=== PATIENT | female | born 1940 | race Caucasian/White ===

== ENCOUNTER 2016-11-29 11:57 | Inpatient (IN) | payer MEDICARE, OTHER ==
[~2016-11-29] VITALS: Ht 160 cm; Wt 50.1 kg
[~2016-11-29 11:57] MED LIST: BUDE3CAP2 PO; CALC-250 PO; CHLO1CAP PO; CHOL-5 PO; DENO60DI SQ; DIPY75TA PO; EZET10TA3 PO; GLEEVEC400 MG PO; HYDR-2666 PO; IPRA4AER IH; NITR0.4T SL; PANT40TA5 PO; PARO20TA3 PO; SPIR25TA3 PO; TIOT18CA IH
[2016-11-29] MEDS ORDERED: IV NORMAL SALINE 1000ML BAG 1,000 ML IV ONE (12:45)
[2016-11-29 12:54] LABS: BILIRUBIN,URINE NEGATIVE (NEG); GLUCOSE,URINE NEGATIVE (NEG); NITRITE,URINE NEGATIVE (NEG); PROTEIN,URINE 30 mg/dL (NEG-TRACE); UROBILINOGEN,URINE 0.2 mg/dL (0.2 mg/dL)
[2016-11-29 13:03] LABS: RBC,URINE OCC /HPF (0-2)
[2016-11-29 13:04] LABS: BACTERIA,URINE FEW /HPF (0-FEW); SQUAMOUS EPITHELIAL CELL,UR FEW /LPF
[2016-11-29 13:14] LABS: BASO # 0.1 x10^3/uL (0.0-0.2); BASO % 1 % (0-3); EOS % 13 % (0-3); HEMATOCRIT 26.5 % (36.0-47.0); HEMOGLOBIN 8.9 g/dL (12.0-15.5); LYMPH # 2.2 x10^3/uL (1.0-4.8); LYMPH % 25 % (24-48); MEAN CORPUSCULAR HEMOGLOBIN 33 pg (25-35); MEAN CORPUSCULAR HGB CONC 34 g/dL (31-37); MEAN CORPUSCULAR VOLUME 99 fL (79-100); MONO % 10 % (0-9); NEUT % 51 % (31-73); PLATELET COUNT 239 x10^3/uL (140-400); RED BLOOD COUNT 2.69 x10^6/uL (3.50-5.40); RED CELL DISTRIBUTION WIDTH 16.5 % (11.5-14.5); WHITE BLOOD COUNT 8.6 x10^3/uL (4.0-11.0)
[2016-11-29 13:23] LABS: INR 1.2 (0.8-1.1); PROTHROMBIN TIME PATIENT 14.3 SEC (11.7-14.0)
--- NOTE | 2016-11-29 13:24 | RAD ---
Examination: Single frontal view chest. History: Productive cough Comparison: 05/08/2015 Findings: The cardiomediastinal silhouette grossly appears unremarkable. There is no acute infiltrate or visualized pneumothorax identified. Impression: No acute cardiopulmonary findings.
[2016-11-29 13:27] LABS: CALCIUM 9.3 mg/dL (8.5-10.1); CREATININE 3.1 mg/dL (0.6-1.0); GFR 14.6; POTASSIUM 3.7 mmol/L (3.5-5.1)
[2016-11-29 13:31] LABS: % BASOS 1 % (0-3); % EOS 15 % (0-5)
[2016-11-29 13:32] LABS: ANISOCYTOSIS SLIGHT; OVALOCYTES FEW; PLT ESTIMATE ADEQUATE (ADEQUATE); TARGET CELLS FEW
[2016-11-29 13:33] LABS: ALBUMIN 4.2 g/dL (3.4-5.0); ALBUMIN/GLOBULIN RATIO 1.4 (1.0-1.7); TOTAL BILIRUBIN 0.3 mg/dL (0.2-1.0); TOTAL PROTEIN 7.2 g/dL (6.4-8.2)
[2016-11-29] MEDS ORDERED: ONDANSETRON PF 4 MG/2 ML VIAL. IV PRN (14:30)
--- NOTE | 2016-11-29 15:15 | PHYS DOC ---
Past Medical History Past Medical History: Anxiety, COPD, GERD, DE, Renal Disease, Other Additional Past Medical Histor: COLOTLITIS, CM LUEKEMIA,Osteoporosis("No Sleep apnea"hx removed per pt) Past Surgical History: Cholecystectomy, Hysterectomy, Knee Replacement, Tonsillectomy, Other Additional Past Surgical Histo: CATARACT, CARDIAC STENT, BLADDER REPAIR, CARPAL TUNNEL x3. Alcohol Use: None Drug Use: None Adult General Chief Complaint Chief Complaint: WEAKNESS/GENERALIZED HPI HPI 76-year-old female with multiple medical problems including history of renal insufficiency presents with a one to 2 month history of progressive weakness. She states that her symptoms have become debilitating over the last several days. She denies any chest pain or shortness of breath. She denies any high fever chills or sweats. She states she has had a productive cough sometime in the last few weeks but this has improved. She denies any hemoptysis.] Review of Systems Review of Systems Constitutional: Denies fever or chills [] Eyes: Denies change in visual acuity, redness, or eye pain [] HENT: Denies nasal congestion or sore throat [] Respiratory: Per history of present illness [] Cardiovascular: No additional information not addressed in HPI [] GI: Denies abdominal pain, nausea, vomiting, bloody stools or diarrhea [] : Denies dysuria or hematuria [] Musculoskeletal: Denies back pain or joint pain [] Integument: Denies rash or skin lesions [] Neurologic: Denies headache, focal weakness or sensory changes [] Endocrine: Denies polyuria or polydipsia [] Current Medications Current Medications Current Medications Medications (Trade) Dose Ordered Sig/Nidhi Start Time Stop Time Status Last Admin Dose Admin Ondansetron HCl 4 mg 4 mg PRN Q8HRS PRN 11/29/16 14:30 11/30/16 14:29 Sodium Chloride (Iv Sodium Chloride 0.9% 1000ml Bag) 1,000 ml @ 125 mls/hr Q8H 11/29/16 14:26 11/30/16 14:25 Allergies Allergies Allergies Coded Allergies Type Severity Reaction Last Updated Verified NSAIDS (Non-Steroidal Anti-Inflamma Allergy Intermediate 05/08/15 No Tetanus Vaccines and Toxoid Allergy Intermediate 05/08/15 No Physical Exam Physical Exam Constitutional: Well developed, well nourished, no acute distress, non-toxic appearance. [] HENT: Normocephalic, atraumatic, bilateral external ears normal, oropharynx moist, no oral exudates, nose normal. [] Eyes: PERRLA, EOMI, conjunctiva normal, no discharge. [] Neck: Normal range of motion, no tenderness, supple, no stridor. [] Cardiovascular:Heart rate regular rhythm, no murmur [] Lungs & Thorax: Bilateral breath sounds clear to auscultation [] Abdomen: Bowel sounds normal, soft, no tenderness, no masses, no pulsatile masses. [] Skin: Warm, dry, no erythema, no rash. [] Back: No tenderness, no CVA tenderness. [] Extremities: No tenderness, no cyanosis, no clubbing, ROM intact, no edema. [] Neurologic: Alert and oriented X 3, normal motor function, normal sensory function, no focal deficits noted. [] Psychologic: Affect normal, judgement normal, mood normal. [] Current Patient Data Vital Signs Vital Signs Date Time Temp Pulse Resp B/P Pulse Ox O2 Delivery O2 Flow Rate FiO2 11/29/16 13:49 70 14 126/62 97 Room Air 11/29/16 12:15 98.1 98.1 Lab Values Laboratory Tests Test 11/29/16 12:17 11/29/16 13:00 Urine Collection Type Unknown Urine Color Yellow Urine Clarity Clear Urine pH 5.0 Urine Specific [place] 1.010 Urine Protein 30mg/dL (NEG-TRACE) Urine Glucose (UA) Negativemg/dL (NEG) Urine Ketones (Stick) Negativemg/dL (NEG) Urine Blood Negative (NEG) Urine Nitrite Negative (NEG) Urine Bilirubin Negative (NEG) Urine Urobilinogen Dipstick 0.2mg/dL (0.2 mg/dL) Urine Leukocyte Esterase Negative (NEG) Urine RBC Occ/HPF (0-2) Urine WBC 1-4/HPF (0-4) Urine Squamous Epithelial Cells Few/LPF Urine Renal Epithelial Cells Few/LPF Urine Bacteria Few/HPF (0-FEW) Urine Hyaline Casts Many/HPF Urine Mucus Mod/LPF White Blood Count 8.6x10^3/uL (4.0-11.0) Red Blood Count 2.69x10^6/uL (3.50-5.40) L Hemoglobin 8.9g/dL (12.0-15.5) L Hematocrit 26.5% (36.0-47.0) L Mean Corpuscular Volume 99fL (79-100) Mean Corpuscular Hemoglobin 33pg (25-35) Mean Corpuscular Hemoglobin Concent 34g/dL (31-37) Red Cell Distribution Width 16.5% (11.5-14.5) H Platelet Count 239x10^3/uL (140-400) Neutrophils (%) (Auto) 51% (31-73) Lymphocytes (%) (Auto) 25% (24-48) Monocytes (%) (Auto) 10% (0-9) H Eosinophils (%) (Auto) 13% (0-3) H Basophils (%) (Auto) 1% (0-3) Neutrophils # (Auto) 4.4x10^3uL (1.8-7.7) Lymphocytes # (Auto) 2.2x10^3/uL (1.0-4.8) Monocytes # (Auto) 0.8x10^3/uL (0.0-1.1) Eosinophils # (Auto) 1.1x10^3/uL (0.0-0.7) H Basophils # (Auto) 0.1x10^3/uL (0.0-0.2) Segmented Neutrophils % 56% (35-66) Band Neutrophils % 2% (0-9) Lymphocytes % 20% (24-48) L Monocytes % 6% (0-10) Eosinophils % 15% (0-5) H Basophils % 1% (0-3) Platelet Estimate Adequate (ADEQUATE) Anisocytosis Slight Macrocytosis Slight Target Cells Few Ovalocytes Few Prothrombin Time 14.3SEC (11.7-14.0) H Prothrombin Time INR 1.2 (0.8-1.1) H Sodium Level 136mmol/L (136-145) Potassium Level 3.7mmol/L (3.5-5.1) Chloride Level 102mmol/L (98-107) Carbon Dioxide Level 19mmol/L (21-32) L Anion Gap 15 (6-14) H Blood Urea Nitrogen 68mg/dL (7-20) H Creatinine 3.1mg/dL (0.6-1.0) H Estimated GFR (Cockcroft-Gault) 14.6 BUN/Creatinine Ratio 22 (6-20) H Glucose Level 107mg/dL (70-99) H Calcium Level 9.3mg/dL (8.5-10.1) Total Bilirubin 0.3mg/dL (0.2-1.0) Aspartate Amino Transferase (AST) 35U/L (15-37) Alanine Aminotransferase (ALT) 23U/L (14-59) Alkaline Phosphatase 57U/L (46-116) Troponin I Quantitative 0.064ng/mL (0.000-0.055) Total Protein 7.2g/dL (6.4-8.2) Albumin 4.2g/dL (3.4-5.0) Albumin/Globulin Ratio 1.4 (1.0-1.7) Laboratory Tests 11/29/16 13:00 Laboratory Tests 11/29/16 13:00 EKG EKG [EKG: Normal sinus rhythm nonspecific intraventricular block rate of [address]-T changes] Radiology/Procedures Radiology/Procedures [] Impressions: PROCEDURE: CHEST AP ONLY Examination: Single frontal view chest. History: Productive cough Comparison: 05/08/2015 Findings: The cardiomediastinal silhouette grossly appears unremarkable. There is no acute infiltrate or visualized pneumothorax identified. Impression: No acute cardiopulmonary findings. Course & Med Decision Making Course & Med Decision Making Pertinent Labs and Imaging studies reviewed. (See chart for details) [ED course: Evaluation reveals a 76-year-old chronically ill female who does appear weak. Her creatinine is 3.1 baseline creatinine for her appears to be about a 1.6. Given this degree of renal failure I explained to the patient I felt it was best for her to be admitted to the hospital. She was given IV fluids during her stay in the department. We will consult nephrology to help assist in the management of her care.] Dragon Disclaimer Dragon Disclaimer This electronic medical record was generated, in whole or in part, using a voice recognition dictation system. Departure Departure Impression: Primary Impression: Renal failure Additional Impressions: Elevated troponin Generalized weakness Disposition: ADMITTED INPATIENT Admitting Physician: Chet Acosta Condition: STABLE Referrals: VERA LLOYD MD (PCP) Problem Qualifiers JAMIN SPEARS DO Nov 29, 2016 15:15
--- NOTE | 2016-11-29 15:26 | EKG ---
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
[2016-11-29 16:29] VITALS: BP 134/63
[2016-11-29] MEDS ORDERED: FURO40TA4 PO (17:29)
[2016-11-29] MEDS: IV NORMAL SALINE 1000ML BAG 1,000 ML IV SCH (17:44)
[2016-11-29 19:30] VITALS: BP 98/50
[2016-11-29 22:35] VITALS: BP 85/51
--- NOTE | 2016-11-30 01:23 | ACF ---
Admission Forms Criteria RENAL FAILURE, ACUTE Clinical Indications for Admission to Inpatient Care ( Place 'X' for any and all applicable criteria): Admission is indicated for ALL (if I & II) or III of the following [A](2)(3)(4)( 5)(6)(7): [ ]I. Acute renal failure as indicated by ANY ONE of the following: [ ]a) A 3-fold rise in serum creatinine from baseline [ ]b) Serum creatinine greater than 4 mg/dL (354 micromoles/L) with an acute rise greater than 0.5 mg/dL (44.2 micromoles/L) [ ]c) Reduction of more than 75% in estimated glomerular filtration rate from baseline [ ]d) Estimated glomerular filtration rate less than 35 mL/min/1.73m2 (0.59mL/sec/1.73m2)in a child up to 18 years of age [ ]e) Anuria indicated by ALL of the following: [ ]i) Adequate volume status [ ]ii) Cessation of urine output indicated by ANY ONE of the following: [ ]1) Urine output less than 0.3 mL/kg/hr for 24 hours [ ]2) Anuria (urine output less than 0.1 mL/kg/ hr) for 12 hours [ ] II. Renal failure cannot be managed in an outpatient setting or observational care setting as indicating by ANY ONE of the following: [ ]a) Altered mental status that is severe or persistent [ ]b) Volume overload or Respiratory distress (eg, clinically significant pulmonary edema) that is severe or persistent [ ]c) Cardiac arrhythmias of immediate concern [ ]d) Hemodynamic instability [ ]e) Clinically significant electrolyte abnormality that requires inpatient care (eg, hyperkalemia with severe ECG findings)[B] [ ]f) Clinically significant metabolic abnormality (eg, acidosis) that is severe or persistent [ ]g) Acute treatment of renal failure (eg, renal replacement therapy) not feasible or appropriate in observational care setting [ ]h) Clinical situation too unstable or uncertain (eg, inadequate urine output, ongoing decline in renal function, etiology unclear) [ ]i) Necessary support and caregiver ability to comply with outpatient treatment cannot be arranged in observation care timeframe (eg, within 24 hours) [ ]j) Other significant finding or clinical condition judged not to be within scope of observation care [X]III.General contraindications and/or Inappropriate clinical situations for Observational Care in patients with Acute Renal Failure, when ANY ONE of the following is required: [X]a) Prediction of prolongation of LOS based on ANY ONE of the following may be considered as a contraindication for observational care 2, 3, 4, 5, 6, 7, 8 , 9, 10, 11 [X]i) Age > 65 yrs. [ ]ii) Patient arriving by ambulance [ ]iii) Patient with high acuity [ ]iv) Patient requiring vital sign monitoring [ ]v) Patient on IV medication [ ]b) Systolic blood pressures 180mmHg 3,12 [ ]c) Patient with altered mental status including delirium and other alteration of consciousness, (3) [ ]d) Patient whose discharge disposition will be to a correction home or rehabilitation home should not be managed in Emergency Department Observation Unit. CMS rule requires 3 days hospital stay before such placement.3,13 [ ]e) Patient with failure to thrive due to broad array of etiologies 3, 16,17 [ ]f) Inability to ambulate 3,14 Extended stay beyond goal length of stay may be needed for(13) [ ]a) Continuing uremic complications [ ]b) Care for comorbidities [ ]c) acute renal failure [ ]d) Need for dialysis The original [employer] content created by [employer] has been revised. The portions of the content which have been revised are identified through the use of italic text or in bold, and [facility] has neither reviewed nor approved the modified material. All other unmodified content is copyright [facility]. Please see references footnoted in the original [facility] edition 2016 Admission Criteria Met?: Yes BEN ASHER Nov 30, 2016 01:23
[2016-11-30] MEDS: IV NORMAL SALINE 1000ML BAG 1,000 ML IV SCH ×2 (01:25→09:56)
[2016-11-30 03:35] VITALS: BP 93/50
[2016-11-30 03:42] LABS: BASO # 0.1 x10^3/uL (0.0-0.2); BASO % 1 % (0-3); EOS % 20 % (0-3); HEMATOCRIT 24.9 % (36.0-47.0); HEMOGLOBIN 8.2 g/dL (12.0-15.5); LYMPH # 2.4 x10^3/uL (1.0-4.8); LYMPH % 29 % (24-48); MEAN CORPUSCULAR HEMOGLOBIN 33 pg (25-35); MEAN CORPUSCULAR HGB CONC 33 g/dL (31-37); MEAN CORPUSCULAR VOLUME 99 fL (79-100); MONO % 9 % (0-9); NEUT % 41 % (31-73); PLATELET COUNT 223 x10^3/uL (140-400); RED CELL DISTRIBUTION WIDTH 16.4 % (11.5-14.5); WHITE BLOOD COUNT 8.4 x10^3/uL (4.0-11.0)
[2016-11-30 04:19] LABS: ALBUMIN 3.5 g/dL (3.4-5.0); ALBUMIN/GLOBULIN RATIO 1.5 (1.0-1.7); CALCIUM 8.3 mg/dL (8.5-10.1); CREATININE 2.5 mg/dL (0.6-1.0); GFR 18.7; TOTAL BILIRUBIN 0.3 mg/dL (0.2-1.0); TOTAL PROTEIN 5.9 g/dL (6.4-8.2)
[2016-11-30 07:00] VITALS: BP 84/51
[2016-11-30] MEDS ORDERED: NITROGLYCERIN SUBLINGUAL 0.4 MG BOTTLE OF 25. SL PRN (08:45)
[2016-11-30] MEDS ORDERED: HYDROCODONE/APAP 5/325MG TABLET. PO PRN (08:45)
[2016-11-30] MEDS ORDERED: ALBUTEROL SULFATE 2.5 MG/3 ML NEBU. NEB PRN (09:00)
[2016-11-30] MEDS: BUDESONIDE 3 MG CAP.ER.24H. PO SCH ×2 (09:00→22:02)
[2016-11-30] MEDS ORDERED: EZETIMIBE 10 MG TABLET PO SCH (09:00)
--- NOTE | 2016-11-30 09:00 | PDOC1 ---
History and Physical Date of Admission Date of Admission DATE: 11/29/16 Identification/Chief Complaint Chief Complaint Weakness, vomiting, diarrhea Source Source: Patient History of Present Illness History of Present Illness Pt says that she has not been feeling good for a while, but symptoms continued to progress. Pt was having a lot of falls at home and did not feel safe to stay at home. She has been vomiting and has had diarrhea for the past 2 weeks. She had a sinus infection at the beginning of the year that was treated with antibiotics twice. 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 Past Medical History Cardiovascular: CAD, [place], Hyperlipidemia, Valve insufficiency (Mitral Regurgitation) Pulmonary: COPD GI: GERD Heme/Onc: Anemia NOS Hepatobiliary: No pertinent hx Psych: Anxiety, Depression Musculoskeletal: Osteoarthritis Rheumatologic: No pertinent hx Infectious disease: No pertinent hx ENT: No pertinent hx Renal/: Chronic renal insuff Endocrine: Diabetes Dermatology: No pertinent hx Past Surgical History Past Surgical History: Cataract Removal, Total knee replacement, Tonsillectomy , Hysterectomy, Other (Cardiac Stents, Bladder Repair, Carpal Tunnel Repair, Breast biopsy- Normal, Eye lift) Family History Family History: Cancer, Coronary Artery Disease, Diabetes Social History Smoke: <1 pack per day ALCOHOL: occassional Drugs: None Current Problem List Problem List Problems Medical Problems: (1) Elevated troponin Status: Acute (2) Generalized weakness Status: Acute (3) Renal failure Status: Acute Problems: Current Medications Current Medications Current Medications Sodium Chloride (Iv Sodium Chloride 0.9% 1000ml Bag) 1,000 ml @ 1,000 mls/hr 1X ONCE IV Last administered on 11/29/16 13:04; Start 11/29/16 at 12:45; Stop 11/29/16 at 13:44; Status DC Ondansetron HCl 4 mg 4 mg PRN Q8HRS PRN IV NAUSEA/VOMITING; Start 11/29/16 at 14 :30; Stop 11/30/16 at 14:29 Sodium Chloride (Iv Sodium Chloride 0.9% 1000ml Bag) 1,000 ml @ 125 mls/hr Q8H IV Last administered on 11/30/16 01:25; Start 11/29/16 at 14:26; Stop 11/30/16 at 14:25 Active Scripts Active Reported Furosemide 40 Mg Tablet 40 Mg PO DAILY Nitrostat (Nitroglycerin) 0.4 Mg Tab.subl 0.4 Mg SL PRN Q5MIN PRN Persantine (Dipyridamole) 75 Mg Tablet 75 Mg PO BID Prolia (Denosumab) 60 Mg/1 Ml Disp.syrin 60 Mg SQ Paroxetine Hcl 20 Mg Tablet 20 Mg PO DAILY Librax Capsule (Chlordiazepoxide/Clidinium Br) 1 Each Capsule 1 Each PO DAILY Calcium-Vitamin D Tablet (Calcium Carbonate/Vitamin D3) 1 Each Tablet 1 Each PO DAILY Vitamin D3 (Cholecalciferol (Vitamin D3)) 10,000 Unit Tablet 10,000 Unit PO Budesonide Ec (Budesonide) 3 Mg Capdr...er 6 Mg PO DAILY Hydrocodone-Apap 5-325 (Hydrocodone Bit/Acetaminophen) 1 Each Tablet 1 Tab PO PRN Q6HRS PRN Combivent Respimat Inhal (Ipratropium/Albuterol Sulfate) 4 Gm Aer.w.adap 1 Inh IH QID PRN Spiriva (Tiotropium [place]) 18 Mcg Cap.w.dev 2 Inh IH DAILY Gleevec (Imatinib Mesylate) 400 Mg Tablet 400 Mg PO DAILY Spironolactone 25 Mg Tablet 12.5 Mg PO DAILY Zetia (Ezetimibe) 10 Mg Tablet 10 Mg PO DAILY Allergies Allergies: Coded Allergies: NSAIDS (Non-Steroidal Anti-Inflamma (Unverified Allergy, Intermediate, 09/10) Tetanus Vaccines and Toxoid (Unverified Allergy, Intermediate, 05/08/15) ROS General: YES: Appetite, Fatigue, No: Chills, Night Sweats PSYCHOLOGICAL ROS: No: Anxiety, Depression Eyes: No Decreased vision, No Eye Pain HEENT: No: Nasal congestion, Sore Throat ALLERGY AND IMMUNOLOGY: No: Hives, Post Nasal Drip Hematological and Lymphatic: No: Bleeding Problems, Blood Clots Respiratory: No: Cough, Shortness of breath Cardiovascular: No Chest Pain, No Edema, No Palpitations Gastrointestinal: Yes Diarrhea, Yes Nausea, Yes Vomiting, No Abdominal Pain, No Constipation Genitourinary: No Dysuria, No Urgency Musculoskeletal: No Joint Pain, No Muscle Pain Neurological: Yes Weakness, No Impaired Coord/balance, No Numbness/Tingling Skin: No Rash, No Skin Lesion Changes Physical Exam General: Alert, Oriented X3, Cooperative, No acute distress, Other (cachetic) HEENT: Atraumatic, PERRLA, EOMI, Mucous membr. moist/pink Lungs: Clear to auscultation, Normal air movement Heart: RRR, no rubs, no gallops, no murmurs, other (distant heart tones) Abdomen: Normal bowel sounds, Soft, No tenderness, No hepatosplenomegaly, No masses Extremities: No clubbing, No cyanosis, No edema Skin: No rashes, No breakdown, No significant lesion Neuro: Normal speech, Normal tone, Cranial nerves 3-12 NL Psych/Mental Status: Mental status NL, Mood NL Vitals Vitals Vital Signs Date Time Temp Pulse Resp B/P Pulse Ox O2 Delivery O2 Flow Rate FiO2 11/30/16 07:00 98.0 77 18 84/51 97 Room Air 98.0 Labs Labs Laboratory Tests Test 11/29/16 12:17 11/29/16 13:00 11/29/16 20:40 11/30/16 02:43 Urine Collection Type Unknown Urine Color Yellow Urine Clarity Clear Urine pH 5.0 Urine Specific [place] 1.010 Urine Protein 30mg/dL (NEG-TRACE) Urine Glucose (UA) Negativemg/dL (NEG) Urine Ketones (Stick) Negativemg/dL (NEG) Urine Blood Negative (NEG) Urine Nitrite Negative (NEG) Urine Bilirubin Negative (NEG) Urine Urobilinogen Dipstick 0.2mg/dL (0.2 mg/dL) Urine Leukocyte Esterase Negative (NEG) Urine RBC Occ/HPF (0-2) Urine WBC 1-4/HPF (0-4) Urine Squamous Epithelial Cells Few/LPF Urine Renal Epithelial Cells Few/LPF Urine Bacteria Few/HPF (0-FEW) Urine Hyaline Casts Many/HPF Urine Mucus Mod/LPF White Blood Count 8.6x10^3/uL (4.0-11.0) 8.4x10^3/uL (4.0-11.0) Red Blood Count 2.69x10^6/uL (3.50-5.40) 2.50x10^6/uL (3.50-5.40) Hemoglobin 8.9g/dL (12.0-15.5) 8.2g/dL (12.0-15.5) Hematocrit 26.5% (36.0-47.0) 24.9% (36.0-47.0) Mean Corpuscular Volume 99fL (79-100) 99fL (79-100) Mean Corpuscular Hemoglobin 33pg (25-35) 33pg (25-35) Mean Corpuscular Hemoglobin Concent 34g/dL (31-37) 33g/dL (31-37) Red Cell Distribution Width 16.5% (11.5-14.5) 16.4% (11.5-14.5) Platelet Count 239x10^3/uL (140-400) 223x10^3/uL (140-400) Neutrophils (%) (Auto) 51% (31-73) 41% (31-73) Lymphocytes (%) (Auto) 25% (24-48) 29% (24-48) Monocytes (%) (Auto) 10% (0-9) 9% (0-9) Eosinophils (%) (Auto) 13% (0-3) 20% (0-3) Basophils (%) (Auto) 1% (0-3) 1% (0-3) Neutrophils # (Auto) 4.4x10^3uL (1.8-7.7) 3.5x10^3uL (1.8-7.7) Lymphocytes # (Auto) 2.2x10^3/uL (1.0-4.8) 2.4x10^3/uL (1.0-4.8) Monocytes # (Auto) 0.8x10^3/uL (0.0-1.1) 0.7x10^3/uL (0.0-1.1) Eosinophils # (Auto) 1.1x10^3/uL (0.0-0.7) 1.7x10^3/uL (0.0-0.7) Basophils # (Auto) 0.1x10^3/uL (0.0-0.2) 0.1x10^3/uL (0.0-0.2) Segmented Neutrophils % 56% (35-66) Band Neutrophils % 2% (0-9) Lymphocytes % 20% (24-48) Monocytes % 6% (0-10) Eosinophils % 15% (0-5) Basophils % 1% (0-3) Platelet Estimate Adequate (ADEQUATE) Anisocytosis Slight Macrocytosis Slight Target Cells Few Ovalocytes Few Prothrombin Time 14.3SEC (11.7-14.0) Prothromb Time International Ratio 1.2 (0.8-1.1) Sodium Level 136mmol/L (136-145) 141mmol/L (136-145) Potassium Level 3.7mmol/L (3.5-5.1) 4.0mmol/L (3.5-5.1) Chloride Level 102mmol/L (98-107) 108mmol/L (98-107) Carbon Dioxide Level 19mmol/L (21-32) 18mmol/L (21-32) Anion Gap 15 (6-14) 15 (6-14) Blood Urea Nitrogen 68mg/dL (7-20) 56mg/dL (7-20) Creatinine 3.1mg/dL (0.6-1.0) 2.5mg/dL (0.6-1.0) Estimated GFR (Cockcroft-Gault) 14.6 18.7 BUN/Creatinine Ratio 22 (6-20) 22 (6-20) Glucose Level 107mg/dL (70-99) 81mg/dL (70-99) Calcium Level 9.3mg/dL (8.5-10.1) 8.3mg/dL (8.5-10.1) Total Bilirubin 0.3mg/dL (0.2-1.0) 0.3mg/dL (0.2-1.0) Aspartate Amino Transf (AST/SGOT) 35U/L (15-37) 28U/L (15-37) Alanine Aminotransferase (ALT/SGPT) 23U/L (14-59) 20U/L (14-59) Alkaline Phosphatase 57U/L (46-116) 48U/L (46-116) Troponin I Quantitative 0.064ng/mL (0.000-0.055) 0.063ng/mL (0.000-0.055) 0.056ng/mL (0.000-0.055) Total Protein 7.2g/dL (6.4-8.2) 5.9g/dL (6.4-8.2) Albumin 4.2g/dL (3.4-5.0) 3.5g/dL (3.4-5.0) Albumin/Globulin Ratio 1.4 (1.0-1.7) 1.5 (1.0-1.7) Laboratory Tests Test 11/29/16 12:17 11/29/16 13:00 11/29/16 20:40 11/30/16 02:43 Urine Collection Type Unknown Urine Color Yellow Urine Clarity Clear Urine pH 5.0 Urine Specific [place] 1.010 Urine Protein 30mg/dL (NEG-TRACE) Urine Glucose (UA) Negativemg/dL (NEG) Urine Ketones (Stick) Negativemg/dL (NEG) Urine Blood Negative (NEG) Urine Nitrite Negative (NEG) Urine Bilirubin Negative (NEG) Urine Urobilinogen Dipstick 0.2mg/dL (0.2 mg/dL) Urine Leukocyte Esterase Negative (NEG) Urine RBC Occ/HPF (0-2) Urine WBC 1-4/HPF (0-4) Urine Squamous Epithelial Cells Few/LPF Urine Renal Epithelial Cells Few/LPF Urine Bacteria Few/HPF (0-FEW) Urine Hyaline Casts Many/HPF Urine Mucus Mod/LPF White Blood Count 8.6x10^3/uL (4.0-11.0) 8.4x10^3/uL (4.0-11.0) Red Blood Count 2.69x10^6/uL (3.50-5.40) 2.50x10^6/uL (3.50-5.40) Hemoglobin 8.9g/dL (12.0-15.5) 8.2g/dL (12.0-15.5) Hematocrit 26.5% (36.0-47.0) 24.9% (36.0-47.0) Mean Corpuscular Volume 99fL (79-100) 99fL (79-100) Mean Corpuscular Hemoglobin 33pg (25-35) 33pg (25-35) Mean Corpuscular Hemoglobin Concent 34g/dL (31-37) 33g/dL (31-37) Red Cell Distribution Width 16.5% (11.5-14.5) 16.4% (11.5-14.5) Platelet Count 239x10^3/uL (140-400) 223x10^3/uL (140-400) Neutrophils (%) (Auto) 51% (31-73) 41% (31-73) Lymphocytes (%) (Auto) 25% (24-48) 29% (24-48) Monocytes (%) (Auto) 10% (0-9) 9% (0-9) Eosinophils (%) (Auto) 13% (0-3) 20% (0-3) Basophils (%) (Auto) 1% (0-3) 1% (0-3) Neutrophils # (Auto) 4.4x10^3uL (1.8-7.7) 3.5x10^3uL (1.8-7.7) Lymphocytes # (Auto) 2.2x10^3/uL (1.0-4.8) 2.4x10^3/uL (1.0-4.8) Monocytes # (Auto) 0.8x10^3/uL (0.0-1.1) 0.7x10^3/uL (0.0-1.1) Eosinophils # (Auto) 1.1x10^3/uL (0.0-0.7) 1.7x10^3/uL (0.0-0.7) Basophils # (Auto) 0.1x10^3/uL (0.0-0.2) 0.1x10^3/uL (0.0-0.2) Segmented Neutrophils % 56% (35-66) Band Neutrophils % 2% (0-9) Lymphocytes % 20% (24-48) Monocytes % 6% (0-10) Eosinophils % 15% (0-5) Basophils % 1% (0-3) Platelet Estimate Adequate (ADEQUATE) Anisocytosis Slight Macrocytosis Slight Target Cells Few Ovalocytes Few Prothrombin Time 14.3SEC (11.7-14.0) Prothromb Time International Ratio 1.2 (0.8-1.1) Sodium Level 136mmol/L (136-145) 141mmol/L (136-145) Potassium Level 3.7mmol/L (3.5-5.1) 4.0mmol/L (3.5-5.1) Chloride Level 102mmol/L (98-107) 108mmol/L (98-107) Carbon Dioxide Level 19mmol/L (21-32) 18mmol/L (21-32) Anion Gap 15 (6-14) 15 (6-14) Blood Urea Nitrogen 68mg/dL (7-20) 56mg/dL (7-20) Creatinine 3.1mg/dL (0.6-1.0) 2.5mg/dL (0.6-1.0) Estimated GFR (Cockcroft-Gault) 14.6 18.7 BUN/Creatinine Ratio 22 (6-20) 22 (6-20) Glucose Level 107mg/dL (70-99) 81mg/dL (70-99) Calcium Level 9.3mg/dL (8.5-10.1) 8.3mg/dL (8.5-10.1) Total Bilirubin 0.3mg/dL (0.2-1.0) 0.3mg/dL (0.2-1.0) Aspartate Amino Transf (AST/SGOT) 35U/L (15-37) 28U/L (15-37) Alanine Aminotransferase (ALT/SGPT) 23U/L (14-59) 20U/L (14-59) Alkaline Phosphatase 57U/L (46-116) 48U/L (46-116) Troponin I Quantitative 0.064ng/mL (0.000-0.055) 0.063ng/mL (0.000-0.055) 0.056ng/mL (0.000-0.055) Total Protein 7.2g/dL (6.4-8.2) 5.9g/dL (6.4-8.2) Albumin 4.2g/dL (3.4-5.0) 3.5g/dL (3.4-5.0) Albumin/Globulin Ratio 1.4 (1.0-1.7) 1.5 (1.0-1.7) VTE Prophylaxis Ordered VTE Prophylaxis Devices: Yes VTE Pharmacological Prophylaxi: No Assessment/Plan Assessment/Plan Pt is a 76yo CF admitted for acute on chronic renal failure 1)Acute on CKD- pre-renal 2/2 dehydration. Pt's Cr has decreased from 3.1 to 2.5. Baseline appears to be around 1.6 2)Sepsis- pt is currently hypotensive. She has had diarrhea for 2 weeks. C diff is pending as are blood cultures. Pt has not had fever or chills. U/A appears to be equivocal but culture is pending. Pt currently receiving IVF hydration for hypotension. Will strongly consider starting abx after blood cultures have been drawn. 3)CML- will continue pt's Gleevec and Budesonide 4)COPD- stable. Will continue duonebs and albuterol and Spiriva 5)Mitral regurgitation- will continue pt's Dipyridamole 75mg BID 6)GERD- will continue pt's Sucralfate 7)HTN- pt currently hypotensive, will hold Lasix and Aldactone 8)HLD- will continue pt's Zetia 9)Depression- will continue pt's Paroxetine 40mg 10)Elevated troponin- pt asymptomatic. Could be elevated due to kidney failure. Hx of CAD. Cardiology has been consulted, repeat troponin pending. RIAZ STEVENS MD Nov 30, 2016 09:00
--- NOTE | 2016-11-30 09:34 | PDOC1 ---
History and Physical Date of Admission Date of Admission DATE: 11/30/16 TIME: 09:26 Past Medical History Cardiovascular: CAD, [place], Hyperlipidemia, Valve insufficiency (Mitral Regurgitation) Pulmonary: COPD GI: GERD Heme/Onc: Anemia NOS Hepatobiliary: No pertinent hx Psych: Anxiety, Depression Musculoskeletal: Osteoarthritis Rheumatologic: No pertinent hx Infectious disease: No pertinent hx ENT: No pertinent hx Renal/: Chronic renal insuff Endocrine: Diabetes Dermatology: No pertinent hx Past Surgical History Past Surgical History: Cataract Removal, Total knee replacement, Tonsillectomy , Hysterectomy, Other (Cardiac Stents, Bladder Repair, Carpal Tunnel Repair, Breast biopsy- Normal, Eye lift) Family History Family History: Cancer, Coronary Artery Disease, Diabetes Social History Smoke: <1 pack per day ALCOHOL: occassional Drugs: None Current Problem List Problem List Problems Medical Problems: (1) Elevated troponin Status: Acute (2) Generalized weakness Status: Acute (3) Renal failure Status: Acute Problems: Current Medications Current Medications Current Medications Sodium Chloride (Iv Sodium Chloride 0.9% 1000ml Bag) 1,000 ml @ 1,000 mls/hr 1X ONCE IV Last administered on 11/29/16 13:04; Start 11/29/16 at 12:45; Stop 11/29/16 at 13:44; Status DC Ondansetron HCl 4 mg 4 mg PRN Q8HRS PRN IV NAUSEA/VOMITING; Start 11/29/16 at 14 :30; Stop 11/30/16 at 14:29 Sodium Chloride (Iv Sodium Chloride 0.9% 1000ml Bag) 1,000 ml @ 125 mls/hr Q8H IV Last administered on 11/30/16 01:25; Start 11/29/16 at 14:26; Stop 11/30/16 at 14:25 Budesonide (Entocort) 6 mg BID PO ; Start 11/30/16 at 09:00 EZETIMIBE (Zetia) 10 mg DAILY PO ; Start 11/30/16 at 09:00 Acetaminophen/ Hydrocodone Bitart (Lortab 5/325) 1 tab PRN Q6HRS PRN PO PAIN MILD TO MOD; Start 11/30/16 at 08:45 Nitroglycerin (Nitrostat) 0.4 mg PRN Q5MIN PRN SL CHEST PAIN; Start 11/30/16 at 08:45 Paroxetine HCl (Paxil) 40 mg DAILY PO ; Start 11/30/16 at 09:00 Dipyridamole (Persantine) 75 mg BID PO ; Start 11/30/16 at 09:00 Non-Formulary Medication 400 mg DAILY PO ; Start 11/30/16 at 10:00 Albuterol/ Ipratropium (Duoneb) 3 ml RTQID NEB ; Start 11/30/16 at 12:00 Albuterol Sulfate (Ventolin Neb Soln) 2.5 mg PRN Q6HRS PRN NEB SHORTNESS OF BREATH; Start 11/30/16 at 09:00 Active Scripts Active Reported Furosemide 40 Mg Tablet 40 Mg PO DAILY Nitrostat (Nitroglycerin) 0.4 Mg Tab.subl 0.4 Mg SL PRN Q5MIN PRN Persantine (Dipyridamole) 75 Mg Tablet 75 Mg PO BID Prolia (Denosumab) 60 Mg/1 Ml Disp.syrin 60 Mg SQ Paroxetine Hcl 20 Mg Tablet 20 Mg PO DAILY Librax Capsule (Chlordiazepoxide/Clidinium Br) 1 Each Capsule 1 Each PO DAILY Calcium-Vitamin D Tablet (Calcium Carbonate/Vitamin D3) 1 Each Tablet 1 Each PO DAILY Vitamin D3 (Cholecalciferol (Vitamin D3)) 10,000 Unit Tablet 10,000 Unit PO Budesonide Ec (Budesonide) 3 Mg Capdr...er 6 Mg PO DAILY Hydrocodone-Apap 5-325 (Hydrocodone Bit/Acetaminophen) 1 Each Tablet 1 Tab PO PRN Q6HRS PRN Combivent Respimat Inhal (Ipratropium/Albuterol Sulfate) 4 Gm Aer.w.adap 1 Inh IH QID PRN Spiriva (Tiotropium [place]) 18 Mcg Cap.w.dev 2 Inh IH DAILY Gleevec (Imatinib Mesylate) 400 Mg Tablet 400 Mg PO DAILY Spironolactone 25 Mg Tablet 12.5 Mg PO DAILY Zetia (Ezetimibe) 10 Mg Tablet 10 Mg PO DAILY Allergies Allergies: Coded Allergies: NSAIDS (Non-Steroidal Anti-Inflamma (Unverified Allergy, Intermediate, 09/10) Tetanus Vaccines and Toxoid (Unverified Allergy, Intermediate, 05/08/15) Physical Exam General: Alert, Oriented X3, Cooperative, No acute distress Lungs: Clear to auscultation, Normal air movement Heart: S1S2, other (heart sounds faint) Extremities: No clubbing, No cyanosis Skin: No rashes, No breakdown Vitals Vitals Vital Signs Date Time Temp Pulse Resp B/P Pulse Ox O2 Delivery O2 Flow Rate FiO2 11/30/16 07:00 98.0 77 18 84/51 97 Room Air 98.0 Labs Labs Laboratory Tests Test 11/29/16 12:17 11/29/16 13:00 11/29/16 20:40 11/30/16 02:43 Urine Collection Type Unknown Urine Color Yellow Urine Clarity Clear Urine pH 5.0 Urine Specific [place] 1.010 Urine Protein 30mg/dL (NEG-TRACE) Urine Glucose (UA) Negativemg/dL (NEG) Urine Ketones (Stick) Negativemg/dL (NEG) Urine Blood Negative (NEG) Urine Nitrite Negative (NEG) Urine Bilirubin Negative (NEG) Urine Urobilinogen Dipstick 0.2mg/dL (0.2 mg/dL) Urine Leukocyte Esterase Negative (NEG) Urine RBC Occ/HPF (0-2) Urine WBC 1-4/HPF (0-4) Urine Squamous Epithelial Cells Few/LPF Urine Renal Epithelial Cells Few/LPF Urine Bacteria Few/HPF (0-FEW) Urine Hyaline Casts Many/HPF Urine Mucus Mod/LPF White Blood Count 8.6x10^3/uL (4.0-11.0) 8.4x10^3/uL (4.0-11.0) Red Blood Count 2.69x10^6/uL (3.50-5.40) 2.50x10^6/uL (3.50-5.40) Hemoglobin 8.9g/dL (12.0-15.5) 8.2g/dL (12.0-15.5) Hematocrit 26.5% (36.0-47.0) 24.9% (36.0-47.0) Mean Corpuscular Volume 99fL (79-100) 99fL (79-100) Mean Corpuscular Hemoglobin 33pg (25-35) 33pg (25-35) Mean Corpuscular Hemoglobin Concent 34g/dL (31-37) 33g/dL (31-37) Red Cell Distribution Width 16.5% (11.5-14.5) 16.4% (11.5-14.5) Platelet Count 239x10^3/uL (140-400) 223x10^3/uL (140-400) Neutrophils (%) (Auto) 51% (31-73) 41% (31-73) Lymphocytes (%) (Auto) 25% (24-48) 29% (24-48) Monocytes (%) (Auto) 10% (0-9) 9% (0-9) Eosinophils (%) (Auto) 13% (0-3) 20% (0-3) Basophils (%) (Auto) 1% (0-3) 1% (0-3) Neutrophils # (Auto) 4.4x10^3uL (1.8-7.7) 3.5x10^3uL (1.8-7.7) Lymphocytes # (Auto) 2.2x10^3/uL (1.0-4.8) 2.4x10^3/uL (1.0-4.8) Monocytes # (Auto) 0.8x10^3/uL (0.0-1.1) 0.7x10^3/uL (0.0-1.1) Eosinophils # (Auto) 1.1x10^3/uL (0.0-0.7) 1.7x10^3/uL (0.0-0.7) Basophils # (Auto) 0.1x10^3/uL (0.0-0.2) 0.1x10^3/uL (0.0-0.2) Segmented Neutrophils % 56% (35-66) Band Neutrophils % 2% (0-9) Lymphocytes % 20% (24-48) Monocytes % 6% (0-10) Eosinophils % 15% (0-5) Basophils % 1% (0-3) Platelet Estimate Adequate (ADEQUATE) Anisocytosis Slight Macrocytosis Slight Target Cells Few Ovalocytes Few Prothrombin Time 14.3SEC (11.7-14.0) Prothromb Time International Ratio 1.2 (0.8-1.1) Sodium Level 136mmol/L (136-145) 141mmol/L (136-145) Potassium Level 3.7mmol/L (3.5-5.1) 4.0mmol/L (3.5-5.1) Chloride Level 102mmol/L (98-107) 108mmol/L (98-107) Carbon Dioxide Level 19mmol/L (21-32) 18mmol/L (21-32) Anion Gap 15 (6-14) 15 (6-14) Blood Urea Nitrogen 68mg/dL (7-20) 56mg/dL (7-20) Creatinine 3.1mg/dL (0.6-1.0) 2.5mg/dL (0.6-1.0) Estimated GFR (Cockcroft-Gault) 14.6 18.7 BUN/Creatinine Ratio 22 (6-20) 22 (6-20) Glucose Level 107mg/dL (70-99) 81mg/dL (70-99) Calcium Level 9.3mg/dL (8.5-10.1) 8.3mg/dL (8.5-10.1) Total Bilirubin 0.3mg/dL (0.2-1.0) 0.3mg/dL (0.2-1.0) Aspartate Amino Transf (AST/SGOT) 35U/L (15-37) 28U/L (15-37) Alanine Aminotransferase (ALT/SGPT) 23U/L (14-59) 20U/L (14-59) Alkaline Phosphatase 57U/L (46-116) 48U/L (46-116) Troponin I Quantitative 0.064ng/mL (0.000-0.055) 0.063ng/mL (0.000-0.055) 0.056ng/mL (0.000-0.055) Total Protein 7.2g/dL (6.4-8.2) 5.9g/dL (6.4-8.2) Albumin 4.2g/dL (3.4-5.0) 3.5g/dL (3.4-5.0) Albumin/Globulin Ratio 1.4 (1.0-1.7) 1.5 (1.0-1.7) Laboratory Tests Test 11/29/16 12:17 11/29/16 13:00 11/29/16 20:40 11/30/16 02:43 Urine Collection Type Unknown Urine Color Yellow Urine Clarity Clear Urine pH 5.0 Urine Specific [place] 1.010 Urine Protein 30mg/dL (NEG-TRACE) Urine Glucose (UA) Negativemg/dL (NEG) Urine Ketones (Stick) Negativemg/dL (NEG) Urine Blood Negative (NEG) Urine Nitrite Negative (NEG) Urine Bilirubin Negative (NEG) Urine Urobilinogen Dipstick 0.2mg/dL (0.2 mg/dL) Urine Leukocyte Esterase Negative (NEG) Urine RBC Occ/HPF (0-2) Urine WBC 1-4/HPF (0-4) Urine Squamous Epithelial Cells Few/LPF Urine Renal Epithelial Cells Few/LPF Urine Bacteria Few/HPF (0-FEW) Urine Hyaline Casts Many/HPF Urine Mucus Mod/LPF White Blood Count 8.6x10^3/uL (4.0-11.0) 8.4x10^3/uL (4.0-11.0) Red Blood Count 2.69x10^6/uL (3.50-5.40) 2.50x10^6/uL (3.50-5.40) Hemoglobin 8.9g/dL (12.0-15.5) 8.2g/dL (12.0-15.5) Hematocrit 26.5% (36.0-47.0) 24.9% (36.0-47.0) Mean Corpuscular Volume 99fL (79-100) 99fL (79-100) Mean Corpuscular Hemoglobin 33pg (25-35) 33pg (25-35) Mean Corpuscular Hemoglobin Concent 34g/dL (31-37) 33g/dL (31-37) Red Cell Distribution Width 16.5% (11.5-14.5) 16.4% (11.5-14.5) Platelet Count 239x10^3/uL (140-400) 223x10^3/uL (140-400) Neutrophils (%) (Auto) 51% (31-73) 41% (31-73) Lymphocytes (%) (Auto) 25% (24-48) 29% (24-48) Monocytes (%) (Auto) 10% (0-9) 9% (0-9) Eosinophils (%) (Auto) 13% (0-3) 20% (0-3) Basophils (%) (Auto) 1% (0-3) 1% (0-3) Neutrophils # (Auto) 4.4x10^3uL (1.8-7.7) 3.5x10^3uL (1.8-7.7) Lymphocytes # (Auto) 2.2x10^3/uL (1.0-4.8) 2.4x10^3/uL (1.0-4.8) Monocytes # (Auto) 0.8x10^3/uL (0.0-1.1) 0.7x10^3/uL (0.0-1.1) Eosinophils # (Auto) 1.1x10^3/uL (0.0-0.7) 1.7x10^3/uL (0.0-0.7) Basophils # (Auto) 0.1x10^3/uL (0.0-0.2) 0.1x10^3/uL (0.0-0.2) Segmented Neutrophils % 56% (35-66) Band Neutrophils % 2% (0-9) Lymphocytes % 20% (24-48) Monocytes % 6% (0-10) Eosinophils % 15% (0-5) Basophils % 1% (0-3) Platelet Estimate Adequate (ADEQUATE) Anisocytosis Slight Macrocytosis Slight Target Cells Few Ovalocytes Few Prothrombin Time 14.3SEC (11.7-14.0) Prothromb Time International Ratio 1.2 (0.8-1.1) Sodium Level 136mmol/L (136-145) 141mmol/L (136-145) Potassium Level 3.7mmol/L (3.5-5.1) 4.0mmol/L (3.5-5.1) Chloride Level 102mmol/L (98-107) 108mmol/L (98-107) Carbon Dioxide Level 19mmol/L (21-32) 18mmol/L (21-32) Anion Gap 15 (6-14) 15 (6-14) Blood Urea Nitrogen 68mg/dL (7-20) 56mg/dL (7-20) Creatinine 3.1mg/dL (0.6-1.0) 2.5mg/dL (0.6-1.0) Estimated GFR (Cockcroft-Gault) 14.6 18.7 BUN/Creatinine Ratio 22 (6-20) 22 (6-20) Glucose Level 107mg/dL (70-99) 81mg/dL (70-99) Calcium Level 9.3mg/dL (8.5-10.1) 8.3mg/dL (8.5-10.1) Total Bilirubin 0.3mg/dL (0.2-1.0) 0.3mg/dL (0.2-1.0) Aspartate Amino Transf (AST/SGOT) 35U/L (15-37) 28U/L (15-37) Alanine Aminotransferase (ALT/SGPT) 23U/L (14-59) 20U/L (14-59) Alkaline Phosphatase 57U/L (46-116) 48U/L (46-116) Troponin I Quantitative 0.064ng/mL (0.000-0.055) 0.063ng/mL (0.000-0.055) 0.056ng/mL (0.000-0.055) Total Protein 7.2g/dL (6.4-8.2) 5.9g/dL (6.4-8.2) Albumin 4.2g/dL (3.4-5.0) 3.5g/dL (3.4-5.0) Albumin/Globulin Ratio 1.4 (1.0-1.7) 1.5 (1.0-1.7) VTE Prophylaxis Ordered VTE Prophylaxis Devices: Yes VTE Pharmacological Prophylaxi: No Assessment/Plan Assessment/Plan Note was entered in error. Please see consult note. LILLIANA RODRIGUEZ MD Nov 30, 2016 09:34
--- NOTE | 2016-11-30 09:48 | PDOC2 ---
CONSULT Date of Consult Date of Consult DATE: 11/30/16 TIME: 09:44 Reason for Consult Reason for Consult: Asymptomatic elevated troponin, history of CAD Referring Physician Referring Physician: Akbar Bolton MD Identification/Chief Complaint Chief Complaint weakness, vomiting, diarrhea History of Present Illness Reason for Visit: Patient was admitted for acute on chronic kidney disease and possible sepsis. We were consulted for an elevated troponin of 0.064 and a history of CAD, HTN, and HLD. Repeat troponins were 0.063 and 0.056. Patient denies any chest pain, SOB, dizziness, or palpitations. Patient takes dipyridamole 75mg BID for mitral regurgitation. Past Medical History Cardiovascular: CAD, [place], Hyperlipidemia, Valve insufficiency (Mitral Regurgitation) Pulmonary: COPD GI: GERD Heme/Onc: Anemia NOS Hepatobiliary: No pertinent hx Psych: Anxiety, Depression Musculoskeletal: Osteoarthritis Rheumatologic: No pertinent hx Infectious disease: No pertinent hx ENT: No pertinent hx Renal/: Chronic renal insuff Endocrine: Diabetes Dermatology: No pertinent hx Past Surgical History Past Surgical History: Cataract Removal, Total knee replacement, Tonsillectomy , Hysterectomy, Other (Cardiac Stents, Bladder Repair, Carpal Tunnel Repair, Breast biopsy- Normal, Eye lift) Family History Family History: Cancer, Coronary Artery Disease, Diabetes Social History <1 pack per day ALCOHOL: occassional Drugs: None Lives: with Family Current Problem List Problem List Problems Medical Problems: (1) Elevated troponin Status: Acute (2) Generalized weakness Status: Acute (3) Renal failure Status: Acute Current Medications Current Medications Current Medications Sodium Chloride (Iv Sodium Chloride 0.9% 1000ml Bag) 1,000 ml @ 1,000 mls/hr 1X ONCE IV Last administered on 11/29/16 13:04; Start 11/29/16 at 12:45; Stop 11/29/16 at 13:44; Status DC Ondansetron HCl 4 mg 4 mg PRN Q8HRS PRN IV NAUSEA/VOMITING; Start 11/29/16 at 14 :30; Stop 11/30/16 at 14:29 Sodium Chloride (Iv Sodium Chloride 0.9% 1000ml Bag) 1,000 ml @ 125 mls/hr Q8H IV Last administered on 11/30/16 01:25; Start 11/29/16 at 14:26; Stop 11/30/16 at 14:25 Budesonide (Entocort) 6 mg BID PO ; Start 11/30/16 at 09:00 EZETIMIBE (Zetia) 10 mg DAILY PO ; Start 11/30/16 at 09:00 Acetaminophen/ Hydrocodone Bitart (Lortab 5/325) 1 tab PRN Q6HRS PRN PO PAIN MILD TO MOD; Start 11/30/16 at 08:45 Nitroglycerin (Nitrostat) 0.4 mg PRN Q5MIN PRN SL CHEST PAIN; Start 11/30/16 at 08:45 Paroxetine HCl (Paxil) 40 mg DAILY PO ; Start 11/30/16 at 09:00 Dipyridamole (Persantine) 75 mg BID PO ; Start 11/30/16 at 09:00 Non-Formulary Medication 400 mg DAILY PO ; Start 11/30/16 at 10:00 Albuterol/ Ipratropium (Duoneb) 3 ml RTQID NEB ; Start 11/30/16 at 12:00 Albuterol Sulfate (Ventolin Neb Soln) 2.5 mg PRN Q6HRS PRN NEB SHORTNESS OF BREATH; Start 11/30/16 at 09:00 Active Scripts Active Reported Furosemide 40 Mg Tablet 40 Mg PO DAILY Nitrostat (Nitroglycerin) 0.4 Mg Tab.subl 0.4 Mg SL PRN Q5MIN PRN Persantine (Dipyridamole) 75 Mg Tablet 75 Mg PO BID Prolia (Denosumab) 60 Mg/1 Ml Disp.syrin 60 Mg SQ Paroxetine Hcl 20 Mg Tablet 20 Mg PO DAILY Librax Capsule (Chlordiazepoxide/Clidinium Br) 1 Each Capsule 1 Each PO DAILY Calcium-Vitamin D Tablet (Calcium Carbonate/Vitamin D3) 1 Each Tablet 1 Each PO DAILY Vitamin D3 (Cholecalciferol (Vitamin D3)) 10,000 Unit Tablet 10,000 Unit PO Budesonide Ec (Budesonide) 3 Mg Capdr...er 6 Mg PO DAILY Hydrocodone-Apap 5-325 (Hydrocodone Bit/Acetaminophen) 1 Each Tablet 1 Tab PO PRN Q6HRS PRN Combivent Respimat Inhal (Ipratropium/Albuterol Sulfate) 4 Gm Aer.w.adap 1 Inh IH QID PRN Spiriva (Tiotropium [place]) 18 Mcg Cap.w.dev 2 Inh IH DAILY Gleevec (Imatinib Mesylate) 400 Mg Tablet 400 Mg PO DAILY Spironolactone 25 Mg Tablet 12.5 Mg PO DAILY Zetia (Ezetimibe) 10 Mg Tablet 10 Mg PO DAILY Allergies Allergies: Coded Allergies: NSAIDS (Non-Steroidal Anti-Inflamma (Unverified Allergy, Intermediate, 09/10) Tetanus Vaccines and Toxoid (Unverified Allergy, Intermediate, 05/08/15) Physical Exam General: Alert, Oriented X3, Cooperative, No acute distress Lungs: Clear to auscultation Heart: Regular rate, Normal S1, Normal S2, Other (II/ syst murmur best at apex) Extremities: No clubbing, No cyanosis, No edema Skin: No rashes, No breakdown Psych/Mental Status: Mental status NL Vitals VITALS Vital Signs Date Time Temp Pulse Resp B/P Pulse Ox O2 Delivery O2 Flow Rate FiO2 11/30/16 07:00 98.0 77 18 84/51 97 Room Air 98.0 Labs Labs Laboratory Tests Test 11/29/16 12:17 11/29/16 13:00 11/29/16 20:40 11/30/16 02:43 Urine Collection Type Unknown Urine Color Yellow Urine Clarity Clear Urine pH 5.0 Urine Specific [place] 1.010 Urine Protein 30mg/dL (NEG-TRACE) Urine Glucose (UA) Negativemg/dL (NEG) Urine Ketones (Stick) Negativemg/dL (NEG) Urine Blood Negative (NEG) Urine Nitrite Negative (NEG) Urine Bilirubin Negative (NEG) Urine Urobilinogen Dipstick 0.2mg/dL (0.2 mg/dL) Urine Leukocyte Esterase Negative (NEG) Urine RBC Occ/HPF (0-2) Urine WBC 1-4/HPF (0-4) Urine Squamous Epithelial Cells Few/LPF Urine Renal Epithelial Cells Few/LPF Urine Bacteria Few/HPF (0-FEW) Urine Hyaline Casts Many/HPF Urine Mucus Mod/LPF White Blood Count 8.6x10^3/uL (4.0-11.0) 8.4x10^3/uL (4.0-11.0) Red Blood Count 2.69x10^6/uL (3.50-5.40) 2.50x10^6/uL (3.50-5.40) Hemoglobin 8.9g/dL (12.0-15.5) 8.2g/dL (12.0-15.5) Hematocrit 26.5% (36.0-47.0) 24.9% (36.0-47.0) Mean Corpuscular Volume 99fL (79-100) 99fL (79-100) Mean Corpuscular Hemoglobin 33pg (25-35) 33pg (25-35) Mean Corpuscular Hemoglobin Concent 34g/dL (31-37) 33g/dL (31-37) Red Cell Distribution Width 16.5% (11.5-14.5) 16.4% (11.5-14.5) Platelet Count 239x10^3/uL (140-400) 223x10^3/uL (140-400) Neutrophils (%) (Auto) 51% (31-73) 41% (31-73) Lymphocytes (%) (Auto) 25% (24-48) 29% (24-48) Monocytes (%) (Auto) 10% (0-9) 9% (0-9) Eosinophils (%) (Auto) 13% (0-3) 20% (0-3) Basophils (%) (Auto) 1% (0-3) 1% (0-3) Neutrophils # (Auto) 4.4x10^3uL (1.8-7.7) 3.5x10^3uL (1.8-7.7) Lymphocytes # (Auto) 2.2x10^3/uL (1.0-4.8) 2.4x10^3/uL (1.0-4.8) Monocytes # (Auto) 0.8x10^3/uL (0.0-1.1) 0.7x10^3/uL (0.0-1.1) Eosinophils # (Auto) 1.1x10^3/uL (0.0-0.7) 1.7x10^3/uL (0.0-0.7) Basophils # (Auto) 0.1x10^3/uL (0.0-0.2) 0.1x10^3/uL (0.0-0.2) Segmented Neutrophils % 56% (35-66) Band Neutrophils % 2% (0-9) Lymphocytes % 20% (24-48) Monocytes % 6% (0-10) Eosinophils % 15% (0-5) Basophils % 1% (0-3) Platelet Estimate Adequate (ADEQUATE) Anisocytosis Slight Macrocytosis Slight Target Cells Few Ovalocytes Few Prothrombin Time 14.3SEC (11.7-14.0) Prothromb Time International Ratio 1.2 (0.8-1.1) Sodium Level 136mmol/L (136-145) 141mmol/L (136-145) Potassium Level 3.7mmol/L (3.5-5.1) 4.0mmol/L (3.5-5.1) Chloride Level 102mmol/L (98-107) 108mmol/L (98-107) Carbon Dioxide Level 19mmol/L (21-32) 18mmol/L (21-32) Anion Gap 15 (6-14) 15 (6-14) Blood Urea Nitrogen 68mg/dL (7-20) 56mg/dL (7-20) Creatinine 3.1mg/dL (0.6-1.0) 2.5mg/dL (0.6-1.0) Estimated GFR (Cockcroft-Gault) 14.6 18.7 BUN/Creatinine Ratio 22 (6-20) 22 (6-20) Glucose Level 107mg/dL (70-99) 81mg/dL (70-99) Calcium Level 9.3mg/dL (8.5-10.1) 8.3mg/dL (8.5-10.1) Total Bilirubin 0.3mg/dL (0.2-1.0) 0.3mg/dL (0.2-1.0) Aspartate Amino Transf (AST/SGOT) 35U/L (15-37) 28U/L (15-37) Alanine Aminotransferase (ALT/SGPT) 23U/L (14-59) 20U/L (14-59) Alkaline Phosphatase 57U/L (46-116) 48U/L (46-116) Troponin I Quantitative 0.064ng/mL (0.000-0.055) 0.063ng/mL (0.000-0.055) 0.056ng/mL (0.000-0.055) Total Protein 7.2g/dL (6.4-8.2) 5.9g/dL (6.4-8.2) Albumin 4.2g/dL (3.4-5.0) 3.5g/dL (3.4-5.0) Albumin/Globulin Ratio 1.4 (1.0-1.7) 1.5 (1.0-1.7) Laboratory Tests Test 11/29/16 12:17 11/29/16 13:00 11/29/16 20:40 11/30/16 02:43 Urine Collection Type Unknown Urine Color Yellow Urine Clarity Clear Urine pH 5.0 Urine Specific [place] 1.010 Urine Protein 30mg/dL (NEG-TRACE) Urine Glucose (UA) Negativemg/dL (NEG) Urine Ketones (Stick) Negativemg/dL (NEG) Urine Blood Negative (NEG) Urine Nitrite Negative (NEG) Urine Bilirubin Negative (NEG) Urine Urobilinogen Dipstick 0.2mg/dL (0.2 mg/dL) Urine Leukocyte Esterase Negative (NEG) Urine RBC Occ/HPF (0-2) Urine WBC 1-4/HPF (0-4) Urine Squamous Epithelial Cells Few/LPF Urine Renal Epithelial Cells Few/LPF Urine Bacteria Few/HPF (0-FEW) Urine Hyaline Casts Many/HPF Urine Mucus Mod/LPF White Blood Count 8.6x10^3/uL (4.0-11.0) 8.4x10^3/uL (4.0-11.0) Red Blood Count 2.69x10^6/uL (3.50-5.40) 2.50x10^6/uL (3.50-5.40) Hemoglobin 8.9g/dL (12.0-15.5) 8.2g/dL (12.0-15.5) Hematocrit 26.5% (36.0-47.0) 24.9% (36.0-47.0) Mean Corpuscular Volume 99fL (79-100) 99fL (79-100) Mean Corpuscular Hemoglobin 33pg (25-35) 33pg (25-35) Mean Corpuscular Hemoglobin Concent 34g/dL (31-37) 33g/dL (31-37) Red Cell Distribution Width 16.5% (11.5-14.5) 16.4% (11.5-14.5) Platelet Count 239x10^3/uL (140-400) 223x10^3/uL (140-400) Neutrophils (%) (Auto) 51% (31-73) 41% (31-73) Lymphocytes (%) (Auto) 25% (24-48) 29% (24-48) Monocytes (%) (Auto) 10% (0-9) 9% (0-9) Eosinophils (%) (Auto) 13% (0-3) 20% (0-3) Basophils (%) (Auto) 1% (0-3) 1% (0-3) Neutrophils # (Auto) 4.4x10^3uL (1.8-7.7) 3.5x10^3uL (1.8-7.7) Lymphocytes # (Auto) 2.2x10^3/uL (1.0-4.8) 2.4x10^3/uL (1.0-4.8) Monocytes # (Auto) 0.8x10^3/uL (0.0-1.1) 0.7x10^3/uL (0.0-1.1) Eosinophils # (Auto) 1.1x10^3/uL (0.0-0.7) 1.7x10^3/uL (0.0-0.7) Basophils # (Auto) 0.1x10^3/uL (0.0-0.2) 0.1x10^3/uL (0.0-0.2) Segmented Neutrophils % 56% (35-66) Band Neutrophils % 2% (0-9) Lymphocytes % 20% (24-48) Monocytes % 6% (0-10) Eosinophils % 15% (0-5) Basophils % 1% (0-3) Platelet Estimate Adequate (ADEQUATE) Anisocytosis Slight Macrocytosis Slight Target Cells Few Ovalocytes Few Prothrombin Time 14.3SEC (11.7-14.0) Prothromb Time International Ratio 1.2 (0.8-1.1) Sodium Level 136mmol/L (136-145) 141mmol/L (136-145) Potassium Level 3.7mmol/L (3.5-5.1) 4.0mmol/L (3.5-5.1) Chloride Level 102mmol/L (98-107) 108mmol/L (98-107) Carbon Dioxide Level 19mmol/L (21-32) 18mmol/L (21-32) Anion Gap 15 (6-14) 15 (6-14) Blood Urea Nitrogen 68mg/dL (7-20) 56mg/dL (7-20) Creatinine 3.1mg/dL (0.6-1.0) 2.5mg/dL (0.6-1.0) Estimated GFR (Cockcroft-Gault) 14.6 18.7 BUN/Creatinine Ratio 22 (6-20) 22 (6-20) Glucose Level 107mg/dL (70-99) 81mg/dL (70-99) Calcium Level 9.3mg/dL (8.5-10.1) 8.3mg/dL (8.5-10.1) Total Bilirubin 0.3mg/dL (0.2-1.0) 0.3mg/dL (0.2-1.0) Aspartate Amino Transf (AST/SGOT) 35U/L (15-37) 28U/L (15-37) Alanine Aminotransferase (ALT/SGPT) 23U/L (14-59) 20U/L (14-59) Alkaline Phosphatase 57U/L (46-116) 48U/L (46-116) Troponin I Quantitative 0.064ng/mL (0.000-0.055) 0.063ng/mL (0.000-0.055) 0.056ng/mL (0.000-0.055) Total Protein 7.2g/dL (6.4-8.2) 5.9g/dL (6.4-8.2) Albumin 4.2g/dL (3.4-5.0) 3.5g/dL (3.4-5.0) Albumin/Globulin Ratio 1.4 (1.0-1.7) 1.5 (1.0-1.7) Assessment/Plan Assessment/Plan This pt comes in with diarrhea, dehydration and hypovolemia with renal insufficiency and elevated troponin. To exam she has a murmur of MR, no acute EKG abnormalities. I do not think that she had a non-STEMI but cannot rule out multifactorial ischemia. Will get an echocardiogram to evaluate the LV function and the murmur. Thank you LILLIANA RODRIGUEZ MD Nov 30, 2016 09:48
[2016-11-30] MEDS: PAROXETINE 20 MG TABLET. PO SCH (10:07)
[2016-11-30] MEDS: DIPYRIDAMOLE 25 MG TABLET PO SCH ×2 (10:15→22:03)
[2016-11-30 11:00] VITALS: BP 104/53
[2016-11-30] MEDS: IPRATRPIUM/ALBUTEROL 0.5/2.5MG 3 ML NEBU. NEB SCH ×3 (12:07→20:07)
--- NOTE | 2016-11-30 13:15 | PDOC2 ---
CONSULT Date of Consult Date of Consult DATE: 11/30/16 TIME: 13:14 Reason for Consult Reason for Consult: ANGELICA/ CKD III Referring Physician Referring Physician: Dr Boltno Identification/Chief Complaint Chief Complaint NVD Problems: Source Source: Chart review, Patient History of Present Illness Reason for Visit: as dictated Past Medical History Cardiovascular: CAD, [place], Hyperlipidemia, Valve insufficiency (Mitral Regurgitation) Pulmonary: COPD GI: GERD Heme/Onc: Anemia NOS Hepatobiliary: No pertinent hx Psych: Anxiety, Depression Musculoskeletal: Osteoarthritis Rheumatologic: No pertinent hx Infectious disease: No pertinent hx ENT: No pertinent hx Renal/: Chronic renal insuff Endocrine: Diabetes Dermatology: No pertinent hx Past Surgical History Past Surgical History: Cataract Removal, Total knee replacement, Tonsillectomy , Hysterectomy, Other (Cardiac Stents, Bladder Repair, Carpal Tunnel Repair, Breast biopsy- Normal, Eye lift) Family History Family History: Cancer, Coronary Artery Disease, Diabetes Social History <1 pack per day ALCOHOL: occassional Drugs: None Lives: with Family Current Problem List Problem List Problems Medical Problems: (1) Elevated troponin Status: Acute (2) Generalized weakness Status: Acute (3) Renal failure Status: Acute Current Medications Current Medications Current Medications Sodium Chloride (Iv Sodium Chloride 0.9% 1000ml Bag) 1,000 ml @ 1,000 mls/hr 1X ONCE IV Last administered on 11/29/16 13:04; Start 11/29/16 at 12:45; Stop 11/29/16 at 13:44; Status DC Ondansetron HCl 4 mg 4 mg PRN Q8HRS PRN IV NAUSEA/VOMITING; Start 11/29/16 at 14 :30; Stop 11/30/16 at 14:29 Sodium Chloride (Iv Sodium Chloride 0.9% 1000ml Bag) 1,000 ml @ 125 mls/hr Q8H IV Last administered on 11/30/16 09:56; Start 11/29/16 at 14:26; Stop 11/30/16 at 14:25 Budesonide (Entocort) 6 mg BID PO ; Start 11/30/16 at 09:00 EZETIMIBE (Zetia) 10 mg DAILY PO ; Start 11/30/16 at 09:00; Stop 11/30/16 at 10:48 ; Status DC Acetaminophen/ Hydrocodone Bitart (Lortab 5/325) 1 tab PRN Q6HRS PRN PO PAIN MILD TO MOD; Start 11/30/16 at 08:45 Nitroglycerin (Nitrostat) 0.4 mg PRN Q5MIN PRN SL CHEST PAIN; Start 11/30/16 at 08:45 Paroxetine HCl (Paxil) 40 mg DAILY PO Last administered on 11/30/16 10:07; Start 11/30/16 at 09:00 Dipyridamole (Persantine) 75 mg BID PO Last administered on 11/30/16 10:15; Start 11/30/16 at 09:00 Non-Formulary Medication 400 mg DAILY PO Last administered on 11/30/16 10:08; Start 11/30/16 at 10:00 Albuterol/ Ipratropium (Duoneb) 3 ml RTQID NEB Last administered on 11/30/16 12 :07; Start 11/30/16 at 12:00 Albuterol Sulfate (Ventolin Neb Soln) 2.5 mg PRN Q6HRS PRN NEB SHORTNESS OF BREATH; Start 11/30/16 at 09:00 EZETIMIBE (Zetia) 10 mg QHS PO ; Start 11/30/16 at 21:00 Active Scripts Active Reported Furosemide 40 Mg Tablet 40 Mg PO DAILY Nitrostat (Nitroglycerin) 0.4 Mg Tab.subl 0.4 Mg SL PRN Q5MIN PRN Persantine (Dipyridamole) 75 Mg Tablet 75 Mg PO BID Prolia (Denosumab) 60 Mg/1 Ml Disp.syrin 60 Mg SQ Paroxetine Hcl 20 Mg Tablet 20 Mg PO DAILY Librax Capsule (Chlordiazepoxide/Clidinium Br) 1 Each Capsule 1 Each PO DAILY Calcium-Vitamin D Tablet (Calcium Carbonate/Vitamin D3) 1 Each Tablet 1 Each PO DAILY Vitamin D3 (Cholecalciferol (Vitamin D3)) 10,000 Unit Tablet 10,000 Unit PO Budesonide Ec (Budesonide) 3 Mg Capdr...er 6 Mg PO DAILY Hydrocodone-Apap 5-325 (Hydrocodone Bit/Acetaminophen) 1 Each Tablet 1 Tab PO PRN Q6HRS PRN Combivent Respimat Inhal (Ipratropium/Albuterol Sulfate) 4 Gm Aer.w.adap 1 Inh IH QID PRN Spiriva (Tiotropium [place]) 18 Mcg Cap.w.dev 2 Inh IH DAILY Gleevec (Imatinib Mesylate) 400 Mg Tablet 400 Mg PO DAILY Spironolactone 25 Mg Tablet 12.5 Mg PO DAILY Zetia (Ezetimibe) 10 Mg Tablet 10 Mg PO DAILY Allergies Allergies: Coded Allergies: NSAIDS (Non-Steroidal Anti-Inflamma (Unverified Allergy, Intermediate, 09/10) Tetanus Vaccines and Toxoid (Unverified Allergy, Intermediate, 05/08/15) ROS Review of System GEN: no Fevers no Chills EYES: no new Visual Complaints ENT: no EN Drainage no Hearing deficiets CVS: no Orthopnea no CP RESP: no SOB no VENCES GI: + Nausea + Vomiting + Diarrhea : no Dysuria no Urgency HEME: no easy bruising no Palp Ly Nodes NEURO no Focal Weakness no Sz PSYCH: no Suicidal Ideation no Depression SKIN: no Rashes ENDO: no Polyuria or Polydipsia no Hot/Cold Intolerance MU SK: min Arthraigia occ Myalgia Physical Exam Physical Exam General Appearance: Awake Alert Oriented x 3 In no Distress Eyes: VIsion Unchanged Conjunctiva Normal EN: No EN Drainage Mucous Memb. moist Neck: no JVD min JVP Supple no Thyromegaly CVS: S1 S2 soft Murmur No Gallop No Rub no Edema Resp: no Rales no Rhonchi no Acc. Muscle use GI: BAS +ve NO Bruit Non Tender Non Distended : no CVA tenderness; no Suprapubic Tenderness SKIN: no Rashes Breast Exam deferred Mu.Sk: Adequate ROM min Muscle Atrophy Heme: Unable to palpate Obvious LAD no palp Splenomegaly NEURO: Good Strength and Tone Cranial Nerves II - XII grossly intact Psych: somewaht Depressed appearring; no Active hallucination Vital Signs Vital Signs Date Time Temp Pulse Resp B/P Pulse Ox O2 Delivery O2 Flow Rate FiO2 11/30/16 12:11 98 Room Air 11/30/16 11:00 98.1 86 18 104/53 98.1 Assessment & Plan Angelica VMn due to NVD - ct IVF for now. Doubt TLS oper se. Current FLuid and E- lyte status does not necessitate emergent need for Dialysis. Improving with IVF ? CKD III - check US Oliguria as documented - needs Better documentation. 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 Due to Vol depeltion ? CHF/ VHDz - Await ECHO; Hold Diuresis for now. Await cardio eval Discussed Plan of Care and prognosis etc. at length with family. Labs Labs Laboratory Tests Test 11/29/16 12:17 11/29/16 13:00 11/29/16 20:40 11/30/16 02:43 Urine Collection Type Unknown Urine Color Yellow Urine Clarity Clear Urine pH 5.0 Urine Specific [place] 1.010 Urine Protein 30mg/dL (NEG-TRACE) Urine Glucose (UA) Negativemg/dL (NEG) Urine Ketones (Stick) Negativemg/dL (NEG) Urine Blood Negative (NEG) Urine Nitrite Negative (NEG) Urine Bilirubin Negative (NEG) Urine Urobilinogen Dipstick 0.2mg/dL (0.2 mg/dL) Urine Leukocyte Esterase Negative (NEG) Urine RBC Occ/HPF (0-2) Urine WBC 1-4/HPF (0-4) Urine Squamous Epithelial Cells Few/LPF Urine Renal Epithelial Cells Few/LPF Urine Bacteria Few/HPF (0-FEW) Urine Hyaline Casts Many/HPF Urine Mucus Mod/LPF White Blood Count 8.6x10^3/uL (4.0-11.0) 8.4x10^3/uL (4.0-11.0) Red Blood Count 2.69x10^6/uL (3.50-5.40) 2.50x10^6/uL (3.50-5.40) Hemoglobin 8.9g/dL (12.0-15.5) 8.2g/dL (12.0-15.5) Hematocrit 26.5% (36.0-47.0) 24.9% (36.0-47.0) Mean Corpuscular Volume 99fL (79-100) 99fL (79-100) Mean Corpuscular Hemoglobin 33pg (25-35) 33pg (25-35) Mean Corpuscular Hemoglobin Concent 34g/dL (31-37) 33g/dL (31-37) Red Cell Distribution Width 16.5% (11.5-14.5) 16.4% (11.5-14.5) Platelet Count 239x10^3/uL (140-400) 223x10^3/uL (140-400) Neutrophils (%) (Auto) 51% (31-73) 41% (31-73) Lymphocytes (%) (Auto) 25% (24-48) 29% (24-48) Monocytes (%) (Auto) 10% (0-9) 9% (0-9) Eosinophils (%) (Auto) 13% (0-3) 20% (0-3) Basophils (%) (Auto) 1% (0-3) 1% (0-3) Neutrophils # (Auto) 4.4x10^3uL (1.8-7.7) 3.5x10^3uL (1.8-7.7) Lymphocytes # (Auto) 2.2x10^3/uL (1.0-4.8) 2.4x10^3/uL (1.0-4.8) Monocytes # (Auto) 0.8x10^3/uL (0.0-1.1) 0.7x10^3/uL (0.0-1.1) Eosinophils # (Auto) 1.1x10^3/uL (0.0-0.7) 1.7x10^3/uL (0.0-0.7) Basophils # (Auto) 0.1x10^3/uL (0.0-0.2) 0.1x10^3/uL (0.0-0.2) Segmented Neutrophils % 56% (35-66) Band Neutrophils % 2% (0-9) Lymphocytes % 20% (24-48) Monocytes % 6% (0-10) Eosinophils % 15% (0-5) Basophils % 1% (0-3) Platelet Estimate Adequate (ADEQUATE) Anisocytosis Slight Macrocytosis Slight Target Cells Few Ovalocytes Few Prothrombin Time 14.3SEC (11.7-14.0) Prothromb Time International Ratio 1.2 (0.8-1.1) Sodium Level 136mmol/L (136-145) 141mmol/L (136-145) Potassium Level 3.7mmol/L (3.5-5.1) 4.0mmol/L (3.5-5.1) Chloride Level 102mmol/L (98-107) 108mmol/L (98-107) Carbon Dioxide Level 19mmol/L (21-32) 18mmol/L (21-32) Anion Gap 15 (6-14) 15 (6-14) Blood Urea Nitrogen 68mg/dL (7-20) 56mg/dL (7-20) Creatinine 3.1mg/dL (0.6-1.0) 2.5mg/dL (0.6-1.0) Estimated GFR (Cockcroft-Gault) 14.6 18.7 BUN/Creatinine Ratio 22 (6-20) 22 (6-20) Glucose Level 107mg/dL (70-99) 81mg/dL (70-99) Calcium Level 9.3mg/dL (8.5-10.1) 8.3mg/dL (8.5-10.1) Total Bilirubin 0.3mg/dL (0.2-1.0) 0.3mg/dL (0.2-1.0) Aspartate Amino Transf (AST/SGOT) 35U/L (15-37) 28U/L (15-37) Alanine Aminotransferase (ALT/SGPT) 23U/L (14-59) 20U/L (14-59) Alkaline Phosphatase 57U/L (46-116) 48U/L (46-116) Troponin I Quantitative 0.064ng/mL (0.000-0.055) 0.063ng/mL (0.000-0.055) 0.056ng/mL (0.000-0.055) Total Protein 7.2g/dL (6.4-8.2) 5.9g/dL (6.4-8.2) Albumin 4.2g/dL (3.4-5.0) 3.5g/dL (3.4-5.0) Albumin/Globulin Ratio 1.4 (1.0-1.7) 1.5 (1.0-1.7) Test 11/30/16 09:10 Troponin I Quantitative 0.049ng/mL (0.000-0.055) Laboratory Tests Test 11/29/16 20:40 11/30/16 02:43 11/30/16 09:10 Troponin I Quantitative 0.063ng/mL (0.000-0.055) 0.056ng/mL (0.000-0.055) 0.049ng/mL (0.000-0.055) White Blood Count 8.4x10^3/uL (4.0-11.0) Red Blood Count 2.50x10^6/uL (3.50-5.40) Hemoglobin 8.2g/dL (12.0-15.5) Hematocrit 24.9% (36.0-47.0) Mean Corpuscular Volume 99fL (79-100) Mean Corpuscular Hemoglobin 33pg (25-35) Mean Corpuscular Hemoglobin Concent 33g/dL (31-37) Red Cell Distribution Width 16.4% (11.5-14.5) Platelet Count 223x10^3/uL (140-400) Neutrophils (%) (Auto) 41% (31-73) Lymphocytes (%) (Auto) 29% (24-48) Monocytes (%) (Auto) 9% (0-9) Eosinophils (%) (Auto) 20% (0-3) Basophils (%) (Auto) 1% (0-3) Neutrophils # (Auto) 3.5x10^3uL (1.8-7.7) Lymphocytes # (Auto) 2.4x10^3/uL (1.0-4.8) Monocytes # (Auto) 0.7x10^3/uL (0.0-1.1) Eosinophils # (Auto) 1.7x10^3/uL (0.0-0.7) Basophils # (Auto) 0.1x10^3/uL (0.0-0.2) Sodium Level 141mmol/L (136-145) Potassium Level 4.0mmol/L (3.5-5.1) Chloride Level 108mmol/L (98-107) Carbon Dioxide Level 18mmol/L (21-32) Anion Gap 15 (6-14) Blood Urea Nitrogen 56mg/dL (7-20) Creatinine 2.5mg/dL (0.6-1.0) Estimated GFR (Cockcroft-Gault) 18.7 BUN/Creatinine Ratio 22 (6-20) Glucose Level 81mg/dL (70-99) Calcium Level 8.3mg/dL (8.5-10.1) Total Bilirubin 0.3mg/dL (0.2-1.0) Aspartate Amino Transf (AST/SGOT) 28U/L (15-37) Alanine Aminotransferase (ALT/SGPT) 20U/L (14-59) Alkaline Phosphatase 48U/L (46-116) Total Protein 5.9g/dL (6.4-8.2) Albumin 3.5g/dL (3.4-5.0) Albumin/Globulin Ratio 1.5 (1.0-1.7) Images Images No acute cardiopulmonary findings. LUCERO SKAGGS MD Nov 30, 2016 13:15
[2016-11-30] MEDS ORDERED: MAGNESIUM SULFATE 2GM 50 ML IV PRN (13:45)
[2016-11-30] MEDS: SODIUM BICARBONATE VIAL 150 MEQ in IV DEXTROSE 5% 1,000 ML IV SCH (14:40)
[2016-11-30 15:00] VITALS: BP 91/46
--- NOTE | 2016-11-30 18:44 | CARD ---
APPROVED REPORT EXAM: Two-dimensional and M-mode echocardiogram with Doppler and color Doppler. Other Information Quality : GoodHR: 78bpm Rhythm : NSR INDICATION Cardiac Disease: CAD Ekevated troponin 2D DIMENSIONS RVDd1.9 (2.9-3.5cm)Left Atrium(2D)4.3 (1.6-4.0cm) IVSd1.2 (0.7-1.1cm)Aortic Root(2D)1.5 (2.0-3.7cm) LVDd5.5 (3.9-5.9cm)LVOT Diameter2.2 (1.8-2.4cm) PWd1.2 (0.7-1.1cm)LVDs4.2 (2.5-4.0cm) FS (%) 23.9 %SV69.3 ml LVEF(%)40.0 (>50%) Aortic Valve AoV Peak Jigar.166.9cm/sAoV VTI35.2cm AO Peak GR.11.1mmHgLVOT VTI 17.97cm AO Mean GR.6mmHgAI P 1/2 [id number] Mitral Valve MV E Xmwlnrzs50.1cm/sMV E Peak Gr.12mmHg MV DECEL [id number] A Tkjltqfb169.9cm/s MV E Mean Gr.4mmHgE/A Ratio0.5 MV A Ntmgxfcr34wd TDI Lateral E' P. V7.92cm/sMedial E' P. V7.08cm/s E/Lateral E'10.6E/Medial E'11.9 Tricuspid Valve TR P. Ioxpaods670oq/sRAP ZMTFANEN9hmSe TR Peak Gr.87fpQdRIVB62iaBi Pulmonary Vein S1 Nlbkzxge70.8cm/sS2 Etvlpuxi57.22cm/s D2 Nrfibyhp64.2cm/sPVa yihodiap50stev LEFT VENTRICLE The left ventricle is normal size. There is mild concentric left ventricular hypertrophy. Left ventri kimberlee systolic function is moderately impaired. The Ejection Fraction is 40%. There is severe hypokines is in the inferior basal trhough apical segmentl and inferolateral base through apeical segment. Whyte smitral Doppler flow pattern is Grade I-abnormal relaxation pattern. No left ventricle thrombus noted on this study. RIGHT VENTRICLE The right ventricle is normal size. There is normal right ventricular wall thickness. The right ventr icular systolic function is normal. ATRIA The left atrium is severely dilated. The right atrium is mildly dilated. The interatrial septum is in tact with no evidence for an atrial septal defect or patent foramen ovale as noted on 2-D or Doppler imaging. AORTIC VALVE The aortic valve is mildly sclerotic. Doppler and Color Flow revealed mild aortic regurgitation. Ther e is no significant aortic valvular stenosis. MITRAL VALVE Mitral annular calcification is moderate. The mitral valve leaflets are thickened. There is no eviden ce of mitral valve prolapse. There is no mitral valve stenosis. Doppler and Color Flow revealed moder ate mitral regurgitation. TRICUSPID VALVE Doppler and Color Flow revealed mild tricuspid regurgitation. The pulmonary artery systolic pressure is estimated at 31 mmHg. There is mild pulmonary hypertension. PULMONIC VALVE Doppler and Color Flow revealed no pulmonic valvular regurgitation. GREAT VESSELS The aortic root is normal in size. The ascending aorta is normal in size. The pulmonary artery is nor mal. The IVC is normal in size and collapses >50% with inspiration. PERICARDIAL EFFUSION There is no evidence of significant pericardial effusion. Critical Notification Critical Value: No <Conclusion> Left ventricle systolic function is moderately impaired. The Ejection Fraction is 40%. There is mild concentric left ventricular hypertrophy. Transmitral Doppler flow pattern is Grade I-abnormal relaxation pattern. There is severe hypokinesis in the inferior basal trhough apical segmentl and inferolateral base thro ugh apeical segment. The left atrium is severely dilated. The right atrium is mildly dilated. The aortic valve is mildly sclerotic. Doppler and Color Flow revealed mild aortic regurgitation. Mitral annular calcification is moderate. The mitral valve leaflets are thickened. Doppler and Color Flow revealed moderate mitral regurgitation. Doppler and Color Flow revealed mild tricuspid regurgitation. The pulmonary artery systolic pressure is estimated at 31 mmHg. There is mild pulmonary hypertension. Doppler and Color Flow revealed no pulmonic valvular regurgitation. There is no evidence of significant pericardial effusion.
[2016-11-30 19:45] VITALS: BP 105/52
[2016-11-30] MEDS: EZETIMIBE 10 MG TABLET PO SCH (22:02)
[2016-11-30 23:05] VITALS: BP 94/45
--- NOTE | 2016-12-01 01:39 | CONS ---
DATE OF CONSULTATION: 11/30/2016 REASON FOR CONSULTATION: [id number] renal insufficiency. HISTORY OF PRESENT ILLNESS: The patient is a pleasant 76-year-old [place] female, descent. She is known to have CML for a period of time. She is on Gleevec for at least 6 years. Recently, developed edema in the lower extremities, seen by Dr. Hui and has been on Lasix and spironolactone in the recent past. She developed nausea, vomiting, diarrhea and became extremely weak and has had a few falls at home and presented to the ER for further evaluation of the same. She was recently seen by Dr. Jiménez and has a creatinine of 1.7. At presentation, her creatinine was 3.1. With IV fluids, she is down to 2.5. She had wide anion gap metabolic acidosis too. She has not had a renal sonogram yet and an echocardiogram has been done. She is noted to have at least moderate amount of mitral regurg in the past based on Dr. Hui's notes. For rest of the details, please see electronic renal consult note. LUCERO SKAGGS MD DR: KAT/orin JOB#: [id number] / [id number]
[2016-12-01 03:28] LABS: BASO # 0.1 x10^3/uL (0.0-0.2); BASO % 1 % (0-3); EOS % 8 % (0-3); HEMATOCRIT 23.7 % (36.0-47.0); HEMOGLOBIN 8.2 g/dL (12.0-15.5); LYMPH # 1.4 x10^3/uL (1.0-4.8); LYMPH % 16 % (24-48); MEAN CORPUSCULAR HEMOGLOBIN 33 pg (25-35); MEAN CORPUSCULAR HGB CONC 35 g/dL (31-37); MEAN CORPUSCULAR VOLUME 95 fL (79-100); MONO % 6 % (0-9); NEUT % 70 % (31-73); PLATELET COUNT 220 x10^3/uL (140-400); RED BLOOD COUNT 2.49 x10^6/uL (3.50-5.40); RED CELL DISTRIBUTION WIDTH 16.6 % (11.5-14.5); WHITE BLOOD COUNT 8.8 x10^3/uL (4.0-11.0)
[2016-12-01 03:35] VITALS: BP 95/42
[2016-12-01 03:39] LABS: ALBUMIN 3.3 g/dL (3.4-5.0); CREATININE 1.6 mg/dL (0.6-1.0); GFR 31.3; PHOSPHORUS 2.8 mg/dL (2.6-4.7); POTASSIUM 3.3 mmol/L (3.5-5.1)
[2016-12-01 07:00] VITALS: BP 105/57
[2016-12-01] MEDS: IPRATRPIUM/ALBUTEROL 0.5/2.5MG 3 ML NEBU. NEB SCH ×4 (07:27→19:25)
--- NOTE | 2016-12-01 08:08 | PDOC ---
SUBJECTIVE Subjective Pt feeling a little better this morning. States that she is no longer taking the budesonide at home. Takes Sucralfate at night OBJECTIVE Vital Signs Vital Signs Date Time Temp Pulse Resp B/P Pulse Ox O2 Delivery O2 Flow Rate FiO2 12/01/16 07:28 97 Room Air 12/01/16 03:35 97.8 81 20 95/42 96 Room Air 97.8 11/30/16 23:05 97.7 78 18 94/45 97 Room Air 97.7 11/30/16 20:11 Room Air 11/30/16 20:08 99 Room Air 11/30/16 19:45 98.4 72 20 105/52 98 Room Air 98.4 11/30/16 15:00 97.9 69 18 91/46 97 Room Air 97.9 11/30/16 12:11 98 Room Air 11/30/16 11:00 98.1 86 18 104/53 96 Room Air 98.1 I & O Intake and Output 12/01/16 07:00 Intake Total 240 ml Output Total 650 ml Balance -410 ml Intake Oral 240 ml Urine/Stool Mix 650 ml # Voids 1 # Bowel Movements 3 PHYSICAL EXAM Physical Exam General: Alert, Oriented X3, Cooperative, No acute distress, Other (cachetic) HEENT: Atraumatic, PERRLA, EOMI, Mucous membr. moist/pink Lungs: Clear to auscultation, Normal air movement Heart: RRR, no rubs, no gallops, no murmurs, other (distant heart tones) Abdomen: Normal bowel sounds, Soft, No tenderness, No hepatosplenomegaly, No masses Extremities: No clubbing, No cyanosis, No edema Skin: No rashes, No breakdown, No significant lesion Neuro: Normal speech, Normal tone, Cranial nerves 3-12 NL Psych/Mental Status: Mental status NL, Mood NL ASSESSMENT/PLAN Assessment/Plan Pt is a 76yo CF admitted for acute on chronic renal failure 1)Acute on CKD- pre-renal 2/2 dehydration, resolved. Renal following. Pt's Cr has decreased from 3.1 to 1.6, which is her baseline. 2)Severe Sepsis- 2/2 Cdiff. Pt has been started on Metronidazole. Pt is currently hypotensive. Blood cultures and urine culture currently pending. Pt currently receiving IVF hydration for hypotension. 3)CML- will continue pt's Gleevec 4)COPD- stable. Will continue duonebs and albuterol and Spiriva 5)Mitral regurgitation- will continue pt's Dipyridamole 75mg BID 6)GERD- will continue pt's Sucralfate 7)HTN- pt currently hypotensive, will hold Lasix and Aldactone 8)HLD- will continue pt's Zetia 9)Depression- will continue pt's Paroxetine 40mg 10)Elevated troponin- pt asymptomatic. Troponin trended back to normal. ECHO shows hypokinesis in LV. Cardiology following 11)CHF- systolic and diastolic, compensated Problems: COMMENT Lab Laboratory Tests Test 11/30/16 09:10 11/30/16 11:00 12/01/16 03:10 Troponin I Quantitative 0.049ng/mL (0.000-0.055) Clostridium difficile Toxin (PCR) Positive (Negative) White Blood Count 8.8x10^3/uL (4.0-11.0) Red Blood Count 2.49x10^6/uL (3.50-5.40) Hemoglobin 8.2g/dL (12.0-15.5) Hematocrit 23.7% (36.0-47.0) Mean Corpuscular Volume 95fL (79-100) Mean Corpuscular Hemoglobin 33pg (25-35) Mean Corpuscular Hemoglobin Concent 35g/dL (31-37) Red Cell Distribution Width 16.6% (11.5-14.5) Platelet Count 220x10^3/uL (140-400) Neutrophils (%) (Auto) 70% (31-73) Lymphocytes (%) (Auto) 16% (24-48) Monocytes (%) (Auto) 6% (0-9) Eosinophils (%) (Auto) 8% (0-3) Basophils (%) (Auto) 1% (0-3) Neutrophils # (Auto) 6.2x10^3uL (1.8-7.7) Lymphocytes # (Auto) 1.4x10^3/uL (1.0-4.8) Monocytes # (Auto) 0.5x10^3/uL (0.0-1.1) Eosinophils # (Auto) 0.7x10^3/uL (0.0-0.7) Basophils # (Auto) 0.1x10^3/uL (0.0-0.2) Sodium Level 142mmol/L (136-145) Potassium Level 3.3mmol/L (3.5-5.1) Chloride Level 108mmol/L (98-107) Carbon Dioxide Level 21mmol/L (21-32) Anion Gap 13 (6-14) Blood Urea Nitrogen 39mg/dL (7-20) Creatinine 1.6mg/dL (0.6-1.0) Estimated GFR (Cockcroft-Gault) 31.3 Glucose Level 122mg/dL (70-99) Calcium Level 8.0mg/dL (8.5-10.1) Phosphorus Level 2.8mg/dL (2.6-4.7) Magnesium Level 1.6mg/dL (1.8-2.4) Albumin 3.3g/dL (3.4-5.0) RIAZ STEVENS MD Dec 01, 2016 08:08
--- NOTE | 2016-12-01 08:13 | PDOC ---
PROGRESS NOTES Subjective Subjective Pt s/e this morning, she reports feeling much better. Denies any SOB, chest pain or dizziness. Objective Objective Vital Signs Date Time Temp Pulse Resp B/P Pulse Ox O2 Delivery O2 Flow Rate FiO2 12/01/16 07:28 97 Room Air 12/01/16 03:35 97.8 81 20 95/42 97.8 Intake and Output 12/01/16 07:00 Intake Total 240 ml Output Total 650 ml Balance -410 ml Intake Oral 240 ml Urine/Stool Mix 650 ml # Voids 1 # Bowel Movements 3 Physical Exam Heart: Regular rate, Normal S2 Extremities: No edema, Normal pulses General: Alert, No acute distress Lungs: Clear to auscultation, Normal air movement Assessment Assessment The pt's creat is improving and she is not having any cardiac complaints. In view of the renal situation I would not recommend to do a Heart Cath at this time, just follow her in a conservative fashion. Problems Medical Problems: (1) Elevated troponin Status: Acute (2) Generalized weakness Status: Acute (3) Renal failure Status: Acute Plan Plan of Care Troponins continued to trend down into normal levels, echo completed and shows known MR and EF of 40%. Home when okay with Dr Bolton. Comment Labs Laboratory Tests Test 11/29/16 12:17 11/29/16 13:00 11/29/16 20:40 11/30/16 02:43 Urine Collection Type Unknown Urine Color Yellow Urine Clarity Clear Urine pH 5.0 Urine Specific [place] 1.010 Urine Protein 30mg/dL (NEG-TRACE) Urine Glucose (UA) Negativemg/dL (NEG) Urine Ketones (Stick) Negativemg/dL (NEG) Urine Blood Negative (NEG) Urine Nitrite Negative (NEG) Urine Bilirubin Negative (NEG) Urine Urobilinogen Dipstick 0.2mg/dL (0.2 mg/dL) Urine Leukocyte Esterase Negative (NEG) Urine RBC Occ/HPF (0-2) Urine WBC 1-4/HPF (0-4) Urine Squamous Epithelial Cells Few/LPF Urine Renal Epithelial Cells Few/LPF Urine Bacteria Few/HPF (0-FEW) Urine Hyaline Casts Many/HPF Urine Mucus Mod/LPF White Blood Count 8.6x10^3/uL (4.0-11.0) 8.4x10^3/uL (4.0-11.0) Red Blood Count 2.69x10^6/uL (3.50-5.40) 2.50x10^6/uL (3.50-5.40) Hemoglobin 8.9g/dL (12.0-15.5) 8.2g/dL (12.0-15.5) Hematocrit 26.5% (36.0-47.0) 24.9% (36.0-47.0) Mean Corpuscular Volume 99fL (79-100) 99fL (79-100) Mean Corpuscular Hemoglobin 33pg (25-35) 33pg (25-35) Mean Corpuscular Hemoglobin Concent 34g/dL (31-37) 33g/dL (31-37) Red Cell Distribution Width 16.5% (11.5-14.5) 16.4% (11.5-14.5) Platelet Count 239x10^3/uL (140-400) 223x10^3/uL (140-400) Neutrophils (%) (Auto) 51% (31-73) 41% (31-73) Lymphocytes (%) (Auto) 25% (24-48) 29% (24-48) Monocytes (%) (Auto) 10% (0-9) 9% (0-9) Eosinophils (%) (Auto) 13% (0-3) 20% (0-3) Basophils (%) (Auto) 1% (0-3) 1% (0-3) Neutrophils # (Auto) 4.4x10^3uL (1.8-7.7) 3.5x10^3uL (1.8-7.7) Lymphocytes # (Auto) 2.2x10^3/uL (1.0-4.8) 2.4x10^3/uL (1.0-4.8) Monocytes # (Auto) 0.8x10^3/uL (0.0-1.1) 0.7x10^3/uL (0.0-1.1) Eosinophils # (Auto) 1.1x10^3/uL (0.0-0.7) 1.7x10^3/uL (0.0-0.7) Basophils # (Auto) 0.1x10^3/uL (0.0-0.2) 0.1x10^3/uL (0.0-0.2) Segmented Neutrophils % 56% (35-66) Band Neutrophils % 2% (0-9) Lymphocytes % 20% (24-48) Monocytes % 6% (0-10) Eosinophils % 15% (0-5) Basophils % 1% (0-3) Platelet Estimate Adequate (ADEQUATE) Anisocytosis Slight Macrocytosis Slight Target Cells Few Ovalocytes Few Prothrombin Time 14.3SEC (11.7-14.0) Prothromb Time International Ratio 1.2 (0.8-1.1) Sodium Level 136mmol/L (136-145) 141mmol/L (136-145) Potassium Level 3.7mmol/L (3.5-5.1) 4.0mmol/L (3.5-5.1) Chloride Level 102mmol/L (98-107) 108mmol/L (98-107) Carbon Dioxide Level 19mmol/L (21-32) 18mmol/L (21-32) Anion Gap 15 (6-14) 15 (6-14) Blood Urea Nitrogen 68mg/dL (7-20) 56mg/dL (7-20) Creatinine 3.1mg/dL (0.6-1.0) 2.5mg/dL (0.6-1.0) Estimated GFR (Cockcroft-Gault) 14.6 18.7 BUN/Creatinine Ratio 22 (6-20) 22 (6-20) Glucose Level 107mg/dL (70-99) 81mg/dL (70-99) Calcium Level 9.3mg/dL (8.5-10.1) 8.3mg/dL (8.5-10.1) Total Bilirubin 0.3mg/dL (0.2-1.0) 0.3mg/dL (0.2-1.0) Aspartate Amino Transf (AST/SGOT) 35U/L (15-37) 28U/L (15-37) Alanine Aminotransferase (ALT/SGPT) 23U/L (14-59) 20U/L (14-59) Alkaline Phosphatase 57U/L (46-116) 48U/L (46-116) Troponin I Quantitative 0.064ng/mL (0.000-0.055) 0.063ng/mL (0.000-0.055) 0.056ng/mL (0.000-0.055) Total Protein 7.2g/dL (6.4-8.2) 5.9g/dL (6.4-8.2) Albumin 4.2g/dL (3.4-5.0) 3.5g/dL (3.4-5.0) Albumin/Globulin Ratio 1.4 (1.0-1.7) 1.5 (1.0-1.7) Hemoglobin A1c 4.7% (4.8-5.6) Test 11/30/16 09:10 11/30/16 11:00 12/01/16 03:10 Troponin I Quantitative 0.049ng/mL (0.000-0.055) Clostridium difficile Toxin (PCR) Positive (Negative) White Blood Count 8.8x10^3/uL (4.0-11.0) Red Blood Count 2.49x10^6/uL (3.50-5.40) Hemoglobin 8.2g/dL (12.0-15.5) Hematocrit 23.7% (36.0-47.0) Mean Corpuscular Volume 95fL (79-100) Mean Corpuscular Hemoglobin 33pg (25-35) Mean Corpuscular Hemoglobin Concent 35g/dL (31-37) Red Cell Distribution Width 16.6% (11.5-14.5) Platelet Count 220x10^3/uL (140-400) Neutrophils (%) (Auto) 70% (31-73) Lymphocytes (%) (Auto) 16% (24-48) Monocytes (%) (Auto) 6% (0-9) Eosinophils (%) (Auto) 8% (0-3) Basophils (%) (Auto) 1% (0-3) Neutrophils # (Auto) 6.2x10^3uL (1.8-7.7) Lymphocytes # (Auto) 1.4x10^3/uL (1.0-4.8) Monocytes # (Auto) 0.5x10^3/uL (0.0-1.1) Eosinophils # (Auto) 0.7x10^3/uL (0.0-0.7) Basophils # (Auto) 0.1x10^3/uL (0.0-0.2) Sodium Level 142mmol/L (136-145) Potassium Level 3.3mmol/L (3.5-5.1) Chloride Level 108mmol/L (98-107) Carbon Dioxide Level 21mmol/L (21-32) Anion Gap 13 (6-14) Blood Urea Nitrogen 39mg/dL (7-20) Creatinine 1.6mg/dL (0.6-1.0) Estimated GFR (Cockcroft-Gault) 31.3 Glucose Level 122mg/dL (70-99) Calcium Level 8.0mg/dL (8.5-10.1) Phosphorus Level 2.8mg/dL (2.6-4.7) Magnesium Level 1.6mg/dL (1.8-2.4) Albumin 3.3g/dL (3.4-5.0) Laboratory Tests Test 11/30/16 09:10 11/30/16 11:00 12/01/16 03:10 Troponin I Quantitative 0.049ng/mL (0.000-0.055) Clostridium difficile Toxin (PCR) Positive (Negative) White Blood Count 8.8x10^3/uL (4.0-11.0) Red Blood Count 2.49x10^6/uL (3.50-5.40) Hemoglobin 8.2g/dL (12.0-15.5) Hematocrit 23.7% (36.0-47.0) Mean Corpuscular Volume 95fL (79-100) Mean Corpuscular Hemoglobin 33pg (25-35) Mean Corpuscular Hemoglobin Concent 35g/dL (31-37) Red Cell Distribution Width 16.6% (11.5-14.5) Platelet Count 220x10^3/uL (140-400) Neutrophils (%) (Auto) 70% (31-73) Lymphocytes (%) (Auto) 16% (24-48) Monocytes (%) (Auto) 6% (0-9) Eosinophils (%) (Auto) 8% (0-3) Basophils (%) (Auto) 1% (0-3) Neutrophils # (Auto) 6.2x10^3uL (1.8-7.7) Lymphocytes # (Auto) 1.4x10^3/uL (1.0-4.8) Monocytes # (Auto) 0.5x10^3/uL (0.0-1.1) Eosinophils # (Auto) 0.7x10^3/uL (0.0-0.7) Basophils # (Auto) 0.1x10^3/uL (0.0-0.2) Sodium Level 142mmol/L (136-145) Potassium Level 3.3mmol/L (3.5-5.1) Chloride Level 108mmol/L (98-107) Carbon Dioxide Level 21mmol/L (21-32) Anion Gap 13 (6-14) Blood Urea Nitrogen 39mg/dL (7-20) Creatinine 1.6mg/dL (0.6-1.0) Estimated GFR (Cockcroft-Gault) 31.3 Glucose Level 122mg/dL (70-99) Calcium Level 8.0mg/dL (8.5-10.1) Phosphorus Level 2.8mg/dL (2.6-4.7) Magnesium Level 1.6mg/dL (1.8-2.4) Albumin 3.3g/dL (3.4-5.0) Medications Current Medications Sodium Chloride (Iv Sodium Chloride 0.9% 1000ml Bag) 1,000 ml @ 1,000 mls/hr 1X ONCE IV Last administered on 11/29/16 13:04; Start 11/29/16 at 12:45; Stop 11/29/16 at 13:44; Status DC Ondansetron HCl 4 mg 4 mg PRN Q8HRS PRN IV NAUSEA/VOMITING; Start 11/29/16 at 14 :30; Stop 11/30/16 at 14:29; Status DC Sodium Chloride (Iv Sodium Chloride 0.9% 1000ml Bag) 1,000 ml @ 125 mls/hr Q8H IV Last administered on 11/30/16 09:56; Start 11/29/16 at 14:26; Stop 11/30/16 at 14:25; Status DC Budesonide (Entocort) 6 mg BID PO Last administered on 11/30/16 22:02; Start at 09:00; Stop 12/01/16 at 08:04; Status DC EZETIMIBE (Zetia) 10 mg DAILY PO ; Start 11/30/16 at 09:00; Stop 11/30/16 at 10:48 ; Status DC Acetaminophen/ Hydrocodone Bitart (Lortab 5/325) 1 tab PRN Q6HRS PRN PO PAIN MILD TO MOD; Start 11/30/16 at 08:45 Nitroglycerin (Nitrostat) 0.4 mg PRN Q5MIN PRN SL CHEST PAIN; Start 11/30/16 at 08:45 Paroxetine HCl (Paxil) 40 mg DAILY PO Last administered on 11/30/16 10:07; Start 11/30/16 at 09:00 Dipyridamole (Persantine) 75 mg BID PO Last administered on 11/30/16 22:03; Start 11/30/16 at 09:00 Non-Formulary Medication 400 mg DAILY PO Last administered on 11/30/16 10:08; Start 11/30/16 at 10:00 Albuterol/ Ipratropium (Duoneb) 3 ml RTQID NEB Last administered on 12/01/16 07 :27; Start 11/30/16 at 12:00 Albuterol Sulfate (Ventolin Neb Soln) 2.5 mg PRN Q6HRS PRN NEB SHORTNESS OF BREATH; Start 11/30/16 at 09:00 EZETIMIBE 10 mg 10 mg QHS PO Last administered on 11/30/16 22:02; Start at 21:00 Magnesium Sulfate/ Dextrose 50 ml @ 25 mls/hr PRN DAILY PRN IV for Mag < 1.7 on am labs Last administered on 12/01/16 04:19; Start 11/30/16 at 13:45 Sodium Bicarbonate/ Dextrose 1,150 ml @ 75 mls/hr [id number] IV Last administered on 11/30/16 14:40; Start 11/30/16 at 13:45; Stop 12/01/16 at 09:44 Metronidazole (Flagyl) 250 mg QID PO ; Start 12/01/16 at 09:00 Sucralfate (Carafate) 1 gm QHS PO ; Start 12/01/16 at 21:00 Potassium Chloride (Klor-Con) 40 meq 1X ONCE PO ; Start 12/01/16 at 08:15; Stop 12/01/16 at 08:16; Status UNV Active Scripts Active Reported Furosemide 40 Mg Tablet 40 Mg PO DAILY Nitrostat (Nitroglycerin) 0.4 Mg Tab.subl 0.4 Mg SL PRN Q5MIN PRN Persantine (Dipyridamole) 75 Mg Tablet 75 Mg PO BID Prolia (Denosumab) 60 Mg/1 Ml Disp.syrin 60 Mg SQ Paroxetine Hcl 20 Mg Tablet 20 Mg PO DAILY Librax Capsule (Chlordiazepoxide/Clidinium Br) 1 Each Capsule 1 Each PO DAILY Calcium-Vitamin D Tablet (Calcium Carbonate/Vitamin D3) 1 Each Tablet 1 Each PO DAILY Vitamin D3 (Cholecalciferol (Vitamin D3)) 10,000 Unit Tablet 10,000 Unit PO Budesonide Ec (Budesonide) 3 Mg Capdr...er 6 Mg PO DAILY Hydrocodone-Apap 5-325 (Hydrocodone Bit/Acetaminophen) 1 Each Tablet 1 Tab PO PRN Q6HRS PRN Combivent Respimat Inhal (Ipratropium/Albuterol Sulfate) 4 Gm Aer.w.adap 1 Inh IH QID PRN Spiriva (Tiotropium [place]) 18 Mcg Cap.w.dev 2 Inh IH DAILY Gleevec (Imatinib Mesylate) 400 Mg Tablet 400 Mg PO DAILY Spironolactone 25 Mg Tablet 12.5 Mg PO DAILY Zetia (Ezetimibe) 10 Mg Tablet 10 Mg PO DAILY Vitals/I & O Vital Sign - Last 24 Hours 11/30/16 11/30/16 11/30/16 11/30/16 11:00 12:11 15:00 19:45 Temp 98.1 97.9 98.4 98.1 97.9 98.4 Pulse 86 69 72 Resp 18 18 20 B/P 104/53 91/46 105/52 Pulse Ox 96 98 97 98 O2 Delivery Room Air Room Air Room Air Room Air 11/30/16 11/30/16 11/30/16 12/01/16 20:08 20:11 23:05 03:35 Temp 97.7 97.8 97.7 97.8 Pulse 78 81 Resp 18 20 B/P 94/45 95/42 Pulse Ox 99 97 96 O2 Delivery Room Air Room Air Room Air Room Air 12/01/16 07:28 Pulse Ox 97 O2 Delivery Room Air Intake and Output 11/30/16 11/30/16 12/01/16 15:00 23:00 07:00 Intake Total 240 ml Output Total 650 ml Balance -410 ml Nutrition Consultation Dietary Evaluation: Recommendations by RD: Increase Calorie Intake, Protein supplementation Comments: Pt has mod/severe PCM- wt loss of 11% body wt x's 2 weeks, poor oral intake for the past month, BMI of 18.0 (underweight), moderate bilateral muscle wasting and moderate subcutaneous fat loss. Encouraged pt to consume nutrient dense foods off tray Pt refuses all protein supplements, agrees to increase caloric intake through nutrient dense food sources-whole milk TID, Magic cup once daily (290 calories/9 g pro), yogurt at dinner Encouraged pt to order off the alternate menu Discussed nutrient fortification of foods Expected Outcomes/Goals: meet 75% estimated nutrition needs no further weight loss Interpretation of weight loss: >5% in 1 month Malnutrition Findings: Muscle Mass (Severe): Mod to Severe Depletion Reduced Food Trades Assistants Strength: N/A Reduced Food Trades Assistants Strength (Non-Sev: N/A Malnutrition related to morbid: No Fluid Accumulation (N/A): N/A LILLIANA RODRIGUEZ MD Dec 01, 2016 08:13
[2016-12-01] MEDS: PAROXETINE 20 MG TABLET. PO SCH (08:30)
[2016-12-01] MEDS: DIPYRIDAMOLE 25 MG TABLET PO SCH ×2 (08:30→20:43)
[2016-12-01] MEDS ORDERED: POTASSIUM CHLORIDE 20 MEQ TABLET.ER. PO ONE (08:30)
[2016-12-01] MEDS: SODIUM BICARBONATE VIAL 150 MEQ in IV DEXTROSE 5% 1,000 ML IV SCH (08:32)
[2016-12-01] MEDS ORDERED: METRONIDAZOLE 250 MG TABLET PO SCH (09:00)
[2016-12-01] MEDS ORDERED: VANCOMYCIN 250 MG/5 ML ORAL SOLUTION. PO SCH (09:30)
[2016-12-01] MEDS: VANCOMYCIN 125 MG/2.5 ML ORAL SOLUTION. PO SCH ×4 (09:51→20:42)
[2016-12-01 11:00] VITALS: BP 108/54
[2016-12-01 15:00] VITALS: BP 95/55
[2016-12-01 19:30] VITALS: BP 115/55
[2016-12-01] MEDS: EZETIMIBE 10 MG TABLET PO SCH (20:43)
[2016-12-01] MEDS ORDERED: SUCRALFATE 1 GM TABLET. PO SCH (21:00)
[2016-12-01 23:54] VITALS: BP 115/49
[2016-12-02 03:00] VITALS: BP 100/49
[2016-12-02 04:23] LABS: ALBUMIN 3.4 g/dL (3.4-5.0); CALCIUM 8.2 mg/dL (8.5-10.1); CREATININE 1.4 mg/dL (0.6-1.0); GFR 36.5; PHOSPHORUS 1.8 mg/dL (2.6-4.7); POTASSIUM 3.8 mmol/L (3.5-5.1)
[2016-12-02 07:00] VITALS: BP 98/40
[2016-12-02] MEDS: IPRATRPIUM/ALBUTEROL 0.5/2.5MG 3 ML NEBU. NEB SCH ×2 (07:38→11:25)
--- NOTE | 2016-12-02 07:47 | PDOC ---
SUBJECTIVE Subjective Pt is interested in potentially going home this afternoon. She is feeling much better; still having some diarrhea. OBJECTIVE Vital Signs Vital Signs Date Time Temp Pulse Resp B/P Pulse Ox O2 Delivery O2 Flow Rate FiO2 12/02/16 07:39 97 Room Air 12/02/16 03:00 98.7 78 16 100/49 97 Room Air 98.7 12/02/16 03:00 Room Air 12/01/16 23:54 98.4 77 16 115/49 96 Nasal Cannula 98.4 12/01/16 19:53 Room Air 12/01/16 19:30 98.3 81 16 115/55 97 Room Air 98.3 12/01/16 19:26 98 Room Air 12/01/16 15:50 96 Room Air 12/01/16 15:00 98.5 85 16 95/55 98 Room Air 98.5 12/01/16 11:36 97 Room Air 12/01/16 11:00 98.3 82 16 108/54 98 Room Air 98.3 I & O Intake and Output 12/02/16 07:00 Intake Total 2000 ml Output Total 303 ml Balance 1697 ml Intake Oral 2000 ml Output Urine Total 300 ml Urine/Stool Mix 3 ml # Voids 7 PHYSICAL EXAM Physical Exam Physical Exam General: Alert, Oriented X3, Cooperative, No acute distress, Other (cachetic) HEENT: Atraumatic, PERRLA, EOMI, Mucous membr. moist/pink Lungs: Clear to auscultation, Normal air movement Heart: RRR, no rubs, no gallops, no murmurs, other (distant heart tones) Abdomen: Normal bowel sounds, Soft, No tenderness, No hepatosplenomegaly, No masses Extremities: No clubbing, No cyanosis, No edema Skin: No rashes, No breakdown, No significant lesion Neuro: Normal speech, Normal tone, Cranial nerves 3-12 NL Psych/Mental Status: Mental status NL, Mood NL ASSESSMENT/PLAN Assessment/Plan Pt is a 76yo CF admitted for acute on chronic renal failure 1)Acute on CKD- pre-renal 2/2 dehydration, resolved. Renal following. Pt's Cr has decreased from 3.1 to 1.3, baseline around 1.6. 2)Severe Sepsis- 2/2 Cdiff, resolved. Pt has been started on Vancomycin. Pt's hypotension has resolved. Blood cultures and urine cultures are negative to date. Pt currently receiving IVF hydration 3)CML- will continue pt's Gleevec 4)COPD- stable. Will continue duonebs and albuterol and Spiriva 5)Mitral regurgitation- will continue pt's Dipyridamole 75mg BID 6)GERD- will continue pt's Sucralfate 7)HTN- pt now normotensive, holding her Lasix and Aldactone due to earlier hypotension 8)HLD- will continue pt's Zetia 9)Depression- will continue pt's Paroxetine 40mg 10)Elevated troponin- pt asymptomatic. Troponin trended back to normal. ECHO shows hypokinesis in LV. Cardiology following 11)CHF- systolic and diastolic, compensated Problems: COMMENT Lab Laboratory Tests Test 12/02/16 03:00 Sodium Level 138mmol/L (136-145) Potassium Level 3.8mmol/L (3.5-5.1) Chloride Level 104mmol/L (98-107) Carbon Dioxide Level 26mmol/L (21-32) Anion Gap 8 (6-14) Blood Urea Nitrogen 30mg/dL (7-20) Creatinine 1.4mg/dL (0.6-1.0) Estimated GFR (Cockcroft-Gault) 36.5 Glucose Level 94mg/dL (70-99) Calcium Level 8.2mg/dL (8.5-10.1) Phosphorus Level 1.8mg/dL (2.6-4.7) Magnesium Level 2.3mg/dL (1.8-2.4) Albumin 3.4g/dL (3.4-5.0) RIAZ STEVENS MD Dec 02, 2016 07:47
[2016-12-02] MEDS: DIPYRIDAMOLE 25 MG TABLET PO SCH (08:35)
[2016-12-02] MEDS: PAROXETINE 20 MG TABLET. PO SCH (08:35)
[2016-12-02] MEDS ORDERED: VANCOMYCIN 250 MG/5 ML ORAL SOLUTION. PO SCH (09:00)
--- NOTE | 2016-12-02 09:55 | PDOC ---
PROGRESS NOTES Subjective Subjective Pt s/e this morning, states she is feeling ok and would like to go home today. Denies any cardiac complaints and would like to have heart monitoring stopped. Diarrhea persists, tolerating treatment well. Objective Objective Vital Signs Date Time Temp Pulse Resp B/P Pulse Ox O2 Delivery O2 Flow Rate FiO2 12/02/16 08:00 Room Air 12/02/16 07:39 97 12/02/16 07:00 98.2 89 17 98/40 98.2 Intake and Output 12/02/16 07:00 Intake Total 2000 ml Output Total 303 ml Balance 1697 ml Intake Oral 2000 ml Output Urine Total 300 ml Urine/Stool Mix 3 ml # Voids 7 Physical Exam Abdomen: Soft, No tenderness Heart: Regular rate, Normal S1, Normal S2 Extremities: No edema General: Alert, Cooperative, No acute distress Lungs: Clear to auscultation, Normal air movement Assessment Assessment Creat continues to improve. Troponins trended into normal limits Problems Medical Problems: (1) Elevated troponin Status: Acute (2) Generalized weakness Status: Acute (3) Renal failure Status: Acute Plan Plan of Jail when ok with Dr Bolton Comment Review of Relevant I have reviewed the following items eliu (where applicable) has been applied. Labs Laboratory Tests Test 11/30/16 11:00 12/01/16 03:10 12/02/16 03:00 Clostridium difficile Toxin (PCR) Positive (Negative) White Blood Count 8.8x10^3/uL (4.0-11.0) Red Blood Count 2.49x10^6/uL (3.50-5.40) Hemoglobin 8.2g/dL (12.0-15.5) Hematocrit 23.7% (36.0-47.0) Mean Corpuscular Volume 95fL (79-100) Mean Corpuscular Hemoglobin 33pg (25-35) Mean Corpuscular Hemoglobin Concent 35g/dL (31-37) Red Cell Distribution Width 16.6% (11.5-14.5) Platelet Count 220x10^3/uL (140-400) Neutrophils (%) (Auto) 70% (31-73) Lymphocytes (%) (Auto) 16% (24-48) Monocytes (%) (Auto) 6% (0-9) Eosinophils (%) (Auto) 8% (0-3) Basophils (%) (Auto) 1% (0-3) Neutrophils # (Auto) 6.2x10^3uL (1.8-7.7) Lymphocytes # (Auto) 1.4x10^3/uL (1.0-4.8) Monocytes # (Auto) 0.5x10^3/uL (0.0-1.1) Eosinophils # (Auto) 0.7x10^3/uL (0.0-0.7) Basophils # (Auto) 0.1x10^3/uL (0.0-0.2) Sodium Level 142mmol/L (136-145) 138mmol/L (136-145) Potassium Level 3.3mmol/L (3.5-5.1) 3.8mmol/L (3.5-5.1) Chloride Level 108mmol/L (98-107) 104mmol/L (98-107) Carbon Dioxide Level 21mmol/L (21-32) 26mmol/L (21-32) Anion Gap 13 (6-14) 8 (6-14) Blood Urea Nitrogen 39mg/dL (7-20) 30mg/dL (7-20) Creatinine 1.6mg/dL (0.6-1.0) 1.4mg/dL (0.6-1.0) Estimated GFR (Cockcroft-Gault) 31.3 36.5 Glucose Level 122mg/dL (70-99) 94mg/dL (70-99) Calcium Level 8.0mg/dL (8.5-10.1) 8.2mg/dL (8.5-10.1) Phosphorus Level 2.8mg/dL (2.6-4.7) 1.8mg/dL (2.6-4.7) Magnesium Level 1.6mg/dL (1.8-2.4) 2.3mg/dL (1.8-2.4) Albumin 3.3g/dL (3.4-5.0) 3.4g/dL (3.4-5.0) Laboratory Tests Test 12/02/16 03:00 Sodium Level 138mmol/L (136-145) Potassium Level 3.8mmol/L (3.5-5.1) Chloride Level 104mmol/L (98-107) Carbon Dioxide Level 26mmol/L (21-32) Anion Gap 8 (6-14) Blood Urea Nitrogen 30mg/dL (7-20) Creatinine 1.4mg/dL (0.6-1.0) Estimated GFR (Cockcroft-Gault) 36.5 Glucose Level 94mg/dL (70-99) Calcium Level 8.2mg/dL (8.5-10.1) Phosphorus Level 1.8mg/dL (2.6-4.7) Magnesium Level 2.3mg/dL (1.8-2.4) Albumin 3.4g/dL (3.4-5.0) Microbiology 11/30/16 Blood Culture - Preliminary, Resulted NO GROWTH AFTER 2 DAYS 11/29/16 Urine Culture - Preliminary, Resulted 11/29/16 Urine Culture Result 1 (BRITTANY) - Preliminary, Resulted Medications Current Medications Sodium Chloride (Iv Sodium Chloride 0.9% 1000ml Bag) 1,000 ml @ 1,000 mls/hr 1X ONCE IV Last administered on 11/29/16 13:04; Start 11/29/16 at 12:45; Stop 11/29/16 at 13:44; Status DC Ondansetron HCl 4 mg 4 mg PRN Q8HRS PRN IV NAUSEA/VOMITING; Start 11/29/16 at 14 :30; Stop 11/30/16 at 14:29; Status DC Sodium Chloride (Iv Sodium Chloride 0.9% 1000ml Bag) 1,000 ml @ 125 mls/hr Q8H IV Last administered on 11/30/16 09:56; Start 11/29/16 at 14:26; Stop 11/30/16 at 14:25; Status DC Budesonide (Entocort) 6 mg BID PO Last administered on 11/30/16 22:02; Start at 09:00; Stop 12/01/16 at 08:04; Status DC EZETIMIBE (Zetia) 10 mg DAILY PO ; Start 11/30/16 at 09:00; Stop 11/30/16 at 10:48 ; Status DC Acetaminophen/ Hydrocodone Bitart (Lortab 5/325) 1 tab PRN Q6HRS PRN PO PAIN MILD TO MOD; Start 11/30/16 at 08:45 Nitroglycerin (Nitrostat) 0.4 mg PRN Q5MIN PRN SL CHEST PAIN; Start 11/30/16 at 08:45 Paroxetine HCl (Paxil) 40 mg DAILY PO Last administered on 12/02/16 08:35; Start 11/30/16 at 09:00 Dipyridamole (Persantine) 75 mg BID PO Last administered on 12/02/16 08:35; Start 11/30/16 at 09:00 Non-Formulary Medication 400 mg DAILY PO Last administered on 12/02/16 08:36; Start 11/30/16 at 10:00 Albuterol/ Ipratropium (Duoneb) 3 ml RTQID NEB Last administered on 12/02/16 07 :38; Start 11/30/16 at 12:00 Albuterol Sulfate (Ventolin Neb Soln) 2.5 mg PRN Q6HRS PRN NEB SHORTNESS OF BREATH; Start 11/30/16 at 09:00 EZETIMIBE 10 mg 10 mg QHS PO Last administered on 12/01/16 20:43; Start at 21:00 Magnesium Sulfate/ Dextrose 50 ml @ 25 mls/hr PRN DAILY PRN IV for Mag < 1.7 on am labs Last administered on 12/01/16 04:19; Start 11/30/16 at 13:45 Sodium Bicarbonate/ Dextrose 1,150 ml @ 75 mls/hr [id number] IV Last administered on 12/01/16 08:32; Start 11/30/16 at 13:45; Stop 12/01/16 at 09:44; Status DC Metronidazole (Flagyl) 250 mg QID PO Last administered on 12/01/16 08:30; Start 12/01/16 at 09:00; Stop 12/01/16 at 09:00; Status DC Sucralfate (Carafate) 1 gm QHS PO Last administered on 12/01/16 20:42; Start at 21:00 Potassium Chloride (Klor-Con) 40 meq 1X ONCE PO Last administered on 12/01/16 08:31; Start 12/01/16 at 08:30; Stop 12/01/16 at 08:31; Status DC Vancomycin HCl 250 mg [id number] PO ; Start 12/01/16 at 09:30; Stop 12/01/16 at 09:30 ; Status DC Vancomycin HCl 250 mg [id number] PO Last administered on 12/01/16 20:42; Start 12/01/16 at 09:30; Stop 12/01/16 at 21:01; Status DC Vancomycin HCl 250 mg [id number] PO Last administered on 12/02/16 08:35; Start 12/02/16 at 09:00 Active Scripts Active Reported Furosemide 40 Mg Tablet 40 Mg PO DAILY Nitrostat (Nitroglycerin) 0.4 Mg Tab.subl 0.4 Mg SL PRN Q5MIN PRN Persantine (Dipyridamole) 75 Mg Tablet 75 Mg PO BID Prolia (Denosumab) 60 Mg/1 Ml Disp.syrin 60 Mg SQ Paroxetine Hcl 20 Mg Tablet 20 Mg PO DAILY Librax Capsule (Chlordiazepoxide/Clidinium Br) 1 Each Capsule 1 Each PO DAILY Calcium-Vitamin D Tablet (Calcium Carbonate/Vitamin D3) 1 Each Tablet 1 Each PO DAILY Vitamin D3 (Cholecalciferol (Vitamin D3)) 10,000 Unit Tablet 10,000 Unit PO Budesonide Ec (Budesonide) 3 Mg Capdr...er 6 Mg PO DAILY Hydrocodone-Apap 5-325 (Hydrocodone Bit/Acetaminophen) 1 Each Tablet 1 Tab PO PRN Q6HRS PRN Combivent Respimat Inhal (Ipratropium/Albuterol Sulfate) 4 Gm Aer.w.adap 1 Inh IH QID PRN Spiriva (Tiotropium Tobias) 18 Mcg Cap.w.dev 2 Inh IH DAILY Gleevec (Imatinib Mesylate) 400 Mg Tablet 400 Mg PO DAILY Spironolactone 25 Mg Tablet 12.5 Mg PO DAILY Zetia (Ezetimibe) 10 Mg Tablet 10 Mg PO DAILY Vitals/I & O Vital Sign - Last 24 Hours 12/01/16 12/01/16 12/01/16 12/01/16 11:00 11:36 15:00 15:50 Temp 98.3 98.5 98.3 98.5 Pulse 82 85 Resp 16 16 B/P 108/54 95/55 Pulse Ox 98 97 98 96 O2 Delivery Room Air Room Air Room Air Room Air 3/7/17 3/7/17 3/7/17 3/7/17 19:26 19:30 19:53 23:54 Temp 98.3 98.4 98.3 98.4 Pulse 81 77 Resp 16 16 B/P 115/55 115/49 Pulse Ox 98 97 96 O2 Delivery Room Air Room Air Room Air Nasal Cannula 12/02/16 12/02/16 12/02/16 12/02/16 03:00 03:00 07:00 07:39 Temp 98.7 98.2 98.7 98.2 Pulse 78 89 Resp 17 B/P 100/49 98/40 Pulse Ox 97 98 97 O2 Delivery Room Air Room Air Room Air Room Air 12/02/16 08:00 O2 Delivery Room Air Intake and Output 12/01/16 12/01/16 12/02/16 15:00 23:00 07:00 Intake Total 1400 ml 400 ml 200 ml Output Total 3 ml 300 ml Balance 1397 ml 100 ml 200 ml Nutrition Consultation Dietary Evaluation: Recommendations by RD: Increase Calorie Intake, Protein supplementation Comments: Pt has mod/severe PCM- wt loss of 11% body wt x's 2 weeks, poor oral intake for the past month, BMI of 18.0 (underweight), moderate bilateral muscle wasting and moderate subcutaneous fat loss. Encouraged pt to consume nutrient dense foods off tray Pt refuses all protein supplements, agrees to increase caloric intake through nutrient dense food sources-whole milk TID, Magic cup once daily (290 calories/9 g pro), yogurt at dinner Encouraged pt to order off the alternate menu Discussed nutrient fortification of foods Expected Outcomes/Goals: meet 75% estimated nutrition needs no further weight loss Interpretation of weight loss: >5% in 1 month Malnutrition Findings: Muscle Mass (Severe): Severe Depletion Reduced Turkish Line Attendant Strength: N/A Reduced Turkish Line Attendant Strength (Non-Sev: N/A Malnutrition related to morbid: No Fluid Accumulation (N/A): N/A LILLIANA RODRIGUEZ MD Dec 02, 2016 09:55
[2016-12-02 10:41] VITALS: BP 102/46
[2016-12-02] MEDS ORDERED: SUCR1TAB29 PO (11:55)
[2016-12-02] MEDS ORDERED: Vancomycin Hcl PO (11:55)
--- NOTE | 2016-12-02 12:06 | PDOC3 ---
Discharge Summary* Date of Admission: Nov 29, 2016 Date of Discharge: Dec 02, 2016 Admitting Diagnosis Problems Medical Problems: (1) Elevated troponin Status: Acute (2) Generalized weakness Status: Acute (3) Renal failure Status: Acute Final Diagnosis Acute on CKD, Severe Sepsis 2/2 Cdiff, CML, COPD, Mitral Regurgitation, GERD, HTN, HLD, Depression, Elevated Troponin- thought to be 2/2 dehydration/sepsis/ renal failure, CHF-systolic and diastolic compensated CONSULTS Nephrology, Cardiology Procedures CXR- WNL ECHO- mild concentric LVH, LVEF 40%, severe hypokinesis inferior basal portion through apex, Grade 1 diastolic CHF, Left atrium severely dilated, moderate mitral regurgitation, mild pulmonary hypertension Brief Hospital Course Pt is a 76yo CF admitted for acute on chronic renal failure and found to be septic 2/2 Cdiff 1)Acute on CKD- pre-renal 2/2 dehydration, resolved after IVF hydration. Renal was following. Pt's Cr has decreased from 3.1 to 1.3, baseline around 1.6. 2)Severe Sepsis- 2/2 Cdiff, resolved. Pt was started on Vancomycin. Pt's hypotension had resolved. Blood cultures and urine cultures are negative to date. 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 Pt continued on duonebs and albuterol and Spiriva 5)Mitral regurgitation- pt continued on Dipyridamole 75mg BID 6)GERD- pt continued on Sucralfate 7)HTN- pt normotensive prior to discharge. Lasix and Aldactone held due to earlier hypotension, will need f/u with PCP or Cardiology to resume 8)HLD- pt continued on Zetia 9)Depression- pt continued on Paroxetine 40mg 10)Elevated troponin- pt was asymptomatic and troponins trended back to normal. ECHO showed hypokinesis in LV, pt has history of CAD. Cardiology following and was okay with discharge. Was not interested in doing cardiac catheterization this hospitalization 11)CHF- systolic and diastolic, compensated Disposition/Orders: D/C to Home CONDITION AT DISCHARGE: Stable Diet: Cardiac Scheduled Budesonide (Budesonide Ec) 6 MG PO DAILY (Reported) Calcium Carbonate/Vitamin D3 (Calcium-Vitamin D Tablet) 1 EACH PO DAILY ( Reported) Chlordiazepoxide/Clidinium Br (Librax Capsule) 1 EACH PO DAILY (Reported) Dipyridamole (Persantine) 75 MG PO BID (Reported) Ezetimibe (Zetia) 10 MG PO DAILY (Reported) Furosemide (Furosemide) 40 MG PO DAILY (Reported) Imatinib Mesylate (Gleevec) 400 MG PO DAILY (Reported) Paroxetine Hcl (Paroxetine Hcl) 20 MG PO DAILY (Reported) Spironolactone (Spironolactone) 12.5 MG PO DAILY (Reported) Tiotropium Odell (Spiriva) 2 INH IH DAILY (Reported) Scheduled PRN Hydrocodone Bit/Acetaminophen (Hydrocodone-Apap 5-325 ) 1 TAB PO PRN Q6HRS PRN PRN PAIN (Reported) Ipratropium/Albuterol Sulfate (Combivent Respimat Inhal) 1 INH IH QID PRN PRN WHEEZING (Reported) Nitroglycerin (Nitrostat) 0.4 MG SL PRN Q5MIN PRN PRN CHEST PAIN (Reported) Miscellaneous Medications Cholecalciferol (Vitamin D3) (Vitamin D3) 10,000 UNIT PO (Reported) Denosumab (Prolia) 60 MG SQ (Reported) Discontinued Medications Pantoprazole Sodium (Pantoprazole Sodium) 40 MG PO DAILY (Reported) PCP Follow up with Dr. Cooper in the next 7-10 days Time Spent Total time spent with patient [] minutes for coordination of care, counseling, and education. RIAZ STEVENS MD Dec 02, 2016 12:06
== END 2016-12-02 12:43 | disposition home or self-care (01) | DRG 872 ==
LOC: ER 11:57 → 2 NORTH 14:30
PROVIDERS: ADMIT Family Medicine; ATTEND Family Medicine
DX: A41.9 Sepsis, unspecified organism (principal); E87.2 Acidosis; I50.40 Unspecified combined systolic (congestive) and diastolic (congestive) heart failure; N17.9 Acute kidney failure, unspecified; I13.0 Hypertensive heart and chronic kidney disease with heart failure and stage 1 through stage 4 chronic kidney disease, or unspecified chronic kidney disease; E11.22 Type 2 diabetes mellitus with diabetic chronic kidney disease; E78.5 Hyperlipidemia, unspecified; E86.1 Hypovolemia; F32.9 Major depressive disorder, single episode, unspecified; I25.10 Atherosclerotic heart disease of native coronary artery without angina pectoris; I27.2 Other secondary pulmonary hypertension; J44.9 Chronic obstructive pulmonary disease, unspecified; K21.9 Gastro-esophageal reflux disease without esophagitis; M81.0 Age-related osteoporosis without current pathological fracture; N18.3 Chronic kidney disease, stage 3 (moderate); Z96.659 Presence of unspecified artificial knee joint; F41.9 Anxiety disorder, unspecified; F17.200 Nicotine dependence, unspecified, uncomplicated; I34.0 Nonrheumatic mitral (valve) insufficiency; M19.90 Unspecified osteoarthritis, unspecified site; B96.89 Other specified bacterial agents as the cause of diseases classified elsewhere; R65.20 Severe sepsis without septic shock; Z82.49 Family history of ischemic heart disease and other diseases of the circulatory system; Z83.3 Family history of diabetes mellitus; Z95.5 Presence of coronary angioplasty implant and graft; Z90.710 Acquired absence of both cervix and uterus; Z88.7 Allergy status to serum and vaccine; Z88.8 Allergy status to other drugs, medicaments and biological substances
CPT/HCPCS: 36415; 71010; 80053; 80069; 81001; 83036; 83735; 84484; 85007; 85027; 85610; 87040; 87086; 87324; 93005; 93306; 94250; 94640; 94760; 96360; 96361; 99406; J7030; J7060; J7620; 99285-25

== ENCOUNTER 2016-12-17 08:56 | Inpatient (IN) | payer MEDICARE, OTHER ==
[~2016-12-17] VITALS: Ht 162.6 cm; Wt 42.3 kg
[~2016-12-17 08:56] MED LIST changes: +FURO40TA4 PO; +SUCR1TAB29 PO; +Vancomycin Hcl PO
--- NOTE | 2016-12-17 09:45 | PHYS DOC ---
Past Medical History Past Medical History: Anxiety, COPD, GERD, AL, Renal Disease, Renal Failure, Other Additional Past Medical Histor: COLOTLITIS,CM LUEKEMIA,Osteoporosis("No Sleep apnea"hx removed per pt), Past Surgical History: Cholecystectomy, Hysterectomy, Knee Replacement, Tonsillectomy, Other Additional Past Surgical Histo: CATARACT, CARDIAC STENT, BLADDER REPAIR, CARPAL TUNNEL x3. Additional Information: 1 TO 1.5 PPD Alcohol Use: None Drug Use: None Adult General Chief Complaint Chief Complaint: SHORTNESS OF BREATH HPI HPI 76-year-old female presenting to the emergency department today after feeling generally weak this morning approximately an hour prior to arrival. She reports walking to tell her she wasn't feeling very well when she felt spasms all over and fell. She denies loss of consciousness headache head trauma or neck pain. She did have lightheadedness upon standing prior to the event. She denies chest pain. She does endorse mild shortness of breath. Location generalized. Duration intermittent. No alleviating factors. Currently the patients only symptom is mild shortness of breath. Review of systems is negative for chest pain abdominal pain nausea vomiting fevers chills cough. All other review of systems is negative unless otherwise noted in history of present illness. Review of Systems Review of Systems SEE ABOVE. Current Medications Current Medications Current Medications Medications (Trade) Dose Ordered Sig/Nidhi Start Time Stop Time Status Last Admin Dose Admin Albuterol/ Ipratropium (Duoneb) 3 ml 1X ONCE 12/17/16 10:15 12/17/16 10:16 DC 12/17/16 10:22 3 ML Allergies Allergies Allergies Coded Allergies Type Severity Reaction Last Updated Verified NSAIDS (Non-Steroidal Anti-Inflamma Allergy Intermediate 05/08/15 No Tetanus Vaccines and Toxoid Allergy Intermediate 05/08/15 No Physical Exam Physical Exam Constitutional: Well developed, well nourished, no acute distress, non-toxic appearance. HENT: Normocephalic, atraumatic, bilateral external ears normal, oropharynx moist, no oral exudates, nose normal. [] Eyes: PERRLA, EOMI, conjunctiva normal, no discharge. [] Neck: Normal range of motion, no tenderness, supple, no stridor. Cardiovascular:Heart rate regular rhythm, no murmur [] Lungs & Thorax: Mild wheezing in the right lower lung field more than the left. Abdomen: Bowel sounds normal, soft, no tenderness, no masses, no pulsatile masses. Skin: Warm, dry, no erythema, no rash. [] Back: No tenderness, no CVA tenderness. Extremities: No tenderness, no cyanosis, no clubbing, ROM intact, no edema. [] Neurologic: Mental status: Awake oriented and alert x3 Cranial nerves: Extraocular movements intact, eyebrows cristina bilaterally smile symmetric, uvula elevation, shoulder shrug intact, tongue protrusion normal Sensation: equal and normal in all extremities Strength: 5/5 in upper and lower extremities bilaterally Psychologic: Affect normal, judgement normal, mood normal. [] Current Patient Data Vital Signs Vital Signs Date Time Temp Pulse Resp B/P Pulse Ox O2 Delivery O2 Flow Rate FiO2 12/17/16 11:27 76 17 115/57 96 Room Air 12/17/16 09:20 97.8 97.8 Lab Values Laboratory Tests Test 12/17/16 09:42 12/17/16 10:10 12/17/16 10:20 White Blood Count 8.3x10^3/uL (4.0-11.0) Red Blood Count 2.47x10^6/uL (3.50-5.40) L Hemoglobin 8.3g/dL (12.0-15.5) L Hematocrit 24.0% (36.0-47.0) L Mean Corpuscular Volume 97fL (79-100) Mean Corpuscular Hemoglobin 34pg (25-35) Mean Corpuscular Hemoglobin Concent 35g/dL (31-37) Red Cell Distribution Width 16.0% (11.5-14.5) H Platelet Count 248x10^3/uL (140-400) Neutrophils (%) (Auto) 56% (31-73) Lymphocytes (%) (Auto) 23% (24-48) L Monocytes (%) (Auto) 7% (0-9) Eosinophils (%) (Auto) 12% (0-3) H Basophils (%) (Auto) 1% (0-3) Neutrophils # (Auto) 4.7x10^3uL (1.8-7.7) Lymphocytes # (Auto) 1.9x10^3/uL (1.0-4.8) Monocytes # (Auto) 0.6x10^3/uL (0.0-1.1) Eosinophils # (Auto) 1.0x10^3/uL (0.0-0.7) H Basophils # (Auto) 0.1x10^3/uL (0.0-0.2) Sodium Level 136mmol/L (136-145) Potassium Level 3.4mmol/L (3.5-5.1) L Chloride Level 102mmol/L (98-107) Carbon Dioxide Level 18mmol/L (21-32) L Anion Gap 16 (6-14) H Blood Urea Nitrogen 43mg/dL (7-20) H Creatinine 2.3mg/dL (0.6-1.0) H Estimated GFR (Cockcroft-Gault) 20.6 Glucose Level 94mg/dL (70-99) Calcium Level 8.9mg/dL (8.5-10.1) Total Bilirubin 0.3mg/dL (0.2-1.0) Direct Bilirubin 0.1mg/dL (0.0-0.2) Aspartate Amino Transferase (AST) 31U/L (15-37) Alanine Aminotransferase (ALT) 23U/L (14-59) Alkaline Phosphatase 52U/L (46-116) Troponin I Quantitative 0.040ng/mL (0.000-0.055) EW-[id number]-[id number]-Type Natriuretic Peptide 1584pg/mL (0-449) H Total Protein 6.7g/dL (6.4-8.2) Albumin 3.8g/dL (3.4-5.0) Lipase 204U/L (73-393) Lactic Acid Level 1.1mmol/L (0.4-2.0) Urine Collection Type Unknown Urine Color Yellow Urine Clarity Clear Urine pH 5.5 Urine Specific [place] 1.015 Urine Protein 30mg/dL (NEG-TRACE) Urine Glucose (UA) Negativemg/dL (NEG) Urine Ketones (Stick) Negativemg/dL (NEG) Urine Blood Negative (NEG) Urine Nitrite Negative (NEG) Urine Bilirubin Negative (NEG) Urine Urobilinogen Dipstick 0.2mg/dL (0.2 mg/dL) Urine Leukocyte Esterase Negative (NEG) Urine RBC 0/HPF (0-2) Urine WBC 0/HPF (0-4) Urine Squamous Epithelial Cells Occ/LPF Urine Bacteria 0/HPF (0-FEW) Urine Hyaline Casts Few/HPF Urine Mucus Slight/LPF Laboratory Tests 12/17/16 09:42 Laboratory Tests 12/17/16 09:42 EKG EKG EKG sinus rhythm. Regular rate. ST segments congruent. [] Radiology/Procedures Radiology/Procedures [] Course & Med Decision Making Course & Med Decision Making Pertinent Labs and Imaging studies reviewed. (See chart for details) [] 76-year-old female presenting to the emergency Department generalized weakness and lightheadedness when she stands up. She had an episode where she felt muscle spasms. Triage vital signs afebrile. Saturating well on room air. Blood pressure normal. Pertinent physical exam shows mild wheezing on the right more than left. Patient has a history of COPD. Patient not in respiratory distress. EKG obtained. Chest x-ray obtained. Blood work obtained. IV established. EKG unremarkable. Chest x-ray unremarkable. Blood work obtained which showed baseline anemia. Urinalysis not suggestive of infection. Chemistry panel shows uremia with acute kidney injury. Troponin within the reference range of normal. Otherwise unremarkable. Given the patient's clinical presentation and chronic medical conditions the patient was then admitted to our hospital for further evaluation workup and care. Dragon Disclaimer Dragon Disclaimer This electronic medical record was generated, in whole or in part, using a voice recognition dictation system. Departure Departure Impression: Primary Impression: Generalized weakness Additional Impressions: COPD (chronic obstructive pulmonary disease) Pleural effusion Disposition: ADMITTED INPATIENT Admitting Physician: Vera Cooper Condition: STABLE Referrals: VERA COOPER MD (PCP) Problem Qualifiers SILVIA CHAVES MD Dec 17, 2016 09:45
--- NOTE | 2016-12-17 09:51 | EKG ---
[facility] [address] [place] [address] Test Date: 2016-12-17 Test Time: 09:46:53 Pat Name: KENDALL PALAFOX Department: Room: Gender: F Car Distributor: : 1940 Requested By: SILVIA CHAVES Order Number: [id number] Reading MD: Leo Hernández Measurements Intervals [place] Rate: 70 P: 46 VT: 190 QRS: 4 QRSD: 122 T: -31 QT: 400 QTc: 435 Interpretive Statements SINUS RHYTHM LEFT ATRIAL ABNORMALITY INCOMPLETE LEFT BUNDLE BRANCH BLOCK QRS(T) CONTOUR ABNORMALITY CONSISTENT WITH INFERIOR INFARCT AGE UNDETERMINED ABNORMAL ECG Electronically Signed On 12-28-2016 16:14:32 CDT by Leo Hernández
[2016-12-17 09:53] LABS: BASO # 0.1 x10^3/uL (0.0-0.2); BASO % 1 % (0-3); EOS % 12 % (0-3); HEMOGLOBIN 8.3 g/dL (12.0-15.5); LYMPH # 1.9 x10^3/uL (1.0-4.8); LYMPH % 23 % (24-48); MEAN CORPUSCULAR HEMOGLOBIN 34 pg (25-35); MEAN CORPUSCULAR HGB CONC 35 g/dL (31-37); MEAN CORPUSCULAR VOLUME 97 fL (79-100); MONO % 7 % (0-9); NEUT % 56 % (31-73); PLATELET COUNT 248 x10^3/uL (140-400); RED BLOOD COUNT 2.47 x10^6/uL (3.50-5.40); WHITE BLOOD COUNT 8.3 x10^3/uL (4.0-11.0)
[2016-12-17 10:03] LABS: CALCIUM 8.9 mg/dL (8.5-10.1); CREATININE 2.3 mg/dL (0.6-1.0); GFR 20.6; POTASSIUM 3.4 mmol/L (3.5-5.1)
--- NOTE | 2016-12-17 10:04 | RAD ---
Indication weak. Dizzy. Protocol study. A single view of the chest was obtained. Comparison is made to an examination 11/29/2016. The heart, pulmonary vessels and mediastinum appear unremarkable. A focal infiltrate is not seen. Significant pleural fluid is not present. There is no pneumothorax. A significant change compared to the prior study is not seen. IMPRESSION: No acute or focal process. No significant change
[2016-12-17] MEDS ORDERED: IPRATRPIUM/ALBUTEROL 0.5/2.5MG 3 ML NEBU. NEB ONE (10:15)
[2016-12-17 10:17] LABS: ALBUMIN 3.8 g/dL (3.4-5.0); DIRECT BILIRUBIN 0.1 mg/dL (0.0-0.2); TOTAL BILIRUBIN 0.3 mg/dL (0.2-1.0); TOTAL PROTEIN 6.7 g/dL (6.4-8.2)
[2016-12-17 10:38] LABS: BILIRUBIN,URINE NEGATIVE (NEG); GLUCOSE,URINE NEGATIVE (NEG); NITRITE,URINE NEGATIVE (NEG); PH,URINE 5.5; PROTEIN,URINE 30 mg/dL (NEG-TRACE); UROBILINOGEN,URINE 0.2 mg/dL (0.2 mg/dL)
[2016-12-17 10:58] LABS: RBC,URINE 0 /HPF (0-2)
[2016-12-17 10:59] LABS: BACTERIA,URINE 0 /HPF (0-FEW); SQUAMOUS EPITHELIAL CELL,UR OCC /LPF; WBC,URINE 0 /HPF (0-4)
[2016-12-17] MEDS ORDERED: MORPHINE SULFATE 2 MG/ML DISP.SYRIN. IV PRN (12:00)
[2016-12-17] MEDS ORDERED: ONDANSETRON PF 4 MG/2 ML VIAL. IV PRN (12:00)
--- NOTE | 2016-12-17 14:23 | ACF ---
Admission Forms Criteria COPD Clinical Indications for Admission to Inpatient Care (Place 'X' for any and all applicable criteria): Admission is indicated for ANY ONE of the following (1)(2)(3): [ ]I. Acute exacerbation by high-risk comorbidity (e.g., pneumonia, dysrhythmia, heart failure, pleural effusion, pneumothorax) or severe underlying COPD (e.g., steroid dependent) [X ]II. Inpatient admission required rather than observation care (see Chronic Obstructive Pulmonary Disease: Observation Care) because of ANY ONE of the following: [ ]a) New or pre-existing signs or symptoms of COPD (eg, dyspnea or Tachypnea at rest or with minimal activity) that persist despite outpatient and observation care treatment [ ]b) New-onset hypoxemia (room air SaO2 less than 90%, PO2 less than 60 mm Hg (8.0 kPa)) that persists despite outpatient and observation care treatment [ ]c) Worsening of pre-existing hypoxemia (eg, new or increased requirement for supplemental oxygen to maintain oxygenation at baseline level) that persists despite outpatient and observation care treatment, with oxygen treatment needs performable only in acute inpatient setting [ ]d) Hypercarbia (PCO2 greater than 40 mm Hg (5.3 kPa))-induced respiratory acidosis (pH less than 7.35) that persists despite outpatient and observation care treatment [ ]e) Supplemental oxygen or respiratory treatments for over 24 hours that are performable only in acute inpatient setting [ ]f) Chest tube placement with active evacuation (e.g., suction, drainage) (5) [ X]g) Other condition, treatment or monitoring requiring inpatient admission [ ]III. Planned invasive surgical or diagnostic procedures requiring acute- care hospitalization [ ]IV. Acute respiratory failure (e.g., uncompensated hypercarbia, severe hypoxemia) [ ]V. Severe comorbid condition (e.g., severe steroid myopathy, acute vertebral fracture) that has acutely worsened pulmonary function [ ]. Confusion state, lethargy, obtundation, stupor or coma Extended stay beyond goal length of stay may be needed for (31)(32): [ ]a ) Respiratory Failure. [ ]b) Severe or persisting hypoxemia or hypercarbia [ ]c) Severe or persistent dyspnea [ ]d) Comorbidities (e.g. chronic heart failure, atrial fibrillation with rapid response, pneumonia) [ ]e) Malnutrition The original [facility] content created by [facility] has been revised. The portions of the content which have been revised are identified through the use of italic text or in bold, and [facility] has neither reviewed nor approved the modified material. All other unmodified content is copyright [facility]. Please see references footnoted in the original [facility] edition 2016 Admission Criteria Met?: Yes YONG ROB Dec 17, 2016 14:23
[2016-12-17 15:14] VITALS: BP 103/59
[2016-12-17 15:36] VITALS: BP 103/59
[2016-12-17] MEDS ORDERED: NITROGLYCERIN SUBLINGUAL 0.4 MG BOTTLE OF 25. SL PRN (16:00)
[2016-12-17] MEDS ORDERED: HYDROCODONE/APAP 5/325MG TABLET. PO PRN (16:00)
[2016-12-17] MEDS ORDERED: DIPYRIDAMOLE 25 MG TABLET PO SCH (16:00)
[2016-12-17] MEDS ORDERED: GLEEVEC400 MG PO (16:00)
[2016-12-17] MEDS: IPRATRPIUM/ALBUTEROL 0.5/2.5MG 3 ML NEBU. NEB SCH (18:06)
[2016-12-17 19:09] VITALS: BP 95/50
--- NOTE | 2016-12-17 19:24 | PDOC ---
Provider Note Provider Note spoke with RN, this consult has been cancelled ANDRY DUFFY MD Dec 17, 2016 19:24
[2016-12-17] MEDS: SUCRALFATE 1 GM TABLET. PO SCH (20:50)
[2016-12-17] MEDS: DIPYRIDAMOLE 25 MG TABLET PO SCH (20:53)
[2016-12-17 23:11] VITALS: BP 91/53
[2016-12-18] VITALS (7 sets, daily range): BP systolic 88–118; BP diastolic 47–57
[2016-12-18 03:51] LABS: BASO % 1 % (0-3); EOS % 11 % (0-3); HEMOGLOBIN 7.7 g/dL (12.0-15.5); LYMPH # 1.8 x10^3/uL (1.0-4.8); LYMPH % 28 % (24-48); MEAN CORPUSCULAR HEMOGLOBIN 33 pg (25-35); MEAN CORPUSCULAR HGB CONC 33 g/dL (31-37); MEAN CORPUSCULAR VOLUME 99 fL (79-100); MONO % 9 % (0-9); NEUT % 51 % (31-73); PLATELET COUNT 214 x10^3/uL (140-400); RED BLOOD COUNT 2.32 x10^6/uL (3.50-5.40); RED CELL DISTRIBUTION WIDTH 16.5 % (11.5-14.5); WHITE BLOOD COUNT 6.7 x10^3/uL (4.0-11.0)
[2016-12-18 04:02] LABS: CALCIUM 8.4 mg/dL (8.5-10.1); GFR 24.2; POTASSIUM 3.4 mmol/L (3.5-5.1)
[2016-12-18] MEDS ORDERED: POTASSIUM CHLORIDE 20 MEQ TABLET.ER. PO ONE (07:30)
[2016-12-18] MEDS ORDERED: IV NORMAL SALINE 1000ML BAG 1,000 ML IV ONE (07:30)
--- NOTE | 2016-12-18 07:31 | PDOC1 ---
History and Physical Date of Admission Date of Admission DATE: 12/17/16 Identification/Chief Complaint Chief Complaint "[place] weird" Source Source: Patient History of Present Illness History of Present Illness Pt was admitted to the hospital earlier this month with Cdiff. She states that she should have gone to rehab as suggested. She has continued to have diarrhea since being at home; imodium has not helped. Yesterday morning she was walking down the [place] at home and felt "weird". Started having muscle spasms. Called out to her . Has fallen at home; having pain in her left hip. Past Medical History Cardiovascular: CAD, CA, Hyperlipidemia, Valve insufficiency Pulmonary: COPD GI: GERD Heme/Onc: Anemia NOS Hepatobiliary: No pertinent hx Psych: Anxiety, Depression Musculoskeletal: Osteoarthritis Rheumatologic: No pertinent hx Infectious disease: No pertinent hx Renal/: Chronic renal insuff Endocrine: Diabetes Past Surgical History Past Surgical History: Cataract Removal, Total knee replacement, Tonsillectomy , Hysterectomy, Other Family History Family History: Cancer, Coronary Artery Disease, Diabetes Social History ALCOHOL: occassional Drugs: None Current Problem List Problem List Problems Medical Problems: (1) COPD (chronic obstructive pulmonary disease) Status: Acute (2) Generalized weakness Status: Acute (3) Hypovolemia Status: Acute (4) Pleural effusion Status: Acute (5) Tachycardia Status: Acute Problems: Current Medications Current Medications Current Medications Albuterol/ Ipratropium (Duoneb) 3 ml 1X ONCE NEB Last administered on t 10:22; Start 12/17/16 at 10:15; Stop 12/17/16 at 10:16; Status DC Ondansetron HCl (Zofran) 4 mg PRN Q8HRS PRN IV NAUSEA/VOMITING; Start 12/17/16 at 12:00; Stop 12/18/16 at 11:59 Morphine Sulfate 2 mg PRN Q2HR PRN IV PAIN; Start 12/17/16 at 12:00; Stop 12/18 at 11:59 Calcium/Vitamin D (Oscal D 500mg/ 200uts) 1 tab DAILY PO ; Start 12/18/16 at 09: 00 EZETIMIBE (Zetia) 10 mg DAILY PO ; Start 12/18/16 at 09:00 Acetaminophen/ Hydrocodone Bitart (Lortab 5/325) 1 tab PRN Q6HRS PRN PO PAIN; Start 12/17/16 at 16:00 Nitroglycerin (Nitrostat) 0.4 mg PRN Q5MIN PRN SL CHEST PAIN; Start 12/17/16 at 16:00 Paroxetine HCl (Paxil) 20 mg DAILY PO ; Start 12/18/16 at 09:00 Sucralfate (Carafate) 1 gm QHS PO Last administered on 12/17/16 20:50; Start 12/17/16 at 21:00 Dipyridamole (Persantine) 75 mg BID PO ; Start 12/17/16 at 16:00; Status Cancel Non-Formulary Medication 400 mg DAILY PO ; Start 12/18/16 at 09:00 Non-Formulary Medication 2 inh DAILY IH ; Start 12/18/16 at 09:00; Stop at 09:00; Status DC Albuterol/ Ipratropium (Duoneb) 3 ml RTQID NEB Last administered on 12/17/16 18:06; Start 12/17/16 at 16:00 Dipyridamole (Persantine) 75 mg BID PO Last administered on 12/17/16 20:53; Start 12/17/16 at 21:00 Active Scripts Active Carafate (Sucralfate) 1 Gm Tablet 1 Gm PO QHS 30 Days Reported Gleevec (Imatinib Mesylate) 400 Mg Tablet 400 Mg PO DAILYAC Nitrostat (Nitroglycerin) 0.4 Mg Tab.subl 0.4 Mg SL PRN Q5MIN PRN Persantine (Dipyridamole) 75 Mg Tablet 75 Mg PO BID Paroxetine Hcl 20 Mg Tablet 20 Mg PO DAILY Calcium-Vitamin D Tablet (Calcium Carbonate/Vitamin D3) 1 Each Tablet 1 Each PO DAILY Vitamin D3 (Cholecalciferol (Vitamin D3)) 10,000 Unit Tablet 10,000 Unit PO Hydrocodone-Apap 5-325 (Hydrocodone Bit/Acetaminophen) 1 Each Tablet 1 Tab PO PRN Q6HRS PRN Spiriva (Tiotropium [place]) 18 Mcg Cap.w.dev 2 Inh IH DAILY Gleevec (Imatinib Mesylate) 400 Mg Tablet 400 Mg PO DAILY Zetia (Ezetimibe) 10 Mg Tablet 10 Mg PO DAILY Allergies Allergies: Coded Allergies: NSAIDS (Non-Steroidal Anti-Inflamma (Unverified Allergy, Intermediate, 09/10) Tetanus Vaccines and Toxoid (Unverified Allergy, Intermediate, 05/08/15) ROS General: No: Chills, Night Sweats PSYCHOLOGICAL ROS: No: Anxiety, Depression Eyes: No Decreased vision, No Eye Pain HEENT: No: Nasal congestion, Sore Throat ALLERGY AND IMMUNOLOGY: No: Hives, Post Nasal Drip Hematological and Lymphatic: No: Bleeding Problems, Blood Clots Respiratory: YES: Cough, No: Shortness of breath, Sputum Changes Cardiovascular: No Chest Pain, No Edema, No Palpitations Gastrointestinal: Yes Diarrhea, No Abdominal Pain, No Constipation, No Nausea, No Vomiting Genitourinary: No Dysuria, No Urgency Musculoskeletal: Yes Joint Pain, Yes Muscle Pain Neurological: No Impaired Coord/balance, No Numbness/Tingling Skin: Yes Dry Skin, No Rash, No Skin Lesion Changes Physical Exam General: Alert, Oriented X3, Cooperative, No acute distress, Other (cachectic) HEENT: Atraumatic, PERRLA, EOMI, Mucous membr. moist/pink Heart: RRR, no rubs, no gallops, no murmurs Abdomen: Normal bowel sounds, Soft, No tenderness, No hepatosplenomegaly Extremities: No clubbing, No cyanosis, No edema Skin: No rashes, No breakdown Neuro: Normal speech, Cranial nerves 3-12 NL Psych/Mental Status: Mental status NL, Mood NL Vitals Vitals Vital Signs Date Time Temp Pulse Resp B/P Pulse Ox O2 Delivery O2 Flow Rate FiO2 12/18/16 03:00 98.2 80 16 118/56 100 Room Air 98.2 12/17/16 20:00 1.0 Labs Labs Laboratory Tests Test 12/17/16 09:42 12/17/16 10:10 12/17/16 10:20 12/18/16 03:35 White Blood Count 8.3x10^3/uL (4.0-11.0) 6.7x10^3/uL (4.0-11.0) Red Blood Count 2.47x10^6/uL (3.50-5.40) 2.32x10^6/uL (3.50-5.40) Hemoglobin 8.3g/dL (12.0-15.5) 7.7g/dL (12.0-15.5) Hematocrit 24.0% (36.0-47.0) 23.0% (36.0-47.0) Mean Corpuscular Volume 97fL (79-100) 99fL (79-100) Mean Corpuscular Hemoglobin 34pg (25-35) 33pg (25-35) Mean Corpuscular Hemoglobin Concent 35g/dL (31-37) 33g/dL (31-37) Red Cell Distribution Width 16.0% (11.5-14.5) 16.5% (11.5-14.5) Platelet Count 248x10^3/uL (140-400) 214x10^3/uL (140-400) Neutrophils (%) (Auto) 56% (31-73) 51% (31-73) Lymphocytes (%) (Auto) 23% (24-48) 28% (24-48) Monocytes (%) (Auto) 7% (0-9) 9% (0-9) Eosinophils (%) (Auto) 12% (0-3) 11% (0-3) Basophils (%) (Auto) 1% (0-3) 1% (0-3) Neutrophils # (Auto) 4.7x10^3uL (1.8-7.7) 3.4x10^3uL (1.8-7.7) Lymphocytes # (Auto) 1.9x10^3/uL (1.0-4.8) 1.8x10^3/uL (1.0-4.8) Monocytes # (Auto) 0.6x10^3/uL (0.0-1.1) 0.6x10^3/uL (0.0-1.1) Eosinophils # (Auto) 1.0x10^3/uL (0.0-0.7) 0.8x10^3/uL (0.0-0.7) Basophils # (Auto) 0.1x10^3/uL (0.0-0.2) 0.0x10^3/uL (0.0-0.2) Sodium Level 136mmol/L (136-145) 136mmol/L (136-145) Potassium Level 3.4mmol/L (3.5-5.1) 3.4mmol/L (3.5-5.1) Chloride Level 102mmol/L (98-107) 105mmol/L (98-107) Carbon Dioxide Level 18mmol/L (21-32) 20mmol/L (21-32) Anion Gap 16 (6-14) 11 (6-14) Blood Urea Nitrogen 43mg/dL (7-20) 40mg/dL (7-20) Creatinine 2.3mg/dL (0.6-1.0) 2.0mg/dL (0.6-1.0) Estimated GFR (Cockcroft-Gault) 20.6 24.2 Glucose Level 94mg/dL (70-99) 92mg/dL (70-99) Calcium Level 8.9mg/dL (8.5-10.1) 8.4mg/dL (8.5-10.1) Total Bilirubin 0.3mg/dL (0.2-1.0) Direct Bilirubin 0.1mg/dL (0.0-0.2) Aspartate Amino Transf (AST/SGOT) 31U/L (15-37) Alanine Aminotransferase (ALT/SGPT) 23U/L (14-59) Alkaline Phosphatase 52U/L (46-116) Troponin I Quantitative 0.040ng/mL (0.000-0.055) XX-Iyw-Q-Type Natriuretic Peptide 1584pg/mL (0-449) Total Protein 6.7g/dL (6.4-8.2) Albumin 3.8g/dL (3.4-5.0) Lipase 204U/L (73-393) Lactic Acid Level 1.1mmol/L (0.4-2.0) Urine Collection Type Unknown Urine Color Yellow Urine Clarity Clear Urine pH 5.5 Urine Specific [place] 1.015 Urine Protein 30mg/dL (NEG-TRACE) Urine Glucose (UA) Negativemg/dL (NEG) Urine Ketones (Stick) Negativemg/dL (NEG) Urine Blood Negative (NEG) Urine Nitrite Negative (NEG) Urine Bilirubin Negative (NEG) Urine Urobilinogen Dipstick 0.2mg/dL (0.2 mg/dL) Urine Leukocyte Esterase Negative (NEG) Urine RBC 0/HPF (0-2) Urine WBC 0/HPF (0-4) Urine Squamous Epithelial Cells Occ/LPF Urine Bacteria 0/HPF (0-FEW) Urine Hyaline Casts Few/HPF Urine Mucus Slight/LPF Laboratory Tests Test 12/17/16 09:42 12/17/16 10:10 12/17/16 10:20 12/18/16 03:35 White Blood Count 8.3x10^3/uL (4.0-11.0) 6.7x10^3/uL (4.0-11.0) Red Blood Count 2.47x10^6/uL (3.50-5.40) 2.32x10^6/uL (3.50-5.40) Hemoglobin 8.3g/dL (12.0-15.5) 7.7g/dL (12.0-15.5) Hematocrit 24.0% (36.0-47.0) 23.0% (36.0-47.0) Mean Corpuscular Volume 97fL (79-100) 99fL (79-100) Mean Corpuscular Hemoglobin 34pg (25-35) 33pg (25-35) Mean Corpuscular Hemoglobin Concent 35g/dL (31-37) 33g/dL (31-37) Red Cell Distribution Width 16.0% (11.5-14.5) 16.5% (11.5-14.5) Platelet Count 248x10^3/uL (140-400) 214x10^3/uL (140-400) Neutrophils (%) (Auto) 56% (31-73) 51% (31-73) Lymphocytes (%) (Auto) 23% (24-48) 28% (24-48) Monocytes (%) (Auto) 7% (0-9) 9% (0-9) Eosinophils (%) (Auto) 12% (0-3) 11% (0-3) Basophils (%) (Auto) 1% (0-3) 1% (0-3) Neutrophils # (Auto) 4.7x10^3uL (1.8-7.7) 3.4x10^3uL (1.8-7.7) Lymphocytes # (Auto) 1.9x10^3/uL (1.0-4.8) 1.8x10^3/uL (1.0-4.8) Monocytes # (Auto) 0.6x10^3/uL (0.0-1.1) 0.6x10^3/uL (0.0-1.1) Eosinophils # (Auto) 1.0x10^3/uL (0.0-0.7) 0.8x10^3/uL (0.0-0.7) Basophils # (Auto) 0.1x10^3/uL (0.0-0.2) 0.0x10^3/uL (0.0-0.2) Sodium Level 136mmol/L (136-145) 136mmol/L (136-145) Potassium Level 3.4mmol/L (3.5-5.1) 3.4mmol/L (3.5-5.1) Chloride Level 102mmol/L (98-107) 105mmol/L (98-107) Carbon Dioxide Level 18mmol/L (21-32) 20mmol/L (21-32) Anion Gap 16 (6-14) 11 (6-14) Blood Urea Nitrogen 43mg/dL (7-20) 40mg/dL (7-20) Creatinine 2.3mg/dL (0.6-1.0) 2.0mg/dL (0.6-1.0) Estimated GFR (Cockcroft-Gault) 20.6 24.2 Glucose Level 94mg/dL (70-99) 92mg/dL (70-99) Calcium Level 8.9mg/dL (8.5-10.1) 8.4mg/dL (8.5-10.1) Total Bilirubin 0.3mg/dL (0.2-1.0) Direct Bilirubin 0.1mg/dL (0.0-0.2) Aspartate Amino Transf (AST/SGOT) 31U/L (15-37) Alanine Aminotransferase (ALT/SGPT) 23U/L (14-59) Alkaline Phosphatase 52U/L (46-116) Troponin I Quantitative 0.040ng/mL (0.000-0.055) WO-Hiu-Y-Type Natriuretic Peptide 1584pg/mL (0-449) Total Protein 6.7g/dL (6.4-8.2) Albumin 3.8g/dL (3.4-5.0) Lipase 204U/L (73-393) Lactic Acid Level 1.1mmol/L (0.4-2.0) Urine Collection Type Unknown Urine Color Yellow Urine Clarity Clear Urine pH 5.5 Urine Specific [place] 1.015 Urine Protein 30mg/dL (NEG-TRACE) Urine Glucose (UA) Negativemg/dL (NEG) Urine Ketones (Stick) Negativemg/dL (NEG) Urine Blood Negative (NEG) Urine Nitrite Negative (NEG) Urine Bilirubin Negative (NEG) Urine Urobilinogen Dipstick 0.2mg/dL (0.2 mg/dL) Urine Leukocyte Esterase Negative (NEG) Urine RBC 0/HPF (0-2) Urine WBC 0/HPF (0-4) Urine Squamous Epithelial Cells Occ/LPF Urine Bacteria 0/HPF (0-FEW) Urine Hyaline Casts Few/HPF Urine Mucus Slight/LPF VTE Prophylaxis Ordered VTE Prophylaxis Devices: Yes VTE Pharmacological Prophylaxi: No Assessment/Plan Assessment/Plan Pt is a 76yo CF admitted for weakness and fall 1)Fall- with left hip pain, will get xray. Pt interested in potential rehab on discharge 2)Diarrhea with recent history of Cdiff- will empirically start Metronidazole. Repeat C diff pending. 3)Hx CAD- Cardiology consulted in ER 4)COPD- with wheezing on exam. Will start Prednisone and continue breathing treatments 5)Anemia- pt's Hb of 7.7 is currently close to her baseline. 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 Pt has received IVF hydration in the ER. Will continue IVF hydration for now. 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
[2016-12-18] MEDS: IPRATRPIUM/ALBUTEROL 0.5/2.5MG 3 ML NEBU. NEB SCH ×4 (07:56→20:00)
[2016-12-18] MEDS ORDERED: CALCIUM CARB/VIT D3 500/200 TABLET. ONE (08:25)
--- NOTE | 2016-12-18 08:48 | RAD ---
Pelvis with left hip, 3 views, 12/18/2016: History: Pain after a fall Comparison is made to a study from 02/27/2015. There is an internal metallic fixation device at the left hip, apparently traversing old healed fracture. There are calcifications along the superior aspect of the left greater trochanter compatible with old fracture fragments and/or dystrophic calcifications. A focal area of sclerosis in the left inferior pubic ramus is unchanged and compatible with an old fracture. No acute hip or pelvic fracture is identified. There is mild narrowing of the hip joints. Arterial calcifications are present. IMPRESSION: No acute abnormality is detected with no significant change since 02/27/2015.
[2016-12-18] MEDS ORDERED: NON FORMULARY ITEM (Tiotropium Bromide (Spiriva) 2 INH) IH SCH (09:00)
[2016-12-18] MEDS ORDERED: EZETIMIBE 10 MG TABLET PO SCH (09:00)
[2016-12-18] MEDS ORDERED: CALCIUM CARB/VIT D3 500/200 TABLET PO SCH (09:00)
[2016-12-18] MEDS: PREDNISONE 20 MG TABLET PO SCH (10:34)
[2016-12-18] MEDS: DIPYRIDAMOLE 25 MG TABLET PO SCH ×2 (10:34→20:34)
[2016-12-18] MEDS: METRONIDAZOLE 500 MG TABLET. PO SCH ×3 (10:36→20:34)
[2016-12-18] MEDS: PAROXETINE 20 MG TABLET. PO SCH (10:36)
[2016-12-18] MEDS: IMATINIB MESYLATE 400 MG PO SCH (10:38)
--- NOTE | 2016-12-18 13:34 | PDOC2 ---
CONSULT Date of Consult Date of Consult DATE: 12/18/16 TIME: 13:32 Reason for Consult Reason for Consult: HX CAD Referring Physician Referring Physician: Dr. Bolton Identification/Chief Complaint Chief Complaint Continued diarrhea, fall after having muscle spasms History of Present Illness Reason for Visit: Patient was in the hospital earlier this month for C.diff and is currently receiving chemo treatment for leukemia. She was discharged and did not go to rehab. She has continued to have diarrhea. Yesterday she was feeling weak and had a syncopal episode. She fell and hit her hip and that is why she came in. Past Medical History Cardiovascular: CAD, DC, Hyperlipidemia, Valve insufficiency Pulmonary: COPD GI: GERD Heme/Onc: Anemia NOS Hepatobiliary: No pertinent hx Psych: Anxiety, Depression Musculoskeletal: Osteoarthritis Rheumatologic: No pertinent hx Infectious disease: No pertinent hx Renal/: Chronic renal insuff Endocrine: Diabetes Past Surgical History Past Surgical History: Cataract Removal, Total knee replacement, Tonsillectomy , Hysterectomy, Other Family History Family History: Cancer, Coronary Artery Disease, Diabetes Social History ALCOHOL: occassional Drugs: None Lives: with Family Current Problem List Problem List Problems Medical Problems: (1) COPD (chronic obstructive pulmonary disease) Status: Acute (2) Generalized weakness Status: Acute (3) Hypovolemia Status: Acute (4) Pleural effusion Status: Acute (5) Tachycardia Status: Acute Current Medications Current Medications Current Medications Albuterol/ Ipratropium (Duoneb) 3 ml 1X ONCE NEB Last administered on t 10:22; Start 12/17/16 at 10:15; Stop 12/17/16 at 10:16; Status DC Ondansetron HCl (Zofran) 4 mg PRN Q8HRS PRN IV NAUSEA/VOMITING; Start 12/17/16 at 12:00; Stop 12/18/16 at 11:59; Status DC Morphine Sulfate 2 mg PRN Q2HR PRN IV PAIN; Start 12/17/16 at 12:00; Stop 12/18 at 11:59; Status DC Calcium/Vitamin D (Oscal D 500mg/ 200uts) 1 tab DAILY PO ; Start 12/18/16 at 09: 00; Stop 12/18/16 at 13:10; Status DC EZETIMIBE (Zetia) 10 mg DAILY PO ; Start 12/18/16 at 09:00; Stop 12/18/16 at 11: 29; Status DC Acetaminophen/ Hydrocodone Bitart (Lortab 5/325) 1 tab PRN Q6HRS PRN PO PAIN; Start 12/17/16 at 16:00 Nitroglycerin (Nitrostat) 0.4 mg PRN Q5MIN PRN SL CHEST PAIN; Start 12/17/16 at 16:00 Paroxetine HCl (Paxil) 20 mg DAILY PO Last administered on 12/18/16 10:36; Start 12/18/16 at 09:00 Sucralfate (Carafate) 1 gm QHS PO Last administered on 12/17/16 20:50; Start 12/17/16 at 21:00 Dipyridamole (Persantine) 75 mg BID PO ; Start 12/17/16 at 16:00; Status Cancel Non-Formulary Medication 400 mg DAILY PO Last administered on 12/18/16 10:38; Start 12/18/16 at 09:00 Non-Formulary Medication 2 inh DAILY IH ; Start 12/18/16 at 09:00; Stop at 09:00; Status DC Albuterol/ Ipratropium (Duoneb) 3 ml RTQID NEB Last administered on 12/18/16 12:42; Start 12/17/16 at 16:00 Dipyridamole (Persantine) 75 mg BID PO Last administered on 12/18/16 10:34; Start 12/17/16 at 21:00 Prednisone (Prednisone) 40 mg DAILY08 PO Last administered on 12/18/16 10:34; Start 12/18/16 at 08:00 Metronidazole (Flagyl) 500 mg Q8HRS PO Last administered on 12/18/16 10:36; Start 12/18/16 at 07:45 Potassium Chloride 40 meq 40 meq 1X ONCE PO Last administered on 12/18/16 10: 33; Start 12/18/16 at 07:30; Stop 12/18/16 at 07:31; Status DC Sodium Chloride (Iv Sodium Chloride 0.9% 1000ml Bag) 1,000 ml @ 75 mls/hr 1X ONCE IV Last administered on 12/18/16 10:37; Start 12/18/16 at 07:30; Stop 3/ 24/17 at 20:49 Calcium/Vitamin D (Oscal D 500mg/ 200uts) 1 tab STK-MED ONCE .ROUTE Last administered on 12/18/16t 10:34; Start 12/18/16 at 08:25; Stop 12/18/16 at 08:26 ; Status DC EZETIMIBE (Zetia) 10 mg QHS PO ; Start 12/18/16 at 21:00 Calcium/Vitamin D (Oscal D 500mg/ 200uts) 1 tab DAILY PO ; Start 12/19/16 at 09: 00 Active Scripts Active Carafate (Sucralfate) 1 Gm Tablet 1 Gm PO QHS 30 Days Reported Gleevec (Imatinib Mesylate) 400 Mg Tablet 400 Mg PO DAILYAC Nitrostat (Nitroglycerin) 0.4 Mg Tab.subl 0.4 Mg SL PRN Q5MIN PRN Persantine (Dipyridamole) 75 Mg Tablet 75 Mg PO BID Paroxetine Hcl 20 Mg Tablet 20 Mg PO DAILY Calcium-Vitamin D Tablet (Calcium Carbonate/Vitamin D3) 1 Each Tablet 1 Each PO DAILY Vitamin D3 (Cholecalciferol (Vitamin D3)) 10,000 Unit Tablet 10,000 Unit PO Hydrocodone-Apap 5-325 (Hydrocodone Bit/Acetaminophen) 1 Each Tablet 1 Tab PO PRN Q6HRS PRN Spiriva (Tiotropium [place]) 18 Mcg Cap.w.dev 2 Inh IH DAILY Gleevec (Imatinib Mesylate) 400 Mg Tablet 400 Mg PO DAILY Zetia (Ezetimibe) 10 Mg Tablet 10 Mg PO DAILY Allergies Allergies: Coded Allergies: NSAIDS (Non-Steroidal Anti-Inflamma (Unverified Allergy, Intermediate, 09/10) Tetanus Vaccines and Toxoid (Unverified Allergy, Intermediate, 05/08/15) Physical Exam General: Alert, Oriented X3, Cooperative, No acute distress HEENT: Atraumatic Lungs: Clear to auscultation, Normal air movement Heart: Regular rate, Normal S1, Normal S2, No murmurs Extremities: No clubbing, No cyanosis Vitals VITALS Vital Signs Date Time Temp Pulse Resp B/P Pulse Ox O2 Delivery O2 Flow Rate FiO2 12/18/16 12:42 97 Room Air 12/18/16 12:00 81 93/50 12/18/16 11:00 98.3 16 98.3 12/17/16 20:00 1.0 Labs Labs Laboratory Tests Test 12/17/16 09:42 12/17/16 10:10 12/17/16 10:20 12/18/16 03:35 White Blood Count 8.3x10^3/uL (4.0-11.0) 6.7x10^3/uL (4.0-11.0) Red Blood Count 2.47x10^6/uL (3.50-5.40) 2.32x10^6/uL (3.50-5.40) Hemoglobin 8.3g/dL (12.0-15.5) 7.7g/dL (12.0-15.5) Hematocrit 24.0% (36.0-47.0) 23.0% (36.0-47.0) Mean Corpuscular Volume 97fL (79-100) 99fL (79-100) Mean Corpuscular Hemoglobin 34pg (25-35) 33pg (25-35) Mean Corpuscular Hemoglobin Concent 35g/dL (31-37) 33g/dL (31-37) Red Cell Distribution Width 16.0% (11.5-14.5) 16.5% (11.5-14.5) Platelet Count 248x10^3/uL (140-400) 214x10^3/uL (140-400) Neutrophils (%) (Auto) 56% (31-73) 51% (31-73) Lymphocytes (%) (Auto) 23% (24-48) 28% (24-48) Monocytes (%) (Auto) 7% (0-9) 9% (0-9) Eosinophils (%) (Auto) 12% (0-3) 11% (0-3) Basophils (%) (Auto) 1% (0-3) 1% (0-3) Neutrophils # (Auto) 4.7x10^3uL (1.8-7.7) 3.4x10^3uL (1.8-7.7) Lymphocytes # (Auto) 1.9x10^3/uL (1.0-4.8) 1.8x10^3/uL (1.0-4.8) Monocytes # (Auto) 0.6x10^3/uL (0.0-1.1) 0.6x10^3/uL (0.0-1.1) Eosinophils # (Auto) 1.0x10^3/uL (0.0-0.7) 0.8x10^3/uL (0.0-0.7) Basophils # (Auto) 0.1x10^3/uL (0.0-0.2) 0.0x10^3/uL (0.0-0.2) Sodium Level 136mmol/L (136-145) 136mmol/L (136-145) Potassium Level 3.4mmol/L (3.5-5.1) 3.4mmol/L (3.5-5.1) Chloride Level 102mmol/L (98-107) 105mmol/L (98-107) Carbon Dioxide Level 18mmol/L (21-32) 20mmol/L (21-32) Anion Gap 16 (6-14) 11 (6-14) Blood Urea Nitrogen 43mg/dL (7-20) 40mg/dL (7-20) Creatinine 2.3mg/dL (0.6-1.0) 2.0mg/dL (0.6-1.0) Estimated GFR (Cockcroft-Gault) 20.6 24.2 Glucose Level 94mg/dL (70-99) 92mg/dL (70-99) Calcium Level 8.9mg/dL (8.5-10.1) 8.4mg/dL (8.5-10.1) Total Bilirubin 0.3mg/dL (0.2-1.0) Direct Bilirubin 0.1mg/dL (0.0-0.2) Aspartate Amino Transf (AST/SGOT) 31U/L (15-37) Alanine Aminotransferase (ALT/SGPT) 23U/L (14-59) Alkaline Phosphatase 52U/L (46-116) Troponin I Quantitative 0.040ng/mL (0.000-0.055) CY-Fuq-U-Type Natriuretic Peptide 1584pg/mL (0-449) Total Protein 6.7g/dL (6.4-8.2) Albumin 3.8g/dL (3.4-5.0) Lipase 204U/L (73-393) Lactic Acid Level 1.1mmol/L (0.4-2.0) Urine Collection Type Unknown Urine Color Yellow Urine Clarity Clear Urine pH 5.5 Urine Specific [place] 1.015 Urine Protein 30mg/dL (NEG-TRACE) Urine Glucose (UA) Negativemg/dL (NEG) Urine Ketones (Stick) Negativemg/dL (NEG) Urine Blood Negative (NEG) Urine Nitrite Negative (NEG) Urine Bilirubin Negative (NEG) Urine Urobilinogen Dipstick 0.2mg/dL (0.2 mg/dL) Urine Leukocyte Esterase Negative (NEG) Urine RBC 0/HPF (0-2) Urine WBC 0/HPF (0-4) Urine Squamous Epithelial Cells Occ/LPF Urine Bacteria 0/HPF (0-FEW) Urine Hyaline Casts Few/HPF Urine Mucus Slight/LPF Laboratory Tests Test 12/18/16 03:35 White Blood Count 6.7x10^3/uL (4.0-11.0) Red Blood Count 2.32x10^6/uL (3.50-5.40) Hemoglobin 7.7g/dL (12.0-15.5) Hematocrit 23.0% (36.0-47.0) Mean Corpuscular Volume 99fL (79-100) Mean Corpuscular Hemoglobin 33pg (25-35) Mean Corpuscular Hemoglobin Concent 33g/dL (31-37) Red Cell Distribution Width 16.5% (11.5-14.5) Platelet Count 214x10^3/uL (140-400) Neutrophils (%) (Auto) 51% (31-73) Lymphocytes (%) (Auto) 28% (24-48) Monocytes (%) (Auto) 9% (0-9) Eosinophils (%) (Auto) 11% (0-3) Basophils (%) (Auto) 1% (0-3) Neutrophils # (Auto) 3.4x10^3uL (1.8-7.7) Lymphocytes # (Auto) 1.8x10^3/uL (1.0-4.8) Monocytes # (Auto) 0.6x10^3/uL (0.0-1.1) Eosinophils # (Auto) 0.8x10^3/uL (0.0-0.7) Basophils # (Auto) 0.0x10^3/uL (0.0-0.2) Sodium Level 136mmol/L (136-145) Potassium Level 3.4mmol/L (3.5-5.1) Chloride Level 105mmol/L (98-107) Carbon Dioxide Level 20mmol/L (21-32) Anion Gap 11 (6-14) Blood Urea Nitrogen 40mg/dL (7-20) Creatinine 2.0mg/dL (0.6-1.0) Estimated GFR (Cockcroft-Gault) 24.2 Glucose Level 92mg/dL (70-99) Calcium Level 8.4mg/dL (8.5-10.1) Assessment/Plan Assessment/Plan Patient had a syncopal episode that is probably secondary to dehydration, hypovolemia. I agree with IV fluids to rehydrate the patient. Thank you very much for asking me to participate in the care of this patient LILLIANA RODRIGUEZ MD Dec 18, 2016 13:34
[2016-12-18] MEDS: IV NORMAL SALINE 1000ML BAG 1,000 ML IV SCH (14:30)
[2016-12-18] MEDS: SUCRALFATE 1 GM TABLET. PO SCH (20:34)
[2016-12-18] MEDS: EZETIMIBE 10 MG TABLET PO SCH (20:34)
[2016-12-19] VITALS (12 sets, daily range): BP systolic 92–113; BP diastolic 49–65
[2016-12-19] MEDS: IV NORMAL SALINE 1000ML BAG 1,000 ML IV SCH (00:30)
[2016-12-19 04:07] LABS: BASO % 0 % (0-3); EOS % 0 % (0-3); LYMPH # 0.6 x10^3/uL (1.0-4.8); LYMPH % 10 % (24-48); MEAN CORPUSCULAR HEMOGLOBIN 34 pg (25-35); MEAN CORPUSCULAR HGB CONC 34 g/dL (31-37); MEAN CORPUSCULAR VOLUME 100 fL (79-100); MONO % 5 % (0-9); NEUT % 85 % (31-73); PLATELET COUNT 187 x10^3/uL (140-400); RED BLOOD COUNT 1.92 x10^6/uL (3.50-5.40); RED CELL DISTRIBUTION WIDTH 16.7 % (11.5-14.5); WHITE BLOOD COUNT 5.6 x10^3/uL (4.0-11.0)
[2016-12-19 04:11] LABS: HEMATOCRIT 19.2 % (36.0-47.0); HEMOGLOBIN 6.5 g/dL (12.0-15.5)
[2016-12-19 04:15] LABS: CALCIUM 7.6 mg/dL (8.5-10.1); CREATININE 1.5 mg/dL (0.6-1.0); GFR 33.7; POTASSIUM 4.2 mmol/L (3.5-5.1)
[2016-12-19] MEDS ORDERED: FUROSEMIDE 20 MG/2 ML VIAL IV PRN (04:30)
[2016-12-19] MEDS: METRONIDAZOLE 500 MG TABLET. PO SCH (06:40)
[2016-12-19] MEDS: IPRATRPIUM/ALBUTEROL 0.5/2.5MG 3 ML NEBU. NEB SCH ×4 (08:18→19:09)
[2016-12-19] MEDS: IMATINIB MESYLATE 400 MG PO SCH (09:00)
[2016-12-19] MEDS: PREDNISONE 20 MG TABLET PO SCH (09:34)
[2016-12-19] MEDS: DIPYRIDAMOLE 25 MG TABLET PO SCH ×2 (09:34→20:50)
[2016-12-19] MEDS: CALCIUM CARB/VIT D3 500/200 TABLET. PO SCH (09:34)
[2016-12-19] MEDS: PAROXETINE 20 MG TABLET. PO SCH (09:34)
--- NOTE | 2016-12-19 12:32 | PDOC ---
PROGRESS NOTES Subjective Subjective Patient admits to feeling a little lightheaded. Denies abdominal pain, denies seeing blood in stool. Objective Objective Vital Signs Date Time Temp Pulse Resp B/P Pulse Ox O2 Delivery O2 Flow Rate FiO2 12/19/16 11:52 98 Room Air 12/19/16 07:00 98.2 74 18 96/53 98.2 12/18/16 19:38 1.0 Intake and Output 12/19/16 07:00 Intake Total 1380 ml Output Total 650 ml Balance 730 ml Intake Oral 780 ml IV Total 600 ml Output Urine Total 410 ml Stool Total 240 ml Physical Exam Abdomen: Normal bowel sounds, Soft, No tenderness Heart: Regular rate, Other (II/ systolic murmur) Extremities: No edema General: Alert, Oriented X3, No acute distress Lungs: Other (BS decreased throughout but CTA) Assessment Assessment Problems Medical Problems: (1) COPD (chronic obstructive pulmonary disease) Status: Acute (2) Generalized weakness Status: Acute (3) Hypovolemia Status: Acute (4) Pleural effusion Status: Acute (5) Tachycardia Status: Acute Plan Plan of Care 1. 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 Hgb dropped from admission to 6.5 this AM. No evidence of acute bleeding. Could be partially dilutional as she has been on IVF. Transfusion has been ordered. Will follow lab and consider further evaluation if Hgb not stable after transfusion. 2. CKD with acute renal failure - lab improved with IVF and creatinine appears at baseline presently. Will d/c IVF, encouraged po fluids. 3. diarrhea with recent C diff - stool is negative for C diff now. Will d/c Flagyl and order Imodium prn. 4. COPD - may have mild exacerbation, on po Prednisone. CXR without infiltrate. 5. debility and falls - patient was having trouble with this since her discharge home earlier this month. Will order PT but will need to wait on this until she has received her transfusion as her BP is mildly low presently. Comment Review of Relevant I have reviewed the following items eliu (where applicable) has been applied. Labs Laboratory Tests Test 12/18/16 03:35 12/18/16 11:00 12/19/16 03:40 White Blood Count 6.7x10^3/uL (4.0-11.0) 5.6x10^3/uL (4.0-11.0) Red Blood Count 2.32x10^6/uL (3.50-5.40) 1.92x10^6/uL (3.50-5.40) Hemoglobin 7.7g/dL (12.0-15.5) 6.5g/dL (12.0-15.5) Hematocrit 23.0% (36.0-47.0) 19.2% (36.0-47.0) Mean Corpuscular Volume 99fL (79-100) 100fL (79-100) Mean Corpuscular Hemoglobin 33pg (25-35) 34pg (25-35) Mean Corpuscular Hemoglobin Concent 33g/dL (31-37) 34g/dL (31-37) Red Cell Distribution Width 16.5% (11.5-14.5) 16.7% (11.5-14.5) Platelet Count 214x10^3/uL (140-400) 187x10^3/uL (140-400) Neutrophils (%) (Auto) 51% (31-73) 85% (31-73) Lymphocytes (%) (Auto) 28% (24-48) 10% (24-48) Monocytes (%) (Auto) 9% (0-9) 5% (0-9) Eosinophils (%) (Auto) 11% (0-3) 0% (0-3) Basophils (%) (Auto) 1% (0-3) 0% (0-3) Neutrophils # (Auto) 3.4x10^3uL (1.8-7.7) 4.8x10^3uL (1.8-7.7) Lymphocytes # (Auto) 1.8x10^3/uL (1.0-4.8) 0.6x10^3/uL (1.0-4.8) Monocytes # (Auto) 0.6x10^3/uL (0.0-1.1) 0.3x10^3/uL (0.0-1.1) Eosinophils # (Auto) 0.8x10^3/uL (0.0-0.7) 0.0x10^3/uL (0.0-0.7) Basophils # (Auto) 0.0x10^3/uL (0.0-0.2) 0.0x10^3/uL (0.0-0.2) Sodium Level 136mmol/L (136-145) 135mmol/L (136-145) Potassium Level 3.4mmol/L (3.5-5.1) 4.2mmol/L (3.5-5.1) Chloride Level 105mmol/L (98-107) 105mmol/L (98-107) Carbon Dioxide Level 20mmol/L (21-32) 18mmol/L (21-32) Anion Gap 11 (6-14) 12 (6-14) Blood Urea Nitrogen 40mg/dL (7-20) 38mg/dL (7-20) Creatinine 2.0mg/dL (0.6-1.0) 1.5mg/dL (0.6-1.0) Estimated GFR (Cockcroft-Gault) 24.2 33.7 Glucose Level 92mg/dL (70-99) 130mg/dL (70-99) Calcium Level 8.4mg/dL (8.5-10.1) 7.6mg/dL (8.5-10.1) Clostridium difficile Toxin (PCR) Negative (Negative) Laboratory Tests Test 12/19/16 03:40 White Blood Count 5.6x10^3/uL (4.0-11.0) Red Blood Count 1.92x10^6/uL (3.50-5.40) Hemoglobin 6.5g/dL (12.0-15.5) Hematocrit 19.2% (36.0-47.0) Mean Corpuscular Volume 100fL (79-100) Mean Corpuscular Hemoglobin 34pg (25-35) Mean Corpuscular Hemoglobin Concent 34g/dL (31-37) Red Cell Distribution Width 16.7% (11.5-14.5) Platelet Count 187x10^3/uL (140-400) Neutrophils (%) (Auto) 85% (31-73) Lymphocytes (%) (Auto) 10% (24-48) Monocytes (%) (Auto) 5% (0-9) Eosinophils (%) (Auto) 0% (0-3) Basophils (%) (Auto) 0% (0-3) Neutrophils # (Auto) 4.8x10^3uL (1.8-7.7) Lymphocytes # (Auto) 0.6x10^3/uL (1.0-4.8) Monocytes # (Auto) 0.3x10^3/uL (0.0-1.1) Eosinophils # (Auto) 0.0x10^3/uL (0.0-0.7) Basophils # (Auto) 0.0x10^3/uL (0.0-0.2) Sodium Level 135mmol/L (136-145) Potassium Level 4.2mmol/L (3.5-5.1) Chloride Level 105mmol/L (98-107) Carbon Dioxide Level 18mmol/L (21-32) Anion Gap 12 (6-14) Blood Urea Nitrogen 38mg/dL (7-20) Creatinine 1.5mg/dL (0.6-1.0) Estimated GFR (Cockcroft-Gault) 33.7 Glucose Level 130mg/dL (70-99) Calcium Level 7.6mg/dL (8.5-10.1) Medications Current Medications Albuterol/ Ipratropium (Duoneb) 3 ml 1X ONCE NEB Last administered on t 10:22; Start 12/17/16 at 10:15; Stop 12/17/16 at 10:16; Status DC Ondansetron HCl (Zofran) 4 mg PRN Q8HRS PRN IV NAUSEA/VOMITING; Start 12/17/16 at 12:00; Stop 12/18/16 at 11:59; Status DC Morphine Sulfate 2 mg PRN Q2HR PRN IV PAIN; Start 12/17/16 at 12:00; Stop 12/18 at 11:59; Status DC Calcium/Vitamin D (Oscal D 500mg/ 200uts) 1 tab DAILY PO ; Start 12/18/16 at 09: 00; Stop 12/18/16 at 13:10; Status DC EZETIMIBE (Zetia) 10 mg DAILY PO ; Start 12/18/16 at 09:00; Stop 12/18/16 at 11: 29; Status DC Acetaminophen/ Hydrocodone Bitart (Lortab 5/325) 1 tab PRN Q6HRS PRN PO PAIN Last administered on 12/18/16 20:34; Start 12/17/16 at 16:00 Nitroglycerin (Nitrostat) 0.4 mg PRN Q5MIN PRN SL CHEST PAIN; Start 12/17/16 at 16:00 Paroxetine HCl (Paxil) 20 mg DAILY PO Last administered on 12/19/16 09:34; Start 12/18/16 at 09:00 Sucralfate (Carafate) 1 gm QHS PO Last administered on 12/18/16 20:34; Start 12/17/16 at 21:00 Dipyridamole (Persantine) 75 mg BID PO ; Start 12/17/16 at 16:00; Status Cancel Non-Formulary Medication 400 mg DAILY PO Last administered on 12/19/16 09:00; Start 12/18/16 at 09:00 Non-Formulary Medication 2 inh DAILY IH ; Start 12/18/16 at 09:00; Stop at 09:00; Status DC Albuterol/ Ipratropium (Duoneb) 3 ml RTQID NEB Last administered on 12/19/16 11:52; Start 12/17/16 at 16:00 Dipyridamole (Persantine) 75 mg BID PO Last administered on 12/19/16 09:34; Start 12/17/16 at 21:00 Prednisone (Prednisone) 40 mg DAILY08 PO Last administered on 12/19/16 09:34; Start 12/18/16 at 08:00 Metronidazole (Flagyl) 500 mg Q8HRS PO Last administered on 12/19/16 06:40; Start 12/18/16 at 07:45 Potassium Chloride 40 meq 40 meq 1X ONCE PO Last administered on 12/18/16 10: 33; Start 12/18/16 at 07:30; Stop 12/18/16 at 07:31; Status DC Sodium Chloride (Iv Sodium Chloride 0.9% 1000ml Bag) 1,000 ml @ 75 mls/hr 1X ONCE IV Last administered on 12/18/16 10:37; Start 12/18/16 at 07:30; Stop at 14:25; Status DC Calcium/Vitamin D (Oscal D 500mg/ 200uts) 1 tab STK-MED ONCE .ROUTE Last administered on 12/18/16 10:34; Start 12/18/16 at 08:25; Stop 12/18/16 at 08:26 ; Status DC EZETIMIBE (Zetia) 10 mg QHS PO Last administered on 12/18/16 20:34; Start at 21:00 Calcium/Vitamin D 1 tab 1 tab DAILY PO Last administered on 12/19/16 09:34; Start 12/19/16 at 09:00 Sodium Chloride (Iv Sodium Chloride 0.9% 1000ml Bag) 1,000 ml @ 100 mls/hr Q10H IV Last administered on 12/19/16 00:30; Start 12/18/16 at 14:30 Furosemide (Lasix) 20 mg 1X PRN PRN IV Blood transfusion; Start 12/19/16 at 04: 30; Stop 12/20/16 at 04:29 Active Scripts Active Carafate (Sucralfate) 1 Gm Tablet 1 Gm PO QHS 30 Days Reported Gleevec (Imatinib Mesylate) 400 Mg Tablet 400 Mg PO DAILYAC Nitrostat (Nitroglycerin) 0.4 Mg Tab.subl 0.4 Mg SL PRN Q5MIN PRN Persantine (Dipyridamole) 75 Mg Tablet 75 Mg PO BID Paroxetine Hcl 20 Mg Tablet 20 Mg PO DAILY Calcium-Vitamin D Tablet (Calcium Carbonate/Vitamin D3) 1 Each Tablet 1 Each PO DAILY Vitamin D3 (Cholecalciferol (Vitamin D3)) 10,000 Unit Tablet 10,000 Unit PO Hydrocodone-Apap 5-325 (Hydrocodone Bit/Acetaminophen) 1 Each Tablet 1 Tab PO PRN Q6HRS PRN Spiriva (Tiotropium [place]) 18 Mcg Cap.w.dev 2 Inh IH DAILY Gleevec (Imatinib Mesylate) 400 Mg Tablet 400 Mg PO DAILY Zetia (Ezetimibe) 10 Mg Tablet 10 Mg PO DAILY Vitals/I & O Vital Sign - Last 24 Hours 12/18/16 12/18/16 12/18/16 12/18/16 12:42 14:45 16:02 19:36 Temp 98.2 98.8 98.2 98.8 Pulse 84 80 Resp 16 B/P 110/57 99/47 Pulse Ox 97 98 96 96 O2 Delivery Room Air Room Air Room Air Room Air 3/12/18/16 12/18/16 12/18/16 19:38 20:34 21:34 23:00 Temp 98.4 98.4 Pulse 78 Resp 16 18 16 B/P 94/47 Pulse Ox 96 96 O2 Delivery Room Air Room Air Room Air O2 Flow Rate 1.0 12/19/16 12/19/16 12/19/16 12/19/16 03:00 07:00 08:00 08:18 Temp 98.3 98.2 98.3 98.2 Pulse 72 74 Resp 16 18 B/P 101/52 96/53 Pulse Ox 96 95 O2 Delivery Room Air Room Air Room Air Room Air 12/19/16 11:52 Pulse Ox 98 O2 Delivery Room Air Intake and Output 12/18/16 12/18/16 12/19/16 15:00 23:00 07:00 Intake Total 840 ml 200 ml 340 ml Output Total 240 ml 160 ml 250 ml Balance 600 ml 40 ml 90 ml Nutrition Consultation Dietary Evaluation: Recommendations by RD: Increase Calorie Intake, Protein supplementation Comments: recent wt loss and poor appetite-refuses protein supplements Rec. increase calorie/protein intake due to recent wt loss/poor appetite. Refuses protein shakes, agrees to: -whole milk TID -magic cup once daily -cottage cheese/fruit at lunch Expected Outcomes/Goals: meet 75% estimated nutrition needs no further wt loss Interpretation of weight loss: >7.5% in 3 months Malnutrition Findings: Food and Nutrition Intake (Mod: <75% est energy req 7days Body Fat Depletion (Non Severe: Mild Depletion Reduced Edger Operator Strength (Non-Sev: N/A Malnutrition related to morbid: No Fluid Accumulation (N/A): N/A STEPHEN GARCIA MD Dec 19, 2016 12:32
--- NOTE | 2016-12-19 14:35 | PDOC ---
PROGRESS NOTES Subjective Subjective Patient is very weak and pale. She is still very short of breath with any type of exertion. No chest pains. No loss of consciousness. No lightheadedness. Objective Objective Vital Signs Date Time Temp Pulse Resp B/P Pulse Ox O2 Delivery O2 Flow Rate FiO2 12/19/16 11:52 98 Room Air 12/19/16 07:00 98.2 74 18 96/53 98.2 12/18/16 19:38 1.0 Intake and Output 12/19/16 07:00 Intake Total 1380 ml Output Total 650 ml Balance 730 ml Intake Oral 780 ml IV Total 600 ml Output Urine Total 410 ml Stool Total 240 ml Physical Exam Physical Exam No significant changes in cardiac exam Assessment Assessment Patient's hemoglobin is low and I agree with Dr. Diaz that the patient's symptoms at this time are related to the anemia. Agree with transfusion of at least 2 units of packed red blood cells. Problems Medical Problems: (1) COPD (chronic obstructive pulmonary disease) Status: Acute (2) Generalized weakness Status: Acute (3) Hypovolemia Status: Acute (4) Pleural effusion Status: Acute (5) Tachycardia Status: Acute Comment Review of Relevant I have reviewed the following items eliu (where applicable) has been applied. Labs Laboratory Tests Test 12/18/16 03:35 12/18/16 11:00 12/19/16 03:40 White Blood Count 6.7x10^3/uL (4.0-11.0) 5.6x10^3/uL (4.0-11.0) Red Blood Count 2.32x10^6/uL (3.50-5.40) 1.92x10^6/uL (3.50-5.40) Hemoglobin 7.7g/dL (12.0-15.5) 6.5g/dL (12.0-15.5) Hematocrit 23.0% (36.0-47.0) 19.2% (36.0-47.0) Mean Corpuscular Volume 99fL (79-100) 100fL (79-100) Mean Corpuscular Hemoglobin 33pg (25-35) 34pg (25-35) Mean Corpuscular Hemoglobin Concent 33g/dL (31-37) 34g/dL (31-37) Red Cell Distribution Width 16.5% (11.5-14.5) 16.7% (11.5-14.5) Platelet Count 214x10^3/uL (140-400) 187x10^3/uL (140-400) Neutrophils (%) (Auto) 51% (31-73) 85% (31-73) Lymphocytes (%) (Auto) 28% (24-48) 10% (24-48) Monocytes (%) (Auto) 9% (0-9) 5% (0-9) Eosinophils (%) (Auto) 11% (0-3) 0% (0-3) Basophils (%) (Auto) 1% (0-3) 0% (0-3) Neutrophils # (Auto) 3.4x10^3uL (1.8-7.7) 4.8x10^3uL (1.8-7.7) Lymphocytes # (Auto) 1.8x10^3/uL (1.0-4.8) 0.6x10^3/uL (1.0-4.8) Monocytes # (Auto) 0.6x10^3/uL (0.0-1.1) 0.3x10^3/uL (0.0-1.1) Eosinophils # (Auto) 0.8x10^3/uL (0.0-0.7) 0.0x10^3/uL (0.0-0.7) Basophils # (Auto) 0.0x10^3/uL (0.0-0.2) 0.0x10^3/uL (0.0-0.2) Sodium Level 136mmol/L (136-145) 135mmol/L (136-145) Potassium Level 3.4mmol/L (3.5-5.1) 4.2mmol/L (3.5-5.1) Chloride Level 105mmol/L (98-107) 105mmol/L (98-107) Carbon Dioxide Level 20mmol/L (21-32) 18mmol/L (21-32) Anion Gap 11 (6-14) 12 (6-14) Blood Urea Nitrogen 40mg/dL (7-20) 38mg/dL (7-20) Creatinine 2.0mg/dL (0.6-1.0) 1.5mg/dL (0.6-1.0) Estimated GFR (Cockcroft-Gault) 24.2 33.7 Glucose Level 92mg/dL (70-99) 130mg/dL (70-99) Calcium Level 8.4mg/dL (8.5-10.1) 7.6mg/dL (8.5-10.1) Clostridium difficile Toxin (PCR) Negative (Negative) Laboratory Tests Test 12/19/16 03:40 White Blood Count 5.6x10^3/uL (4.0-11.0) Red Blood Count 1.92x10^6/uL (3.50-5.40) Hemoglobin 6.5g/dL (12.0-15.5) Hematocrit 19.2% (36.0-47.0) Mean Corpuscular Volume 100fL (79-100) Mean Corpuscular Hemoglobin 34pg (25-35) Mean Corpuscular Hemoglobin Concent 34g/dL (31-37) Red Cell Distribution Width 16.7% (11.5-14.5) Platelet Count 187x10^3/uL (140-400) Neutrophils (%) (Auto) 85% (31-73) Lymphocytes (%) (Auto) 10% (24-48) Monocytes (%) (Auto) 5% (0-9) Eosinophils (%) (Auto) 0% (0-3) Basophils (%) (Auto) 0% (0-3) Neutrophils # (Auto) 4.8x10^3uL (1.8-7.7) Lymphocytes # (Auto) 0.6x10^3/uL (1.0-4.8) Monocytes # (Auto) 0.3x10^3/uL (0.0-1.1) Eosinophils # (Auto) 0.0x10^3/uL (0.0-0.7) Basophils # (Auto) 0.0x10^3/uL (0.0-0.2) Sodium Level 135mmol/L (136-145) Potassium Level 4.2mmol/L (3.5-5.1) Chloride Level 105mmol/L (98-107) Carbon Dioxide Level 18mmol/L (21-32) Anion Gap 12 (6-14) Blood Urea Nitrogen 38mg/dL (7-20) Creatinine 1.5mg/dL (0.6-1.0) Estimated GFR (Cockcroft-Gault) 33.7 Glucose Level 130mg/dL (70-99) Calcium Level 7.6mg/dL (8.5-10.1) Medications Current Medications Albuterol/ Ipratropium (Duoneb) 3 ml 1X ONCE NEB Last administered on 10:22; Start 12/17/16 at 10:15; Stop 12/17/16 at 10:16; Status DC Ondansetron HCl (Zofran) 4 mg PRN Q8HRS PRN IV NAUSEA/VOMITING; Start 12/17/16 at 12:00; Stop 12/18/16 at 11:59; Status DC Morphine Sulfate 2 mg PRN Q2HR PRN IV PAIN; Start 12/17/16 at 12:00; Stop 12/18 at 11:59; Status DC Calcium/Vitamin D (Oscal D 500mg/ 200uts) 1 tab DAILY PO ; Start 12/18/16 at 09: 00; Stop 12/18/16 at 13:10; Status DC EZETIMIBE (Zetia) 10 mg DAILY PO ; Start 12/18/16 at 09:00; Stop 12/18/16 at 11: 29; Status DC Acetaminophen/ Hydrocodone Bitart (Lortab 5/325) 1 tab PRN Q6HRS PRN PO PAIN Last administered on 12/18/16 20:34; Start 12/17/16 at 16:00 Nitroglycerin (Nitrostat) 0.4 mg PRN Q5MIN PRN SL CHEST PAIN; Start 12/17/16 at 16:00 Paroxetine HCl (Paxil) 20 mg DAILY PO Last administered on 12/19/16 09:34; Start 12/18/16 at 09:00 Sucralfate (Carafate) 1 gm QHS PO Last administered on 12/18/16 20:34; Start 12/17/16 at 21:00 Dipyridamole (Persantine) 75 mg BID PO ; Start 12/17/16 at 16:00; Status Cancel Non-Formulary Medication 400 mg DAILY PO Last administered on 12/19/16 09:00; Start 12/18/16 at 09:00 Non-Formulary Medication 2 inh DAILY IH ; Start 12/18/16 at 09:00; Stop at 09:00; Status DC Albuterol/ Ipratropium (Duoneb) 3 ml RTQID NEB Last administered on 12/19/16 11:52; Start 12/17/16 at 16:00 Dipyridamole (Persantine) 75 mg BID PO Last administered on 12/19/16 09:34; Start 12/17/16 at 21:00 Prednisone (Prednisone) 40 mg DAILY08 PO Last administered on 12/19/16 09:34; Start 12/18/16 at 08:00 Metronidazole (Flagyl) 500 mg Q8HRS PO Last administered on 12/19/16 06:40; Start 12/18/16 at 07:45; Stop 12/19/16 at 12:26; Status DC Potassium Chloride 40 meq 40 meq 1X ONCE PO Last administered on 12/18/16 10: 33; Start 12/18/16 at 07:30; Stop 12/18/16 at 07:31; Status DC Sodium Chloride (Iv Sodium Chloride 0.9% 1000ml Bag) 1,000 ml @ 75 mls/hr 1X ONCE IV Last administered on 12/18/16 10:37; Start 12/18/16 at 07:30; Stop at 14:25; Status DC Calcium/Vitamin D (Oscal D 500mg/ 200uts) 1 tab STK-MED ONCE .ROUTE Last administered on 12/18/16 10:34; Start 12/18/16 at 08:25; Stop 12/18/16 at 08:26 ; Status DC EZETIMIBE (Zetia) 10 mg QHS PO Last administered on 12/18/16 20:34; Start at 21:00 Calcium/Vitamin D 1 tab 1 tab DAILY PO Last administered on 12/19/16 09:34; Start 12/19/16 at 09:00 Sodium Chloride (Iv Sodium Chloride 0.9% 1000ml Bag) 1,000 ml @ 100 mls/hr Q10H IV Last administered on 12/19/16 00:30; Start 12/18/16 at 14:30; Stop at 12:26; Status DC Furosemide (Lasix) 20 mg 1X PRN PRN IV Blood transfusion; Start 12/19/16 at 04: 30; Stop 12/20/16 at 04:29 Loperamide HCl (Imodium) 2 mg PRN Q15MIN PRN PO DIARRHEA; Start 12/19/16 at 12: 30 Active Scripts Active Carafate (Sucralfate) 1 Gm Tablet 1 Gm PO QHS 30 Days Reported Gleevec (Imatinib Mesylate) 400 Mg Tablet 400 Mg PO DAILYAC Nitrostat (Nitroglycerin) 0.4 Mg Tab.subl 0.4 Mg SL PRN Q5MIN PRN Persantine (Dipyridamole) 75 Mg Tablet 75 Mg PO BID Paroxetine Hcl 20 Mg Tablet 20 Mg PO DAILY Calcium-Vitamin D Tablet (Calcium Carbonate/Vitamin D3) 1 Each Tablet 1 Each PO DAILY Vitamin D3 (Cholecalciferol (Vitamin D3)) 10,000 Unit Tablet 10,000 Unit PO Hydrocodone-Apap 5-325 (Hydrocodone Bit/Acetaminophen) 1 Each Tablet 1 Tab PO PRN Q6HRS PRN Spiriva (Tiotropium [place]) 18 Mcg Cap.w.dev 2 Inh IH DAILY Gleevec (Imatinib Mesylate) 400 Mg Tablet 400 Mg PO DAILY Zetia (Ezetimibe) 10 Mg Tablet 10 Mg PO DAILY Vitals/I & O Vital Sign - Last 24 Hours 12/18/16 12/18/16 12/18/16 12/18/16 14:45 16:02 19:36 19:38 Temp 98.2 98.8 98.2 98.8 Pulse 84 80 Resp 16 B/P 110/57 99/47 Pulse Ox 98 96 96 O2 Delivery Room Air Room Air Room Air Room Air O2 Flow Rate 1.0 12/18/16 12/18/16 12/18/16 12/19/16 20:34 21:34 23:00 03:00 Temp 98.4 98.3 98.4 98.3 Pulse 78 72 Resp 16 18 16 16 B/P 94/47 101/52 Pulse Ox 96 96 96 O2 Delivery Room Air Room Air Room Air 12/19/16 12/19/16 12/19/16 12/19/16 07:00 08:00 08:18 11:52 Temp 98.2 98.2 Pulse 74 Resp 18 B/P 96/53 Pulse Ox 95 98 O2 Delivery Room Air Room Air Room Air Room Air Intake and Output 12/18/16 12/18/16 12/19/16 15:00 23:00 07:00 Intake Total 840 ml 200 ml 340 ml Output Total 240 ml 160 ml 250 ml Balance 600 ml 40 ml 90 ml Nutrition Consultation Dietary Evaluation: Recommendations by RD: Increase Calorie Intake, Protein supplementation Comments: recent wt loss and poor appetite-refuses protein supplements Rec. increase calorie/protein intake due to recent wt loss/poor appetite. 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
[2016-12-19] MEDS: LOPERAMIDE 2 MG CAPSULE PO PRN (18:03)
[2016-12-19] MEDS: EZETIMIBE 10 MG TABLET PO SCH (20:50)
[2016-12-19] MEDS: SUCRALFATE 1 GM TABLET. PO SCH (20:50)
[2016-12-20] VITALS (7 sets, daily range): BP systolic 110–133; BP diastolic 31–82
[2016-12-20 05:24] LABS: HEMATOCRIT 27.2 % (36.0-47.0); HEMOGLOBIN 9.1 g/dL (12.0-15.5); RED BLOOD COUNT 2.83 x10^6/uL (3.50-5.40); WHITE BLOOD COUNT 8.6 x10^3/uL (4.0-11.0)
[2016-12-20 05:35] LABS: CALCIUM 7.9 mg/dL (8.5-10.1); CREATININE 1.2 mg/dL (0.6-1.0); GFR 43.6; POTASSIUM 4.1 mmol/L (3.5-5.1)
[2016-12-20] MEDS: IPRATRPIUM/ALBUTEROL 0.5/2.5MG 3 ML NEBU. NEB SCH ×4 (08:07→21:01)
[2016-12-20] MEDS: IMATINIB MESYLATE 400 MG PO SCH (09:49)
[2016-12-20] MEDS: DIPYRIDAMOLE 25 MG TABLET PO SCH ×2 (09:49→20:52)
[2016-12-20] MEDS: PAROXETINE 20 MG TABLET. PO SCH (09:50)
[2016-12-20] MEDS: PREDNISONE 20 MG TABLET PO SCH (09:50)
[2016-12-20] MEDS: CALCIUM CARB/VIT D3 500/200 TABLET. PO SCH (09:50)
[2016-12-20] MEDS: LOPERAMIDE 2 MG CAPSULE PO PRN ×2 (10:02→20:51)
--- NOTE | 2016-12-20 12:55 | PDOC ---
PROGRESS NOTES Subjective Subjective Patient reports she feels better after transfusion yesterday. One loose stool today. Objective Objective Vital Signs Date Time Temp Pulse Resp B/P Pulse Ox O2 Delivery O2 Flow Rate FiO2 12/20/16 12:07 97 Room Air 12/20/16 07:00 98.1 67 16 133/78 98.1 12/19/16 19:33 1.0 Intake and Output 12/20/16 07:00 Intake Total 3060 ml Output Total 3100 ml Balance -40 ml Intake Oral 1800 ml Blood Product IV Normal Saline Flush 1260 ml Output Urine Total 3100 ml # Bowel Movements 4 Physical Exam Abdomen: Normal bowel sounds, Soft, No tenderness Heart: Regular rate, Other (II/ holosystolic murmur) Extremities: No edema General: Alert, Oriented X3, No acute distress Lungs: Clear to auscultation Assessment Assessment Problems Medical Problems: (1) COPD (chronic obstructive pulmonary disease) Status: Acute (2) Generalized weakness Status: Acute (3) Hypovolemia Status: Acute (4) Pleural effusion Status: Acute (5) Tachycardia Status: Acute Plan Plan of Care 1. COPD with mild exacerbation - improving, continue po Prednisone. Patient is not hypoxic. 2. 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 Continue Gleevac. Check CBC in AM. Patient continues without symptoms of acute bleeding. 3. CKD III - stable on lab. 4. CHF with MV regurgitation - stable, continue present tx as per Dr Hui. 5. diarrhea - negative for C difficile this admission. Symptoms are improving, continue Imodium prn. 6. debility with falls at home - patient feels she will be able to go home when ready for discharge, feels home health with PT would be helpful. PT and OT ordered here to evaluate. Comment Review of Relevant I have reviewed the following items eliu (where applicable) has been applied. Labs Laboratory Tests Test 12/19/16 03:40 12/20/16 04:45 White Blood Count 5.6x10^3/uL (4.0-11.0) 8.6x10^3/uL (4.0-11.0) Red Blood Count 1.92x10^6/uL (3.50-5.40) 2.83x10^6/uL (3.50-5.40) Hemoglobin 6.5g/dL (12.0-15.5) 9.1g/dL (12.0-15.5) Hematocrit 19.2% (36.0-47.0) 27.2% (36.0-47.0) Mean Corpuscular Volume 100fL (79-100) 96fL (79-100) Mean Corpuscular Hemoglobin 34pg (25-35) 32pg (25-35) Mean Corpuscular Hemoglobin Concent 34g/dL (31-37) 33g/dL (31-37) Red Cell Distribution Width 16.7% (11.5-14.5) 18.0% (11.5-14.5) Platelet Count 187x10^3/uL (140-400) 184x10^3/uL (140-400) Neutrophils (%) (Auto) 85% (31-73) Lymphocytes (%) (Auto) 10% (24-48) Monocytes (%) (Auto) 5% (0-9) Eosinophils (%) (Auto) 0% (0-3) Basophils (%) (Auto) 0% (0-3) Neutrophils # (Auto) 4.8x10^3uL (1.8-7.7) Lymphocytes # (Auto) 0.6x10^3/uL (1.0-4.8) Monocytes # (Auto) 0.3x10^3/uL (0.0-1.1) Eosinophils # (Auto) 0.0x10^3/uL (0.0-0.7) Basophils # (Auto) 0.0x10^3/uL (0.0-0.2) Sodium Level 135mmol/L (136-145) 138mmol/L (136-145) Potassium Level 4.2mmol/L (3.5-5.1) 4.1mmol/L (3.5-5.1) Chloride Level 105mmol/L (98-107) 107mmol/L (98-107) Carbon Dioxide Level 18mmol/L (21-32) 19mmol/L (21-32) Anion Gap 12 (6-14) 12 (6-14) Blood Urea Nitrogen 38mg/dL (7-20) 31mg/dL (7-20) Creatinine 1.5mg/dL (0.6-1.0) 1.2mg/dL (0.6-1.0) Estimated GFR (Cockcroft-Gault) 33.7 43.6 Glucose Level 130mg/dL (70-99) 120mg/dL (70-99) Calcium Level 7.6mg/dL (8.5-10.1) 7.9mg/dL (8.5-10.1) Laboratory Tests Test 12/20/16 04:45 White Blood Count 8.6x10^3/uL (4.0-11.0) Red Blood Count 2.83x10^6/uL (3.50-5.40) Hemoglobin 9.1g/dL (12.0-15.5) Hematocrit 27.2% (36.0-47.0) Mean Corpuscular Volume 96fL (79-100) Mean Corpuscular Hemoglobin 32pg (25-35) Mean Corpuscular Hemoglobin Concent 33g/dL (31-37) Red Cell Distribution Width 18.0% (11.5-14.5) Platelet Count 184x10^3/uL (140-400) Sodium Level 138mmol/L (136-145) Potassium Level 4.1mmol/L (3.5-5.1) Chloride Level 107mmol/L (98-107) Carbon Dioxide Level 19mmol/L (21-32) Anion Gap 12 (6-14) Blood Urea Nitrogen 31mg/dL (7-20) Creatinine 1.2mg/dL (0.6-1.0) Estimated GFR (Cockcroft-Gault) 43.6 Glucose Level 120mg/dL (70-99) Calcium Level 7.9mg/dL (8.5-10.1) Medications Current Medications Albuterol/ Ipratropium (Duoneb) 3 ml 1X ONCE NEB Last administered on t 10:22; Start 12/17/16 at 10:15; Stop 12/17/16 at 10:16; Status DC Ondansetron HCl (Zofran) 4 mg PRN Q8HRS PRN IV NAUSEA/VOMITING; Start 12/17/16 at 12:00; Stop 12/18/16 at 11:59; Status DC Morphine Sulfate 2 mg PRN Q2HR PRN IV PAIN; Start 12/17/16 at 12:00; Stop 12/18 at 11:59; Status DC Calcium/Vitamin D (Oscal D 500mg/ 200uts) 1 tab DAILY PO ; Start 12/18/16 at 09: 00; Stop 12/18/16 at 13:10; Status DC EZETIMIBE (Zetia) 10 mg DAILY PO ; Start 12/18/16 at 09:00; Stop 12/18/16 at 11: 29; Status DC Acetaminophen/ Hydrocodone Bitart (Lortab 5/325) 1 tab PRN Q6HRS PRN PO PAIN Last administered on 12/18/16 20:34; Start 12/17/16 at 16:00 Nitroglycerin (Nitrostat) 0.4 mg PRN Q5MIN PRN SL CHEST PAIN; Start 12/17/16 at 16:00 Paroxetine HCl (Paxil) 20 mg DAILY PO Last administered on 12/20/16 09:50; Start 12/18/16 at 09:00 Sucralfate (Carafate) 1 gm QHS PO Last administered on 12/19/16 20:50; Start 12/17/16 at 21:00 Dipyridamole (Persantine) 75 mg BID PO ; Start 12/17/16 at 16:00; Status Cancel Non-Formulary Medication 400 mg DAILY PO Last administered on 12/20/16 09:49; Start 12/18/16 at 09:00 Non-Formulary Medication 2 inh DAILY IH ; Start 12/18/16 at 09:00; Stop at 09:00; Status DC Albuterol/ Ipratropium (Duoneb) 3 ml RTQID NEB Last administered on 12/20/16 12:07; Start 12/17/16 at 16:00 Dipyridamole (Persantine) 75 mg BID PO Last administered on 12/20/16 09:49; Start 12/17/16 at 21:00 Prednisone (Prednisone) 40 mg DAILY08 PO Last administered on 12/20/16 09:50; Start 12/18/16 at 08:00 Metronidazole (Flagyl) 500 mg Q8HRS PO Last administered on 12/19/16 06:40; Start 12/18/16 at 07:45; Stop 12/19/16 at 12:26; Status DC Potassium Chloride 40 meq 40 meq 1X ONCE PO Last administered on 12/18/16 10: 33; Start 12/18/16 at 07:30; Stop 12/18/16 at 07:31; Status DC Sodium Chloride (Iv Sodium Chloride 0.9% 1000ml Bag) 1,000 ml @ 75 mls/hr 1X ONCE IV Last administered on 12/18/16 10:37; Start 12/18/16 at 07:30; Stop at 14:25; Status DC Calcium/Vitamin D (Oscal D 500mg/ 200uts) 1 tab STK-MED ONCE .ROUTE Last administered on 12/18/16 10:34; Start 12/18/16 at 08:25; Stop 12/18/16 at 08:26 ; Status DC EZETIMIBE (Zetia) 10 mg QHS PO Last administered on 12/19/16 20:50; Start at 21:00 Calcium/Vitamin D 1 tab 1 tab DAILY PO Last administered on 12/20/16 09:50; Start 12/19/16 at 09:00 Sodium Chloride (Iv Sodium Chloride 0.9% 1000ml Bag) 1,000 ml @ 100 mls/hr Q10H IV Last administered on 12/19/16 00:30; Start 12/18/16 at 14:30; Stop at 12:26; Status DC Furosemide (Lasix) 20 mg 1X PRN PRN IV Blood transfusion Last administered on 18:02; Start 12/19/16 at 04:30; Stop 12/20/16 at 04:30; Status DC Loperamide HCl (Imodium) 2 mg PRN Q15MIN PRN PO DIARRHEA Last administered on 10:02; Start 12/19/16 at 12:30 Active Scripts Active Carafate (Sucralfate) 1 Gm Tablet 1 Gm PO QHS 30 Days Reported Gleevec (Imatinib Mesylate) 400 Mg Tablet 400 Mg PO DAILYAC Nitrostat (Nitroglycerin) 0.4 Mg Tab.subl 0.4 Mg SL PRN Q5MIN PRN Persantine (Dipyridamole) 75 Mg Tablet 75 Mg PO BID Paroxetine Hcl 20 Mg Tablet 20 Mg PO DAILY Calcium-Vitamin D Tablet (Calcium Carbonate/Vitamin D3) 1 Each Tablet 1 Each PO DAILY Vitamin D3 (Cholecalciferol (Vitamin D3)) 10,000 Unit Tablet 10,000 Unit PO Hydrocodone-Apap 5-325 (Hydrocodone Bit/Acetaminophen) 1 Each Tablet 1 Tab PO PRN Q6HRS PRN Spiriva (Tiotropium [place]) 18 Mcg Cap.w.dev 2 Inh IH DAILY Gleevec (Imatinib Mesylate) 400 Mg Tablet 400 Mg PO DAILY Zetia (Ezetimibe) 10 Mg Tablet 10 Mg PO DAILY Vitals/I & O Vital Sign - Last 24 Hours 12/19/16 12/19/16 12/19/16 12/19/16 13:55 14:10 15:00 15:10 Temp 98.0 98.3 98.0 98.1 98.0 98.3 98.0 98.1 Pulse 78 75 80 79 Resp 18 20 18 18 B/P 97/56 99/56 97/54 101/56 Pulse Ox 99 12/19/16 12/19/16 12/19/16 12/19/16 16:10 16:29 17:45 19:10 Temp 97.8 98.1 97.8 98.1 Pulse 60 83 Resp 18 18 B/P 102/60 112/49 Pulse Ox 99 99 99 O2 Delivery Room Air Room Air Room Air 12/19/16 12/19/16 12/19/16 12/19/16 19:33 19:56 20:06 22:42 Temp 98.1 98.8 97.8 98.1 98.8 97.8 Pulse 76 80 74 Resp 18 16 18 B/P 113/65 113/65 105/57 Pulse Ox 99 99 O2 Delivery Room Air Room Air Room Air O2 Flow Rate 1.0 12/20/16 12/20/16 12/20/16 12/20/16 02:53 07:00 08:00 08:07 Temp 98.2 98.1 98.2 98.1 Pulse 80 67 Resp 16 16 B/P 110/65 133/78 Pulse Ox 96 99 97 O2 Delivery Room Air Room Air Room Air Room Air 12/20/16 12:07 Pulse Ox 97 O2 Delivery Room Air Intake and Output 12/19/16 12/19/16 12/20/16 15:00 23:00 07:00 Intake Total 700 ml 2060 ml 300 ml Output Total 2100 ml 1000 ml Balance 700 ml -40 ml -700 ml Nutrition Consultation Dietary Evaluation: Recommendations by RD: Increase Calorie Intake, Protein supplementation Comments: recent wt loss and poor appetite-refuses protein supplements Rec. increase calorie/protein intake due to recent wt loss/poor appetite. 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
--- NOTE | 2016-12-20 15:35 | PDOC ---
Provider Note Provider Note Covering for Dr. Hui. After the blood transfusion the hemoglobin is 9 g percent. Lungs are clear. She is anxious to go home tomottow LANI CAST MD Dec 20, 2016 15:35
[2016-12-20] MEDS: SUCRALFATE 1 GM TABLET. PO SCH (20:51)
[2016-12-20] MEDS: EZETIMIBE 10 MG TABLET PO SCH (20:51)
[2016-12-21 03:00] VITALS: BP 119/65
[2016-12-21 04:11] LABS: HEMATOCRIT 27.7 % (36.0-47.0); HEMOGLOBIN 9.3 g/dL (12.0-15.5); RED BLOOD COUNT 2.9 x10^6/uL (3.50-5.40); RED CELL DISTRIBUTION WIDTH 18.4 % (11.5-14.5); WHITE BLOOD COUNT 8.3 x10^3/uL (4.0-11.0)
[2016-12-21 07:00] VITALS: BP 113/68
[2016-12-21] MEDS: IPRATRPIUM/ALBUTEROL 0.5/2.5MG 3 ML NEBU. NEB SCH (07:52)
[2016-12-21] MEDS: PREDNISONE 20 MG TABLET PO SCH (08:42)
[2016-12-21] MEDS: PAROXETINE 20 MG TABLET. PO SCH (08:42)
[2016-12-21] MEDS: CALCIUM CARB/VIT D3 500/200 TABLET. PO SCH (08:42)
[2016-12-21] MEDS: DIPYRIDAMOLE 25 MG TABLET PO SCH (08:43)
[2016-12-21] MEDS: IMATINIB MESYLATE 400 MG PO SCH (09:00)
[2016-12-21] MEDS ORDERED: PRED-220 PO (09:20)
[2016-12-21] MEDS ORDERED: ALBU1.25 NEB (09:20)
[2016-12-21 11:00] VITALS: BP 106/58
== END 2016-12-21 11:30 | disposition home health service (06) | DRG 841 ==
LOC: ER 08:56 → 2 SOUTH 11:47 → CVICU 12-18 18:46 → 6 SOUTH 12-20 15:55
PROVIDERS: ADMIT Family Medicine; ATTEND Family Medicine
PROC: 30233N1 Transfusion of Nonautologous Red Blood Cells into Peripheral Vein, Percutaneous Approach (ICD-10-PCS; principal; 2016-12-19)
DX: C92.10 Chronic myeloid leukemia, BCR/ABL-positive, not having achieved remission (principal); J44.1 Chronic obstructive pulmonary disease with (acute) exacerbation; N17.9 Acute kidney failure, unspecified; J90 Pleural effusion, not elsewhere classified; I13.0 Hypertensive heart and chronic kidney disease with heart failure and stage 1 through stage 4 chronic kidney disease, or unspecified chronic kidney disease; N18.3 Chronic kidney disease, stage 3 (moderate); E11.22 Type 2 diabetes mellitus with diabetic chronic kidney disease; E78.5 Hyperlipidemia, unspecified; E86.0 Dehydration; E86.1 Hypovolemia; F32.9 Major depressive disorder, single episode, unspecified; I25.10 Atherosclerotic heart disease of native coronary artery without angina pectoris; K21.9 Gastro-esophageal reflux disease without esophagitis; M81.0 Age-related osteoporosis without current pathological fracture; N18.9 Chronic kidney disease, unspecified; D64.9 Anemia, unspecified; J44.9 Chronic obstructive pulmonary disease, unspecified; Z96.659 Presence of unspecified artificial knee joint; F41.9 Anxiety disorder, unspecified; M19.90 Unspecified osteoarthritis, unspecified site; R55 Syncope and collapse; Z88.7 Allergy status to serum and vaccine; Z82.49 Family history of ischemic heart disease and other diseases of the circulatory system; Z83.3 Family history of diabetes mellitus; Z95.5 Presence of coronary angioplasty implant and graft; Z88.8 Allergy status to other drugs, medicaments and biological substances; Z90.710 Acquired absence of both cervix and uterus; Z90.49 Acquired absence of other specified parts of digestive tract
CPT/HCPCS: 36415; 71010; 73502; 80048; 80076; 81001; 83605; 83690; 83880; 84484; 85027; 86850; 86900; 86901; 86920; 87324; 93005; 94250; 94640; 94760; J7030; J7512; J7620; P9016; 99285-25

== ENCOUNTER → 2017-01-04 | Outpatient (CLI) | payer MEDICARE, OTHER ==
[2016-12-21 11:00] VITALS: BP 106/58
[~2017-01-04] MED LIST changes: +ALBU1.25 NEB; +PRED-220 PO
--- NOTE | 2017-01-04 17:13 | RAD ---
PA and lateral chest radiographs 01/04/2017 Clinical history: History of pleural effusion. PA and lateral digital radiographs of the chest were obtained. Comparison study is dated 12/17/2016. Surgical clips are seen within the right upper quadrant of the abdomen consistent with a cholecystectomy. The patient is status post lower thoracic kyphoplasty, unchanged. The cardiac silhouette is borderline enlarged. The thoracic aorta is tortuous. Atherosclerotic calcification of the thoracic aorta is seen. No acute pulmonary infiltrate is seen. No pleural effusion or pneumothorax is noted. The osseous structures are unchanged. Impression: No acute abnormality is seen.
== END | disposition home or self-care (01) ==
LOC: RAD 13:08
PROVIDERS: ATTEND Family Medicine
DX: I70.0 Atherosclerosis of aorta (principal); Z90.49 Acquired absence of other specified parts of digestive tract
CPT/HCPCS: 71020

== ENCOUNTER 2017-08-08 18:44 | Inpatient (IN) | payer MEDICARE, OTHER ==
[~2017-08-08] VITALS: Ht 160 cm; Wt 57.6 kg
[~2017-08-08 18:44] MED LIST changes: +EZET10TA18 PO; -EZET10TA3 PO; -HYDR-2666 PO; +HYDR-2758 PO; -SUCR1TAB29 PO; +SUCR1TAB35 PO
[2017-08-08] MEDS ORDERED: IPRATRPIUM/ALBUTEROL 0.5/2.5MG 3 ML NEBU. NEB ONE (19:15)
[2017-08-08 19:51] LABS: BASO # 0.1 x10^3/uL (0.0-0.2); BASO % 1 % (0-3); EOS % 4 % (0-3); HEMATOCRIT 24.3 % (36.0-47.0); LYMPH # 1.3 x10^3/uL (1.0-4.8); LYMPH % 16 % (24-48); MEAN CORPUSCULAR HEMOGLOBIN 35 pg (25-35); MEAN CORPUSCULAR HGB CONC 33 g/dL (31-37); MEAN CORPUSCULAR VOLUME 105 fL (79-100); MONO % 12 % (0-9); NEUT % 67 % (31-73); PLATELET COUNT 185 x10^3/uL (140-400); RED BLOOD COUNT 2.32 x10^6/uL (3.50-5.40); RED CELL DISTRIBUTION WIDTH 15.7 % (11.5-14.5); WHITE BLOOD COUNT 8.1 x10^3/uL (4.0-11.0)
[2017-08-08 20:05] LABS: CALCIUM 8.4 mg/dL (8.5-10.1); CREATININE 1.1 mg/dL (0.6-1.0); GFR 48.2; POTASSIUM 4.3 mmol/L (3.5-5.1)
[2017-08-08 20:11] LABS: ALBUMIN 3.3 g/dL (3.4-5.0); DIRECT BILIRUBIN 0.1 mg/dL (0.0-0.2); TOTAL BILIRUBIN 0.4 mg/dL (0.2-1.0); TOTAL PROTEIN 5.9 g/dL (6.4-8.2)
[2017-08-08] MEDS ORDERED: FUROSEMIDE 40 MG/4 ML VIAL. IVP ONE (20:30)
[2017-08-08] MEDS ORDERED: ONDANSETRON PF 4 MG/2 ML VIAL. IV PRN (20:30)
[2017-08-08] MEDS ORDERED: MORPHINE SULFATE 2 MG/ML DISP.SYRIN. IV PRN (20:30)
--- NOTE | 2017-08-08 20:41 | PHYS DOC ---
Past Medical History Past Medical History: Anxiety, COPD, Depression, GERD, High Cholesterol, Immunosuppression, [place], Pneumonia, Renal Disease, Other Additional Past Medical Histor: osteoarthritis; mitral valve (leaks); stage 3 Kidney disease; Leukemia Past Surgical History: Cholecystectomy, Hysterectomy, Tonsillectomy, Other Additional Past Surgical Histo: knee x3; bladder repair; Left hip (roseline); T10; 8 - fingers; breast bx Alcohol Use: None Drug Use: None Adult General Chief Complaint Chief Complaint: SHORTNESS OF BREATH HPI HPI 76-year-old female presenting the emergency department today with worsening shortness of breath and difficult to breathing. This been present for about 24- 48 hours. She is used her nebulizer at home with mild relief. It is worse with exertion and associated with bilateral leg swelling. She reports is worse when she lays back as well. She denies any pain nausea vomiting or diaphoresis. Location lungs/heart. Duration intermittent. Worse with walking. ROS: Negative for chest pain abdominal pain nausea vomiting diaphoresis fevers chills. Positive for cough. All other review of systems is negative unless otherwise noted in history of present illness. ED course: 76-year-old female presenting to the emergency department today with worsening shortness of breath and leg swelling. Upon arrival the patient is afebrile with mild increase in respiratory rate saturating approximately mid 90s on 2 L nasal cannula. On physical exam the patient is mildly tachypneic with crackles in the bases of her lungs. Mild prolonged expert phase with minimal wheezing bilaterally. The patient has 1+ to 2+ edema bilaterally in the legs. Abdomen is soft and nontender. Otherwise the remainder of the exam is unremarkable. Obtained and reviewed by myself shows sinus rhythm with a regular rate. ST segments congruent. Not suggestive of ACS. Mild nonspecific T-wave inversions in the inferior leads. Chest x-ray obtained which shows left pleural effusion with vascular congestion suggestive of CHF. probnp elevated. trop within nl range. The patient was given IV Lasix and a nebulizer in the emergency department and then at subsequent admitted to our cardiovascular care unit for further evaluation and care. I discussed the case to Dr. estrada who is on -call for Dr. Diaz. He will accept the patient for admission. I placed a consult for cardiology. Review of Systems Review of Systems SEE ABOVE. Current Medications Current Medications Current Medications Medications (Trade) Dose Ordered Sig/Nidhi Start Time Stop Time Status Last Admin Dose Admin Albuterol/ Ipratropium (Duoneb) 3 ml 1X ONCE 08/08/17 19:15 08/08/17 19:17 DC 08/08/17 20:10 3 ML Allergies Allergies Allergies Coded Allergies Type Severity Reaction Last Updated Verified NSAIDS (Non-Steroidal Anti-Inflamma Allergy Intermediate 08/05/17 Yes Tetanus Vaccines and Toxoid Allergy Intermediate 08/05/17 Yes Physical Exam Physical Exam SEE ABOVE Constitutional: Well developed, well nourished, no acute distress, non-toxic appearance. HENT: Normocephalic, atraumatic, bilateral external ears normal, oropharynx moist, no oral exudates, nose normal. Eyes: PERRLA, EOMI, conjunctiva normal, no discharge. [] Neck: Normal range of motion, no tenderness, supple, no stridor. Cardiovascular:Heart rate regular rhythm, no murmur [] Lungs & Thorax: crackles in the bases with mild wheezing bilaterally. Abdomen: Bowel sounds normal, soft, no tenderness, no masses, no pulsatile masses. Skin: Warm, dry, no erythema, no rash. [] Back: No tenderness, no CVA tenderness. Extremities: No tenderness, no cyanosis, no clubbing, ROM intact . SEE ABOVE Neurologic: Alert and oriented X 3, normal motor function, normal sensory function, no focal deficits noted. Psychologic: Affect normal, judgement normal, mood normal. [] Current Patient Data Vital Signs Vital Signs Date Time Temp Pulse Resp B/P (MAP) Pulse Ox O2 Delivery O2 Flow Rate FiO2 08/08/17 20:10 93 Room Air 08/08/17 19:09 97.6 92 31 155/82 (106) 2.0 97.6 Lab Values Laboratory Tests Test 08/08/17 19:40 White Blood Count 8.1 x10^3/uL (4.0-11.0) Red Blood Count 2.32 x10^6/uL (3.50-5.40) L Hemoglobin 8.0 g/dL (12.0-15.5) L Hematocrit 24.3 % (36.0-47.0) L Mean Corpuscular Volume 105 fL (79-100) H Mean Corpuscular Hemoglobin 35 pg (25-35) Mean Corpuscular Hemoglobin Concent 33 g/dL (31-37) Red Cell Distribution Width 15.7 % (11.5-14.5) H Platelet Count 185 x10^3/uL (140-400) Neutrophils (%) (Auto) 67 % (31-73) Lymphocytes (%) (Auto) 16 % (24-48) L Monocytes (%) (Auto) 12 % (0-9) H Eosinophils (%) (Auto) 4 % (0-3) H Basophils (%) (Auto) 1 % (0-3) Neutrophils # (Auto) 5.5 x10^3uL (1.8-7.7) Lymphocytes # (Auto) 1.3 x10^3/uL (1.0-4.8) Monocytes # (Auto) 0.9 x10^3/uL (0.0-1.1) Eosinophils # (Auto) 0.4 x10^3/uL (0.0-0.7) Basophils # (Auto) 0.1 x10^3/uL (0.0-0.2) Sodium Level 143 mmol/L (136-145) Potassium Level 4.3 mmol/L (3.5-5.1) Chloride Level 107 mmol/L (98-107) Carbon Dioxide Level 26 mmol/L (21-32) Anion Gap 10 (6-14) Blood Urea Nitrogen 16 mg/dL (7-20) Creatinine 1.1 mg/dL (0.6-1.0) H Estimated GFR (Cockcroft-Gault) 48.2 Glucose Level 95 mg/dL (70-99) Calcium Level 8.4 mg/dL (8.5-10.1) L Total Bilirubin 0.4 mg/dL (0.2-1.0) Direct Bilirubin 0.1 mg/dL (0.0-0.2) Aspartate Amino Transferase (AST) 43 U/L (15-37) H Alanine Aminotransferase (ALT) 33 U/L (14-59) Alkaline Phosphatase 59 U/L (46-116) Troponin I Quantitative 0.049 ng/mL (0.000-0.055) FO-Ezz-I-Type Natriuretic Peptide 7643 pg/mL (0-449) H Total Protein 5.9 g/dL (6.4-8.2) L Albumin 3.3 g/dL (3.4-5.0) L Lipase 124 U/L (73-393) Laboratory Tests 08/08/17 19:40 Laboratory Tests 08/08/17 19:40 EKG EKG [] Radiology/Procedures Radiology/Procedures [] Course & Med Decision Making Course & Med Decision Making Pertinent Labs and Imaging studies reviewed. (See chart for details) [] Dragon Disclaimer Dragon Disclaimer This electronic medical record was generated, in whole or in part, using a voice recognition dictation system. Departure Departure Impression: Primary Impression: Congestive heart failure (CHF) Additional Impression: COPD (chronic obstructive pulmonary disease) Disposition: ADMITTED INPATIENT Condition: STABLE Referrals: RIAZ STEVENS MD (PCP) Problem Qualifiers SILVIA CHAVES MD Aug 08, 2017 20:41
[2017-08-08 22:40] VITALS: BP 129/72
[2017-08-08 22:41] VITALS: BP 129/72
[2017-08-08] MEDS ORDERED: BUME2TAB PO (23:16)
[2017-08-08] MEDS ORDERED: PARO40TA3 PO (23:16)
[2017-08-08] MEDS ORDERED: DENO60DI SQ (23:16)
[2017-08-08] MEDS ORDERED: IMATINIB MESYL400 MG PO (23:16)
[2017-08-08] MEDS ORDERED: FERR142T13 PO (23:17)
[2017-08-08] MEDS ORDERED: HYDR-963 PO (23:26)
[2017-08-09] MEDS: TEMAZEPAM 15 MG CAPSULE PO PRN ×2 (00:02→21:59)
[2017-08-09 03:35] VITALS: BP 122/67
[2017-08-09 04:55] LABS: BASO # 0.1 x10^3/uL (0.0-0.2); BASO % 1 % (0-3); EOS % 6 % (0-3); HEMATOCRIT 22.2 % (36.0-47.0); HEMOGLOBIN 7.4 g/dL (12.0-15.5); LYMPH # 1.7 x10^3/uL (1.0-4.8); LYMPH % 23 % (24-48); MEAN CORPUSCULAR HEMOGLOBIN 35 pg (25-35); MEAN CORPUSCULAR HGB CONC 33 g/dL (31-37); MEAN CORPUSCULAR VOLUME 105 fL (79-100); MONO % 11 % (0-9); NEUT % 59 % (31-73); PLATELET COUNT 165 x10^3/uL (140-400); RED BLOOD COUNT 2.13 x10^6/uL (3.50-5.40); RED CELL DISTRIBUTION WIDTH 15.8 % (11.5-14.5); WHITE BLOOD COUNT 7.2 x10^3/uL (4.0-11.0)
[2017-08-09 05:23] LABS: CALCIUM 8.5 mg/dL (8.5-10.1); GFR 53.8; POTASSIUM 3.9 mmol/L (3.5-5.1)
--- NOTE | 2017-08-09 06:37 | EKG ---
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
[2017-08-09 07:00] VITALS: BP 141/69
[2017-08-09] MEDS ORDERED: IMATINIB MESYLATE 400 MG PO SCH (07:30)
--- NOTE | 2017-08-09 07:53 | RAD ---
Portable chest, 08/08/2017: History: Shortness of breath Comparison is made to a study from 01/04/2017. A moderate-sized left pleural effusion has developed, obscuring the left heart border. There is mild underlying left basilar atelectasis/infiltrate. The pulmonary vascularity is now congested. There is mild basilar interstitial prominence. An opacity in the right vertebrophrenic angle may be due to pleural fluid or atelectasis. The bony structures are demineralized. Vertebroplasty changes are present at multiple levels near the thoracolumbar junction. IMPRESSION: Interval development of congestive heart failure with mild interstitial pulmonary edema and a moderate size left pleural effusion.
[2017-08-09] MEDS ORDERED: NITROGLYCERIN SUBLINGUAL 0.4 MG BOTTLE OF 25. SL PRN (09:15)
--- NOTE | 2017-08-09 09:15 | PDOC1 ---
History and Physical Date of Admission Date of Admission DATE: 08/08/17 Identification/Chief Complaint Chief Complaint "Can't breathe" Problems: Source Source: Patient History of Present Illness History of Present Illness Pt says that she has noticed increased shortness of air over the past 2-3 weeks. She has not noticed anything else that has been different. No inciting events. She has had a productive cough with clear sputum for the past 3-4 weeks. She has had increased swelling in her lower extremities. She has noticed some wheezing. Pt has chronic anemia. She has been getting iron transfusions over the past week. Has received 2, is supposed to get another one this week. Past Medical History Cardiovascular: CAD, CHF, ME, Valve insufficiency, Pulmonary hypertension Pulmonary: COPD GI: GERD Heme/Onc: Cancer, Iron deficiency Anemia Hepatobiliary: No pertinent hx Psych: Anxiety, Depression Musculoskeletal: Osteoarthritis Rheumatologic: No pertinent hx Infectious disease: No pertinent hx ENT: Allergic Rhinitis Renal/: Chronic renal insuff Endocrine: No pertinent hx Dermatology: No pertinent hx Past Surgical History Past Surgical History: Cataract Removal, Total knee replacement, Tonsillectomy , Hysterectomy, Other Family History Family History: Cancer, Coronary Artery Disease, Diabetes Social History Smoke: 1 pack per day ALCOHOL: occassional Drugs: None Current Problem List Problem List Problems Medical Problems: (1) Congestive heart failure (CHF) Status: Acute (2) COPD (chronic obstructive pulmonary disease) Status: Acute Problems: Current Medications Current Medications Current Medications Albuterol/ Ipratropium (Duoneb) 3 ml 1X ONCE NEB Last administered on 20:10; Start 08/08/17 at 19:15; Stop 08/08/17 at 19:17; Status DC Furosemide (Lasix) 20 mg 1X ONCE IVP Last administered on 08/08/17t 20:54; Start 08/08/17 at 20:30; Stop 08/08/17 at 20:33; Status DC Ondansetron HCl (Zofran) 4 mg PRN Q8HRS PRN IV NAUSEA/VOMITING; Start at 20:30; Stop 08/09/17 at 20:29 Morphine Sulfate 2 mg PRN Q2HR PRN IV PAIN; Start 08/08/17 at 20:30; Stop at 20:29 Non-Formulary Medication 1 ea DAILYWBKFT PO ; Start 08/09/17 at 08:00 Calcium/Vitamin D (Oscal D 500mg/ 200uts) 1 tab DAILY PO ; Start 08/09/17 at 09 :00 Dipyridamole (Persantine) 75 mg BID PO ; Start 08/09/17 at 09:00 Ferrous Sulfate (Feosol) 325 mg DAILYWBKFT PO ; Start 08/09/17 at 08:00 Non-Formulary Medication 400 mg DAILYAC PO ; Start 08/09/17 at 07:30; Status UNV Paroxetine HCl (Paxil) 20 mg DAILY PO ; Start 08/09/17 at 09:00 Temazepam (Restoril) 15 mg PRN QHS PRN PO INSOMNIA Last administered on t 00:02; Start 08/08/17 at 23:30 Active Scripts Active Prednisone 10 Mg Tablet 10 Mg PO UD Take 4 for 2 days then 3 for 2 days then 2 for 2 days then 1 for 2 days-off Albuterol Sulfate Neb Soln (Albuterol Sulfate) 1.25 Mg/3 Ml Vial.neb 1 Vial NEB Q6HRS Carafate (Sucralfate) 1 Gm Tablet 1 Gm PO QHS 30 Days Reported [place] 10-325 Tablet (Acetaminophen/Hydrocodone Bitart) 1 Each Tablet 1 Tab PO PRN Q6HRS PRN Slow Fe (Ferrous Sulfate) 142 Mg Tablet.er 142 Mg PO DAILY Prolia (Denosumab) 60 Mg/1 Ml Disp.syrin 60 Mg SQ UD Bumetanide 2 Mg Tablet 3 Tab PO DAILY Paroxetine Hcl 40 Mg Tablet 1 Tab PO DAILY Imatinib Mesylate 400 Mg Tablet 400 Mg PO DAILYAC Nitrostat (Nitroglycerin) 0.4 Mg Tab.subl 0.4 Mg SL PRN Q5MIN PRN Persantine (Dipyridamole) 75 Mg Tablet 75 Mg PO BID Paroxetine Hcl 20 Mg Tablet 20 Mg PO DAILY Calcium-Vitamin D Tablet (Calcium Carbonate/Vitamin D3) 1 Each Tablet 1 Each PO DAILY Vitamin D3 (Cholecalciferol (Vitamin D3)) 10,000 Unit Tablet 10,000 Unit PO Hydrocodone-Apap 5-325 (Hydrocodone Bit/Acetaminophen) 1 Each Tablet 1 Tab PO PRN Q6HRS PRN Spiriva (Tiotropium Williams) 18 Mcg Cap.w.dev 2 Inh IH DAILY Gleevec (Imatinib Mesylate) 400 Mg Tablet 400 Mg PO DAILY Zetia (Ezetimibe) 10 Mg Tablet 10 Mg PO DAILY Allergies Allergies: Coded Allergies: NSAIDS (Non-Steroidal Anti-Inflamma (Verified Allergy, Intermediate, ) Tetanus Vaccines and Toxoid (Verified Allergy, Intermediate, 08/05/17) ROS General: No: Chills, Night Sweats PSYCHOLOGICAL ROS: No: Anxiety, Depression Eyes: No Decreased vision, No Eye Pain HEENT: No: Nasal congestion, Sore Throat ALLERGY AND IMMUNOLOGY: No: Hives, Post Nasal Drip Hematological and Lymphatic: No: Bleeding Problems, Blood Clots Respiratory: YES: Cough, Orthopnea, Shortness of breath, Sputum Changes, Wheezing Cardiovascular: yes Edema, No Chest Pain, No Palpitations Gastrointestinal: No Nausea, No Vomiting, No Abdominal Pain, No Diarrhea, No Constipation Genitourinary: No Dysuria, No Urgency Musculoskeletal: Yes Joint Pain, No Muscle Pain Neurological: No Numbness/Tingling, No Speech Problems Skin: No Rash, No Skin Lesion Changes Physical Exam General: Alert, Oriented X3, Cooperative, mild distress HEENT: Atraumatic, PERRLA, EOMI, Mucous membr. moist/pink Lungs: Other (rhonchi throughout) Heart: RRR, no rubs, no gallops, no murmurs Abdomen: Normal bowel sounds, Soft, No tenderness, No hepatosplenomegaly Extremities: No clubbing, No cyanosis, No edema Skin: No rashes, No significant lesion Neuro: Normal tone, Sensation intact, Cranial nerves 3-12 NL Psych/Mental Status: Mental status NL, Mood NL Vitals Vitals Vital Signs Date Time Temp Pulse Resp B/P (MAP) Pulse Ox O2 Delivery O2 Flow Rate FiO2 08/09/17 07:00 97.4 88 20 141/69 (93) 97 Nasal Cannula 2.0 97.4 Labs Labs Laboratory Tests Test 08/08/17 19:40 08/09/17 03:10 White Blood Count 8.1 x10^3/uL (4.0-11.0) 7.2 x10^3/uL (4.0-11.0) Red Blood Count 2.32 x10^6/uL (3.50-5.40) 2.13 x10^6/uL (3.50-5.40) Hemoglobin 8.0 g/dL (12.0-15.5) 7.4 g/dL (12.0-15.5) Hematocrit 24.3 % (36.0-47.0) 22.2 % (36.0-47.0) Mean Corpuscular Volume 105 fL (79-100) 105 fL (79-100) Mean Corpuscular Hemoglobin 35 pg (25-35) 35 pg (25-35) Mean Corpuscular Hemoglobin Concent 33 g/dL (31-37) 33 g/dL (31-37) Red Cell Distribution Width 15.7 % (11.5-14.5) 15.8 % (11.5-14.5) Platelet Count 185 x10^3/uL (140-400) 165 x10^3/uL (140-400) Neutrophils (%) (Auto) 67 % (31-73) 59 % (31-73) Lymphocytes (%) (Auto) 16 % (24-48) 23 % (24-48) Monocytes (%) (Auto) 12 % (0-9) 11 % (0-9) Eosinophils (%) (Auto) 4 % (0-3) 6 % (0-3) Basophils (%) (Auto) 1 % (0-3) 1 % (0-3) Neutrophils # (Auto) 5.5 x10^3uL (1.8-7.7) 4.3 x10^3uL (1.8-7.7) Lymphocytes # (Auto) 1.3 x10^3/uL (1.0-4.8) 1.7 x10^3/uL (1.0-4.8) Monocytes # (Auto) 0.9 x10^3/uL (0.0-1.1) 0.8 x10^3/uL (0.0-1.1) Eosinophils # (Auto) 0.4 x10^3/uL (0.0-0.7) 0.4 x10^3/uL (0.0-0.7) Basophils # (Auto) 0.1 x10^3/uL (0.0-0.2) 0.1 x10^3/uL (0.0-0.2) Sodium Level 143 mmol/L (136-145) 143 mmol/L (136-145) Potassium Level 4.3 mmol/L (3.5-5.1) 3.9 mmol/L (3.5-5.1) Chloride Level 107 mmol/L (98-107) 108 mmol/L (98-107) Carbon Dioxide Level 26 mmol/L (21-32) 26 mmol/L (21-32) Anion Gap 10 (6-14) 9 (6-14) Blood Urea Nitrogen 16 mg/dL (7-20) 16 mg/dL (7-20) Creatinine 1.1 mg/dL (0.6-1.0) 1.0 mg/dL (0.6-1.0) Estimated GFR (Cockcroft-Gault) 48.2 53.8 Glucose Level 95 mg/dL (70-99) 88 mg/dL (70-99) Calcium Level 8.4 mg/dL (8.5-10.1) 8.5 mg/dL (8.5-10.1) Total Bilirubin 0.4 mg/dL (0.2-1.0) Direct Bilirubin 0.1 mg/dL (0.0-0.2) Aspartate Amino Transf (AST/SGOT) 43 U/L (15-37) Alanine Aminotransferase (ALT/SGPT) 33 U/L (14-59) Alkaline Phosphatase 59 U/L (46-116) Troponin I Quantitative 0.049 ng/mL (0.000-0.055) 0.064 ng/mL (0.000-0.055) AA-Sqg-O-Type Natriuretic Peptide 7643 pg/mL (0-449) Total Protein 5.9 g/dL (6.4-8.2) Albumin 3.3 g/dL (3.4-5.0) Lipase 124 U/L (73-393) Laboratory Tests Test 08/08/17 19:40 08/09/17 03:10 White Blood Count 8.1 x10^3/uL (4.0-11.0) 7.2 x10^3/uL (4.0-11.0) Red Blood Count 2.32 x10^6/uL (3.50-5.40) 2.13 x10^6/uL (3.50-5.40) Hemoglobin 8.0 g/dL (12.0-15.5) 7.4 g/dL (12.0-15.5) Hematocrit 24.3 % (36.0-47.0) 22.2 % (36.0-47.0) Mean Corpuscular Volume 105 fL (79-100) 105 fL (79-100) Mean Corpuscular Hemoglobin 35 pg (25-35) 35 pg (25-35) Mean Corpuscular Hemoglobin Concent 33 g/dL (31-37) 33 g/dL (31-37) Red Cell Distribution Width 15.7 % (11.5-14.5) 15.8 % (11.5-14.5) Platelet Count 185 x10^3/uL (140-400) 165 x10^3/uL (140-400) Neutrophils (%) (Auto) 67 % (31-73) 59 % (31-73) Lymphocytes (%) (Auto) 16 % (24-48) 23 % (24-48) Monocytes (%) (Auto) 12 % (0-9) 11 % (0-9) Eosinophils (%) (Auto) 4 % (0-3) 6 % (0-3) Basophils (%) (Auto) 1 % (0-3) 1 % (0-3) Neutrophils # (Auto) 5.5 x10^3uL (1.8-7.7) 4.3 x10^3uL (1.8-7.7) Lymphocytes # (Auto) 1.3 x10^3/uL (1.0-4.8) 1.7 x10^3/uL (1.0-4.8) Monocytes # (Auto) 0.9 x10^3/uL (0.0-1.1) 0.8 x10^3/uL (0.0-1.1) Eosinophils # (Auto) 0.4 x10^3/uL (0.0-0.7) 0.4 x10^3/uL (0.0-0.7) Basophils # (Auto) 0.1 x10^3/uL (0.0-0.2) 0.1 x10^3/uL (0.0-0.2) Sodium Level 143 mmol/L (136-145) 143 mmol/L (136-145) Potassium Level 4.3 mmol/L (3.5-5.1) 3.9 mmol/L (3.5-5.1) Chloride Level 107 mmol/L (98-107) 108 mmol/L (98-107) Carbon Dioxide Level 26 mmol/L (21-32) 26 mmol/L (21-32) Anion Gap 10 (6-14) 9 (6-14) Blood Urea Nitrogen 16 mg/dL (7-20) 16 mg/dL (7-20) Creatinine 1.1 mg/dL (0.6-1.0) 1.0 mg/dL (0.6-1.0) Estimated GFR (Cockcroft-Gault) 48.2 53.8 Glucose Level 95 mg/dL (70-99) 88 mg/dL (70-99) Calcium Level 8.4 mg/dL (8.5-10.1) 8.5 mg/dL (8.5-10.1) Total Bilirubin 0.4 mg/dL (0.2-1.0) Direct Bilirubin 0.1 mg/dL (0.0-0.2) Aspartate Amino Transf (AST/SGOT) 43 U/L (15-37) Alanine Aminotransferase (ALT/SGPT) 33 U/L (14-59) Alkaline Phosphatase 59 U/L (46-116) Troponin I Quantitative 0.049 ng/mL (0.000-0.055) 0.064 ng/mL (0.000-0.055) NU-Utk-O-Type Natriuretic Peptide 7643 pg/mL (0-449) Total Protein 5.9 g/dL (6.4-8.2) Albumin 3.3 g/dL (3.4-5.0) Lipase 124 U/L (73-393) VTE Prophylaxis Ordered VTE Prophylaxis Devices: Yes VTE Pharmacological Prophylaxi: No Assessment/Plan Assessment/Plan Pt is a 76yo CF admitted for CHF exacerbation 1)CHF Exacerbation- pt has systolic and diastolic CHF, currently uncompensated. Cardiology has been consulted. Pt received small dose of Lasix in the ER. Will increase Lasix. Possibly brought on by iron transfusions last week? 2)Pulmonary HTN 3)Mitral Valve Regurgitation 4)COPD- well controlled. 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 She is supposed to get an iron transfusion this week as well. Heme/Onc consulted. Hb currently 7.4 with normal range for patient 6.5-10.3 6)CKD- pt's Cr is actually improved from where it has been in the past. CTM 7)PEM- mild 8)Elevated troponin- likely 2/2 CHF exacerbation. Troponin has been mildly elevated on past admissions. She has repeat troponin pending. Not complaining of chest pain 9)CAD 10)Elevated BP- pt not on any BP meds at home. CTM 11)Insomnia- continue Temazepam 12)Depression- continue Paroxetine 40mg RIAZ STEVENS MD Aug 09, 2017 09:14
[2017-08-09] MEDS: FERROUS SULFATE 325 MG TABLET. PO SCH (09:38)
[2017-08-09] MEDS: PARoxetine 20 MG TABLET PO SCH (09:38)
[2017-08-09] MEDS: CALCIUM CARB/VIT D3 500/200 TABLET. PO SCH (09:38)
[2017-08-09] MEDS: EZETIMIBE 10 MG TABLET. PO SCH (09:38)
[2017-08-09] MEDS: IMATINIB PO SCH (09:45)
[2017-08-09] MEDS ORDERED: FUROSEMIDE 40 MG/4 ML VIAL. IVP SCH (10:00)
[2017-08-09 11:00] VITALS: BP 126/66
[2017-08-09] MEDS ORDERED: NICO10CA IH (11:37)
[2017-08-09] MEDS ORDERED: NICOTROL INHALER IH PRN (11:45)
[2017-08-09] MEDS: DIPYRIDAMOLE 25 MG TABLET. PO SCH ×2 (11:46→21:59)
[2017-08-09] MEDS: IPRATRPIUM/ALBUTEROL 0.5/2.5MG 3 ML NEBU. NEB SCH ×3 (13:15→19:22)
[2017-08-09 15:00] VITALS: BP 131/66
[2017-08-09 16:44] LABS: % SAT IRON 20 % (15-34); IRON,SERUM 39 ug/dL (50-170)
[2017-08-09] MEDS: FUROSEMIDE 40 MG/4 ML VIAL. IVP SCH ×2 (17:50→22:00)
[2017-08-09] MEDS: POTASSIUM CHLORIDE 20 MEQ TABLET.ER. PO SCH (17:50)
--- NOTE | 2017-08-09 18:02 | CONS ---
DATE OF CONSULTATION: CHIEF COMPLAINT: Dyspnea and edema. HISTORY OF PRESENT ILLNESS: This patient is a 76-year-old lady who has a known history of hypertension and valvular heart disease with mitral insufficiency and a previous episode of congestive heart failure. The patient noticed that she was having more problems with dyspnea and also that her legs were getting more and more swollen every day for the past several days until today when she had to come into the hospital due to the dyspnea. At the time that I saw her, she denies having any chest pains, but she is still complaining of dyspnea and has audible wheezing. PAST MEDICAL HISTORY: Significant for hypertension, congestive heart failure, mitral insufficiency. PHYSICAL EXAMINATION: GENERAL: The patient is an elderly lady who is in mild distress. HEENT: Pupils are reactive. Oral mucosa well hydrated. NECK: Supple, 2 cm JVD. LUNGS: Breath sounds are decreased with diffuse rales and diffuse wheezing. HEART: Regular rate and rhythm, somewhat distant sounds, S1, S2. There is a 2/6 systolic murmur present, best heard at the apex. ABDOMEN: Soft. Bowel sounds are present. EXTREMITIES: 2+ edema. IMPRESSION: This patient comes in with acute congestive heart failure. I would recommend to diurese the patient, therefore I would order 40 of Lasix IV every 12 hours x 3 doses and see how she does. We will also help with potassium replacement and to evaluate her current cardiac situation we will get an echocardiogram. Thank you very much for asking me to participate in the care of this patient. LILLIANA RODRIGUEZ MD DR: JODY/orin JOB#: [id number] / [id number]
[2017-08-09 19:58] VITALS: BP 113/59
[2017-08-09] MEDS: SUCRALFATE 1 GM TABLET. PO SCH (21:59)
--- NOTE | 2017-08-09 22:21 | CONS ---
DATE OF CONSULTATION: 08/09/2017 REQUESTING PHYSICIAN: Akbar Bolton M.D. REASON FOR CONSULTATION: CML and anemia. HISTORY OF PRESENT ILLNESS: The patient is 76-year-old female who was diagnosed with CML in 2006 and she has remained in major molecular response on Imatinib 400 mg daily. She was being managed by Dr. Piedad Bolton who is not under practice anymore. The patient was admitted to [facility] on 08/08/2017 with dyspnea of 2-3 weeks' duration. She also had a productive cough with clear sputum. She was diagnosed with CHF exacerbation. In addition, she has been getting iron infusion through Dr. 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 The patient has chronic kidney disease. Her hemoglobin on 08/09/2017 was noted to be 7.4 and hence I was consulted to see if we need to resume iron infusion. She denies hematemesis, melena, hematochezia, no hemoptysis or hematuria. No nose bleeds or gum bleeding. PAST MEDICAL HISTORY: Coronary artery disease, congestive heart failure, myocardial infarction, pulmonary hypertension, COPD, GERD, iron deficiency anemia, osteoarthritis, anxiety, depression, chronic renal insufficiency. PAST SURGICAL HISTORY: Cataract removal, total knee replacement, tonsillectomy, hysterectomy. FAMILY HISTORY: Positive for cancer, coronary artery disease and diabetes. SOCIAL HISTORY: She has history of smoking 1 pack of cigarettes per day. REVIEW OF SYSTEMS: A 12-point review of system was performed. Pertinent positives are mentioned in the history of present illness. Rest of the system review is negative. PHYSICAL EXAMINATION: GENERAL APPEARANCE: The patient is a 76-year-old female who is in no acute cardiorespiratory distress. VITAL SIGNS: Blood pressure 126/66, temperature 97.6. HEENT: Head is atraumatic, normocephalic. Eyes: No icterus. NECK: Supple. CHEST: Bilaterally symmetrical. No crepitations or rhonchi heard. HEART: S1, S2 normal. ABDOMEN: Soft, nontender. CENTRAL NERVOUS SYSTEM: No focal deficits. LYMPHATICS: No lymphadenopathy. SKIN: No rashes. PSYCHOLOGIC: Mood and affect are appropriate. MUSCULOSKELETAL: No joint effusions. LABORATORY DATA: WBC 7.2, hemoglobin 7.4, platelet count 165. Creatinine 1.0. IMPRESSION AND PLAN: 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 She has had an excellent response to treatment. BCR-ABL studies on 02/23/2017 reveals no evidence of leukemia indicating a major molecular response. I have advised her to follow up as outpatient upon discharge. 2. Anemia review of the old records indicates that she has chronic anemia. I suspect that she has anemia due to chronic kidney disease. She has been getting iron infusions through Dr. Fuad Jiménez. I will check iron studies. We will check her iron studies and if it is still deficient then I would resume iron infusions. 3. Congestive heart failure. Continue management per Dr. Akbar Bolton. JOYCE OBRIEN MD DR: SUDARSHAN/orin JOB#: [id number] / [id number] JANNET
[2017-08-09 22:59] VITALS: BP 131/53
[2017-08-10 03:59] VITALS: BP 119/61
[2017-08-10 07:00] VITALS: BP 106/57
--- NOTE | 2017-08-10 07:15 | PDOC ---
SUBJECTIVE Subjective Pt says that she is starting to feel much better; breathing improving but not quite to baseline. Dry throat, otherwise doing well. OBJECTIVE Vital Signs Vital Signs Date Time Temp Pulse Resp B/P (MAP) Pulse Ox O2 Delivery O2 Flow Rate FiO2 08/10/17 03:59 98.4 87 16 119/61 (80) 91 Room Air 98.4 08/09/17 22:59 98.3 96 18 131/53 (79) 97 Room Air 98.3 08/09/17 20:00 Room Air 08/09/17 19:58 97.8 83 18 113/59 (77) 97 Room Air 97.8 08/09/17 19:23 93 Room Air 08/09/17 16:45 Room Air 08/09/17 15:00 97.5 80 20 131/66 (87) 97 Nasal Cannula 2.0 97.5 08/09/17 13:15 97 Room Air 08/09/17 11:00 97.6 80 20 126/66 (86) 97 Nasal Cannula 2.0 97.6 08/09/17 08:00 Nasal Cannula 2.0 08/09/17 08:00 Nasal Cannula 2.0 I & O Intake and Output 08/10/17 07:00 Intake Total 980 ml Output Total 2926 ml Balance -1946 ml Intake Oral 980 ml Output Urine Total 2926 ml # Voids 3 # Bowel Movements 1 PHYSICAL EXAM Physical Exam General: Alert, Oriented X3, Cooperative, NAD HEENT: Atraumatic, PERRLA, EOMI, Mucous membr. moist/pink Lungs: Other (rhonchi throughout), dyspnea has improved Heart: RRR, no rubs, no gallops, no murmurs Abdomen: Normal bowel sounds, Soft, No tenderness, No hepatosplenomegaly Extremities: No clubbing, No cyanosis, No edema Skin: No rashes, No significant lesion Neuro: Normal tone, Sensation intact, Cranial nerves 3-12 NL Psych/Mental Status: Mental status NL, Mood NL ASSESSMENT/PLAN Assessment/Plan Pt is a 76yo CF admitted for CHF exacerbation 1)CHF Exacerbation- pt has systolic and diastolic CHF, currently uncompensated but improving. Cardiology following. Pt receiving Lasix 40mg IV BID. Possibly brought on by iron transfusions last week? 2)Pulmonary HTN 3)Mitral Valve Regurgitation 4)COPD- possible contribution to current clinical picture. Will get repeat CXR this morning; if significantly improved will likely add steroids. 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 She is supposed to get an iron transfusion this week as well. Heme/Onc consulted. Hb currently 7.4 with normal range for patient 6.5-10.3 6)CKD- pt's Cr is actually improved from where it has been in the past. CTM 7)PEM- mild 8)Elevated troponin- likely 2/2 CHF exacerbation. Troponin has been mildly elevated on past admissions. Not complaining of chest pain, Cardiology following 9)CAD 10)Insomnia- continue Temazepam 11)Depression- continue Paroxetine 40mg Problems: COMMENT Lab Laboratory Tests Test 08/09/17 08:55 Iron Level 39 ug/dL (50-170) Total Iron Binding Capacity 197 ug/dL (250-450) Iron Saturation 20 % (15-34) Ferritin 377 ng/mL (8-252) Troponin I Quantitative 0.058 ng/mL (0.000-0.055) RIAZ STEVENS MD Aug 10, 2017 07:15
[2017-08-10] MEDS: IPRATRPIUM/ALBUTEROL 0.5/2.5MG 3 ML NEBU. NEB SCH ×4 (07:25→19:23)
[2017-08-10 07:58] LABS: CALCIUM 8.5 mg/dL (8.5-10.1); CREATININE 1.2 mg/dL (0.6-1.0); GFR 43.6; POTASSIUM 3.6 mmol/L (3.5-5.1)
[2017-08-10] MEDS: EZETIMIBE 10 MG TABLET. PO SCH (08:55)
[2017-08-10] MEDS: PARoxetine 20 MG TABLET PO SCH (08:56)
[2017-08-10] MEDS: DIPYRIDAMOLE 25 MG TABLET. PO SCH ×2 (08:56→20:31)
[2017-08-10] MEDS: FERROUS SULFATE 325 MG TABLET. PO SCH (08:56)
[2017-08-10] MEDS: CALCIUM CARB/VIT D3 500/200 TABLET. PO SCH (08:56)
[2017-08-10] MEDS: IMATINIB PO SCH (08:57)
[2017-08-10] MEDS: FUROSEMIDE 40 MG/4 ML VIAL. IVP SCH (08:57)
[2017-08-10] MEDS: POTASSIUM CHLORIDE 20 MEQ TABLET.ER. PO SCH ×2 (08:57→17:32)
[2017-08-10] MEDS ORDERED: NON FORMULARY ITEM (Tiotropium Bromide (Spiriva) 2 INH) IH SCH (09:00)
[2017-08-10] MEDS ORDERED: NON FORMULARY ITEM (Imatinib Mesylate (Gleevec) 400 MG) PO SCH (09:00)
[2017-08-10 10:44] VITALS: BP 103/45
--- NOTE | 2017-08-10 11:40 | RAD ---
AP chest radiograph 08/10/2017 Clinical indication: Pleural effusion. Comparison: Chest 08/08/2017 Findings: Development of a layering small right pleural effusion. Slight interval decrease in medium left pleural effusion. Bibasilar atelectasis. Heart borders are obscured by the effusions. There is mild pulmonary venous congestion and interstitial opacities. Impression: 1. Development of small right pleural effusion with slight interval decrease in medium left pleural effusion. 2. Pulmonary venous congestion and interstitial opacities, likely pulmonary edema.
[2017-08-10] MEDS: HYDROcodone/APAP 10/325 1 TAB TABLET PO PRN (12:41)
[2017-08-10 14:46] VITALS: BP 106/56
--- NOTE | 2017-08-10 15:15 | PDOC ---
PROGRESS NOTES Subjective Subjective c/c - f/u of CML and anemia ROS - no bleed Objective Objective Vital Signs Date Time Temp Pulse Resp B/P (MAP) Pulse Ox O2 Delivery O2 Flow Rate FiO2 08/10/17 14:46 98.1 84 18 106/56 (73) 97 Room Air 98.1 08/09/17 15:00 2.0 Intake and Output 08/10/17 07:00 Intake Total 980 ml Output Total 2926 ml Balance -1946 ml Intake Oral 980 ml Output Urine Total 2926 ml # Voids 3 # Bowel Movements 1 Physical Exam Heart: Normal S1, Normal S2 General: Alert, Oriented X3 Lungs: Clear to auscultation Neuro: Normal speech Psych/Mental Status: Mental status NL Assessment Assessment Problems Medical Problems: (1) Congestive heart failure (CHF) Status: Acute (2) COPD (chronic obstructive pulmonary disease) Status: Acute IMPRESSION AND PLAN: 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 She has had an excellent response to treatment. BCR-ABL studies on 02/23/2017 reveals no evidence of leukemia indicting a major molecular response. I have advised her to follow up as outpatient upon discharge. 2. Anemia review of the old records indicates that she has chronic anemia. I suspect that she has anemia due to chronic kidney disease. She has been getting iron infusions through Dr. Fuad Jiménez. Iron panel from 08/09/17 reveals normal iron sat of 20, Ferritin high 377. Hence no need for iron infusion at this time. 3. Congestive heart failure. Continue management per Dr. Akbar Bolton. Comment Review of Relevant I have reviewed the following items eliu (where applicable) has been applied. Labs Laboratory Tests Test 08/08/17 19:40 08/09/17 03:10 08/09/17 08:55 08/10/17 07:32 White Blood Count 8.1 x10^3/uL (4.0-11.0) 7.2 x10^3/uL (4.0-11.0) Red Blood Count 2.32 x10^6/uL (3.50-5.40) 2.13 x10^6/uL (3.50-5.40) Hemoglobin 8.0 g/dL (12.0-15.5) 7.4 g/dL (12.0-15.5) Hematocrit 24.3 % (36.0-47.0) 22.2 % (36.0-47.0) Mean Corpuscular Volume 105 fL (79-100) 105 fL (79-100) Mean Corpuscular Hemoglobin 35 pg (25-35) 35 pg (25-35) Mean Corpuscular Hemoglobin Concent 33 g/dL (31-37) 33 g/dL (31-37) Red Cell Distribution Width 15.7 % (11.5-14.5) 15.8 % (11.5-14.5) Platelet Count 185 x10^3/uL (140-400) 165 x10^3/uL (140-400) Neutrophils (%) (Auto) 67 % (31-73) 59 % (31-73) Lymphocytes (%) (Auto) 16 % (24-48) 23 % (24-48) Monocytes (%) (Auto) 12 % (0-9) 11 % (0-9) Eosinophils (%) (Auto) 4 % (0-3) 6 % (0-3) Basophils (%) (Auto) 1 % (0-3) 1 % (0-3) Neutrophils # (Auto) 5.5 x10^3uL (1.8-7.7) 4.3 x10^3uL (1.8-7.7) Lymphocytes # (Auto) 1.3 x10^3/uL (1.0-4.8) 1.7 x10^3/uL (1.0-4.8) Monocytes # (Auto) 0.9 x10^3/uL (0.0-1.1) 0.8 x10^3/uL (0.0-1.1) Eosinophils # (Auto) 0.4 x10^3/uL (0.0-0.7) 0.4 x10^3/uL (0.0-0.7) Basophils # (Auto) 0.1 x10^3/uL (0.0-0.2) 0.1 x10^3/uL (0.0-0.2) Sodium Level 143 mmol/L (136-145) 143 mmol/L (136-145) 141 mmol/L (136-145) Potassium Level 4.3 mmol/L (3.5-5.1) 3.9 mmol/L (3.5-5.1) 3.6 mmol/L (3.5-5.1) Chloride Level 107 mmol/L (98-107) 108 mmol/L (98-107) 105 mmol/L (98-107) Carbon Dioxide Level 26 mmol/L (21-32) 26 mmol/L (21-32) 29 mmol/L (21-32) Anion Gap 10 (6-14) 9 (6-14) 7 (6-14) Blood Urea Nitrogen 16 mg/dL (7-20) 16 mg/dL (7-20) 16 mg/dL (7-20) Creatinine 1.1 mg/dL (0.6-1.0) 1.0 mg/dL (0.6-1.0) 1.2 mg/dL (0.6-1.0) Estimated GFR (Cockcroft-Gault) 48.2 53.8 43.6 Glucose Level 95 mg/dL (70-99) 88 mg/dL (70-99) 88 mg/dL (70-99) Calcium Level 8.4 mg/dL (8.5-10.1) 8.5 mg/dL (8.5-10.1) 8.5 mg/dL (8.5-10.1) Total Bilirubin 0.4 mg/dL (0.2-1.0) Direct Bilirubin 0.1 mg/dL (0.0-0.2) Aspartate Amino Transf (AST/SGOT) 43 U/L (15-37) Alanine Aminotransferase (ALT/SGPT) 33 U/L (14-59) Alkaline Phosphatase 59 U/L (46-116) Troponin I Quantitative 0.049 ng/mL (0.000-0.055) 0.064 ng/mL (0.000-0.055) 0.058 ng/mL (0.000-0.055) FX-Jvz-N-Type Natriuretic Peptide 7643 pg/mL (0-449) Total Protein 5.9 g/dL (6.4-8.2) Albumin 3.3 g/dL (3.4-5.0) Lipase 124 U/L (73-393) Iron Level 39 ug/dL (50-170) Total Iron Binding Capacity 197 ug/dL (250-450) Iron Saturation 20 % (15-34) Ferritin 377 ng/mL (8-252) Laboratory Tests Test 08/10/17 07:32 Sodium Level 141 mmol/L (136-145) Potassium Level 3.6 mmol/L (3.5-5.1) Chloride Level 105 mmol/L (98-107) Carbon Dioxide Level 29 mmol/L (21-32) Anion Gap 7 (6-14) Blood Urea Nitrogen 16 mg/dL (7-20) Creatinine 1.2 mg/dL (0.6-1.0) Estimated GFR (Cockcroft-Gault) 43.6 Glucose Level 88 mg/dL (70-99) Calcium Level 8.5 mg/dL (8.5-10.1) Medications Current Medications Albuterol/ Ipratropium (Duoneb) 3 ml 1X ONCE NEB Last administered on 20:10; Start 08/08/17 at 19:15; Stop 08/08/17 at 19:17; Status DC Furosemide (Lasix) 20 mg 1X ONCE IVP Last administered on 08/08/17 20:54; Start 08/08/17 at 20:30; Stop 08/08/17 at 20:33; Status DC Ondansetron HCl (Zofran) 4 mg PRN Q8HRS PRN IV NAUSEA/VOMITING; Start at 20:30; Stop 08/09/17 at 20:29; Status DC Morphine Sulfate 2 mg PRN Q2HR PRN IV PAIN; Start 08/08/17 at 20:30; Stop at 20:29; Status DC Non-Formulary Medication 1 ea DAILYWBKFT PO Last administered on 08/10/17 08: 57; Start 08/09/17 at 08:00 Calcium/Vitamin D (Oscal D 500mg/ 200uts) 1 tab DAILY PO Last administered on 08/10/17 08:56; Start 08/09/17 at 09:00 Dipyridamole (Persantine) 75 mg BID PO Last administered on 08/10/17 08:56; Start 08/09/17 at 09:00 Ferrous Sulfate (Feosol) 325 mg DAILYWBKFT PO Last administered on 08/10/17 08:56; Start 08/09/17 at 08:00 Non-Formulary Medication 400 mg DAILYAC PO ; Start 08/09/17 at 07:30; Status UNV Paroxetine HCl (Paxil) 20 mg DAILY PO Last administered on 08/10/17 08:56; Start 08/09/17 at 09:00 Temazepam (Restoril) 15 mg PRN QHS PRN PO INSOMNIA Last administered on 21:59; Start 08/08/17 at 23:30 Furosemide (Lasix) 40 mg DAILY IVP Last administered on 08/09/17 09:38; Start 08/09/17 at 10:00; Stop 08/09/17 at 16:43; Status DC EZETIMIBE (Zetia) 10 mg DAILY PO Last administered on 08/10/17 08:55; Start 08/09/17 at 10:00 Acetaminophen/ Hydrocodone Bitart (Lortab 10/325) 1 tab PRN Q6HRS PRN PO PAIN Last administered on 08/10/17 12:41; Start 08/09/17 at 09:15 Nitroglycerin (Nitrostat) 0.4 mg PRN Q5MIN PRN SL CHEST PAIN; Start 08/09/17 at 09:15 Sucralfate (Carafate) 1 gm QHS PO Last administered on 08/09/17 21:59; Start 08/09/17 at 21:00 Non-Formulary Medication 400 mg DAILY PO ; Start 08/10/17 at 09:00; Status UNV Non-Formulary Medication 2 inh DAILY IH ; Start 08/10/17 at 09:00; Status UNV Albuterol/ Ipratropium (Duoneb) 3 ml RTQID NEB Last administered on 08/10/17 12:02; Start 08/09/17 at 12:00 Non-Formulary Medication 1 mg PRN Q4HRS PRN IH SMOKING CESSATION Last administered on 08/09/17 14:40; Start 08/09/17 at 11:45 Furosemide (Lasix) 40 mg Q12HR IVP Last administered on 08/10/17 08:57; Start 08/09/17 at 18:00; Stop 08/10/17 at 10:00; Status DC Potassium Chloride (Klor-Con) 20 meq BIDWMEALS PO Last administered on 11/14/ 17at 08:57; Start 08/09/17 at 17:00 Active Scripts Active Prednisone 10 Mg Tablet 10 Mg PO UD Take 4 for 2 days then 3 for 2 days then 2 for 2 days then 1 for 2 days-off Albuterol Sulfate Neb Soln (Albuterol Sulfate) 1.25 Mg/3 Ml Vial.neb 1 Vial NEB Q6HRS Carafate (Sucralfate) 1 Gm Tablet 1 Gm PO QHS 30 Days Reported Nicotrol (Nicotine) 10 Mg Cartridge 10 Mg IH PRN PRN [place] 10-325 Tablet (Acetaminophen/Hydrocodone Bitart) 1 Each Tablet 1 Tab PO PRN Q6HRS PRN Slow Fe (Ferrous Sulfate) 142 Mg Tablet.er 142 Mg PO DAILY Prolia (Denosumab) 60 Mg/1 Ml Disp.syrin 60 Mg SQ UD Bumetanide 2 Mg Tablet 3 Tab PO DAILY Paroxetine Hcl 40 Mg Tablet 1 Tab PO DAILY Imatinib Mesylate 400 Mg Tablet 400 Mg PO DAILYAC Nitrostat (Nitroglycerin) 0.4 Mg Tab.subl 0.4 Mg SL PRN Q5MIN PRN Persantine (Dipyridamole) 75 Mg Tablet 75 Mg PO BID Paroxetine Hcl 20 Mg Tablet 20 Mg PO DAILY Calcium-Vitamin D Tablet (Calcium Carbonate/Vitamin D3) 1 Each Tablet 1 Each PO DAILY Vitamin D3 (Cholecalciferol (Vitamin D3)) 10,000 Unit Tablet 10,000 Unit PO Hydrocodone-Apap 5-325 (Hydrocodone Bit/Acetaminophen) 1 Each Tablet 1 Tab PO PRN Q6HRS PRN Spiriva (Tiotropium [place]) 18 Mcg Cap.w.dev 2 Inh IH DAILY Gleevec (Imatinib Mesylate) 400 Mg Tablet 400 Mg PO DAILY Zetia (Ezetimibe) 10 Mg Tablet 10 Mg PO DAILY Vitals/I & O Vital Sign - Last 24 Hours 08/09/17 08/09/17 08/09/17 08/09/17 16:45 19:23 19:58 20:00 Temp 97.8 97.8 Pulse 83 Resp 18 B/P (MAP) 113/59 (77) Pulse Ox 93 97 O2 Delivery Room Air Room Air Room Air Room Air 08/09/17 08/10/17 08/10/17 08/10/17 22:59 03:59 07:00 07:27 Temp 98.3 98.4 98.6 98.3 98.4 98.6 Pulse 96 87 84 Resp 18 16 20 B/P (MAP) 131/53 (79) 119/61 (80) 106/57 (73) Pulse Ox 97 91 92 96 O2 Delivery Room Air Room Air Room Air Room Air 08/10/17 08/10/17 08/10/17 08/10/17 08:00 10:44 12:02 12:41 Temp 98.0 98.0 Pulse 77 Resp 19 B/P (MAP) 103/45 (64) Pulse Ox 93 96 96 O2 Delivery Room Air Room Air Room Air Room Air 08/10/17 08/10/17 08/10/17 13:41 14:07 14:46 Temp 98.1 98.1 Pulse 84 Resp 18 B/P (MAP) 106/56 (73) Pulse Ox 97 O2 Delivery Room Air Room Air Room Air Intake and Output 08/09/17 08/09/17 08/10/17 15:00 23:00 07:00 Intake Total 980 ml Output Total 2925 ml 1 ml Balance -1945 ml -1 ml JOYCE OBRIEN MD Aug 10, 2017 15:15
--- NOTE | 2017-08-10 17:08 | CARD ---
APPROVED REPORT EXAM: Two-dimensional and M-mode echocardiogram with Doppler and color Doppler. Other Information Quality : Good INDICATION Congestive Heart Failure 2D DIMENSIONS RVDd2.7 (2.9-3.5cm)Left Atrium(2D)4.6 (1.6-4.0cm) IVSd0.9 (0.7-1.1cm)Aortic Root(2D)2.7 (2.0-3.7cm) LVDd5.9 (3.9-5.9cm)LVOT Diameter2.0 (1.8-2.4cm) PWd0.9 (0.7-1.1cm)LVDs5.2 (2.5-4.0cm) FS (%) 18.0 %SV43.3 ml LVEF(%)35.0 (>50%) Aortic Valve AoV Peak Jigar.174.8cm/sAoV VTI33.3cm AO Peak GR.12.2mmHgLVOT Peak Jgiar.161.3cm/s LVOT VTI 31.31cmAO Mean GR.7mmHg SHELLI (VMAX)2.18lg5GTL (VTI)2.90cm2 AI P 1/2 Vgsr301uc Mitral Valve MV E Tzefmmti546.8cm/sMV E Peak Gr.165mmHg MV DECEL [id number] A Zepdcfrr176.8cm/s MV SZI01xvH/A Ratio0.8 MVA (PHT)3.51cm2 TDI E/Lateral E'13.0E/Medial E'22.7 Tricuspid Valve TR P. Vgoxqsgg915oz/sRAP IMJBXOHP0zdQa TR Peak Gr.12leGoHASA13waOi Pulmonary Vein S1 Uvunuwrn34.4cm/sD2 Kgohdmhd09.5cm/s LEFT VENTRICLE The left ventricle is dilated There is normal left ventricular wall thickness. The LV Ejection Fracti on is 35%. There is global hypokinesis of the left ventricle. Transmitral Doppler flow pattern is Gra de I-abnormal relaxation pattern. RIGHT VENTRICLE The right ventricle is mildly dilated The right ventricular systolic function is bellow normal. ATRIA The left atrium is moderately dilated. The right atrium is mildly dilated. The interatrial septum is intact with no evidence for an atrial septal defect or patent foramen ovale as noted on 2-D or Dopple r imaging. AORTIC VALVE The aortic valve is calcified but opens well. Doppler and Color Flow revealed mild aortic regurgitati on. There is no significant aortic valvular stenosis. MITRAL VALVE The mitral valve is normal in structure but posterior mitral valve leaflet appears fixated. There is no evidence of mitral valve prolapse. There is no mitral valve stenosis. Doppler and Color-flow revea led severe mitral regurgitation. TRICUSPID VALVE The tricuspid valve is normal in structure Doppler and Color Flow revealed mild tricuspid regurgitati on. There is mild pulmonary hypertension. The PA pressure was estimated at 34 mmHg. There is no tricu spid valve stenosis. PULMONIC VALVE The pulmonary valve is normal in structure Doppler and Color Flow revealed trace pulmonic valvular re gurgitation. There is no pulmonic valvular stenosis. GREAT VESSELS The aortic root is normal in size. The ascending aorta is normal in size. The IVC is normal in size a nd collapses >50% with inspiration. PERICARDIAL EFFUSION There is moderatet pleural effusion. There is a small pericardial effusion. Critical Notification Critical Value: No <Conclusion> The left ventricle is dilated The LV Ejection Fraction is 35%. Transmitral Doppler flow pattern is Grade I-abnormal relaxation pattern. The right ventricular systolic function is bellow normal. The left atrium is moderately dilated. The right atrium is mildly dilated. Doppler and Color Flow revealed mild aortic regurgitation. Doppler and Color-flow revealed severe mitral regurgitation. The mitral valve is normal in structure but posterior mitral valve leaflet appears fixated. Doppler and Color Flow revealed mild tricuspid regurgitation. There is mild pulmonary hypertension. The PA pressure was estimated at 34 mmHg. Doppler and Color Flow revealed trace pulmonic valvular regurgitation. There is moderatet pleural effusion. There is a small pericardial effusion.
--- NOTE | 2017-08-10 17:31 | PDOC ---
PROGRESS NOTES Subjective Subjective The patient is feeling better today. The echocardiogram was done and it shows: The left ventricle is dilated The LV Ejection Fraction is 35%. Transmitral Doppler flow pattern is Grade I-abnormal relaxation pattern. The right ventricular systolic function is bellow normal. The left atrium is moderately dilated. The right atrium is mildly dilated. Doppler and Color Flow revealed mild aortic regurgitation. Doppler and Color-flow revealed severe mitral regurgitation. The mitral valve is normal in structure but posterior mitral valve leaflet appears fixated. Doppler and Color Flow revealed mild tricuspid regurgitation. There is mild pulmonary hypertension. The PA pressure was estimated at 34 mmHg. Doppler and Color Flow revealed trace pulmonic valvular regurgitation. There is moderate pleural effusion. There is a small pericardial effusion. Objective Objective Vital Signs Date Time Temp Pulse Resp B/P (MAP) Pulse Ox O2 Delivery O2 Flow Rate FiO2 08/10/17 15:47 96 Room Air 08/10/17 14:46 98.1 84 18 106/56 (73) 98.1 08/09/17 15:00 2.0 Intake and Output 08/11/17 07:00 Intake Total 1550 ml Balance 1550 ml Intake Oral 1550 ml # Voids 5 Physical Exam Physical Exam The patient is moving air better today. Less rales. No changes seen heart sounds or murmur. Less edema. Assessment Assessment Patient with acute congestive heart failure has severe mitral insufficiency and a moderate dilated cardiomyopathy. We have discussed the findings of the echocardiogram. The patient wants to be evaluated for a possible valve replacement. We discussed this situation and decided to have a cardiovascular surgeon on consult to give his opinion with regards to her being a valve replacement surgical candidate. In view of that I would wait for this surgical opinion before considering doing a WENDI and a heart catheterization. Would continue with the diuresis of the patient. Problems Medical Problems: (1) Congestive heart failure (CHF) Status: Acute (2) COPD (chronic obstructive pulmonary disease) Status: Acute Comment Review of Relevant I have reviewed the following items eliu (where applicable) has been applied. Labs Laboratory Tests Test 08/08/17 19:40 08/09/17 03:10 08/09/17 08:55 08/10/17 07:32 White Blood Count 8.1 x10^3/uL (4.0-11.0) 7.2 x10^3/uL (4.0-11.0) Red Blood Count 2.32 x10^6/uL (3.50-5.40) 2.13 x10^6/uL (3.50-5.40) Hemoglobin 8.0 g/dL (12.0-15.5) 7.4 g/dL (12.0-15.5) Hematocrit 24.3 % (36.0-47.0) 22.2 % (36.0-47.0) Mean Corpuscular Volume 105 fL (79-100) 105 fL (79-100) Mean Corpuscular Hemoglobin 35 pg (25-35) 35 pg (25-35) Mean Corpuscular Hemoglobin Concent 33 g/dL (31-37) 33 g/dL (31-37) Red Cell Distribution Width 15.7 % (11.5-14.5) 15.8 % (11.5-14.5) Platelet Count 185 x10^3/uL (140-400) 165 x10^3/uL (140-400) Neutrophils (%) (Auto) 67 % (31-73) 59 % (31-73) Lymphocytes (%) (Auto) 16 % (24-48) 23 % (24-48) Monocytes (%) (Auto) 12 % (0-9) 11 % (0-9) Eosinophils (%) (Auto) 4 % (0-3) 6 % (0-3) Basophils (%) (Auto) 1 % (0-3) 1 % (0-3) Neutrophils # (Auto) 5.5 x10^3uL (1.8-7.7) 4.3 x10^3uL (1.8-7.7) Lymphocytes # (Auto) 1.3 x10^3/uL (1.0-4.8) 1.7 x10^3/uL (1.0-4.8) Monocytes # (Auto) 0.9 x10^3/uL (0.0-1.1) 0.8 x10^3/uL (0.0-1.1) Eosinophils # (Auto) 0.4 x10^3/uL (0.0-0.7) 0.4 x10^3/uL (0.0-0.7) Basophils # (Auto) 0.1 x10^3/uL (0.0-0.2) 0.1 x10^3/uL (0.0-0.2) Sodium Level 143 mmol/L (136-145) 143 mmol/L (136-145) 141 mmol/L (136-145) Potassium Level 4.3 mmol/L (3.5-5.1) 3.9 mmol/L (3.5-5.1) 3.6 mmol/L (3.5-5.1) Chloride Level 107 mmol/L (98-107) 108 mmol/L (98-107) 105 mmol/L (98-107) Carbon Dioxide Level 26 mmol/L (21-32) 26 mmol/L (21-32) 29 mmol/L (21-32) Anion Gap 10 (6-14) 9 (6-14) 7 (6-14) Blood Urea Nitrogen 16 mg/dL (7-20) 16 mg/dL (7-20) 16 mg/dL (7-20) Creatinine 1.1 mg/dL (0.6-1.0) 1.0 mg/dL (0.6-1.0) 1.2 mg/dL (0.6-1.0) Estimated GFR (Cockcroft-Gault) 48.2 53.8 43.6 Glucose Level 95 mg/dL (70-99) 88 mg/dL (70-99) 88 mg/dL (70-99) Calcium Level 8.4 mg/dL (8.5-10.1) 8.5 mg/dL (8.5-10.1) 8.5 mg/dL (8.5-10.1) Total Bilirubin 0.4 mg/dL (0.2-1.0) Direct Bilirubin 0.1 mg/dL (0.0-0.2) Aspartate Amino Transf (AST/SGOT) 43 U/L (15-37) Alanine Aminotransferase (ALT/SGPT) 33 U/L (14-59) Alkaline Phosphatase 59 U/L (46-116) Troponin I Quantitative 0.049 ng/mL (0.000-0.055) 0.064 ng/mL (0.000-0.055) 0.058 ng/mL (0.000-0.055) HG-Uke-M-Type Natriuretic Peptide 7643 pg/mL (0-449) Total Protein 5.9 g/dL (6.4-8.2) Albumin 3.3 g/dL (3.4-5.0) Lipase 124 U/L (73-393) Iron Level 39 ug/dL (50-170) Total Iron Binding Capacity 197 ug/dL (250-450) Iron Saturation 20 % (15-34) Ferritin 377 ng/mL (8-252) Laboratory Tests Test 08/10/17 07:32 Sodium Level 141 mmol/L (136-145) Potassium Level 3.6 mmol/L (3.5-5.1) Chloride Level 105 mmol/L (98-107) Carbon Dioxide Level 29 mmol/L (21-32) Anion Gap 7 (6-14) Blood Urea Nitrogen 16 mg/dL (7-20) Creatinine 1.2 mg/dL (0.6-1.0) Estimated GFR (Cockcroft-Gault) 43.6 Glucose Level 88 mg/dL (70-99) Calcium Level 8.5 mg/dL (8.5-10.1) Medications Current Medications Albuterol/ Ipratropium (Duoneb) 3 ml 1X ONCE NEB Last administered on 20:10; Start 08/08/17 at 19:15; Stop 08/08/17 at 19:17; Status DC Furosemide (Lasix) 20 mg 1X ONCE IVP Last administered on 08/08/17 20:54; Start 08/08/17 at 20:30; Stop 08/08/17 at 20:33; Status DC Ondansetron HCl (Zofran) 4 mg PRN Q8HRS PRN IV NAUSEA/VOMITING; Start at 20:30; Stop 08/09/17 at 20:29; Status DC Morphine Sulfate 2 mg PRN Q2HR PRN IV PAIN; Start 08/08/17 at 20:30; Stop at 20:29; Status DC Non-Formulary Medication 1 ea DAILYWBKFT PO Last administered on 08/10/17 08: 57; Start 08/09/17 at 08:00 Calcium/Vitamin D (Oscal D 500mg/ 200uts) 1 tab DAILY PO Last administered on 08/10/17 08:56; Start 08/09/17 at 09:00 Dipyridamole (Persantine) 75 mg BID PO Last administered on 08/10/17 08:56; Start 08/09/17 at 09:00 Ferrous Sulfate (Feosol) 325 mg DAILYWBKFT PO Last administered on 08/10/17 08:56; Start 08/09/17 at 08:00 Non-Formulary Medication 400 mg DAILYAC PO ; Start 08/09/17 at 07:30; Status UNV Paroxetine HCl (Paxil) 20 mg DAILY PO Last administered on 08/10/17 08:56; Start 08/09/17 at 09:00 Temazepam (Restoril) 15 mg PRN QHS PRN PO INSOMNIA Last administered on 21:59; Start 08/08/17 at 23:30 Furosemide (Lasix) 40 mg DAILY IVP Last administered on 08/09/17 09:38; Start 08/09/17 at 10:00; Stop 08/09/17 at 16:43; Status DC EZETIMIBE (Zetia) 10 mg DAILY PO Last administered on 08/10/17 08:55; Start 08/09/17 at 10:00 Acetaminophen/ Hydrocodone Bitart (Lortab 10/325) 1 tab PRN Q6HRS PRN PO PAIN Last administered on 08/10/17 12:41; Start 08/09/17 at 09:15 Nitroglycerin (Nitrostat) 0.4 mg PRN Q5MIN PRN SL CHEST PAIN; Start 08/09/17 at 09:15 Sucralfate (Carafate) 1 gm QHS PO Last administered on 08/09/17 21:59; Start 08/09/17 at 21:00 Non-Formulary Medication 400 mg DAILY PO ; Start 08/10/17 at 09:00; Status UNV Non-Formulary Medication 2 inh DAILY IH ; Start 08/10/17 at 09:00; Status UNV Albuterol/ Ipratropium (Duoneb) 3 ml RTQID NEB Last administered on 08/10/17 15:46; Start 08/09/17 at 12:00 Non-Formulary Medication 1 mg PRN Q4HRS PRN IH SMOKING CESSATION Last administered on 08/09/17 14:40; Start 08/09/17 at 11:45 Furosemide (Lasix) 40 mg Q12HR IVP Last administered on 08/10/17 08:57; Start 08/09/17 at 18:00; Stop 08/10/17 at 10:00; Status DC Potassium Chloride (Klor-Con) 20 meq BIDWMEALS PO Last administered on 08:57; Start 08/09/17 at 17:00 Active Scripts Active Prednisone 10 Mg Tablet 10 Mg PO UD Take 4 for 2 days then 3 for 2 days then 2 for 2 days then 1 for 2 days-off Albuterol Sulfate Neb Soln (Albuterol Sulfate) 1.25 Mg/3 Ml Vial.neb 1 Vial NEB Q6HRS Carafate (Sucralfate) 1 Gm Tablet 1 Gm PO QHS 30 Days Reported Nicotrol (Nicotine) 10 Mg Cartridge 10 Mg IH PRN PRN [place] 10-325 Tablet (Acetaminophen/Hydrocodone Bitart) 1 Each Tablet 1 Tab PO PRN Q6HRS PRN Slow Fe (Ferrous Sulfate) 142 Mg Tablet.er 142 Mg PO DAILY Prolia (Denosumab) 60 Mg/1 Ml Disp.syrin 60 Mg SQ UD Bumetanide 2 Mg Tablet 3 Tab PO DAILY Paroxetine Hcl 40 Mg Tablet 1 Tab PO DAILY Imatinib Mesylate 400 Mg Tablet 400 Mg PO DAILYAC Nitrostat (Nitroglycerin) 0.4 Mg Tab.subl 0.4 Mg SL PRN Q5MIN PRN Persantine (Dipyridamole) 75 Mg Tablet 75 Mg PO BID Paroxetine Hcl 20 Mg Tablet 20 Mg PO DAILY Calcium-Vitamin D Tablet (Calcium Carbonate/Vitamin D3) 1 Each Tablet 1 Each PO DAILY Vitamin D3 (Cholecalciferol (Vitamin D3)) 10,000 Unit Tablet 10,000 Unit PO Hydrocodone-Apap 5-325 (Hydrocodone Bit/Acetaminophen) 1 Each Tablet 1 Tab PO PRN Q6HRS PRN Spiriva (Tiotropium [place]) 18 Mcg Cap.w.dev 2 Inh IH DAILY Gleevec (Imatinib Mesylate) 400 Mg Tablet 400 Mg PO DAILY Zetia (Ezetimibe) 10 Mg Tablet 10 Mg PO DAILY Vitals/I & O Vital Sign - Last 24 Hours 08/09/17 08/09/17 08/09/17 08/09/17 19:23 19:58 20:00 22:59 Temp 97.8 98.3 97.8 98.3 Pulse 83 96 Resp 18 18 B/P (MAP) 113/59 (77) 131/53 (79) Pulse Ox 93 97 97 O2 Delivery Room Air Room Air Room Air Room Air 08/10/17 08/10/17 08/10/17 08/10/17 03:59 07:00 07:27 08:00 Temp 98.4 98.6 98.4 98.6 Pulse 87 84 Resp 16 20 B/P (MAP) 119/61 (80) 106/57 (73) Pulse Ox 91 92 96 O2 Delivery Room Air Room Air Room Air Room Air 08/10/17 08/10/17 08/10/17 08/10/17 10:44 12:02 12:41 13:41 Temp 98.0 98.0 Pulse 77 Resp 19 B/P (MAP) 103/45 (64) Pulse Ox 93 96 96 O2 Delivery Room Air Room Air Room Air Room Air 08/10/17 08/10/17 08/10/17 14:07 14:46 15:47 Temp 98.1 98.1 Pulse 84 Resp 18 B/P (MAP) 106/56 (73) Pulse Ox 97 96 O2 Delivery Room Air Room Air Room Air Intake and Output 08/10/17 08/10/17 08/11/17 15:00 23:00 07:00 Intake Total 1550 ml Balance 1550 ml LILLIANA RODRIGUEZ MD Aug 10, 2017 17:31
[2017-08-10 19:54] VITALS: BP 109/53
[2017-08-10] MEDS: SUCRALFATE 1 GM TABLET. PO SCH (20:31)
[2017-08-10] MEDS: TEMAZEPAM 15 MG CAPSULE PO PRN (20:31)
[2017-08-10 23:05] VITALS: BP 111/53
[2017-08-11 03:07] VITALS: BP 102/48
[2017-08-11 05:18] LABS: HEMATOCRIT 21.9 % (36.0-47.0); HEMOGLOBIN 7.4 g/dL (12.0-15.5); RED BLOOD COUNT 2.14 x10^6/uL (3.50-5.40); RED CELL DISTRIBUTION WIDTH 15.5 % (11.5-14.5); WHITE BLOOD COUNT 6.9 x10^3/uL (4.0-11.0)
[2017-08-11 05:37] LABS: CALCIUM 8.6 mg/dL (8.5-10.1); CREATININE 1.5 mg/dL (0.6-1.0); GFR 33.7; POTASSIUM 4.4 mmol/L (3.5-5.1)
[2017-08-11 07:00] VITALS: BP 121/59
[2017-08-11] MEDS: IPRATRPIUM/ALBUTEROL 0.5/2.5MG 3 ML NEBU. NEB SCH ×4 (07:56→19:07)
--- NOTE | 2017-08-11 08:29 | PDOC ---
SUBJECTIVE Subjective Pt feeling much better today. States that her breathing has significantly improved. Interested in meeting with the surgeon; would prefer to get surgery done now if she needs as opposed to waiting. OBJECTIVE Vital Signs Vital Signs Date Time Temp Pulse Resp B/P (MAP) Pulse Ox O2 Delivery O2 Flow Rate FiO2 08/11/17 07:58 96 Room Air 08/11/17 07:31 Room Air 08/11/17 07:00 98.4 86 19 121/59 (79) 92 Room Air 98.4 08/11/17 03:07 97.7 84 16 102/48 (66) 94 Nasal Cannula 2.0 97.7 08/10/17 23:05 99.1 85 16 111/53 (72) 93 Room Air 99.1 08/10/17 19:54 98.9 85 16 109/53 (71) 95 Room Air 98.9 08/10/17 19:35 Room Air 08/10/17 19:24 96 Room Air 08/10/17 15:47 96 Room Air 08/10/17 14:46 98.1 84 18 106/56 (73) 97 Room Air 98.1 08/10/17 14:07 Room Air 08/10/17 13:41 Room Air 08/10/17 12:41 96 Room Air 08/10/17 12:02 96 Room Air 08/10/17 10:44 98.0 77 19 103/45 (64) 93 Room Air 98.0 I & O Intake and Output 08/11/17 06:59 Intake Total 2410 ml Output Total 700 ml Balance 1710 ml Intake Oral 2410 ml Output Urine Total 700 ml # Voids 5 PHYSICAL EXAM Physical Exam General: Alert, Oriented X3, Cooperative, NAD HEENT: Atraumatic, PERRLA, EOMI, Mucous membr. moist/pink Lungs: rhonchi lower lobes, dyspnea has resolved Heart: RRR, no rubs, no gallops, no murmurs Abdomen: Normal bowel sounds, Soft, No tenderness, No hepatosplenomegaly Extremities: No clubbing, No cyanosis, No edema Skin: No rashes, No significant lesion Neuro: Normal tone, Sensation intact, Cranial nerves 3-12 NL Psych/Mental Status: Mental status NL, Mood NL ASSESSMENT/PLAN Assessment/Plan Pt is a 76yo CF admitted for CHF exacerbation 1)CHF Exacerbation- pt has systolic and diastolic CHF, improving with diuresis. Cardiology following. Pt was receiving Lasix 40mg IV BID but order has been stopped, will continue 40mg IV daily unless Cardiology is wanting to change. 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 She is supposed to get an iron transfusion this week as well. Heme/Onc consulted. Hb currently 7.4 with normal range for patient 6.5-10.3 6)CKD- pt's Cr worsening 2/2 diuresis, CTM 7)PEM- mild 8)Elevated troponin- likely 2/2 CHF exacerbation. Troponin has been mildly elevated on past admissions. Not complaining of chest pain, Cardiology following 9)CAD 10)Insomnia- continue Temazepam 11)Depression- continue Paroxetine 40mg Problems: COMMENT Lab Laboratory Tests Test 08/11/17 04:20 White Blood Count 6.9 x10^3/uL (4.0-11.0) Red Blood Count 2.14 x10^6/uL (3.50-5.40) Hemoglobin 7.4 g/dL (12.0-15.5) Hematocrit 21.9 % (36.0-47.0) Mean Corpuscular Volume 102 fL (79-100) Mean Corpuscular Hemoglobin 35 pg (25-35) Mean Corpuscular Hemoglobin Concent 34 g/dL (31-37) Red Cell Distribution Width 15.5 % (11.5-14.5) Platelet Count 172 x10^3/uL (140-400) Sodium Level 139 mmol/L (136-145) Potassium Level 4.4 mmol/L (3.5-5.1) Chloride Level 103 mmol/L (98-107) Carbon Dioxide Level 29 mmol/L (21-32) Anion Gap 7 (6-14) Blood Urea Nitrogen 19 mg/dL (7-20) Creatinine 1.5 mg/dL (0.6-1.0) Estimated GFR (Cockcroft-Gault) 33.7 Glucose Level 88 mg/dL (70-99) Calcium Level 8.6 mg/dL (8.5-10.1) RIAZ STEVENS MD Aug 11, 2017 08:29
[2017-08-11] MEDS: POTASSIUM CHLORIDE 20 MEQ TABLET.ER. PO SCH ×2 (08:46→17:33)
[2017-08-11] MEDS: EZETIMIBE 10 MG TABLET. PO SCH (08:46)
[2017-08-11] MEDS: PARoxetine 20 MG TABLET PO SCH (08:47)
[2017-08-11] MEDS: FERROUS SULFATE 325 MG TABLET. PO SCH (08:47)
[2017-08-11] MEDS: CALCIUM CARB/VIT D3 500/200 TABLET. PO SCH (08:47)
[2017-08-11] MEDS: IMATINIB PO SCH (08:48)
[2017-08-11] MEDS: FUROSEMIDE 40 MG/4 ML VIAL. IVP SCH (08:48)
[2017-08-11] MEDS: DIPYRIDAMOLE 25 MG TABLET. PO SCH ×2 (09:55→20:31)
[2017-08-11 11:37] VITALS: BP 109/47
--- NOTE | 2017-08-11 11:54 | PDOC ---
PROGRESS NOTES Subjective Subjective c/c - f/u of anemia/CML ROS - no CP Objective Objective Vital Signs Date Time Temp Pulse Resp B/P (MAP) Pulse Ox O2 Delivery O2 Flow Rate FiO2 08/11/17 11:37 97.6 82 21 109/47 (67) 99 Room Air 97.6 08/11/17 03:07 2.0 Intake and Output 08/11/17 07:00 Intake Total 2410 ml Output Total 700 ml Balance 1710 ml Intake Oral 2410 ml Output Urine Total 700 ml # Voids 5 Physical Exam Heart: Normal S1, Normal S2 General: Alert, Oriented X3, No acute distress Lungs: Clear to auscultation Psych/Mental Status: Mental status NL Assessment Assessment Problems Medical Problems: (1) Congestive heart failure (CHF) Status: Acute (2) COPD (chronic obstructive pulmonary disease) Status: Acute IMPRESSION AND PLAN: 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 She has had an excellent response to treatment. BCR-ABL studies on 02/23/2017 reveals no evidence of leukemia indicting a major molecular response. I have advised her to follow up as outpatient upon discharge. 2. Anemia review of the old records indicates that she has chronic anemia. I suspect that she has anemia due to chronic kidney disease. She has been getting iron infusions through Dr. Fuad Jiménez. Iron panel from 08/09/17 reveals normal iron sat of 20, Ferritin high 377. Hence no need for iron infusion at this time. Hb stable at 7.4 0n 08/11/17 3. Congestive heart failure. Continue management per Dr. Akbar Bolton. Comment Review of Relevant I have reviewed the following items eliu (where applicable) has been applied. Labs Laboratory Tests Test 08/10/17 07:32 08/11/17 04:20 Sodium Level 141 mmol/L (136-145) 139 mmol/L (136-145) Potassium Level 3.6 mmol/L (3.5-5.1) 4.4 mmol/L (3.5-5.1) Chloride Level 105 mmol/L (98-107) 103 mmol/L (98-107) Carbon Dioxide Level 29 mmol/L (21-32) 29 mmol/L (21-32) Anion Gap 7 (6-14) 7 (6-14) Blood Urea Nitrogen 16 mg/dL (7-20) 19 mg/dL (7-20) Creatinine 1.2 mg/dL (0.6-1.0) 1.5 mg/dL (0.6-1.0) Estimated GFR (Cockcroft-Gault) 43.6 33.7 Glucose Level 88 mg/dL (70-99) 88 mg/dL (70-99) Calcium Level 8.5 mg/dL (8.5-10.1) 8.6 mg/dL (8.5-10.1) White Blood Count 6.9 x10^3/uL (4.0-11.0) Red Blood Count 2.14 x10^6/uL (3.50-5.40) Hemoglobin 7.4 g/dL (12.0-15.5) Hematocrit 21.9 % (36.0-47.0) Mean Corpuscular Volume 102 fL (79-100) Mean Corpuscular Hemoglobin 35 pg (25-35) Mean Corpuscular Hemoglobin Concent 34 g/dL (31-37) Red Cell Distribution Width 15.5 % (11.5-14.5) Platelet Count 172 x10^3/uL (140-400) Laboratory Tests Test 08/11/17 04:20 White Blood Count 6.9 x10^3/uL (4.0-11.0) Red Blood Count 2.14 x10^6/uL (3.50-5.40) Hemoglobin 7.4 g/dL (12.0-15.5) Hematocrit 21.9 % (36.0-47.0) Mean Corpuscular Volume 102 fL (79-100) Mean Corpuscular Hemoglobin 35 pg (25-35) Mean Corpuscular Hemoglobin Concent 34 g/dL (31-37) Red Cell Distribution Width 15.5 % (11.5-14.5) Platelet Count 172 x10^3/uL (140-400) Sodium Level 139 mmol/L (136-145) Potassium Level 4.4 mmol/L (3.5-5.1) Chloride Level 103 mmol/L (98-107) Carbon Dioxide Level 29 mmol/L (21-32) Anion Gap 7 (6-14) Blood Urea Nitrogen 19 mg/dL (7-20) Creatinine 1.5 mg/dL (0.6-1.0) Estimated GFR (Cockcroft-Gault) 33.7 Glucose Level 88 mg/dL (70-99) Calcium Level 8.6 mg/dL (8.5-10.1) Medications Current Medications Albuterol/ Ipratropium (Duoneb) 3 ml 1X ONCE NEB Last administered on 20:10; Start 08/08/17 at 19:15; Stop 08/08/17 at 19:17; Status DC Furosemide (Lasix) 20 mg 1X ONCE IVP Last administered on 08/08/17 20:54; Start 08/08/17 at 20:30; Stop 08/08/17 at 20:33; Status DC Ondansetron HCl (Zofran) 4 mg PRN Q8HRS PRN IV NAUSEA/VOMITING; Start at 20:30; Stop 08/09/17 at 20:29; Status DC Morphine Sulfate 2 mg PRN Q2HR PRN IV PAIN; Start 08/08/17 at 20:30; Stop at 20:29; Status DC Non-Formulary Medication 1 ea DAILYWBKFT PO Last administered on 08/11/17 08: 48; Start 08/09/17 at 08:00 Calcium/Vitamin D (Oscal D 500mg/ 200uts) 1 tab DAILY PO Last administered on 08/11/17 08:47; Start 08/09/17 at 09:00 Dipyridamole (Persantine) 75 mg BID PO Last administered on 08/11/17 09:55; Start 08/09/17 at 09:00 Ferrous Sulfate (Feosol) 325 mg DAILYWBKFT PO Last administered on 08/11/17 08:47; Start 08/09/17 at 08:00 Non-Formulary Medication 400 mg DAILYAC PO ; Start 08/09/17 at 07:30; Status UNV Paroxetine HCl (Paxil) 20 mg DAILY PO Last administered on 08/11/17 08:47; Start 08/09/17 at 09:00 Temazepam (Restoril) 15 mg PRN QHS PRN PO INSOMNIA Last administered on 20:31; Start 08/08/17 at 23:30 Furosemide (Lasix) 40 mg DAILY IVP Last administered on 08/09/17 09:38; Start 08/09/17 at 10:00; Stop 08/09/17 at 16:43; Status DC EZETIMIBE (Zetia) 10 mg DAILY PO Last administered on 08/11/17 08:46; Start 08/09/17 at 10:00 Acetaminophen/ Hydrocodone Bitart (Lortab 10/325) 1 tab PRN Q6HRS PRN PO PAIN Last administered on 08/10/17 12:41; Start 08/09/17 at 09:15 Nitroglycerin (Nitrostat) 0.4 mg PRN Q5MIN PRN SL CHEST PAIN; Start 08/09/17 at 09:15 Sucralfate (Carafate) 1 gm QHS PO Last administered on 08/10/17 20:31; Start 08/09/17 at 21:00 Non-Formulary Medication 400 mg DAILY PO ; Start 08/10/17 at 09:00; Status UNV Non-Formulary Medication 2 inh DAILY IH ; Start 08/10/17 at 09:00; Status UNV Albuterol/ Ipratropium (Duoneb) 3 ml RTQID NEB Last administered on 08/11/17 11:22; Start 08/09/17 at 12:00 Non-Formulary Medication 1 mg PRN Q4HRS PRN IH SMOKING CESSATION Last administered on 08/09/17 14:40; Start 08/09/17 at 11:45 Furosemide (Lasix) 40 mg Q12HR IVP Last administered on 08/10/17 08:57; Start 08/09/17 at 18:00; Stop 08/10/17 at 10:00; Status DC Potassium Chloride (Klor-Con) 20 meq BIDWMEALS PO Last administered on 08:46; Start 08/09/17 at 17:00 Furosemide (Lasix) 40 mg DAILY IVP Last administered on 08/11/17 08:48; Start 08/11/17 at 09:00 Active Scripts Active Prednisone 10 Mg Tablet 10 Mg PO UD Take 4 for 2 days then 3 for 2 days then 2 for 2 days then 1 for 2 days-off Albuterol Sulfate Neb Soln (Albuterol Sulfate) 1.25 Mg/3 Ml Vial.neb 1 Vial NEB Q6HRS Carafate (Sucralfate) 1 Gm Tablet 1 Gm PO QHS 30 Days Reported Nicotrol (Nicotine) 10 Mg Cartridge 10 Mg IH PRN PRN [place] 10-325 Tablet (Acetaminophen/Hydrocodone Bitart) 1 Each Tablet 1 Tab PO PRN Q6HRS PRN Slow Fe (Ferrous Sulfate) 142 Mg Tablet.er 142 Mg PO DAILY Prolia (Denosumab) 60 Mg/1 Ml Disp.syrin 60 Mg SQ UD Bumetanide 2 Mg Tablet 3 Tab PO DAILY Paroxetine Hcl 40 Mg Tablet 1 Tab PO DAILY Imatinib Mesylate 400 Mg Tablet 400 Mg PO DAILYAC Nitrostat (Nitroglycerin) 0.4 Mg Tab.subl 0.4 Mg SL PRN Q5MIN PRN Persantine (Dipyridamole) 75 Mg Tablet 75 Mg PO BID Paroxetine Hcl 20 Mg Tablet 20 Mg PO DAILY Calcium-Vitamin D Tablet (Calcium Carbonate/Vitamin D3) 1 Each Tablet 1 Each PO DAILY Vitamin D3 (Cholecalciferol (Vitamin D3)) 10,000 Unit Tablet 10,000 Unit PO Hydrocodone-Apap 5-325 (Hydrocodone Bit/Acetaminophen) 1 Each Tablet 1 Tab PO PRN Q6HRS PRN Spiriva (Tiotropium [place]) 18 Mcg Cap.w.dev 2 Inh IH DAILY Gleevec (Imatinib Mesylate) 400 Mg Tablet 400 Mg PO DAILY Zetia (Ezetimibe) 10 Mg Tablet 10 Mg PO DAILY Vitals/I & O Vital Sign - Last 24 Hours 08/10/17 08/10/17 08/10/17 08/10/17 12:02 12:41 13:41 14:07 Pulse Ox 96 96 O2 Delivery Room Air Room Air Room Air Room Air 08/10/17 08/10/17 08/10/17 08/10/17 14:46 15:47 19:24 19:35 Temp 98.1 98.1 Pulse 84 Resp 18 B/P (MAP) 106/56 (73) Pulse Ox 97 96 96 O2 Delivery Room Air Room Air Room Air Room Air 08/10/17 08/10/17 08/11/17 08/11/17 19:54 23:05 03:07 07:00 Temp 98.9 99.1 97.7 98.4 98.9 99.1 97.7 98.4 Pulse 85 85 84 86 Resp 16 16 16 19 B/P (MAP) 109/53 (71) 111/53 (72) 102/48 (66) 121/59 (79) Pulse Ox 95 93 94 92 O2 Delivery Room Air Room Air Nasal Cannula Room Air O2 Flow Rate 2.0 08/11/17 08/11/17 08/11/17 08/11/17 07:31 07:58 11:23 11:37 Temp 97.6 97.6 Pulse 82 Resp 21 B/P (MAP) 109/47 (67) Pulse Ox 96 98 99 O2 Delivery Room Air Room Air Room Air Room Air Intake and Output 08/10/17 08/10/17 08/11/17 15:00 23:00 07:00 Intake Total 1910 ml 500 ml Output Total 250 ml 450 ml Balance 1660 ml 50 ml JOYCE OBRIEN MD Aug 11, 2017 11:54
[2017-08-11] MEDS: HYDROcodone/APAP 10/325 1 TAB TABLET PO PRN (13:47)
--- NOTE | 2017-08-11 14:25 | PDOC ---
PROGRESS NOTES Subjective Subjective Patient is doing well today. Sitting up in chair eating during visit. Breathing continues to improve. Denies chest pain. Patient is still interested in meeting with the surgeon for possible valve replacement. No additional concerns at this time. Objective Objective Vital Signs Date Time Temp Pulse Resp B/P (MAP) Pulse Ox O2 Delivery O2 Flow Rate FiO2 08/11/17 13:47 Room Air 08/11/17 11:37 97.6 82 21 109/47 (67) 99 97.6 08/11/17 03:07 2.0 Intake and Output 08/11/17 07:00 Intake Total 2410 ml Output Total 700 ml Balance 1710 ml Intake Oral 2410 ml Output Urine Total 700 ml # Voids 5 Physical Exam COMMENT Alert and Oriented Moving Air Well, No Acute Distress No changes in cardiac exam Less edema in LE b/l Assessment Assessment 1. Acute CHF Exacerbation 2. Mitral Valve Regurgitation 3. CAD 4. Elevated Troponin 5. COPD Plan Plan of Care Plan: 1. Acute Congestive Heart Failure w/ Severe Mitral Insufficiency and a Moderate Dilated Cardiomyopathy- Echocardiogram performed and discussed. Patient is interested in a possible valve replacement, Cardiovascular surgery consulted for opinion with regards to patient being an appropriate valve replacement surgical candidate at this time. Until further recommendations from cardiovascular surgeon, will hold off on performed a WENDI and heart cath 2. Congestive Heart Failure Exacerbation- Systolic and Diastolic. Patient continues to improve symptomatically with continued diuresis. Will continue 40mg IV Lasix. 3. CAD- Denies chest pain or extreme SOB, will continue to monitor 4. Elevated Troponin- Likely secondary to CHF, will continue to monitor Comment Review of Relevant I have reviewed the following items eliu (where applicable) has been applied. Labs Laboratory Tests Test 08/10/17 07:32 08/11/17 04:20 Sodium Level 141 mmol/L (136-145) 139 mmol/L (136-145) Potassium Level 3.6 mmol/L (3.5-5.1) 4.4 mmol/L (3.5-5.1) Chloride Level 105 mmol/L (98-107) 103 mmol/L (98-107) Carbon Dioxide Level 29 mmol/L (21-32) 29 mmol/L (21-32) Anion Gap 7 (6-14) 7 (6-14) Blood Urea Nitrogen 16 mg/dL (7-20) 19 mg/dL (7-20) Creatinine 1.2 mg/dL (0.6-1.0) 1.5 mg/dL (0.6-1.0) Estimated GFR (Cockcroft-Gault) 43.6 33.7 Glucose Level 88 mg/dL (70-99) 88 mg/dL (70-99) Calcium Level 8.5 mg/dL (8.5-10.1) 8.6 mg/dL (8.5-10.1) White Blood Count 6.9 x10^3/uL (4.0-11.0) Red Blood Count 2.14 x10^6/uL (3.50-5.40) Hemoglobin 7.4 g/dL (12.0-15.5) Hematocrit 21.9 % (36.0-47.0) Mean Corpuscular Volume 102 fL (79-100) Mean Corpuscular Hemoglobin 35 pg (25-35) Mean Corpuscular Hemoglobin Concent 34 g/dL (31-37) Red Cell Distribution Width 15.5 % (11.5-14.5) Platelet Count 172 x10^3/uL (140-400) Laboratory Tests Test 08/11/17 04:20 White Blood Count 6.9 x10^3/uL (4.0-11.0) Red Blood Count 2.14 x10^6/uL (3.50-5.40) Hemoglobin 7.4 g/dL (12.0-15.5) Hematocrit 21.9 % (36.0-47.0) Mean Corpuscular Volume 102 fL (79-100) Mean Corpuscular Hemoglobin 35 pg (25-35) Mean Corpuscular Hemoglobin Concent 34 g/dL (31-37) Red Cell Distribution Width 15.5 % (11.5-14.5) Platelet Count 172 x10^3/uL (140-400) Sodium Level 139 mmol/L (136-145) Potassium Level 4.4 mmol/L (3.5-5.1) Chloride Level 103 mmol/L (98-107) Carbon Dioxide Level 29 mmol/L (21-32) Anion Gap 7 (6-14) Blood Urea Nitrogen 19 mg/dL (7-20) Creatinine 1.5 mg/dL (0.6-1.0) Estimated GFR (Cockcroft-Gault) 33.7 Glucose Level 88 mg/dL (70-99) Calcium Level 8.6 mg/dL (8.5-10.1) Medications Current Medications Albuterol/ Ipratropium (Duoneb) 3 ml 1X ONCE NEB Last administered on 20:10; Start 08/08/17 at 19:15; Stop 08/08/17 at 19:17; Status DC Furosemide (Lasix) 20 mg 1X ONCE IVP Last administered on 08/08/17 20:54; Start 08/08/17 at 20:30; Stop 08/08/17 at 20:33; Status DC Ondansetron HCl (Zofran) 4 mg PRN Q8HRS PRN IV NAUSEA/VOMITING; Start at 20:30; Stop 08/09/17 at 20:29; Status DC Morphine Sulfate 2 mg PRN Q2HR PRN IV PAIN; Start 08/08/17 at 20:30; Stop at 20:29; Status DC Non-Formulary Medication 1 ea DAILYWBKFT PO Last administered on 08/11/17 08: 48; Start 08/09/17 at 08:00 Calcium/Vitamin D (Oscal D 500mg/ 200uts) 1 tab DAILY PO Last administered on 08/11/17 08:47; Start 08/09/17 at 09:00 Dipyridamole (Persantine) 75 mg BID PO Last administered on 08/11/17 09:55; Start 08/09/17 at 09:00 Ferrous Sulfate (Feosol) 325 mg DAILYWBKFT PO Last administered on 08/11/17 08:47; Start 08/09/17 at 08:00 Non-Formulary Medication 400 mg DAILYAC PO ; Start 08/09/17 at 07:30; Status UNV Paroxetine HCl (Paxil) 20 mg DAILY PO Last administered on 08/11/17 08:47; Start 08/09/17 at 09:00 Temazepam (Restoril) 15 mg PRN QHS PRN PO INSOMNIA Last administered on 20:31; Start 08/08/17 at 23:30 Furosemide (Lasix) 40 mg DAILY IVP Last administered on 08/09/17 09:38; Start 08/09/17 at 10:00; Stop 08/09/17 at 16:43; Status DC EZETIMIBE (Zetia) 10 mg DAILY PO Last administered on 08/11/17 08:46; Start 08/09/17 at 10:00 Acetaminophen/ Hydrocodone Bitart (Lortab 10/325) 1 tab PRN Q6HRS PRN PO PAIN Last administered on 08/11/17 13:47; Start 08/09/17 at 09:15 Nitroglycerin (Nitrostat) 0.4 mg PRN Q5MIN PRN SL CHEST PAIN; Start 08/09/17 at 09:15 Sucralfate (Carafate) 1 gm QHS PO Last administered on 08/10/17 20:31; Start 08/09/17 at 21:00 Non-Formulary Medication 400 mg DAILY PO ; Start 08/10/17 at 09:00; Status UNV Non-Formulary Medication 2 inh DAILY IH ; Start 08/10/17 at 09:00; Status UNV Albuterol/ Ipratropium (Duoneb) 3 ml RTQID NEB Last administered on 08/11/17 11:22; Start 08/09/17 at 12:00 Non-Formulary Medication 1 mg PRN Q4HRS PRN IH SMOKING CESSATION Last administered on 08/09/17 14:40; Start 08/09/17 at 11:45 Furosemide (Lasix) 40 mg Q12HR IVP Last administered on 08/10/17 08:57; Start 08/09/17 at 18:00; Stop 08/10/17 at 10:00; Status DC Potassium Chloride (Klor-Con) 20 meq BIDWMEALS PO Last administered on 08:46; Start 08/09/17 at 17:00 Furosemide (Lasix) 40 mg DAILY IVP Last administered on 08/11/17 08:48; Start 08/11/17 at 09:00 Active Scripts Active Prednisone 10 Mg Tablet 10 Mg PO UD Take 4 for 2 days then 3 for 2 days then 2 for 2 days then 1 for 2 days-off Albuterol Sulfate Neb Soln (Albuterol Sulfate) 1.25 Mg/3 Ml Vial.neb 1 Vial NEB Q6HRS Carafate (Sucralfate) 1 Gm Tablet 1 Gm PO QHS 30 Days Reported Nicotrol (Nicotine) 10 Mg Cartridge 10 Mg IH PRN PRN [place] 10-325 Tablet (Acetaminophen/Hydrocodone Bitart) 1 Each Tablet 1 Tab PO PRN Q6HRS PRN Slow Fe (Ferrous Sulfate) 142 Mg Tablet.er 142 Mg PO DAILY Prolia (Denosumab) 60 Mg/1 Ml Disp.syrin 60 Mg SQ UD Bumetanide 2 Mg Tablet 3 Tab PO DAILY Paroxetine Hcl 40 Mg Tablet 1 Tab PO DAILY Imatinib Mesylate 400 Mg Tablet 400 Mg PO DAILYAC Nitrostat (Nitroglycerin) 0.4 Mg Tab.subl 0.4 Mg SL PRN Q5MIN PRN Persantine (Dipyridamole) 75 Mg Tablet 75 Mg PO BID Paroxetine Hcl 20 Mg Tablet 20 Mg PO DAILY Calcium-Vitamin D Tablet (Calcium Carbonate/Vitamin D3) 1 Each Tablet 1 Each PO DAILY Vitamin D3 (Cholecalciferol (Vitamin D3)) 10,000 Unit Tablet 10,000 Unit PO Hydrocodone-Apap 5-325 (Hydrocodone Bit/Acetaminophen) 1 Each Tablet 1 Tab PO PRN Q6HRS PRN Spiriva (Tiotropium [place]) 18 Mcg Cap.w.dev 2 Inh IH DAILY Gleevec (Imatinib Mesylate) 400 Mg Tablet 400 Mg PO DAILY Zetia (Ezetimibe) 10 Mg Tablet 10 Mg PO DAILY Vitals/I & O Vital Sign - Last 24 Hours 08/10/17 08/10/17 08/10/17 08/10/17 14:46 15:47 19:24 19:35 Temp 98.1 98.1 Pulse 84 Resp 18 B/P (MAP) 106/56 (73) Pulse Ox 97 96 96 O2 Delivery Room Air Room Air Room Air Room Air 08/10/17 08/10/17 08/11/17 08/11/17 19:54 23:05 03:07 07:00 Temp 98.9 99.1 97.7 98.4 98.9 99.1 97.7 98.4 Pulse 85 85 84 86 Resp 16 16 16 19 B/P (MAP) 109/53 (71) 111/53 (72) 102/48 (66) 121/59 (79) Pulse Ox 95 93 94 92 O2 Delivery Room Air Room Air Nasal Cannula Room Air O2 Flow Rate 2.0 11/08/11/17 08/11/17 08/11/17 07:31 07:58 11:23 11:37 Temp 97.6 97.6 Pulse 82 Resp 21 B/P (MAP) 109/47 (67) Pulse Ox 96 98 99 O2 Delivery Room Air Room Air Room Air Room Air 08/11/17 13:47 O2 Delivery Room Air Intake and Output 08/10/17 08/10/17 08/11/17 15:00 23:00 07:00 Intake Total 1910 ml 500 ml Output Total 250 ml 450 ml Balance 1660 ml 50 ml LILLIANA RODRIGUEZ MD Aug 11, 2017 14:25
[2017-08-11 15:00] VITALS: BP 115/55
[2017-08-11 18:31] VITALS: BP 110/56
[2017-08-11] MEDS: TEMAZEPAM 15 MG CAPSULE PO PRN (20:31)
[2017-08-11] MEDS: SUCRALFATE 1 GM TABLET. PO SCH (20:31)
[2017-08-11 23:55] VITALS: BP 124/60
[2017-08-12 03:03] VITALS: BP 108/50
[2017-08-12 05:59] LABS: CALCIUM 8.6 mg/dL (8.5-10.1); CREATININE 1.3 mg/dL (0.6-1.0); GFR 39.7; POTASSIUM 4.5 mmol/L (3.5-5.1)
[2017-08-12 07:00] VITALS: BP 117/64
[2017-08-12] MEDS: IPRATRPIUM/ALBUTEROL 0.5/2.5MG 3 ML NEBU. NEB SCH ×4 (07:07→19:15)
--- NOTE | 2017-08-12 07:43 | PDOC ---
SUBJECTIVE Subjective Pt doing well this morning. Breathing has significantly improved although desaturated into the 80s overnight. Pt was asymptomatic with desaturations. Discussed that this has likely been going on for a while for her. Waiting for CTS to evaluate OBJECTIVE Vital Signs Vital Signs Date Time Temp Pulse Resp B/P (MAP) Pulse Ox O2 Delivery O2 Flow Rate FiO2 08/12/17 07:07 93 Room Air 08/12/17 03:03 97.6 86 16 108/50 (69) 90 Nasal Cannula 2.0 97.6 08/11/17 23:55 98.5 83 16 124/60 (81) 92 Room Air 98.5 08/11/17 20:30 Room Air 08/11/17 19:08 98 Room Air 08/11/17 18:31 97.8 82 16 110/56 (74) 97 Room Air 97.8 08/11/17 16:17 Room Air 08/11/17 15:00 98.0 92 21 115/55 (75) 96 Room Air 98.0 08/11/17 14:47 96 Room Air 08/11/17 13:47 Room Air 08/11/17 11:37 97.6 82 21 109/47 (67) 99 Room Air 97.6 08/11/17 11:23 98 Room Air 08/11/17 07:58 96 Room Air I & O Intake and Output 08/12/17 07:00 Intake Total 860 ml Output Total 1825 ml Balance -965 ml Intake Oral 860 ml Output Urine Total 1825 ml PHYSICAL EXAM Physical Exam General: Alert, Oriented X3, Cooperative, NAD HEENT: Atraumatic, PERRLA, EOMI, Mucous membr. moist/pink Lungs: regular breathing rate and effort, few rhonchi in lower lobes Heart: RRR, systolic ejection murmur heard throughout Abdomen: Normal bowel sounds, Soft, No tenderness, No hepatosplenomegaly Extremities: No clubbing, No cyanosis, No edema Skin: No rashes, No significant lesion Neuro: Normal tone, Sensation intact, Cranial nerves 3-12 NL Psych/Mental Status: Mental status NL, Mood NL ASSESSMENT/PLAN Assessment/Plan Pt is a 76yo CF admitted for CHF exacerbation 1)CHF Exacerbation- pt has systolic and diastolic CHF, now compensated. Cardiology following. Pt was initially receiving Lasix 40mg IV BID, now decreased to 40mg IV daily. 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 She is supposed to get an iron transfusion this week as well. Heme/Onc consulted. Hb currently 7.4 with normal range for patient 6.5-10.3 6)CKD- pt's Cr worsened upon admission 2/2 diuresis, but still within her previous normal range. CTM 7)PEM- mild 8)Elevated troponin- likely 2/2 CHF exacerbation. Troponin has been mildly elevated on past admissions. Not complaining of chest pain, Cardiology following 9)CAD 10)Insomnia- continue Temazepam 11)Depression- continue Paroxetine 40mg Problems: COMMENT Lab Laboratory Tests Test 08/12/17 04:00 Sodium Level 136 mmol/L (136-145) Potassium Level 4.5 mmol/L (3.5-5.1) Chloride Level 102 mmol/L (98-107) Carbon Dioxide Level 29 mmol/L (21-32) Anion Gap 5 (6-14) Blood Urea Nitrogen 23 mg/dL (7-20) Creatinine 1.3 mg/dL (0.6-1.0) Estimated GFR (Cockcroft-Gault) 39.7 Glucose Level 89 mg/dL (70-99) Calcium Level 8.6 mg/dL (8.5-10.1) RIAZ STEVENS MD Aug 12, 2017 07:43
[2017-08-12] MEDS: FERROUS SULFATE 325 MG TABLET. PO SCH (08:55)
[2017-08-12] MEDS: DIPYRIDAMOLE 25 MG TABLET. PO SCH ×2 (08:55→20:43)
[2017-08-12] MEDS: EZETIMIBE 10 MG TABLET. PO SCH (08:56)
[2017-08-12] MEDS: CALCIUM CARB/VIT D3 500/200 TABLET. PO SCH (08:56)
[2017-08-12] MEDS: FUROSEMIDE 40 MG/4 ML VIAL. IVP SCH (08:56)
[2017-08-12] MEDS: POTASSIUM CHLORIDE 20 MEQ TABLET.ER. PO SCH ×2 (08:56→18:27)
[2017-08-12] MEDS: PARoxetine 20 MG TABLET PO SCH (08:56)
[2017-08-12] MEDS: IMATINIB PO SCH (09:30)
[2017-08-12 11:00] VITALS: BP 103/50
--- NOTE | 2017-08-12 11:29 | PDOC ---
PROGRESS NOTES Subjective Subjective HPI - f/u of CML and anemia ROS- dyspnea stable Objective Objective Vital Signs Date Time Temp Pulse Resp B/P (MAP) Pulse Ox O2 Delivery O2 Flow Rate FiO2 08/12/17 11:00 97.9 80 16 103/50 (67) 96 Room Air 97.9 08/12/17 03:03 2.0 Intake and Output 08/12/17 07:00 Intake Total 860 ml Output Total 1825 ml Balance -965 ml Intake Oral 860 ml Output Urine Total 1825 ml Physical Exam Heart: Normal S1, Normal S2 General: Alert, Oriented X3 Lungs: Clear to auscultation Neuro: Normal speech Psych/Mental Status: Mental status NL Assessment Assessment Problems Medical Problems: (1) Congestive heart failure (CHF) Status: Acute (2) COPD (chronic obstructive pulmonary disease) Status: Acute IMPRESSION AND PLAN: 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 She has had an excellent response to treatment. BCR-ABL studies on 02/23/2017 reveals no evidence of leukemia indicting a major molecular response. I have advised her to follow up as outpatient upon discharge. 2. Anemia review of the old records indicates that she has chronic anemia. I suspect that she has anemia due to chronic kidney disease. She has been getting iron infusions through Dr. Fuad Jiménez. Iron panel from 08/09/17 reveals normal iron sat of 20, Ferritin high 377. Hence no need for iron infusion at this time. Hb stable at 7.4 0n 08/11/17 3. Congestive heart failure. Continue management per Dr. Akbar Bolton. Appreciate cardiology management. Comment Review of Relevant I have reviewed the following items eliu (where applicable) has been applied. Labs Laboratory Tests Test 08/11/17 04:20 08/12/17 04:00 White Blood Count 6.9 x10^3/uL (4.0-11.0) Red Blood Count 2.14 x10^6/uL (3.50-5.40) Hemoglobin 7.4 g/dL (12.0-15.5) Hematocrit 21.9 % (36.0-47.0) Mean Corpuscular Volume 102 fL (79-100) Mean Corpuscular Hemoglobin 35 pg (25-35) Mean Corpuscular Hemoglobin Concent 34 g/dL (31-37) Red Cell Distribution Width 15.5 % (11.5-14.5) Platelet Count 172 x10^3/uL (140-400) Sodium Level 139 mmol/L (136-145) 136 mmol/L (136-145) Potassium Level 4.4 mmol/L (3.5-5.1) 4.5 mmol/L (3.5-5.1) Chloride Level 103 mmol/L (98-107) 102 mmol/L (98-107) Carbon Dioxide Level 29 mmol/L (21-32) 29 mmol/L (21-32) Anion Gap 7 (6-14) 5 (6-14) Blood Urea Nitrogen 19 mg/dL (7-20) 23 mg/dL (7-20) Creatinine 1.5 mg/dL (0.6-1.0) 1.3 mg/dL (0.6-1.0) Estimated GFR (Cockcroft-Gault) 33.7 39.7 Glucose Level 88 mg/dL (70-99) 89 mg/dL (70-99) Calcium Level 8.6 mg/dL (8.5-10.1) 8.6 mg/dL (8.5-10.1) Laboratory Tests Test 08/12/17 04:00 Sodium Level 136 mmol/L (136-145) Potassium Level 4.5 mmol/L (3.5-5.1) Chloride Level 102 mmol/L (98-107) Carbon Dioxide Level 29 mmol/L (21-32) Anion Gap 5 (6-14) Blood Urea Nitrogen 23 mg/dL (7-20) Creatinine 1.3 mg/dL (0.6-1.0) Estimated GFR (Cockcroft-Gault) 39.7 Glucose Level 89 mg/dL (70-99) Calcium Level 8.6 mg/dL (8.5-10.1) Medications Current Medications Albuterol/ Ipratropium (Duoneb) 3 ml 1X ONCE NEB Last administered on 20:10; Start 08/08/17 at 19:15; Stop 08/08/17 at 19:17; Status DC Furosemide (Lasix) 20 mg 1X ONCE IVP Last administered on 08/08/17 20:54; Start 08/08/17 at 20:30; Stop 08/08/17 at 20:33; Status DC Ondansetron HCl (Zofran) 4 mg PRN Q8HRS PRN IV NAUSEA/VOMITING; Start at 20:30; Stop 08/09/17 at 20:29; Status DC Morphine Sulfate 2 mg PRN Q2HR PRN IV PAIN; Start 08/08/17 at 20:30; Stop at 20:29; Status DC Non-Formulary Medication 1 ea DAILYWBKFT PO Last administered on 08/12/17 09: 30; Start 08/09/17 at 08:00 Calcium/Vitamin D (Oscal D 500mg/ 200uts) 1 tab DAILY PO Last administered on 08/12/17 08:56; Start 08/09/17 at 09:00 Dipyridamole (Persantine) 75 mg BID PO Last administered on 08/12/17 08:55; Start 08/09/17 at 09:00 Ferrous Sulfate (Feosol) 325 mg DAILYWBKFT PO Last administered on 08/12/17 08:55; Start 08/09/17 at 08:00 Non-Formulary Medication 400 mg DAILYAC PO ; Start 08/09/17 at 07:30; Status UNV Paroxetine HCl (Paxil) 20 mg DAILY PO Last administered on 08/12/17 08:56; Start 08/09/17 at 09:00 Temazepam (Restoril) 15 mg PRN QHS PRN PO INSOMNIA Last administered on 20:31; Start 08/08/17 at 23:30 Furosemide (Lasix) 40 mg DAILY IVP Last administered on 08/09/17 09:38; Start 08/09/17 at 10:00; Stop 08/09/17 at 16:43; Status DC EZETIMIBE (Zetia) 10 mg DAILY PO Last administered on 08/12/17 08:56; Start 08/09/17 at 10:00 Acetaminophen/ Hydrocodone Bitart (Lortab 10/325) 1 tab PRN Q6HRS PRN PO PAIN Last administered on 08/11/17 13:47; Start 08/09/17 at 09:15 Nitroglycerin (Nitrostat) 0.4 mg PRN Q5MIN PRN SL CHEST PAIN; Start 08/09/17 at 09:15 Sucralfate (Carafate) 1 gm QHS PO Last administered on 08/11/17 20:31; Start 08/09/17 at 21:00 Non-Formulary Medication 400 mg DAILY PO ; Start 08/10/17 at 09:00; Status UNV Non-Formulary Medication 2 inh DAILY IH ; Start 08/10/17 at 09:00; Status UNV Albuterol/ Ipratropium (Duoneb) 3 ml RTQID NEB Last administered on 08/12/17 10:53; Start 08/09/17 at 12:00 Non-Formulary Medication 1 mg PRN Q4HRS PRN IH SMOKING CESSATION Last administered on 08/09/17 14:40; Start 08/09/17 at 11:45 Furosemide (Lasix) 40 mg Q12HR IVP Last administered on 08/10/17 08:57; Start 08/09/17 at 18:00; Stop 08/10/17 at 10:00; Status DC Potassium Chloride (Klor-Con) 20 meq BIDWMEALS PO Last administered on 08:56; Start 08/09/17 at 17:00 Furosemide (Lasix) 40 mg DAILY IVP Last administered on 08/12/17 08:56; Start 08/11/17 at 09:00 Active Scripts Active Prednisone 10 Mg Tablet 10 Mg PO UD Take 4 for 2 days then 3 for 2 days then 2 for 2 days then 1 for 2 days-off Albuterol Sulfate Neb Soln (Albuterol Sulfate) 1.25 Mg/3 Ml Vial.neb 1 Vial NEB Q6HRS Carafate (Sucralfate) 1 Gm Tablet 1 Gm PO QHS 30 Days Reported Nicotrol (Nicotine) 10 Mg Cartridge 10 Mg IH PRN PRN [place] 10-325 Tablet (Acetaminophen/Hydrocodone Bitart) 1 Each Tablet 1 Tab PO PRN Q6HRS PRN Slow Fe (Ferrous Sulfate) 142 Mg Tablet.er 142 Mg PO DAILY Prolia (Denosumab) 60 Mg/1 Ml Disp.syrin 60 Mg SQ UD Bumetanide 2 Mg Tablet 3 Tab PO DAILY Paroxetine Hcl 40 Mg Tablet 1 Tab PO DAILY Imatinib Mesylate 400 Mg Tablet 400 Mg PO DAILYAC Nitrostat (Nitroglycerin) 0.4 Mg Tab.subl 0.4 Mg SL PRN Q5MIN PRN Persantine (Dipyridamole) 75 Mg Tablet 75 Mg PO BID Paroxetine Hcl 20 Mg Tablet 20 Mg PO DAILY Calcium-Vitamin D Tablet (Calcium Carbonate/Vitamin D3) 1 Each Tablet 1 Each PO DAILY Vitamin D3 (Cholecalciferol (Vitamin D3)) 10,000 Unit Tablet 10,000 Unit PO Hydrocodone-Apap 5-325 (Hydrocodone Bit/Acetaminophen) 1 Each Tablet 1 Tab PO PRN Q6HRS PRN Spiriva (Tiotropium [place]) 18 Mcg Cap.w.dev 2 Inh IH DAILY Gleevec (Imatinib Mesylate) 400 Mg Tablet 400 Mg PO DAILY Zetia (Ezetimibe) 10 Mg Tablet 10 Mg PO DAILY Vitals/I & O Vital Sign - Last 24 Hours 08/11/17 08/11/17 08/11/17 08/11/17 11:37 13:47 14:47 15:00 Temp 97.6 98.0 97.6 98.0 Pulse 82 92 Resp 21 21 B/P (MAP) 109/47 (67) 115/55 (75) Pulse Ox 99 96 96 O2 Delivery Room Air Room Air Room Air Room Air 08/11/17 08/11/17 08/11/17 08/11/17 16:17 18:31 19:08 20:30 Temp 97.8 97.8 Pulse 82 Resp 16 B/P (MAP) 110/56 (74) Pulse Ox 97 98 O2 Delivery Room Air Room Air Room Air Room Air 08/11/17 08/12/17 08/12/17 08/12/17 23:55 03:03 07:00 07:07 Temp 98.5 97.6 98.3 98.5 97.6 98.3 Pulse 83 86 81 Resp 16 16 16 B/P (MAP) 124/60 (81) 108/50 (69) 117/64 (81) Pulse Ox 92 90 92 93 O2 Delivery Room Air Nasal Cannula Room Air Room Air O2 Flow Rate 2.0 08/12/17 08/12/17 10:54 11:00 Temp 97.9 97.9 Pulse 80 Resp 16 B/P (MAP) 103/50 (67) Pulse Ox 93 96 O2 Delivery Room Air Room Air Intake and Output 08/11/17 08/11/17 08/12/17 15:00 23:00 07:00 Intake Total 300 ml 360 ml 200 ml Output Total 900 ml 300 ml 625 ml Balance -600 ml 60 ml -425 ml JOYCE OBRIEN MD Aug 12, 2017 11:29
[2017-08-12] MEDS: HYDROcodone/APAP 10/325 1 TAB TABLET PO PRN (12:33)
[2017-08-12 14:56] VITALS: BP 121/64
--- NOTE | 2017-08-12 16:19 | PDOC2 ---
CONSULT Date of Consult Date of Consult DATE: 08/12/17 TIME: 16:16 Reason for Consult Reason for Consult: Severe mitral regurgitation CHF Referring Physician Referring Physician: Dr. Hui Identification/Chief Complaint Chief Complaint CHF Problems: Source Source: Chart review, Patient History of Present Illness Reason for Visit: The patient is a 76-year-old female who has a long-standing history of mitral regurgitation and cardiomyopathy. 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 She is also known to have anemia and her hemoglobin on admission was 7.5. She was admitted 3 days ago with shortness of breath, orthopnea. Chest x- ray showed congestion and bilateral pleural effusions. Transthoracic echo demonstrated severe mitral regurgitation, owing to a restricted posterior leaflet. Injection fraction was 35%. The LV is dilated with an CECE of 5.5 cm. The patient also mentions a history of bleeding complications with extensive bruising after percutaneous procedures. Both her forearms her arms are significantly bruised. I was consulted to consider the patient for mitral valve replacement. Past Medical History Cardiovascular: CAD, CHF, [place], Valve insufficiency, Pulmonary hypertension Pulmonary: COPD GI: GERD Heme/Onc: Cancer, Iron deficiency Anemia Hepatobiliary: No pertinent hx Psych: Anxiety, Depression Musculoskeletal: Osteoarthritis Rheumatologic: No pertinent hx Infectious disease: No pertinent hx ENT: Allergic Rhinitis Renal/: Chronic renal insuff Endocrine: No pertinent hx Dermatology: No pertinent hx Past Surgical History Past Surgical History: Cataract Removal, Total knee replacement, Tonsillectomy , Hysterectomy, Other Family History Family History: Cancer, Coronary Artery Disease, Diabetes Social History 1 pack per day ALCOHOL: occassional Drugs: None Lives: with Family Current Problem List Problem List Problems Medical Problems: (1) Congestive heart failure (CHF) Status: Acute (2) COPD (chronic obstructive pulmonary disease) Status: Acute Current Medications Current Medications Current Medications Albuterol/ Ipratropium (Duoneb) 3 ml 1X ONCE NEB Last administered on 20:10; Start 08/08/17 at 19:15; Stop 08/08/17 at 19:17; Status DC Furosemide (Lasix) 20 mg 1X ONCE IVP Last administered on 08/08/17 20:54; Start 08/08/17 at 20:30; Stop 08/08/17 at 20:33; Status DC Ondansetron HCl (Zofran) 4 mg PRN Q8HRS PRN IV NAUSEA/VOMITING; Start at 20:30; Stop 08/09/17 at 20:29; Status DC Morphine Sulfate 2 mg PRN Q2HR PRN IV PAIN; Start 08/08/17 at 20:30; Stop at 20:29; Status DC Non-Formulary Medication 1 ea DAILYWBKFT PO Last administered on 08/12/17 09: 30; Start 08/09/17 at 08:00 Calcium/Vitamin D (Oscal D 500mg/ 200uts) 1 tab DAILY PO Last administered on 08/12/17 08:56; Start 08/09/17 at 09:00 Dipyridamole (Persantine) 75 mg BID PO Last administered on 08/12/17 08:55; Start 08/09/17 at 09:00 Ferrous Sulfate (Feosol) 325 mg DAILYWBKFT PO Last administered on 08/12/17 08:55; Start 08/09/17 at 08:00 Non-Formulary Medication 400 mg DAILYAC PO ; Start 08/09/17 at 07:30; Status UNV Paroxetine HCl (Paxil) 20 mg DAILY PO Last administered on 08/12/17 08:56; Start 08/09/17 at 09:00 Temazepam (Restoril) 15 mg PRN QHS PRN PO INSOMNIA Last administered on 20:31; Start 08/08/17 at 23:30 Furosemide (Lasix) 40 mg DAILY IVP Last administered on 08/09/17 09:38; Start 08/09/17 at 10:00; Stop 08/09/17 at 16:43; Status DC EZETIMIBE (Zetia) 10 mg DAILY PO Last administered on 08/12/17 08:56; Start 08/09/17 at 10:00 Acetaminophen/ Hydrocodone Bitart (Lortab 10/325) 1 tab PRN Q6HRS PRN PO PAIN Last administered on 08/12/17 12:33; Start 08/09/17 at 09:15 Nitroglycerin (Nitrostat) 0.4 mg PRN Q5MIN PRN SL CHEST PAIN; Start 08/09/17 at 09:15 Sucralfate (Carafate) 1 gm QHS PO Last administered on 08/11/17 20:31; Start 08/09/17 at 21:00 Non-Formulary Medication 400 mg DAILY PO ; Start 08/10/17 at 09:00; Status UNV Non-Formulary Medication 2 inh DAILY IH ; Start 08/10/17 at 09:00; Status UNV Albuterol/ Ipratropium (Duoneb) 3 ml RTQID NEB Last administered on 08/12/17 14:42; Start 08/09/17 at 12:00 Non-Formulary Medication 1 mg PRN Q4HRS PRN IH SMOKING CESSATION Last administered on 08/09/17 14:40; Start 08/09/17 at 11:45 Furosemide (Lasix) 40 mg Q12HR IVP Last administered on 08/10/17 08:57; Start 08/09/17 at 18:00; Stop 08/10/17 at 10:00; Status DC Potassium Chloride (Klor-Con) 20 meq BIDWMEALS PO Last administered on 08:56; Start 08/09/17 at 17:00 Furosemide (Lasix) 40 mg DAILY IVP Last administered on 08/12/17 08:56; Start 08/11/17 at 09:00 Active Scripts Active Prednisone 10 Mg Tablet 10 Mg PO UD Take 4 for 2 days then 3 for 2 days then 2 for 2 days then 1 for 2 days-off Albuterol Sulfate Neb Soln (Albuterol Sulfate) 1.25 Mg/3 Ml Vial.neb 1 Vial NEB Q6HRS Carafate (Sucralfate) 1 Gm Tablet 1 Gm PO QHS 30 Days Reported Nicotrol (Nicotine) 10 Mg Cartridge 10 Mg IH PRN PRN [place] 10-325 Tablet (Acetaminophen/Hydrocodone Bitart) 1 Each Tablet 1 Tab PO PRN Q6HRS PRN Slow Fe (Ferrous Sulfate) 142 Mg Tablet.er 142 Mg PO DAILY Prolia (Denosumab) 60 Mg/1 Ml Disp.syrin 60 Mg SQ UD Bumetanide 2 Mg Tablet 3 Tab PO DAILY Paroxetine Hcl 40 Mg Tablet 1 Tab PO DAILY Imatinib Mesylate 400 Mg Tablet 400 Mg PO DAILYAC Nitrostat (Nitroglycerin) 0.4 Mg Tab.subl 0.4 Mg SL PRN Q5MIN PRN Persantine (Dipyridamole) 75 Mg Tablet 75 Mg PO BID Paroxetine Hcl 20 Mg Tablet 20 Mg PO DAILY Calcium-Vitamin D Tablet (Calcium Carbonate/Vitamin D3) 1 Each Tablet 1 Each PO DAILY Vitamin D3 (Cholecalciferol (Vitamin D3)) 10,000 Unit Tablet 10,000 Unit PO Hydrocodone-Apap 5-325 (Hydrocodone Bit/Acetaminophen) 1 Each Tablet 1 Tab PO PRN Q6HRS PRN Spiriva (Tiotropium [place]) 18 Mcg Cap.w.dev 2 Inh IH DAILY Gleevec (Imatinib Mesylate) 400 Mg Tablet 400 Mg PO DAILY Zetia (Ezetimibe) 10 Mg Tablet 10 Mg PO DAILY Allergies Allergies: Coded Allergies: NSAIDS (Non-Steroidal Anti-Inflamma (Verified Allergy, Intermediate, ) Tetanus Vaccines and Toxoid (Verified Allergy, Intermediate, 08/05/17) ROS General: YES: Fatigue, No: Chills, Night Sweats, Malaise, Appetite PSYCHOLOGICAL ROS: No: Anxiety, Behavioral Disorder, Concentration difficultie , Decreased libido, Depression, Disorientation, Hallucinations, Hostility, Irritablity, Memory difficulties, Mood Swings, Obsessive thoughts, Physical abuse, Sexual abuse, Sleep disturbances, Suicidal ideation Eyes: No Blurry vision, No Decreased vision, No Double vision, No Dry eyes, No Excessive tearing, No Eye Pain, No Itchy Eyes, No Loss of vision, No Photophobia , No Scotomata, No Uses contacts, No Uses glasses HEENT: No: Heacaches, Visual Changes, Hearing change, Nasal congestion, Nasal discharge, Oral lesions, Sinus pain, Sore Throat, Epistaxis, Sneezing, Snoring, Tinnitus, Vertigo, Vocal changes ALLERGY AND IMMUNOLOGY: No: Hives, Insect Bite Sensitivity, Itchy/Watery Eyes, Nasal Congestion, Post Nasal Drip, Seasonal Allergies Hematological and Lymphatic: No: Bleeding Problems, Blood Clots, Blood Transfusions, Brusing, Night Sweats, Pallor, Swollen Lymph Nodes ENDOCRINE: No: Breast Changes, Galactorrhea, Hair Pattern Changes, Hot Flashes , Malaise/lethargy, Mood Swings, Palpitations, Polydipsia/polyuria, Skin Changes , Temperature Intolerance, Unexpected Weight Changes Breast: No New/Changing Breast Lumps, No Nipple changes, No Nipple discharge Respiratory: YES: Orthopnea, Shortness of breath, SOB with excertion, No: Cough, Hemoptysis, Pleuritic Pain, Sputum Changes, Stridor, Tachypnea, Wheezing Cardiovascular: yes Orthopnea, yes Edema, No Chest Pain, No Palpitations, No Paroxysmal Noc. Dyspnea, No Lt Headedness Gastrointestinal: No Nausea, No Vomiting, No Abdominal Pain, No Diarrhea, No Constipation, No Melena, No Hematochezia Genitourinary: No Dysuria, No Frequency, No Incontinence, No Hematuria, No Retention, No Discharge, No Urgency, No Pain, No Flank Pain Musculoskeletal: No Gait Disturbance, No Joint Pain, No Joint Stiffness, No Joint Swelling, No Muscle Pain, No Muscular Weakness, No Pain In:, No Swelling In: Neurological: No Behavorial Changes, No Bowel/Bladder ControlChng, No Confusion , No Dizziness, No Gait Disturbance, No Headaches, No Impaired Coord/balance, No Memory Loss, No Numbness/Tingling, No Seizures, No Speech Problems, No Tremors, No Visual Changes, No Weakness Skin: No Dry Skin, No Eczema, No Hair Changes, No Lumps, No Mole Changes, No Mottling, No Nail Changes, No Pruritus, No Rash, No Skin Lesion Changes, No Acne Physical Exam General: Alert, Oriented X3, No acute distress HEENT: Atraumatic, PERRLA Lungs: Other (mild crackles) Heart: Regular rate, Normal S1, Normal S2, Other (5/6 murmur) Abdomen: Soft, No tenderness, No hepatosplenomegaly Extremities: No cyanosis Skin: Other (diffuse skin bruising) Neuro: Normal gait, Normal speech, Strength at 5/5 X4 ext, Normal tone, Sensation intact, Cranial nerves 3-12 NL Psych/Mental Status: Mental status NL MUSCULOSKELETAL: No deformity Vitals VITALS Vital Signs Date Time Temp Pulse Resp B/P (MAP) Pulse Ox O2 Delivery O2 Flow Rate FiO2 08/12/17 14:56 98.9 77 17 121/64 (83) 98 Room Air 98.9 08/12/17 12:33 2.0 Labs Labs Laboratory Tests Test 08/11/17 04:20 08/12/17 04:00 White Blood Count 6.9 x10^3/uL (4.0-11.0) Red Blood Count 2.14 x10^6/uL (3.50-5.40) Hemoglobin 7.4 g/dL (12.0-15.5) Hematocrit 21.9 % (36.0-47.0) Mean Corpuscular Volume 102 fL (79-100) Mean Corpuscular Hemoglobin 35 pg (25-35) Mean Corpuscular Hemoglobin Concent 34 g/dL (31-37) Red Cell Distribution Width 15.5 % (11.5-14.5) Platelet Count 172 x10^3/uL (140-400) Sodium Level 139 mmol/L (136-145) 136 mmol/L (136-145) Potassium Level 4.4 mmol/L (3.5-5.1) 4.5 mmol/L (3.5-5.1) Chloride Level 103 mmol/L (98-107) 102 mmol/L (98-107) Carbon Dioxide Level 29 mmol/L (21-32) 29 mmol/L (21-32) Anion Gap 7 (6-14) 5 (6-14) Blood Urea Nitrogen 19 mg/dL (7-20) 23 mg/dL (7-20) Creatinine 1.5 mg/dL (0.6-1.0) 1.3 mg/dL (0.6-1.0) Estimated GFR (Cockcroft-Gault) 33.7 39.7 Glucose Level 88 mg/dL (70-99) 89 mg/dL (70-99) Calcium Level 8.6 mg/dL (8.5-10.1) 8.6 mg/dL (8.5-10.1) Laboratory Tests Test 08/12/17 04:00 Sodium Level 136 mmol/L (136-145) Potassium Level 4.5 mmol/L (3.5-5.1) Chloride Level 102 mmol/L (98-107) Carbon Dioxide Level 29 mmol/L (21-32) Anion Gap 5 (6-14) Blood Urea Nitrogen 23 mg/dL (7-20) Creatinine 1.3 mg/dL (0.6-1.0) Estimated GFR (Cockcroft-Gault) 39.7 Glucose Level 89 mg/dL (70-99) Calcium Level 8.6 mg/dL (8.5-10.1) Images Images LEFT VENTRICLE The left ventricle is dilated There is normal left ventricular wall thickness. The LV Ejection Fraction is 35%. There is global hypokinesis of the left ventricle. Transmitral Doppler flow pattern is Grade I-abnormal relaxation pattern. RIGHT VENTRICLE The right ventricle is mildly dilated The right ventricular systolic function is bellow normal. ATRIA The left atrium is moderately dilated. The right atrium is mildly dilated. The interatrial septum is intact with no evidence for an atrial septal defect or patent foramen ovale as noted on 2-D or Doppler imaging. AORTIC VALVE The aortic valve is calcified but opens well. Doppler and Color Flow revealed mild aortic regurgitation. There is no significant aortic valvular stenosis. MITRAL VALVE The mitral valve is normal in structure but posterior mitral valve leaflet appears fixated. There is no evidence of mitral valve prolapse. There is no mitral valve stenosis. Doppler and Color-flow revealed severe mitral regurgitation. TRICUSPID VALVE The tricuspid valve is normal in structure Doppler and Color Flow revealed mild tricuspid regurgitation. There is mild pulmonary hypertension. The PA pressure was estimated at 34 mmHg. There is no tricuspid valve stenosis. PULMONIC VALVE The pulmonary valve is normal in structure Doppler and Color Flow revealed trace pulmonic valvular regurgitation. There is no pulmonic valvular stenosis. GREAT VESSELS The aortic root is normal in size. The ascending aorta is normal in size. The IVC is normal in size and collapses >50% with inspiration. PERICARDIAL EFFUSION There is moderatet pleural effusion. There is a small pericardial effusion. Assessment/Plan Assessment/Plan 76-year-old female who has a long-standing history of mitral regurgitation and cardiomyopathy. 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 She is also known to have anemia and her hemoglobin on admission was 7.5. She was admitted 3 days ago with shortness of breath, orthopnea. Chest x-ray showed congestion and bilateral pleural effusions. Transthoracic echo demonstrated severe mitral regurgitation, owing to a restricted posterior leaflet. Injection fraction was 35%. The LV is dilated with an CECE of 5.5 cm. I was consulted to consider the patient for mitral valve replacement. This patient would require a mitral valve replacement. The posterior leaflet is restricted so a repair would be unlikely. I have concerns regarding her surgical risk. Her LV function is reduced at 35%, with severe MR. This would put her at increased risk for severe postoperative LV dysfunction, considering that the LV would be pumping against a competent mitral valve. She would require some type of mechanical circulatory support in the form of IABP and inotropic support. My other major concern is her history of bleeding complications with extensive bruising after percutaneous procedures. Both her forearms her arms are significantly bruised. This would suggest some form of underlying platelet dysfunction. In addition she is severely anemic. It is obvious that her bone marrow isn't working normally. This must be related to her CML/Gleevec therapy. With abnormal platelet function and severe anemia which would put her at increased risk for postoperative coagulopathy, reduced LV function, and her history of CML on Gleevec (which would have to be discontinued for surgery), I think her surgical risk is too significant. I would suggest referring her for possible mitraclip. She would need a WENDI to demonstrate candidacy for mitraclip. This would confirm that anterior and posterior corresponding mitral scallops can potentially be clipped, especially in view of the restricted posterior leaflet. MONICO FAYE MD Aug 12, 2017 16:19
[2017-08-12] MEDS ORDERED: IRON SUCROSE COMPLEX 200 MG in IV NORMAL SALINE 100ML 100 ML IV ONE (16:30)
[2017-08-12] MEDS ORDERED: IRON SUCROSE COMPLEX 200 MG in TOTAL VOLUME SYRINGE 0 ML IV ONE (16:30)
--- NOTE | 2017-08-12 16:36 | PDOC ---
PROGRESS NOTES Subjective Subjective The patient was discussed with CV surgery. They are concerned with the surgical risks due to the multitude of problems and comorbidities in this patient. This was discussed with the patient. Objective Objective Vital Signs Date Time Temp Pulse Resp B/P (MAP) Pulse Ox O2 Delivery O2 Flow Rate FiO2 08/12/17 14:56 98.9 77 17 121/64 (83) 98 Room Air 98.9 08/12/17 12:33 2.0 Physical Exam Physical Exam Neck 1 cm JVD Lungs moving air better S R[place]. Heart no changes. Extremities no edema. 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 Ideally that would be the best treatment for her problem but with the risks involved I wanted to get the opinion of the surgeons first before doing a WENDI or a heart catheter. The are quite concerned with her surgical risk. In view of this I would like to set her up to go to for a possible mitral clip. The patient agrees with this approach. She may go home soon and then I will set her up to go and see Dr. Deutsch in for the mitral clip Problems Medical Problems: (1) Congestive heart failure (CHF) Status: Acute (2) COPD (chronic obstructive pulmonary disease) Status: Acute Comment Review of Relevant I have reviewed the following items eliu (where applicable) has been applied. Labs Laboratory Tests Test 08/11/17 04:20 08/12/17 04:00 White Blood Count 6.9 x10^3/uL (4.0-11.0) Red Blood Count 2.14 x10^6/uL (3.50-5.40) Hemoglobin 7.4 g/dL (12.0-15.5) Hematocrit 21.9 % (36.0-47.0) Mean Corpuscular Volume 102 fL (79-100) Mean Corpuscular Hemoglobin 35 pg (25-35) Mean Corpuscular Hemoglobin Concent 34 g/dL (31-37) Red Cell Distribution Width 15.5 % (11.5-14.5) Platelet Count 172 x10^3/uL (140-400) Sodium Level 139 mmol/L (136-145) 136 mmol/L (136-145) Potassium Level 4.4 mmol/L (3.5-5.1) 4.5 mmol/L (3.5-5.1) Chloride Level 103 mmol/L (98-107) 102 mmol/L (98-107) Carbon Dioxide Level 29 mmol/L (21-32) 29 mmol/L (21-32) Anion Gap 7 (6-14) 5 (6-14) Blood Urea Nitrogen 19 mg/dL (7-20) 23 mg/dL (7-20) Creatinine 1.5 mg/dL (0.6-1.0) 1.3 mg/dL (0.6-1.0) Estimated GFR (Cockcroft-Gault) 33.7 39.7 Glucose Level 88 mg/dL (70-99) 89 mg/dL (70-99) Calcium Level 8.6 mg/dL (8.5-10.1) 8.6 mg/dL (8.5-10.1) Laboratory Tests Test 08/12/17 04:00 Sodium Level 136 mmol/L (136-145) Potassium Level 4.5 mmol/L (3.5-5.1) Chloride Level 102 mmol/L (98-107) Carbon Dioxide Level 29 mmol/L (21-32) Anion Gap 5 (6-14) Blood Urea Nitrogen 23 mg/dL (7-20) Creatinine 1.3 mg/dL (0.6-1.0) Estimated GFR (Cockcroft-Gault) 39.7 Glucose Level 89 mg/dL (70-99) Calcium Level 8.6 mg/dL (8.5-10.1) Medications Current Medications Albuterol/ Ipratropium (Duoneb) 3 ml 1X ONCE NEB Last administered on 20:10; Start 08/08/17 at 19:15; Stop 08/08/17 at 19:17; Status DC Furosemide (Lasix) 20 mg 1X ONCE IVP Last administered on 08/08/17 20:54; Start 08/08/17 at 20:30; Stop 08/08/17 at 20:33; Status DC Ondansetron HCl (Zofran) 4 mg PRN Q8HRS PRN IV NAUSEA/VOMITING; Start at 20:30; Stop 08/09/17 at 20:29; Status DC Morphine Sulfate 2 mg PRN Q2HR PRN IV PAIN; Start 08/08/17 at 20:30; Stop at 20:29; Status DC Non-Formulary Medication 1 ea DAILYWBKFT PO Last administered on 08/12/17 09: 30; Start 08/09/17 at 08:00 Calcium/Vitamin D (Oscal D 500mg/ 200uts) 1 tab DAILY PO Last administered on 08/12/17 08:56; Start 08/09/17 at 09:00 Dipyridamole (Persantine) 75 mg BID PO Last administered on 08/12/17 08:55; Start 08/09/17 at 09:00 Ferrous Sulfate (Feosol) 325 mg DAILYWBKFT PO Last administered on 08/12/17 08:55; Start 08/09/17 at 08:00 Non-Formulary Medication 400 mg DAILYAC PO ; Start 08/09/17 at 07:30; Status UNV Paroxetine HCl (Paxil) 20 mg DAILY PO Last administered on 08/12/17 08:56; Start 08/09/17 at 09:00 Temazepam (Restoril) 15 mg PRN QHS PRN PO INSOMNIA Last administered on 20:31; Start 08/08/17 at 23:30 Furosemide (Lasix) 40 mg DAILY IVP Last administered on 08/09/17 09:38; Start 08/09/17 at 10:00; Stop 08/09/17 at 16:43; Status DC EZETIMIBE (Zetia) 10 mg DAILY PO Last administered on 08/12/17 08:56; Start 08/09/17 at 10:00 Acetaminophen/ Hydrocodone Bitart (Lortab 10/325) 1 tab PRN Q6HRS PRN PO PAIN Last administered on 08/12/17 12:33; Start 08/09/17 at 09:15 Nitroglycerin (Nitrostat) 0.4 mg PRN Q5MIN PRN SL CHEST PAIN; Start 08/09/17 at 09:15 Sucralfate (Carafate) 1 gm QHS PO Last administered on 08/11/17 20:31; Start 08/09/17 at 21:00 Non-Formulary Medication 400 mg DAILY PO ; Start 08/10/17 at 09:00; Status UNV Non-Formulary Medication 2 inh DAILY IH ; Start 08/10/17 at 09:00; Status UNV Albuterol/ Ipratropium (Duoneb) 3 ml RTQID NEB Last administered on 08/12/17 14:42; Start 08/09/17 at 12:00 Non-Formulary Medication 1 mg PRN Q4HRS PRN IH SMOKING CESSATION Last administered on 08/09/17 14:40; Start 08/09/17 at 11:45 Furosemide (Lasix) 40 mg Q12HR IVP Last administered on 08/10/17 08:57; Start 08/09/17 at 18:00; Stop 08/10/17 at 10:00; Status DC Potassium Chloride (Klor-Con) 20 meq BIDWMEALS PO Last administered on 08:56; Start 08/09/17 at 17:00 Furosemide (Lasix) 40 mg DAILY IVP Last administered on 08/12/17 08:56; Start 08/11/17 at 09:00 Iron Sucrose 200 mg/Sodium Chloride 110 ml @ 55 mls/hr 1X ONCE IV ; Start at 16:30; Stop 08/12/17 at 16:30; Status DC Iron Sucrose 200 mg/Miscellaneous 10 ml @ 120 mls/hr 1X ONCE IV ; Start 08/12 at 16:30; Stop 08/12/17 at 16:34 Active Scripts Active Prednisone 10 Mg Tablet 10 Mg PO UD Take 4 for 2 days then 3 for 2 days then 2 for 2 days then 1 for 2 days-off Albuterol Sulfate Neb Soln (Albuterol Sulfate) 1.25 Mg/3 Ml Vial.neb 1 Vial NEB Q6HRS Carafate (Sucralfate) 1 Gm Tablet 1 Gm PO QHS 30 Days Reported Nicotrol (Nicotine) 10 Mg Cartridge 10 Mg IH PRN PRN [place] 10-325 Tablet (Acetaminophen/Hydrocodone Bitart) 1 Each Tablet 1 Tab PO PRN Q6HRS PRN Slow Fe (Ferrous Sulfate) 142 Mg Tablet.er 142 Mg PO DAILY Prolia (Denosumab) 60 Mg/1 Ml Disp.syrin 60 Mg SQ UD Bumetanide 2 Mg Tablet 3 Tab PO DAILY Paroxetine Hcl 40 Mg Tablet 1 Tab PO DAILY Imatinib Mesylate 400 Mg Tablet 400 Mg PO DAILYAC Nitrostat (Nitroglycerin) 0.4 Mg Tab.subl 0.4 Mg SL PRN Q5MIN PRN Persantine (Dipyridamole) 75 Mg Tablet 75 Mg PO BID Paroxetine Hcl 20 Mg Tablet 20 Mg PO DAILY Calcium-Vitamin D Tablet (Calcium Carbonate/Vitamin D3) 1 Each Tablet 1 Each PO DAILY Vitamin D3 (Cholecalciferol (Vitamin D3)) 10,000 Unit Tablet 10,000 Unit PO Hydrocodone-Apap 5-325 (Hydrocodone Bit/Acetaminophen) 1 Each Tablet 1 Tab PO PRN Q6HRS PRN Spiriva (Tiotropium [place]) 18 Mcg Cap.w.dev 2 Inh IH DAILY Gleevec (Imatinib Mesylate) 400 Mg Tablet 400 Mg PO DAILY Zetia (Ezetimibe) 10 Mg Tablet 10 Mg PO DAILY Vitals/I & O Vital Sign - Last 24 Hours 08/11/17 08/11/17 08/11/17 08/11/17 18:31 19:08 20:30 23:55 Temp 97.8 98.5 97.8 98.5 Pulse 82 83 Resp 16 16 B/P (MAP) 110/56 (74) 124/60 (81) Pulse Ox 97 98 92 O2 Delivery Room Air Room Air Room Air Room Air 08/12/17 08/12/17 08/12/17 08/12/17 03:03 07:00 07:07 08:00 Temp 97.6 98.3 97.6 98.3 Pulse 86 81 Resp 16 16 B/P (MAP) 108/50 (69) 117/64 (81) Pulse Ox 90 92 93 O2 Delivery Nasal Cannula Room Air Room Air Room Air O2 Flow Rate 2.0 08/12/17 08/12/17 08/12/17 08/12/17 10:54 11:00 12:33 14:42 Temp 97.9 97.9 Pulse 80 Resp 16 B/P (MAP) 103/50 (67) Pulse Ox 93 96 96 O2 Delivery Room Air Room Air Room Air Room Air O2 Flow Rate 2.0 08/12/17 14:56 Temp 98.9 98.9 Pulse 77 Resp 17 B/P (MAP) 121/64 (83) Pulse Ox 98 O2 Delivery Room Air LILLIANA RODRIGUEZ MD Aug 12, 2017 16:36
[2017-08-12 19:17] VITALS: BP 125/61
[2017-08-12] MEDS: SUCRALFATE 1 GM TABLET. PO SCH (20:43)
[2017-08-12] MEDS: TEMAZEPAM 15 MG CAPSULE PO PRN (20:43)
[2017-08-12 22:51] VITALS: BP 114/62
[2017-08-13 03:33] VITALS: BP 96/46
[2017-08-13 03:47] LABS: HEMATOCRIT 21.6 % (36.0-47.0); HEMOGLOBIN 7.3 g/dL (12.0-15.5); RED BLOOD COUNT 2.1 x10^6/uL (3.50-5.40); RED CELL DISTRIBUTION WIDTH 15.2 % (11.5-14.5); WHITE BLOOD COUNT 7.1 x10^3/uL (4.0-11.0)
[2017-08-13 04:09] LABS: CALCIUM 8.6 mg/dL (8.5-10.1); CREATININE 1.5 mg/dL (0.6-1.0); GFR 33.7; POTASSIUM 4.7 mmol/L (3.5-5.1)
[2017-08-13 07:00] VITALS: BP 144/63
[2017-08-13] MEDS ORDERED: FURO-68 PO (07:41)
[2017-08-13] MEDS ORDERED: POTA20TA82 PO (07:41)
--- NOTE | 2017-08-13 07:50 | PDOC3 ---
Discharge Summary* Date of Admission: Aug 09, 2017 Date of Discharge: Aug 13, 2017 Admitting Diagnosis Problems Medical Problems: (1) Congestive heart failure (CHF) Status: Acute Problems: Final Diagnosis CHF Exacerbation- combined systolic and diastolic CHF, now compensated, MV regurgitation, pulmonary HTN, COPD, Acute on chronic anemia, CKD, PEM-mild, Elevated troponin- likely 2/2 CHF exacerbation, CAD, Insomnia, Depression CONSULTS Cardiology, Heme/Onc, Cardiothoracic Surgery Procedures CXR- interval development of CHF with mild interstitial pulmonary edema and moderate sized left pleural effusion CXR- development of small right pleural effusion with slight decrease in moderate left pleural effusion. Pulmonary venous congestion and interstitial opacities ECHO- LVEF 35%, global hypokinesis LV, Grade 1 Diastolic dysfunction, left atrium moderately dilated, mild pulmonary HTN, severe mitral regurgitation Brief Hospital Course DISCHARGE PHYSICAL EXAM General: Alert, Oriented X3, Cooperative, NAD HEENT: Atraumatic, PERRLA, EOMI, Mucous membr. moist/pink Lungs: regular breathing rate and effort, CTAB Heart: RRR, no M/R/G Abdomen: Normal bowel sounds, Soft, No tenderness, No hepatosplenomegaly Extremities: No clubbing, No cyanosis, No edema Skin: No rashes, No significant lesion Neuro: Normal tone, Sensation intact, Cranial nerves 3-12 NL Psych/Mental Status: Mental status NL, Mood NL Pt is a 76yo CF admitted for CHF exacerbation 1)CHF Exacerbation- pt has systolic and diastolic CHF, now compensated. Cardiology following. Pt was initially receiving Lasix 40mg IV BID, which was then decreased to 40mg IV daily. Will discharge on 40mg qday 2)Pulmonary HTN 3)Mitral Valve Regurgitation- CTS was consulted and did not feel that pt is a good surgical candidate; recommending mitral valve clipping. Dr. Hui will get pt set up at 4)COPD- well controlled, continue inhalers 5)Acute on chronic anemia- pt follows with Heme/Onc for her CML and has been getting iron transfusions outpatient week before admission (apparently through [facility]); will have pt f/u with Ren[facility] on discharge. Heme/Onc was following. Hb stable at 7.4 on discharge with normal range for patient 6.5-10.3 6)CKD- pt's Cr worsened upon admission 2/2 diuresis, but still within her previous normal range. CTM 7)PEM- mild 8)Elevated troponin- likely 2/2 CHF exacerbation. Troponin has been mildly elevated on past admissions. Not complaining of chest pain, Cardiology following 9)CAD 10)Insomnia- pt received Temazepam during admission 11)Depression- continue Paroxetine 40mg Disposition/Orders: D/C to Home CONDITION AT DISCHARGE: Improved, Stable Diet: Cardiac Scheduled Albuterol Sulfate (Albuterol Sulfate Neb Soln), 1 VIAL NEB Q6HRS Bumetanide (Bumetanide), 3 TAB PO DAILY, (Reported) Calcium Carbonate/Vitamin D3 (Calcium-Vitamin D Tablet), 1 EACH PO DAILY, ( Reported) Denosumab (Prolia), 60 MG SQ UD, (Reported) Dipyridamole (Persantine), 75 MG PO BID, (Reported) Ezetimibe (Zetia), 10 MG PO DAILY, (Reported) Ferrous Sulfate (Slow Fe), 142 MG PO DAILY, (Reported) Imatinib Mesylate (Gleevec), 400 MG PO DAILY, (Reported) Imatinib Mesylate (Imatinib Mesylate), 400 MG PO DAILYAC, (Reported) Paroxetine Hcl (Paroxetine Hcl), 20 MG PO DAILY, (Reported) Paroxetine Hcl (Paroxetine Hcl), 1 TAB PO DAILY, (Reported) Prednisone (Prednisone), 10 MG PO UD Sucralfate (Carafate), 1 GM PO QHS Tiotropium [place] (Spiriva), 2 INH IH DAILY, (Reported) Scheduled PRN Hydrocodone Bit/Acetaminophen (Hydrocodone-Apap 5-325 ), 1 TAB PO PRN Q6HRS PRN for PAIN, (Reported) Hydrocodone/Apap 10-325 ([place] 10-325 Tablet), 1 TAB PO PRN Q6HRS PRN for PAIN, (Reported) Nicotine (Nicotrol), 10 MG IH PRN PRN for SMOKING CESSATION, (Reported) Nitroglycerin (Nitrostat), 0.4 MG SL PRN Q5MIN PRN for CHEST PAIN, (Reported) Miscellaneous Medications Cholecalciferol (Vitamin D3) (Vitamin D3), 10,000 UNIT PO, (Reported) PCP Follow up with Dr. Diaz in 5-[address] Hui will get pt scheduled to be evaluated for MV clipping at . Time Spent Total time spent with patient [] minutes for coordination of care, counseling, and education. RIAZ STEVENS MD Aug 13, 2017 07:50
[2017-08-13] MEDS: IPRATRPIUM/ALBUTEROL 0.5/2.5MG 3 ML NEBU. NEB SCH ×2 (07:55→11:28)
[2017-08-13] MEDS: IMATINIB PO SCH (08:31)
[2017-08-13] MEDS: FUROSEMIDE 40 MG/4 ML VIAL. IVP SCH (08:32)
[2017-08-13] MEDS: CALCIUM CARB/VIT D3 500/200 TABLET. PO SCH (08:32)
[2017-08-13] MEDS: FERROUS SULFATE 325 MG TABLET. PO SCH (08:32)
[2017-08-13] MEDS: PARoxetine 20 MG TABLET PO SCH (08:35)
[2017-08-13] MEDS: EZETIMIBE 10 MG TABLET. PO SCH (08:35)
[2017-08-13] MEDS: POTASSIUM CHLORIDE 20 MEQ TABLET.ER. PO SCH (08:35)
[2017-08-13] MEDS: DIPYRIDAMOLE 25 MG TABLET. PO SCH (08:36)
--- NOTE | 2017-08-13 09:08 | PDOC ---
PROGRESS NOTES Subjective Subjective c/c - f/u of CML/anemia Objective Objective Vital Signs Date Time Temp Pulse Resp B/P (MAP) Pulse Ox O2 Delivery O2 Flow Rate FiO2 08/13/17 07:56 93 Room Air 08/13/17 07:00 97.7 82 16 144/63 (90) 97.7 08/12/17 12:33 2.0 Intake and Output 08/13/17 07:00 Intake Total 1650 ml Output Total 1150 ml Balance 500 ml Intake Oral 1650 ml Output Urine Total 1150 ml # Voids 6 Physical Exam Heart: Normal S1, Normal S2 General: Alert, Oriented X3 Lungs: Clear to auscultation Neuro: Normal speech Psych/Mental Status: Mental status NL Assessment Assessment Problems Medical Problems: (1) Congestive heart failure (CHF) Status: Acute (2) COPD (chronic obstructive pulmonary disease) Status: Acute IMPRESSION AND PLAN: 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 She has had an excellent response to treatment. BCR-ABL studies on 02/23/2017 reveals no evidence of leukemia indicting a major molecular response. I have advised her to follow up as outpatient upon discharge. 2. Anemia review of the old records indicates that she has chronic anemia. I suspect that she has anemia due to chronic kidney disease. She has been getting iron infusions through Dr. Fuad Jiménez. Iron panel from 08/09/17 reveals normal iron sat of 20, Ferritin high 377. Hence no need for iron infusion at this time. Hb stable at 7.3 0n 08/13/17 3. Congestive heart failure. Continue management per Dr. Akbar Bolton. Appreciate cardiology management. Comment Review of Relevant I have reviewed the following items eliu (where applicable) has been applied. Labs Laboratory Tests Test 08/12/17 04:00 08/13/17 02:30 08/13/17 03:00 Sodium Level 136 mmol/L (136-145) 136 mmol/L (136-145) Potassium Level 4.5 mmol/L (3.5-5.1) 4.7 mmol/L (3.5-5.1) Chloride Level 102 mmol/L (98-107) 101 mmol/L (98-107) Carbon Dioxide Level 29 mmol/L (21-32) 30 mmol/L (21-32) Anion Gap 5 (6-14) 5 (6-14) Blood Urea Nitrogen 23 mg/dL (7-20) 25 mg/dL (7-20) Creatinine 1.3 mg/dL (0.6-1.0) 1.5 mg/dL (0.6-1.0) Estimated GFR (Cockcroft-Gault) 39.7 33.7 Glucose Level 89 mg/dL (70-99) 87 mg/dL (70-99) Calcium Level 8.6 mg/dL (8.5-10.1) 8.6 mg/dL (8.5-10.1) White Blood Count 7.1 x10^3/uL (4.0-11.0) Red Blood Count 2.10 x10^6/uL (3.50-5.40) Hemoglobin 7.3 g/dL (12.0-15.5) Hematocrit 21.6 % (36.0-47.0) Mean Corpuscular Volume 103 fL (79-100) Mean Corpuscular Hemoglobin 35 pg (25-35) Mean Corpuscular Hemoglobin Concent 34 g/dL (31-37) Red Cell Distribution Width 15.2 % (11.5-14.5) Platelet Count 170 x10^3/uL (140-400) Laboratory Tests Test 08/13/17 02:30 08/13/17 03:00 Sodium Level 136 mmol/L (136-145) Potassium Level 4.7 mmol/L (3.5-5.1) Chloride Level 101 mmol/L (98-107) Carbon Dioxide Level 30 mmol/L (21-32) Anion Gap 5 (6-14) Blood Urea Nitrogen 25 mg/dL (7-20) Creatinine 1.5 mg/dL (0.6-1.0) Estimated GFR (Cockcroft-Gault) 33.7 Glucose Level 87 mg/dL (70-99) Calcium Level 8.6 mg/dL (8.5-10.1) White Blood Count 7.1 x10^3/uL (4.0-11.0) Red Blood Count 2.10 x10^6/uL (3.50-5.40) Hemoglobin 7.3 g/dL (12.0-15.5) Hematocrit 21.6 % (36.0-47.0) Mean Corpuscular Volume 103 fL (79-100) Mean Corpuscular Hemoglobin 35 pg (25-35) Mean Corpuscular Hemoglobin Concent 34 g/dL (31-37) Red Cell Distribution Width 15.2 % (11.5-14.5) Platelet Count 170 x10^3/uL (140-400) Medications Current Medications Albuterol/ Ipratropium (Duoneb) 3 ml 1X ONCE NEB Last administered on 20:10; Start 08/08/17 at 19:15; Stop 08/08/17 at 19:17; Status DC Furosemide (Lasix) 20 mg 1X ONCE IVP Last administered on 08/08/17 20:54; Start 08/08/17 at 20:30; Stop 08/08/17 at 20:33; Status DC Ondansetron HCl (Zofran) 4 mg PRN Q8HRS PRN IV NAUSEA/VOMITING; Start at 20:30; Stop 08/09/17 at 20:29; Status DC Morphine Sulfate 2 mg PRN Q2HR PRN IV PAIN; Start 08/08/17 at 20:30; Stop at 20:29; Status DC Non-Formulary Medication 1 ea DAILYWBKFT PO Last administered on 08/13/17 08: 31; Start 08/09/17 at 08:00 Calcium/Vitamin D (Oscal D 500mg/ 200uts) 1 tab DAILY PO Last administered on 08/13/17 08:32; Start 08/09/17 at 09:00 Dipyridamole (Persantine) 75 mg BID PO Last administered on 08/13/17 08:36; Start 08/09/17 at 09:00 Ferrous Sulfate (Feosol) 325 mg DAILYWBKFT PO Last administered on 08/13/17 08:32; Start 08/09/17 at 08:00 Non-Formulary Medication 400 mg DAILYAC PO ; Start 08/09/17 at 07:30; Status UNV Paroxetine HCl (Paxil) 20 mg DAILY PO Last administered on 08/13/17 08:35; Start 08/09/17 at 09:00 Temazepam (Restoril) 15 mg PRN QHS PRN PO INSOMNIA Last administered on 20:43; Start 08/08/17 at 23:30 Furosemide (Lasix) 40 mg DAILY IVP Last administered on 08/09/17 09:38; Start 08/09/17 at 10:00; Stop 08/09/17 at 16:43; Status DC EZETIMIBE (Zetia) 10 mg DAILY PO Last administered on 08/13/17 08:35; Start 08/09/17 at 10:00 Acetaminophen/ Hydrocodone Bitart (Lortab 10/325) 1 tab PRN Q6HRS PRN PO PAIN Last administered on 08/12/17 12:33; Start 08/09/17 at 09:15 Nitroglycerin (Nitrostat) 0.4 mg PRN Q5MIN PRN SL CHEST PAIN; Start 08/09/17 at 09:15 Sucralfate (Carafate) 1 gm QHS PO Last administered on 08/12/17 20:43; Start 08/09/17 at 21:00 Non-Formulary Medication 400 mg DAILY PO ; Start 08/10/17 at 09:00; Status UNV Non-Formulary Medication 2 inh DAILY IH ; Start 08/10/17 at 09:00; Status UNV Albuterol/ Ipratropium (Duoneb) 3 ml RTQID NEB Last administered on 08/13/17 07:55; Start 08/09/17 at 12:00 Non-Formulary Medication 1 mg PRN Q4HRS PRN IH SMOKING CESSATION Last administered on 08/09/17 14:40; Start 08/09/17 at 11:45 Furosemide (Lasix) 40 mg Q12HR IVP Last administered on 08/10/17 08:57; Start 08/09/17 at 18:00; Stop 08/10/17 at 10:00; Status DC Potassium Chloride (Klor-Con) 20 meq BIDWMEALS PO Last administered on 08:35; Start 08/09/17 at 17:00 Furosemide (Lasix) 40 mg DAILY IVP Last administered on 08/13/17 08:32; Start 08/11/17 at 09:00 Iron Sucrose 200 mg/Sodium Chloride 110 ml @ 55 mls/hr 1X ONCE IV ; Start at 16:30; Stop 08/12/17 at 16:30; Status DC Iron Sucrose 200 mg/Miscellaneous 10 ml @ 120 mls/hr 1X ONCE IV Last administered on 08/12/17t 18:27; Start 08/12/17 at 16:30; Stop 08/12/17 at 16 :34; Status DC Active Scripts Active Prednisone 10 Mg Tablet 10 Mg PO UD Take 4 for 2 days then 3 for 2 days then 2 for 2 days then 1 for 2 days-off Albuterol Sulfate Neb Soln (Albuterol Sulfate) 1.25 Mg/3 Ml Vial.neb 1 Vial NEB Q6HRS Carafate (Sucralfate) 1 Gm Tablet 1 Gm PO QHS 30 Days Reported Nicotrol (Nicotine) 10 Mg Cartridge 10 Mg IH PRN PRN [place] 10-325 Tablet (Acetaminophen/Hydrocodone Bitart) 1 Each Tablet 1 Tab PO PRN Q6HRS PRN Slow Fe (Ferrous Sulfate) 142 Mg Tablet.er 142 Mg PO DAILY Prolia (Denosumab) 60 Mg/1 Ml Disp.syrin 60 Mg SQ UD Bumetanide 2 Mg Tablet 3 Tab PO DAILY Paroxetine Hcl 40 Mg Tablet 1 Tab PO DAILY Imatinib Mesylate 400 Mg Tablet 400 Mg PO DAILYAC Nitrostat (Nitroglycerin) 0.4 Mg Tab.subl 0.4 Mg SL PRN Q5MIN PRN Persantine (Dipyridamole) 75 Mg Tablet 75 Mg PO BID Paroxetine Hcl 20 Mg Tablet 20 Mg PO DAILY Calcium-Vitamin D Tablet (Calcium Carbonate/Vitamin D3) 1 Each Tablet 1 Each PO DAILY Vitamin D3 (Cholecalciferol (Vitamin D3)) 10,000 Unit Tablet 10,000 Unit PO Hydrocodone-Apap 5-325 (Hydrocodone Bit/Acetaminophen) 1 Each Tablet 1 Tab PO PRN Q6HRS PRN Spiriva (Tiotropium [place]) 18 Mcg Cap.w.dev 2 Inh IH DAILY Gleevec (Imatinib Mesylate) 400 Mg Tablet 400 Mg PO DAILY Zetia (Ezetimibe) 10 Mg Tablet 10 Mg PO DAILY Vitals/I & O Vital Sign - Last 24 Hours 08/12/17 08/12/17 08/12/17 08/12/17 10:54 11:00 12:33 14:42 Temp 97.9 97.9 Pulse 80 Resp 16 B/P (MAP) 103/50 (67) Pulse Ox 93 96 96 O2 Delivery Room Air Room Air Room Air Room Air O2 Flow Rate 2.0 08/12/17 08/12/17 08/12/17 08/12/17 14:56 19:16 19:17 20:00 Temp 98.9 98.5 98.9 98.5 Pulse 77 83 Resp B/P (MAP) 121/64 (83) 125/61 (82) Pulse Ox 98 95 O2 Delivery Room Air Room Air Room Air Room Air 08/12/17 08/13/17 08/13/17 08/13/17 22:51 03:33 07:00 07:31 Temp 98.9 98.2 97.7 98.9 98.2 97.7 Pulse 86 84 82 Resp 16 B/P (MAP) 114/62 (79) 96/46 (63) 144/63 (90) Pulse Ox 96 94 90 O2 Delivery Room Air Room Air Room Air Room Air 08/13/17 07:56 Pulse Ox 93 O2 Delivery Room Air Intake and Output 08/12/17 08/12/17 08/13/17 15:00 23:00 07:00 Intake Total 1250 ml 400 ml Output Total 1150 ml Balance 100 ml 400 ml JOYCE OBRIEN MD Aug 13, 2017 09:08
[2017-08-13 10:40] VITALS: BP 114/58
== END 2017-08-13 13:30 | disposition home or self-care (01) | DRG 291 ==
LOC: ER 18:44 → 2 NORTH 20:43
PROVIDERS: ADMIT Family Medicine; ATTEND Family Medicine
DX: I13.0 Hypertensive heart and chronic kidney disease with heart failure and stage 1 through stage 4 chronic kidney disease, or unspecified chronic kidney disease (principal); I50.43 Acute on chronic combined systolic (congestive) and diastolic (congestive) heart failure; I27.20 Pulmonary hypertension, unspecified; I31.3 Pericardial effusion (noninflammatory); E44.1 Mild protein-calorie malnutrition; I07.1 Rheumatic tricuspid insufficiency; C92.11 Chronic myeloid leukemia, BCR/ABL-positive, in remission; I50.40 Unspecified combined systolic (congestive) and diastolic (congestive) heart failure; I42.0 Dilated cardiomyopathy; D64.9 Anemia, unspecified; F17.210 Nicotine dependence, cigarettes, uncomplicated; F32.9 Major depressive disorder, single episode, unspecified; G47.00 Insomnia, unspecified; I25.10 Atherosclerotic heart disease of native coronary artery without angina pectoris; I25.2 Old myocardial infarction; I34.0 Nonrheumatic mitral (valve) insufficiency; I35.1 Nonrheumatic aortic (valve) insufficiency; J44.9 Chronic obstructive pulmonary disease, unspecified; K21.9 Gastro-esophageal reflux disease without esophagitis; N18.9 Chronic kidney disease, unspecified; J30.9 Allergic rhinitis, unspecified; M19.90 Unspecified osteoarthritis, unspecified site; Z96.659 Presence of unspecified artificial knee joint; F41.9 Anxiety disorder, unspecified; T50.2X5A Adverse effect of carbonic-anhydrase inhibitors, benzothiadiazides and other diuretics, initial encounter; Z82.49 Family history of ischemic heart disease and other diseases of the circulatory system; Z83.3 Family history of diabetes mellitus; Z88.8 Allergy status to other drugs, medicaments and biological substances; Z90.710 Acquired absence of both cervix and uterus; Z95.2 Presence of prosthetic heart valve; Z87.01 Personal history of pneumonia (recurrent); Z68.22 Body mass index [BMI] 22.0-22.9, adult; Z90.49 Acquired absence of other specified parts of digestive tract
CPT/HCPCS: 36415; 71010; 80048; 80076; 82728; 83540; 83550; 83690; 83880; 84484; 85025; 85027; 93005; 93306; 94250; 94620; 94640; 94760; 96374; 99406; J1756; J1940; J7620; 97116; 97530; 97535; 99285-25

== ENCOUNTER 2017-08-23 11:52 | Inpatient (IN) | payer MEDICARE, OTHER ==
[~2017-08-23] VITALS: Ht 160 cm; Wt 53.3 kg
[~2017-08-23 11:52] MED LIST changes: +BUME2TAB PO; +FERR142T13 PO; +FURO-68 PO; +HYDR-963 PO; +IMATINIB MESYL400 MG PO; +NICO10CA IH; +PARO40TA3 PO; +POTA20TA82 PO
[2017-08-23] MEDS ORDERED: IV NORMAL SALINE 1000ML BAG 1,000 ML IV SCH (12:49)
[2017-08-23 12:50] LABS: BILIRUBIN,URINE NEGATIVE (NEG); GLUCOSE,URINE NEGATIVE (NEG); NITRITE,URINE NEGATIVE (NEG); PH,URINE 5.5; PROTEIN,URINE NEGATIVE (NEG-TRACE); UROBILINOGEN,URINE 0.2 mg/dL (0.2 mg/dL)
--- NOTE | 2017-08-23 12:55 | PHYS DOC ---
Past Medical History Past Medical History: Anxiety, Cancer, CHF, COPD, Depression, GERD, High Cholesterol, Immunosuppression, MT, Pneumonia, Renal Disease, Other Additional Past Medical Histor: osteoarthritis; mitral valve (leaks); stage 3 Kidney disease; Leukemia Past Surgical History: Cholecystectomy, Hysterectomy, Tonsillectomy, Other Additional Past Surgical Histo: knee x3; bladder repair; Left hip (roseline); T10; 8 - fingers; breast bx Alcohol Use: None Drug Use: None Adult General Chief Complaint Chief Complaint: FLANK PAIN HPI HPI Patient is a 76 year old female who presents with complaints of left hip and left lower back pain. Patient states that she started having left hip pain over the past week but states that it is rapidly progressed over the past 2-3 days. Patient states that the pain is sharp and worsens when she moves at the left hip. Patient denies any recent trauma to the area. Patient states that she has had surgery on her hip with insertion of a titanium roseline done [address] Frank. The patient states that she is having difficulty ambulating because of the pain. Patient denies any associated nausea, vomiting, fever, or swelling to the affected area. Patient states that the pain is not as bad while she is at rest but does significantly worsen with movement. Review of Systems Review of Systems Constitutional: Denies fever or chills [] Eyes: Denies change in visual acuity, redness, or eye pain [] HENT: Denies nasal congestion or sore throat [] Respiratory: Denies cough or shortness of breath [] Cardiovascular: Denies chest pain or edema[] GI: Denies abdominal pain, nausea, vomiting, bloody stools or diarrhea [] : Denies dysuria or hematuria [] Musculoskeletal: Left hip and back pain[] Integument: Denies rash or skin lesions [] Neurologic: Denies headache, focal weakness or sensory changes [] All other systems were reviewed and found to be within normal limits, except as documented in this note. Current Medications Current Medications Current Medications Medications (Trade) Dose Ordered Sig/Nidhi Start Time Stop Time Status Last Admin Dose Admin Acetaminophen (Tylenol) 650 mg PRN Q4HRS PRN 08/23/17 15:45 08/24/17 15:44 Fentanyl Citrate (Fentanyl 2ml Vial) 50 mcg PRN Q2HR PRN 08/23/17 15:45 08/24/17 15:44 Ondansetron HCl (Zofran) 4 mg PRN Q8HRS PRN 08/23/17 15:45 08/24/17 15:44 Sodium Chloride 1,000 ml @ 125 mls/hr Q8H 08/23/17 15:45 08/24/17 15:44 Allergies Allergies Allergies Coded Allergies Type Severity Reaction Last Updated Verified NSAIDS (Non-Steroidal Anti-Inflamma Allergy Intermediate 08/05/17 Yes Tetanus Vaccines and Toxoid Allergy Intermediate 08/05/17 Yes Physical Exam Physical Exam Constitutional: Alert, afebrile, appears in moderate discomfort. [] HENT: Normocephalic, atraumatic, bilateral external ears normal, oropharynx moist, no oral exudates, nose normal. [] Eyes: PERRLA, EOMI, conjunctiva normal, no discharge. [] Neck: Normal range of motion, no tenderness, supple, no stridor. [] Cardiovascular:Heart rate regular rhythm, no murmur [] Lungs & Thorax: Bilateral breath sounds clear to auscultation [] Abdomen: Bowel sounds normal, soft, no tenderness, no masses, no pulsatile masses. [] Skin: Warm, dry, no erythema, no rash. [] Back: No midline tenderness, mild left paraspinous muscle tenderness to palpation at the lower lumbar distribution, no flank ecchymosis. [] Extremities: Tenderness palpation over left anterior iliac crest and left greater trochanter, no cyanosis, no clubbing, ROM in left hip limited secondary to pain, no edema. [] Neurologic: Alert and oriented X 3, normal motor function, normal sensory function, no focal deficits noted. [] Current Patient Data Vital Signs Vital Signs Date Time Temp Pulse Resp B/P (MAP) Pulse Ox O2 Delivery O2 Flow Rate FiO2 08/23/17 15:13 22 93 Room Air 08/23/17 12:00 97.6 70 139/64 (89) 97.6 Lab Values Laboratory Tests Test 08/23/17 12:00 08/23/17 12:13 Urine Collection Type Unknown Urine Color Yellow Urine Clarity Clear Urine pH 5.5 Urine Specific [place] 1.010 Urine Protein Negative mg/dL (NEG-TRACE) Urine Glucose (UA) Negative mg/dL (NEG) Urine Ketones (Stick) Negative mg/dL (NEG) Urine Blood Negative (NEG) Urine Nitrite Negative (NEG) Urine Bilirubin Negative (NEG) Urine Urobilinogen Dipstick 0.2 mg/dL (0.2 mg/dL) Urine Leukocyte Esterase Negative (NEG) Urine RBC 0 /HPF (0-2) Urine WBC 0 /HPF (0-4) Urine Bacteria 0 /HPF (0-FEW) Urine Hyaline Casts Moderate /HPF Urine Mucus Slight /LPF White Blood Count 10.1 x10^3/uL (4.0-11.0) Red Blood Count 2.51 x10^6/uL (3.50-5.40) L Hemoglobin 8.6 g/dL (12.0-15.5) L Hematocrit 26.0 % (36.0-47.0) L Mean Corpuscular Volume 104 fL (79-100) H Mean Corpuscular Hemoglobin 34 pg (25-35) Mean Corpuscular Hemoglobin Concent 33 g/dL (31-37) Red Cell Distribution Width 15.4 % (11.5-14.5) H Platelet Count 229 x10^3/uL (140-400) Neutrophils (%) (Auto) 62 % (31-73) Lymphocytes (%) (Auto) 20 % (24-48) L Monocytes (%) (Auto) 9 % (0-9) Eosinophils (%) (Auto) 8 % (0-3) H Basophils (%) (Auto) 1 % (0-3) Neutrophils # (Auto) 6.2 x10^3uL (1.8-7.7) Lymphocytes # (Auto) 2.0 x10^3/uL (1.0-4.8) Monocytes # (Auto) 0.9 x10^3/uL (0.0-1.1) Eosinophils # (Auto) 0.8 x10^3/uL (0.0-0.7) H Basophils # (Auto) 0.1 x10^3/uL (0.0-0.2) Sodium Level 137 mmol/L (136-145) Potassium Level 3.8 mmol/L (3.5-5.1) Chloride Level 101 mmol/L (98-107) Carbon Dioxide Level 29 mmol/L (21-32) Anion Gap 7 (6-14) Blood Urea Nitrogen 26 mg/dL (7-20) H Creatinine 1.5 mg/dL (0.6-1.0) H Estimated GFR (Cockcroft-Gault) 33.7 BUN/Creatinine Ratio 17 (6-20) Glucose Level 87 mg/dL (70-99) Calcium Level 8.8 mg/dL (8.5-10.1) Magnesium Level 1.6 mg/dL (1.8-2.4) L Total Bilirubin 0.4 mg/dL (0.2-1.0) Aspartate Amino Transferase (AST) 29 U/L (15-37) Alanine Aminotransferase (ALT) 25 U/L (14-59) Alkaline Phosphatase 53 U/L (46-116) Total Protein 6.8 g/dL (6.4-8.2) Albumin 3.9 g/dL (3.4-5.0) Albumin/Globulin Ratio 1.3 (1.0-1.7) Laboratory Tests 08/23/17 12:13 Laboratory Tests 08/23/17 12:13 EKG EKG Not performed[] Radiology/Procedures Radiology/Procedures [facility] [address] [place] [address] IMAGING REPORT Signed PATIENT: KENDALL PALAFOX ACCOUNT: [id number] : 1940 LOCATION: ER AGE: 76 SEX: F EXAM STATUS: REG ER ORD. PHYSICIAN: TERRY VALENTINE MD REASON: left hip pain, no reported trauma PROCEDURE: HIP LEFT 2V WITH PELVIS Head x-rays Indication: Pain no known injury. Technique: AP pelvis and 2 views of the left hip joint Comparison: Study from 12/18/2016 Findings: Status post ORIF of left trochanteric fracture. Stable appearance of the hardware. Curvilinear calcifications are seen superior to the greater trochanter which may represent enthesophytes or dystrophic calcification, stable from previous study. No acute fracture or dislocation. Stable linear band of sclerosis seen in the left inferior pubic ramus likely old healed fracture. Bilateral vascular calcifications suggesting peripheral arterial disease. Impression: No acute findings. Status post ORIF of left trochanteric fracture. No interval change compared to previous study from 12/18/2016. DICTATED and SIGNED BY: CRISS RICHMOND DO DATE: 08/23/17 [id number] CC: RIAZ STEVENS MD; TERRY VALENTINE MD ~ [] Course & Med Decision Making Course & Med Decision Making Pertinent Labs and Imaging studies reviewed. (See chart for details) Patient treated with fentanyl in the emergency department. X-rays negative for acute bony injury. The patient however states that despite mild improvement in symptoms, she does not feel that her pain is well-controlled enough to be able to continue with outpatient therapy. She is of advanced age and she states that her has Parkinson's disease and would not be able to help care for her at home. I spoke with Dr. Acosta who is on-call for Dr. Diaz. He agreed to accept patient into the hospital for continued treatment. Dragon Disclaimer Dragon Disclaimer This electronic medical record was generated, in whole or in part, using a voice recognition dictation system. Departure Departure Impression: Primary Impression: Intractable pain Additional Impression: Unable to ambulate Disposition: ADMITTED INPATIENT Admitting Physician: Lucille Diaz Condition: STABLE Referrals: RIAZ STEVENS MD (PCP) Problem Qualifiers TERRY VALENTINE MD Aug 23, 2017 12:55
[2017-08-23] MEDS ORDERED: ONDANSETRON PF 4 MG/2 ML VIAL. IV ONE (13:00)
[2017-08-23 13:07] LABS: BACTERIA,URINE 0 /HPF (0-FEW); RBC,URINE 0 /HPF (0-2); WBC,URINE 0 /HPF (0-4)
[2017-08-23 13:11] LABS: BASO # 0.1 x10^3/uL (0.0-0.2); BASO % 1 % (0-3); EOS % 8 % (0-3); HEMOGLOBIN 8.6 g/dL (12.0-15.5); LYMPH % 20 % (24-48); MEAN CORPUSCULAR HEMOGLOBIN 34 pg (25-35); MEAN CORPUSCULAR HGB CONC 33 g/dL (31-37); MEAN CORPUSCULAR VOLUME 104 fL (79-100); MONO % 9 % (0-9); NEUT % 62 % (31-73); PLATELET COUNT 229 x10^3/uL (140-400); RED BLOOD COUNT 2.51 x10^6/uL (3.50-5.40); RED CELL DISTRIBUTION WIDTH 15.4 % (11.5-14.5); WHITE BLOOD COUNT 10.1 x10^3/uL (4.0-11.0)
[2017-08-23 13:16] LABS: CALCIUM 8.8 mg/dL (8.5-10.1); CREATININE 1.5 mg/dL (0.6-1.0); GFR 33.7; POTASSIUM 3.8 mmol/L (3.5-5.1)
[2017-08-23] MEDS: fentaNYL PF VIAL 100 MCG/2 ML VIAL IV PRN ×3 (13:17→22:08)
[2017-08-23 13:22] LABS: ALBUMIN 3.9 g/dL (3.4-5.0); ALBUMIN/GLOBULIN RATIO 1.3 (1.0-1.7); MAGNESIUM 1.6 mg/dL (1.8-2.4); TOTAL BILIRUBIN 0.4 mg/dL (0.2-1.0); TOTAL PROTEIN 6.8 g/dL (6.4-8.2)
--- NOTE | 2017-08-23 14:37 | RAD ---
Head x-rays Indication: Pain no known injury. Technique: AP pelvis and 2 views of the left hip joint Comparison: Study from 12/18/2016 Findings: Status post ORIF of left trochanteric fracture. Stable appearance of the hardware. Curvilinear calcifications are seen superior to the greater trochanter which may represent enthesophytes or dystrophic calcification, stable from previous study. No acute fracture or dislocation. Stable linear band of sclerosis seen in the left inferior pubic ramus likely old healed fracture. Bilateral vascular calcifications suggesting peripheral arterial disease. Impression: No acute findings. Status post ORIF of left trochanteric fracture. No interval change compared to previous study from 12/18/2016.
--- NOTE | 2017-08-23 14:39 | EKG ---
[facility] [address] [place] [address] Test Date: 2017-08-23 Test Time: 12:15:52 Pat Name: KENDALL PALAFOX Department: Room: Gender: F [employer]: : 1940 Requested By: TERRY VALENTINE Order Number: [id number] Reading MD: Silas Hui Measurements Intervals [place] Rate: 87 P: 27 NC: 152 QRS: 16 QRSD: 102 T: -12 QT: 360 QTc: 434 Interpretive Statements SINUS RHYTHM LEFT ATRIAL ABNORMALITY QRS(T) CONTOUR ABNORMALITY CONSISTENT WITH INFERIOR INFARCT AGE UNDETERMINED ABNORMAL ECG RI6.01 Compared to ECG 08/08/2017 19:06:06 Atrial abnormality now present Myocardial infarct finding still present Electronically Signed On 08-23-2017 17:54:09 BAG CHECKER by Silas Hui
[2017-08-23] MEDS ORDERED: ACETAMINOPHEN 325 MG TABLET. PO PRN (15:45)
[2017-08-23] MEDS ORDERED: ONDANSETRON PF 4 MG/2 ML VIAL. IV PRN (15:45)
[2017-08-23 19:45] VITALS: BP 118/65
[2017-08-23] MEDS: IV NORMAL SALINE 1000ML BAG 1,000 ML IV SCH ×2 (22:11→23:45)
[2017-08-23] MEDS ORDERED: NITROGLYCERIN SUBLINGUAL 0.4 MG BOTTLE OF 25. SL PRN (22:45)
[2017-08-23] MEDS ORDERED: NICOTINE 10 MG IH PRN (22:45)
[2017-08-23 23:00] VITALS: BP 108/58
[2017-08-23] MEDS ORDERED: ALBUTEROL SULFATE 2.5 MG/3 ML NEBU. NEB PRN (23:00)
[2017-08-23] MEDS: EZETIMIBE 10 MG TABLET. PO SCH (23:17)
[2017-08-23] MEDS: DIPYRIDAMOLE 25 MG TABLET. PO SCH (23:17)
[2017-08-23] MEDS: CALCIUM CARB/VIT D3 500/200 TABLET. PO SCH (23:17)
[2017-08-23] MEDS: ENOXAPARIN 30 MG/0.3 ML SYRINGE. SQ SCH (23:18)
[2017-08-24] MEDS ORDERED: NON FORMULARY ITEM (Albuterol Sulfate (Albuterol Sulfate Neb Soln) 1 VIAL) NEB SCH
[2017-08-24] MEDS: fentaNYL PF VIAL 100 MCG/2 ML VIAL IV PRN ×7 (02:09→20:30)
[2017-08-24 03:17] VITALS: BP 118/66
[2017-08-24 04:52] LABS: BASO # 0.1 x10^3/uL (0.0-0.2); BASO % 1 % (0-3); EOS % 9 % (0-3); HEMATOCRIT 23.7 % (36.0-47.0); HEMOGLOBIN 8.1 g/dL (12.0-15.5); LYMPH # 1.9 x10^3/uL (1.0-4.8); LYMPH % 26 % (24-48); MEAN CORPUSCULAR HEMOGLOBIN 35 pg (25-35); MEAN CORPUSCULAR HGB CONC 34 g/dL (31-37); MEAN CORPUSCULAR VOLUME 103 fL (79-100); MONO % 10 % (0-9); NEUT % 55 % (31-73); PLATELET COUNT 190 x10^3/uL (140-400); RED CELL DISTRIBUTION WIDTH 15.5 % (11.5-14.5); WHITE BLOOD COUNT 7.1 x10^3/uL (4.0-11.0)
[2017-08-24 05:14] LABS: ALBUMIN/GLOBULIN RATIO 1.3 (1.0-1.7); CALCIUM 8.3 mg/dL (8.5-10.1); CREATININE 1.2 mg/dL (0.6-1.0); GFR 43.6; POTASSIUM 4.1 mmol/L (3.5-5.1); TOTAL BILIRUBIN 0.4 mg/dL (0.2-1.0); TOTAL PROTEIN 5.3 g/dL (6.4-8.2)
[2017-08-24] MEDS: IPRATRPIUM/ALBUTEROL 0.5/2.5MG 3 ML NEBU. NEB SCH ×4 (05:38→19:27)
[2017-08-24] MEDS: IV NORMAL SALINE 1000ML BAG 1,000 ML IV SCH (05:45)
[2017-08-24 07:16] VITALS: BP 135/70
[2017-08-24] MEDS ORDERED: NON FORMULARY ITEM (Tiotropium Bromide (Spiriva) 2 INH) IH SCH (09:00)
[2017-08-24] MEDS: PARoxetine 20 MG TABLET PO SCH (09:20)
[2017-08-24] MEDS: DIPYRIDAMOLE 25 MG TABLET. PO SCH ×2 (09:20→20:29)
[2017-08-24] MEDS: HYDROcodone/APAP 10/325 1 TAB TABLET PO PRN ×2 (09:21→16:09)
[2017-08-24] MEDS: FUROSEMIDE 40 MG TABLET. PO SCH (09:21)
[2017-08-24] MEDS: POTASSIUM CHLORIDE 20 MEQ TABLET.ER. PO SCH (09:21)
[2017-08-24] MEDS: FERROUS SULFATE 325 MG TABLET. PO SCH (09:21)
[2017-08-24] MEDS: NON FORMULARY ITEM (Imatinib Mesylate (Gleevec) 400 MG) PO SCH (09:22)
--- NOTE | 2017-08-24 10:18 | HP ---
ADMIT DATE: 08/23/2017 CHIEF COMPLAINT: Left hip and back pain. HISTORY OF PRESENT ILLNESS AND HOSPITAL COURSE: This patient is a 76-year-old female, who 2-3 days prior to admission began having left hip and back pain. It became intractable and the patient was unable to care for herself. Therefore, she came to the Emergency Room for evaluation. She was treated with IV pain medication, but did not improve to the point where she was able to care for herself. The patient was admitted for pain control and Orthopedic consultation as well as further evaluation of possible radicular back pain. PAST MEDICAL HISTORY: Significant for: 1. COPD. 2. CML. 3. Coronary artery disease. 4. Valvular heart disease. 5. Hypertension. 6. Osteoporosis. 7. Major depression. 8. Chronic kidney disease stage 3. 9. Congestive heart failure, recently released from the hospital, approximately 10 prior to this admission. 10. Pulmonary hypertension. 11. Ejhnc-mo-pbdodat anemia from CML. PAST SURGICAL HISTORY: Significant for total abdominal hysterectomy, open cholecystectomy, benign breast biopsy and eyelid, left. FAMILY HISTORY: Significant for mother who with complications of CAD, father with type 2 diabetes and a brother with diabetes and leukemia. SOCIAL HISTORY: She is a current smoker, smokes approximately a pack to a pack and a half per day. The patient drinks alcohol approximately 2-3 drinks per week. She is and lives with her spouse. ALLERGIES: THE PATIENT EXHIBITS ALLERGIES TO IODINE, STATINS AND REMERON. REMERON CAUSES SWELLING. REVIEW OF SYSTEMS: The patient was doing well post recent hospitalization. Began having pain 1 week ago and extreme increase in pain 2 to 3 days ago. She denies any nausea, vomiting, diarrhea, cough, congestion, chest pain or shortness of breath at this time. She has no leg swelling. PHYSICAL EXAMINATION: GENERAL: This is a pale, cachectic-appearing female in no apparent distress on my initial exam. HEENT: Benign. NECK: Supple. CARDIAC EXAMINATION: Regular rate and rhythm, with a grade 3-4/6 systolic ejection murmur. LUNGS: Clear bilaterally. ABDOMEN: Soft, nontender. EXTREMITIES: Have trace edema bilaterally. She has 2+ pulses. NEUROLOGICAL EXAMINATION: Showed no unilateral findings. The patient was tender in her left flank and with mobility of her left leg and movement out of bed. She rated her pain initially as 8/10. The patient's pain is 5-6/10 when immobile. ASSESSMENT: 1. Acute left flank pain. 2. Left hip pain. 3. Radicular back pain down the left leg. 4. Azvif-zt-cbfoavh renal failure due to acute tubular necrosis. 5. Moderate protein malnutrition. 6. 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 7. History of congestive heart failure. 8. Valvular heart disease, consistent with severe mitral regurgitation. 9. Pulmonary hypertension. 10. Chronic obstructive pulmonary disease, stable. PLAN: Plan to proceed with Orthopedic consultation. Continue with PT and OT modalities. Continue with pain control. Monitor the patient's chronic medical issues, obtain MRI of L spine and plain film of C-spine to rule out compression fracture. ASCENCION BRANDT MD DR: JOHANN/orin JOB#: [id number] / [id number]
[2017-08-24 11:11] VITALS: BP 119/66
--- NOTE | 2017-08-24 12:16 | RAD ---
THORACIC SPINE 3V (AP, lateral, swimmer's) Clinical Indication: pain on left lower side Comparison: Chest radiograph dated 01/04/2017, lumbar spine radiographs dated 02/27/2015, CT abdomen and pelvis dated 03/31/2013 Findings: Unchanged mild exaggeration of the normal thoracic kyphosis. Unchanged levocurvature of the lumbar spine. No listhesis. Redemonstration of T10 kyphoplasty. Unchanged T11 approximately 50% height loss. No definite new vertebral body height loss, although evaluation is limited due to osteopenia. Mild multilevel degenerative changes of the thoracic spine. Atherosclerotic thoracic aorta. IMPRESSION: Redemonstration of T10 kyphoplasty. Unchanged T11 approximately 50% height loss. No definite new vertebral body height loss, although evaluation is limited due to osteopenia.
--- NOTE | 2017-08-24 13:26 | RAD ---
EXAM: Lumbar spine MRI without contrast. HISTORY: Leg weakness. TECHNIQUE: Multiplanar, multisequence magnetic resonance imaging of the lumbar spine was performed without contrast. COMPARISON: None. FINDINGS: There is S-shaped thoracolumbar scoliosis. There is slight retrolisthesis of T12 on L1, L1 on L2, L2 on L3 and L3 on L4. There is degenerative endplate remodeling with disc space narrowing and osteophytosis primarily along the right aspects of L2-L3 and L3-L4 on the left aspect of L4-L5. This corresponds with the levels of maximum scoliotic concavity. There are few small hemangiomas. No suspicious osseous lesion is seen. There is a moderate chronic anterior wedge compression fracture of T11. There is a moderate chronic anterior wedge compression fracture with vertebroplasty changes at T10. There is slight edema along the superior endplate of T10 is likely degenerative in etiology. No acute or subacute fracture is seen. The conus terminates at T12-L1. There is linear T1 hypointensity within the right iliac bone, likely due to atelectasis sequela of remote injury. At T11-T12, there is a left foraminal to lateral disc protrusion and endplate osteophytosis. There is mild facet arthropathy. There is severe left foraminal stenosis. There is deformation of the conus without significant central canal stenosis. At T12-L1, there is a left foraminal to lateral disc protrusion and endplate osteophytosis. There is severe left foraminal stenosis. There is mild central canal stenosis. At L1-L2, there is a right paracentral disc protrusion with 5 mm inferior extrusion superimposed on a disc bulge and endplate remodeling. There is mild bilateral facet arthropathy. There is moderate right greater than left foraminal stenosis. There is mild central canal stenosis. At L2-L3, there is a right lateral predominant disc bulge and endplate osteophytosis. There is mild right facet arthropathy. There is hypertrophy of the ligamentum flavum. There is moderate right foraminal stenosis. There is mild central canal stenosis. At L3-L4, there is a right foraminal to lateral disc protrusion and endplate osteophytosis. There is mild bilateral facet arthropathy. There is hypertrophy of the ligamentum flavum. There is moderate to severe right and mild left foraminal stenosis. There is mild central canal stenosis. At L4-L5, there is bilateral foraminal to extra foraminal disc protrusions superimposed on a disc bulge and endplate remodeling. There is mild to moderate left facet arthropathy. There is mild right and moderate to severe left foraminal stenosis. At L5-S1, there is a disc bulge. There is mild facet arthropathy. There is no stenosis. IMPRESSION: 1. Multilevel degenerative change throughout the thoracic and lumbar spine, described in detail above. This results in significant stenosis before mentioned levels. 2. Lumbar scoliosis and multilevel retrolisthesis. 3. Chronic compression fractures of T10 and T11. Electronically signed by: Emma Yang MD (08/24/2017 1:22 PM) [id number]
[2017-08-24 14:58] VITALS: BP 124/60
[2017-08-24 19:20] VITALS: BP 121/68
[2017-08-24] MEDS: CALCIUM CARB/VIT D3 500/200 TABLET. PO SCH (20:29)
[2017-08-24] MEDS: EZETIMIBE 10 MG TABLET. PO SCH (20:29)
[2017-08-24] MEDS: ENOXAPARIN 30 MG/0.3 ML SYRINGE. SQ SCH (20:31)
[2017-08-24] MEDS ORDERED: SUCRALFATE 1 GM TABLET. PO SCH (21:00)
[2017-08-24 23:10] VITALS: BP 120/68
[2017-08-25] MEDS: fentaNYL PF VIAL 100 MCG/2 ML VIAL IV PRN ×2 (02:26→08:36)
[2017-08-25 02:54] VITALS: BP 135/69
[2017-08-25 07:00] VITALS: BP 123/81
[2017-08-25] MEDS: IPRATRPIUM/ALBUTEROL 0.5/2.5MG 3 ML NEBU. NEB SCH ×3 (07:06→15:31)
[2017-08-25] MEDS: HYDROcodone/APAP 10/325 1 TAB TABLET PO PRN ×3 (08:36→16:30)
[2017-08-25] MEDS: POTASSIUM CHLORIDE 20 MEQ TABLET.ER. PO SCH (08:37)
[2017-08-25] MEDS: FUROSEMIDE 40 MG TABLET. PO SCH (08:37)
[2017-08-25] MEDS: FERROUS SULFATE 325 MG TABLET. PO SCH (08:37)
[2017-08-25] MEDS: DIPYRIDAMOLE 25 MG TABLET. PO SCH (08:37)
[2017-08-25] MEDS: PARoxetine 20 MG TABLET PO SCH (08:37)
[2017-08-25] MEDS: NON FORMULARY ITEM (Imatinib Mesylate (Gleevec) 400 MG) PO SCH (08:38)
--- NOTE | 2017-08-25 09:21 | PDOC ---
PROGRESS NOTES Subjective Subjective Patient still in pain but functionally improved. Objective Objective Vital Signs Date Time Temp Pulse Resp B/P (MAP) Pulse Ox O2 Delivery O2 Flow Rate FiO2 08/25/17 08:36 Room Air 08/25/17 07:08 91 08/25/17 07:00 97.7 89 18 123/81 (95) 97.7 08/24/17 05:38 2.0 Intake and Output 08/25/17 06:59 Intake Total 2241 ml Output Total 1000 ml Balance 1241 ml Intake Oral 1470 ml IV Total 771 ml Output Urine Total 1000 ml # Voids 2 Physical Exam Abdomen: Normal bowel sounds Heart: Other (3/6 mary) Extremities: No edema General: Alert Lungs: Clear to auscultation MUSCULOSKELETAL: Other (tender to palpation left thorax) Assessment Assessment Problems Medical Problems: (1) Intractable pain Status: Acute 1. Acute left flank pain. 2. Left hip pain. 3. Radicular back pain down the left leg. 4. [id number] renal failure due to acute tubular necrosis. 5. Moderate protein malnutrition. 6. 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 7. History of congestive heart failure. 8. Valvular heart disease, consistent with severe mitral regurgitation. 9. Pulmonary hypertension. 10. Chronic obstructive pulmonary disease Plan Plan of Care Increase PO pain meds Consult Dr. Coy,Dr. Diaz and Pain Clinic Home later today if stable Chest Xray Comment Review of Relevant I have reviewed the following items eliu (where applicable) has been applied. Labs Laboratory Tests Test 08/23/17 12:00 08/23/17 12:13 08/24/17 03:35 Urine Collection Type Unknown Urine Color Yellow Urine Clarity Clear Urine pH 5.5 Urine Specific [place] 1.010 Urine Protein Negative mg/dL (NEG-TRACE) Urine Glucose (UA) Negative mg/dL (NEG) Urine Ketones (Stick) Negative mg/dL (NEG) Urine Blood Negative (NEG) Urine Nitrite Negative (NEG) Urine Bilirubin Negative (NEG) Urine Urobilinogen Dipstick 0.2 mg/dL (0.2 mg/dL) Urine Leukocyte Esterase Negative (NEG) Urine RBC 0 /HPF (0-2) Urine WBC 0 /HPF (0-4) Urine Bacteria 0 /HPF (0-FEW) Urine Hyaline Casts Moderate /HPF Urine Mucus Slight /LPF White Blood Count 10.1 x10^3/uL (4.0-11.0) 7.1 x10^3/uL (4.0-11.0) Red Blood Count 2.51 x10^6/uL (3.50-5.40) 2.30 x10^6/uL (3.50-5.40) Hemoglobin 8.6 g/dL (12.0-15.5) 8.1 g/dL (12.0-15.5) Hematocrit 26.0 % (36.0-47.0) 23.7 % (36.0-47.0) Mean Corpuscular Volume 104 fL (79-100) 103 fL (79-100) Mean Corpuscular Hemoglobin 34 pg (25-35) 35 pg (25-35) Mean Corpuscular Hemoglobin Concent 33 g/dL (31-37) 34 g/dL (31-37) Red Cell Distribution Width 15.4 % (11.5-14.5) 15.5 % (11.5-14.5) Platelet Count 229 x10^3/uL (140-400) 190 x10^3/uL (140-400) Neutrophils (%) (Auto) 62 % (31-73) 55 % (31-73) Lymphocytes (%) (Auto) 20 % (24-48) 26 % (24-48) Monocytes (%) (Auto) 9 % (0-9) 10 % (0-9) Eosinophils (%) (Auto) 8 % (0-3) 9 % (0-3) Basophils (%) (Auto) 1 % (0-3) 1 % (0-3) Neutrophils # (Auto) 6.2 x10^3uL (1.8-7.7) 3.9 x10^3uL (1.8-7.7) Lymphocytes # (Auto) 2.0 x10^3/uL (1.0-4.8) 1.9 x10^3/uL (1.0-4.8) Monocytes # (Auto) 0.9 x10^3/uL (0.0-1.1) 0.7 x10^3/uL (0.0-1.1) Eosinophils # (Auto) 0.8 x10^3/uL (0.0-0.7) 0.6 x10^3/uL (0.0-0.7) Basophils # (Auto) 0.1 x10^3/uL (0.0-0.2) 0.1 x10^3/uL (0.0-0.2) Sodium Level 137 mmol/L (136-145) 139 mmol/L (136-145) Potassium Level 3.8 mmol/L (3.5-5.1) 4.1 mmol/L (3.5-5.1) Chloride Level 101 mmol/L (98-107) 106 mmol/L (98-107) Carbon Dioxide Level 29 mmol/L (21-32) 27 mmol/L (21-32) Anion Gap 7 (6-14) 6 (6-14) Blood Urea Nitrogen 26 mg/dL (7-20) 23 mg/dL (7-20) Creatinine 1.5 mg/dL (0.6-1.0) 1.2 mg/dL (0.6-1.0) Estimated GFR (Cockcroft-Gault) 33.7 43.6 BUN/Creatinine Ratio 17 (6-20) 19 (6-20) Glucose Level 87 mg/dL (70-99) 99 mg/dL (70-99) Calcium Level 8.8 mg/dL (8.5-10.1) 8.3 mg/dL (8.5-10.1) Magnesium Level 1.6 mg/dL (1.8-2.4) Total Bilirubin 0.4 mg/dL (0.2-1.0) 0.4 mg/dL (0.2-1.0) Aspartate Amino Transf (AST/SGOT) 29 U/L (15-37) 23 U/L (15-37) Alanine Aminotransferase (ALT/SGPT) 25 U/L (14-59) 19 U/L (14-59) Alkaline Phosphatase 53 U/L (46-116) 42 U/L (46-116) Total Protein 6.8 g/dL (6.4-8.2) 5.3 g/dL (6.4-8.2) Albumin 3.9 g/dL (3.4-5.0) 3.0 g/dL (3.4-5.0) Albumin/Globulin Ratio 1.3 (1.0-1.7) 1.3 (1.0-1.7) Medications Current Medications Fentanyl Citrate (Fentanyl 2ml Vial) 50 mcg PRN Q15MIN PRN IV PAIN GREATER THAN 3/10 Last administered on 08/24/17 09:32; Start 08/23/17 at 13:00; Stop 08/24/17 at 10:55; Status DC Sodium Chloride 1,000 ml @ 125 mls/hr Q8H IV Last administered on 08/23/17 13:16; Start 08/23/17 at 12:49; Stop 08/23/17 at 20:48; Status DC Ondansetron HCl (Zofran) 4 mg 1X ONCE IV Last administered on 08/23/17 13:16 ; Start 08/23/17 at 13:00; Stop 08/23/17 at 13:01; Status DC Ondansetron HCl (Zofran) 4 mg PRN Q8HRS PRN IV NAUSEA/VOMITING; Start at 15:45; Stop 08/24/17 at 15:44; Status DC Fentanyl Citrate (Fentanyl 2ml Vial) 50 mcg PRN Q2HR PRN IV PAIN Last administered on 08/24/17 14:08; Start 08/23/17 at 15:45; Stop 08/24/17 at 15 :44; Status DC Sodium Chloride 1,000 ml @ 125 mls/hr Q8H IV Last administered on 08/24/17 05:45; Start 08/23/17 at 15:45; Stop 08/24/17 at 15:44; Status DC Acetaminophen (Tylenol) 650 mg PRN Q4HRS PRN PO FEVER; Start 08/23/17 at 15:45 ; Stop 08/24/17 at 15:44; Status DC Enoxaparin Sodium (Lovenox 30mg Syringe) 30 mg Q24H SQ Last administered on 20:31; Start 08/23/17 at 23:00 Calcium/Vitamin D (Oscal D 500mg/ 200uts) 1 tab QHS PO Last administered on 20:29; Start 08/23/17 at 23:30 EZETIMIBE (Zetia) 10 mg QHS PO Last administered on 08/24/17 20:29; Start at 23:30 Furosemide (Lasix) 40 mg DAILY PO Last administered on 08/25/17 08:37; Start 08/24/17 at 09:00 Acetaminophen/ Hydrocodone Bitart (Lortab 10/325) 1 tab PRN Q6HRS PRN PO SEVERE PAIN Last administered on 08/25/17 08:36; Start 08/23/17 at 22:45; Stop 08/25/17 at 08:50; Status DC Nitroglycerin (Nitrostat) 0.4 mg PRN Q5MIN PRN SL CHEST PAIN; Start 08/23/17 at 22:45 Sucralfate (Carafate) 1 gm QHS PO Last administered on 08/24/17 20:29; Start 08/24/17 at 21:00 Non-Formulary Medication 1 vial Q6HRS NEB ; Start 08/24/17 at 00:00; Status UNV Dipyridamole (Persantine) 75 mg BID PO Last administered on 08/25/17 08:37; Start 08/23/17 at 23:30 Ferrous Sulfate (Feosol) 325 mg DAILYWBKFT PO Last administered on 08/25/17 08:37; Start 08/24/17 at 08:00 Non-Formulary Medication 400 mg DAILY PO Last administered on 08/25/17 08:38 ; Start 08/24/17 at 09:00 Non-Formulary Medication 10 mg PRN Q1HR PRN IH SMOKING CESSATION; Start at 22:45 Paroxetine HCl (Paxil) 40 mg DAILY PO Last administered on 08/25/17 08:37; Start 08/24/17 at 09:00 Potassium Chloride (Klor-Con) 20 meq DAILYWBKFT PO Last administered on 08:37; Start 08/24/17 at 08:00 Non-Formulary Medication 2 inh DAILY IH ; Start 08/24/17 at 09:00; Status UNV Albuterol/ Ipratropium (Duoneb) 3 ml RTQID NEB Last administered on 08/25/17 07:06; Start 08/24/17 at 08:00 Albuterol Sulfate (Ventolin Neb Soln) 2.5 mg PRN Q6HRS PRN NEB SHORTNESS OF BREATH; Start 08/23/17 at 23:00 Fentanyl Citrate (Fentanyl 2ml Vial) 50 mcg PRN Q2HR PRN IV PAIN Last administered on 08/25/17t 08:36; Start 08/24/17 at 16:15 Acetaminophen/ Hydrocodone Bitart (Lortab 10/325) 1 tab PRN Q4HRS PRN PO SEVERE PAIN; Start 08/25/17 at 09:00 Active Scripts Active Potassium Chloride 20 Meq Tablet.er 20 Meq PO DAILY 90 Days Lasix (Furosemide) 40 Mg Tablet 1 Tab PO DAILY Albuterol Sulfate Neb Soln (Albuterol Sulfate) 1.25 Mg/3 Ml Vial.neb 1 Vial NEB Q6HRS Carafate (Sucralfate) 1 Gm Tablet 1 Gm PO QHS 30 Days Reported Nicotrol (Nicotine) 10 Mg Cartridge 10 Mg IH PRN PRN [place] 10-325 Tablet (Acetaminophen/Hydrocodone Bitart) 1 Each Tablet 1 Tab PO PRN Q6HRS PRN Slow Fe (Ferrous Sulfate) 142 Mg Tablet.er 142 Mg PO DAILY Prolia (Denosumab) 60 Mg/1 Ml Disp.syrin 60 Mg SQ UD Paroxetine Hcl 40 Mg Tablet 1 Tab PO DAILY Nitrostat (Nitroglycerin) 0.4 Mg Tab.subl 0.4 Mg SL PRN Q5MIN PRN Persantine (Dipyridamole) 75 Mg Tablet 75 Mg PO BID Calcium-Vitamin D Tablet (Calcium Carbonate/Vitamin D3) 1 Each Tablet 1 Each PO DAILY Vitamin D3 (Cholecalciferol (Vitamin D3)) 10,000 Unit Tablet 10,000 Unit PO Spiriva (Tiotropium [place]) 18 Mcg Cap.w.dev 2 Inh IH DAILY Gleevec (Imatinib Mesylate) 400 Mg Tablet 400 Mg PO DAILY Zetia (Ezetimibe) 10 Mg Tablet 10 Mg PO DAILY Vitals/I & O Vital Sign - Last 24 Hours 08/24/17 08/24/17 08/24/17 08/24/17 09:21 09:32 11:05 11:11 Temp 97.9 97.9 Pulse 78 Resp 16 B/P (MAP) 119/66 (83) Pulse Ox 94 O2 Delivery Room Air Room Air Room Air Room Air 08/24/17 08/24/17 08/24/17 08/24/17 11:28 12:01 14:08 14:30 O2 Delivery Room Air Room Air Room Air Room Air 08/24/17 08/24/17 08/24/17 08/24/17 14:58 15:47 16:09 16:10 Temp 97.7 97.7 Pulse 78 Resp 16 B/P (MAP) 124/60 (81) Pulse Ox 100 99 O2 Delivery Room Air Room Air Room Air Room Air 08/24/17 08/24/17 08/24/17 08/24/17 18:00 18:18 19:20 19:25 Temp 97.8 97.8 Pulse 81 Resp 18 B/P (MAP) 121/68 (85) Pulse Ox 96 99 O2 Delivery Room Air Room Air Room Air Room Air 08/24/17 08/24/17 08/24/17 08/25/17 20:20 20:30 23:10 02:26 Temp 98.1 98.1 Pulse 78 Resp 20 18 20 B/P (MAP) 120/68 (85) Pulse Ox 99 97 97 O2 Delivery Room Air Room Air Room Air Room Air 08/25/17 08/25/17 08/25/17 08/25/17 02:54 03:00 07:00 07:08 Temp 97.8 97.7 97.8 97.7 Pulse 83 89 Resp 18 20 18 B/P (MAP) 135/69 (91) 123/81 (95) Pulse Ox 94 94 92 91 O2 Delivery Room Air Room Air Room Air Room Air 08/25/17 08/25/17 08:36 08:36 O2 Delivery Room Air Room Air Intake and Output 08/24/17 08/24/17 08/25/17 14:59 22:59 06:59 Intake Total 1761 ml 480 ml Output Total 700 ml 300 ml Balance 1061 ml 180 ml ASCENCION BRANDT MD Aug 25, 2017 09:21
[2017-08-25] MEDS ORDERED: methylPREDNISolone ACETATE 40 MG/ML VIAL. IM ONE (09:45)
[2017-08-25] MEDS ORDERED: BUPIVACAINE MPF 0.25% 10 ML VIAL. IJ ONE (09:45)
[2017-08-25 11:00] VITALS: BP 109/54
--- NOTE | 2017-08-25 12:35 | RAD ---
Portable chest, 08/25/2017: History: Chest pain Comparison is made to a study from 08/10/2017. The heart is enlarged. There is calcific plaquing of the aorta. The lung bases have largely cleared since the previous exam. There is mild residual linear atelectasis in the left base. No significant volume of residual pleural fluid is seen in the AP projection. The bony structures are demineralized. Vertebroplasty changes are noted at several levels near the thoracolumbar junction. IMPRESSION: 1. Cardiomegaly and aortic atherosclerosis. 2. Pleural effusions and basilar infiltrates have largely resolved since 08/10/2017.
[2017-08-25 15:00] VITALS: BP 129/66
[2017-08-25] MEDS ORDERED: HYDR-963 PO (15:16)
--- NOTE | 2017-08-25 16:30 | CONS ---
DATE OF CONSULTATION: 08/24/2017 REQUESTING PHYSICIAN: Dr. Chet Acosta. REASON FOR CONSULTATION: Left hip and back pain. HISTORY OF PRESENT ILLNESS: The patient is a 76-year-old female who indicates that she had been having increasing atraumatic onset left hip area and back pain that became so severe she was unable to really manage the pain or independently care for herself and was admitted through the Emergency Department as a result of her severe pain. She indicates that the pain is really above the area of the left hip, radiates somewhat up her left side up to about the mid rib cage area and toward her spine from that entire area up and down the left side. She really denies any radiating type pain down the left leg. She does indicate that she had had previous low back issues in the lumbar area with some compression and slippage. PAST MEDICAL HISTORY: Chronic myelogenous leukemia, COPD, coronary artery disease, hypertension, osteoporosis, previous back pain, chronic kidney disease, congestive heart failure, pulmonary hypertension. PAST SURGICAL HISTORY: Significant for previous total hysterectomy, cholecystectomy, breast biopsy and eyelid surgery. FAMILY HISTORY: Significant for mother with heart disease, diabetes in her father and diabetes and cancer in one of her brothers. SOCIAL HISTORY: She is a smoker over a pack per day, occasional alcohol consumption. Denies drug use. She is and lives with her and generally gets around independently. MEDICATIONS: List was reviewed. ALLERGIES: INCLUDE IODINE, STATIN MEDICATIONS AND REMERON. REVIEW OF SYSTEMS: Really significant for previous remote low back pain, but atraumatic onset recent pain, very severe in the past couple of days. She denies any type of fall, twisting injury, radiating pain, numbness, tingling in the extremities, focal weakness, visual changes, chest pain, shortness of breath or any joint injury extremity swelling. PHYSICAL EXAMINATION: GENERAL: A pleasant, cooperative 76-year-old female, alert and oriented, in no acute distress. EXTREMITIES: Examination of the lower extremities reveals a negative straight leg raise test bilaterally. She has good hip range of motion bilaterally. She has some mild tenderness over the trochanteric bursa on the left side. Leg lengths are equal with no deformity. She has normal alignment, stability, motion of bilateral hips, knees and ankles with overall intact motor function, distal pulses, sensation, reflexes, skin in both lower extremities throughout. No leg swelling whatsoever. She really has no significant tenderness on palpation over the areas where she has been having the pain above the left hip, back and left-sided rib area and the left flank. IMAGING: X-rays of the left hip show previous fixation of intertrochanteric hip fracture, which appears healed in excellent position. Hardware is intact. There is really no abnormality of the hardware. The hip joint space is well maintained. MRI of the back has apparently been done, results are pending. X-rays of the thoracic spine show significant lumbar scoliosis with collapse of multiple lumbar vertebra and significant thoracic kyphosis and significant osteopenia noted on Radiology review. MRI by radiology report shows what appeared to be chronic wedge compression fractures of the low thoracic and lumbar levels and in particular severe left foraminal stenosis at T12-L1 level. IMPRESSION: 1. Left flank area pain. 2. History of healed left hip fracture. 3. Very mild trochanteric bursitis, left hip, not requiring intervention at this time. 4. Probably likely radiating pain from left-sided foraminal stenosis at thoracolumbar level area. TREATMENT PLAN: I had gone over with her that I really think the issues bothering her on her left side are much more from nerve compression at the back than anything going on with her hip at all. The trochanteric bursal tenderness that she has is very mild, does not warrant any type of injection or intervention at this point. Likewise, no limitations in terms of her hip, which appears to be well healed and the joint space well maintained from fixation of a previous remote fracture. All her questions were answered, I believe Dr. Diaz has been consulted as well and can certainly review the results and any recommendations that he has in terms of her MRI spine findings. MUSHTAQ VALENCIA MD DR: ELDON/orin JOB#: [id number] / [id number] CHET Gilliam MD
--- NOTE | 2017-08-25 17:07 | DS ---
DATE OF DISCHARGE: 08/25/2017 ADMITTING DIAGNOSIS: Intractable back pain. DISMISSAL DIAGNOSES: 1. Spinal stenosis of lumbar spine. 2. Acute on chronic renal failure due to acute tubular necrosis. 3. Moderate protein malnutrition. 4. Anemia due to CML. 5. Congestive heart failure. 6. Valvular heart disease. 7. Pulmonary hypertension. 8. Chronic obstructive pulmonary disease. HISTORY OF PRESENT ILLNESS AND HOSPITAL COURSE: This patient is a 76-year-old female who came in with 2-3 day history of increasing hip and back pain. She was unable to care for herself; therefore she came to the Emergency Room. Despite Emergency Room evaluation and treatment, she was unable to ambulate; therefore, was admitted to the hospital for pain control and physical therapy modalities. The patient was seen by Dr. Coy and underwent x-rays confirming spinal stenosis of L-spine. There were no new compression fractures noted. No evidence of metastatic disease throughout x-rays. The patient's symptoms did improve within 48 hours of admission with IV pain medication and physical therapy. The patient was scheduled for Pain Clinic evaluation and neurosurgical evaluation, which will be accomplished as outpatient. The patient did improve to the point where she was able to ambulate and care for herself; therefore, plans for discharge to home were made. She was discharged on her previous home medications with increase in hydrocodone dose of 10/325 mg 1-2 q.4 hours p.r.n. on a temporary basis. She will follow up with Dr. Diaz for continued care and follow up with Dr. Luca Echeverria in the Pain Clinic and Dr. Tae Diaz with Neurosurgery within the next 2 weeks. ASCENCION BRANDT MD DR: JOHANN/orin JOB#: [id number] / [id number]
--- NOTE | 2017-08-25 23:23 | CONS ---
DATE OF CONSULTATION: 08/25/2017 ATTENDING PHYSICIAN: Chet Acosta MD REASON FOR CONSULTATION: The patient was seen at the request of Dr. Acosta for rehab evaluation about her left hip area pain. HISTORY OF PRESENT ILLNESS: This is a 76-year-old female admitted on 08/23/2017 with complaint of pain in her left side of her lower back and hip area interfering with her mobility and self-care skills. The patient was seen in the Emergency Room, was treated with IV pain medication, but did not improve to the point that she can take care of herself. The patient with known chronic obstructive pulmonary disease, CML, coronary artery disease, valvular heart disease, hypertension, osteoporosis, major depression, chronic kidney disease stage 3, congestive heart failure, recently released from the hospital about 10 days prior to the present hospitalization, pulmonary hypertension, [id number] anemia from CML. The patient is status post total abdominal hysterectomy, open cholecystectomy, benign breast biopsy, family history of mother dying from complications of coronary artery disease, father with diabetes mellitus, brother also with diabetes mellitus and leukemia. She is a current smoker, smokes about a pack to pack and half cigarettes for a day; drinks alcohol about 2-3 drinks per week. She lives with her who recently had shoulder fracture and she has to help him to get up. The patient apparently doing well post-recent hospitalization, began having this pain about a week ago and worse about 2-3 days prior to the present hospitalization. The patient is known ALLERGIC TO IODINE, STATINS AND REMERON. Since admission, she had radiological studies. X-rays of the hip and pelvis failed to reveal any acute abnormalities. It revealed stable linear band of sclerosis seen in the left inferior pubic ramus, likely old healed fracture, bilateral vascular calcification suggesting peripheral arterial disease and status post ORIF left trochanteric fracture without any significant change from previous study done in November of this year, curvilinear calcifications are seen superior to the greater trochanter which may represent bone spurs or dystrophic calcification, stable from the previous study. She had thoracic spine x-rays done, which revealed redemonstration of T10 kyphoplasty unchanged, T11 approximately 50% height loss, osteopenia, atherosclerotic thoracic aorta. MRI scan of her lumbar spine done on 08/24/2017 revealed multilevel degenerative changes throughout the thoracic and lumbar spine resulting in significant stenosis, especially of neural foramina, more so on the left side at T11-T12, T12-L1; also more on the right side at L1-L2 and also at L2-L3, at L3-L4 and more so on the left at L4-L5. The patient also had lumbar scoliosis with multilevel retrolisthesis and chronic compression fractures of T10 and T11. The patient denies any radiation of pain to the extremities or any numbness, tingling sensation in the extremities or any trouble with her bowel and bladder control at present time. She lives with her , had stairs to manage. PHYSICAL EXAMINATION: Today revealed an elderly female. She is alert, oriented to time, place, person and circumstance and follows commands appropriately, moves all 4 extremities voluntarily where she had 4+/5 grade muscle strength and deep tendon reflexes are 1 to 2+ and symmetrical and she had equal perception of touch and pinprick sensation bilaterally. She had pain free range of motion on both hip joints. She had some pain on lumbar spine range of motion, mainly lateral bending to the left side. She had tenderness to palpation over left sacroiliac joint area and adjoining gluteal muscles. Straight leg raising test is negative bilaterally. She had crepitus on range of motion of both knee joints with mild degree of knee joint effusion. Her skin is intact at this time. She is independent with her mobility and most of the aspects of her self-care and walking at bedside without any difficulty. ASSESSMENT: An elderly female with degenerative disk disease and degenerative joint disease of lumbar vertebrae without any clinical evidence of ongoing lumbar radiculopathy. She had multilevel neural foraminal compromise both sides, also presented with degenerative joint disease of her knees and the patient with known coronary artery disease, chronic myelocytic leukemia, coronary artery disease, valvular heart disease, hypertension, osteoporosis, major depression, chronic kidney disease stage 3, congestive heart failure, pulmonary hypertension, [id number] anemia and degenerative joint disease of her knees. RECOMMENDATIONS: At her request, I have injected painful left sacroiliac joint area using Marcaine and Depo-Medrol solution under aseptic skin technique after skin preparation using alcohol swab and she tolerated the procedure satisfactorily without any side effects. I have advised her in a home program of physical modalities and stretching exercises and reviewed with her proper body mechanics and advised her to avoid any activity that irritates her back. Home when medically stable with outpatient followup. Dr. Acosta, I appreciate asking me to participate in the care of this interesting patient. I will be glad to follow her with you as needed for her rehabilitation. TERESA NORWOOD MD DR: ALMITA/orin JOB#: [id number] / [id number]
== END 2017-08-25 17:30 | disposition home or self-care (01) | DRG 551 ==
LOC: ER 11:52 → ED HOLD 15:31 → 4 NORTH 18:40
PROVIDERS: ADMIT Family Medicine; ATTEND Family Medicine
DX: M48.061 Spinal stenosis, lumbar region without neurogenic claudication (principal); N17.0 Acute kidney failure with tubular necrosis; E44.0 Moderate protein-calorie malnutrition; C92.10 Chronic myeloid leukemia, BCR/ABL-positive, not having achieved remission; I13.0 Hypertensive heart and chronic kidney disease with heart failure and stage 1 through stage 4 chronic kidney disease, or unspecified chronic kidney disease; I27.20 Pulmonary hypertension, unspecified; I50.9 Heart failure, unspecified; M48.54XA Collapsed vertebra, not elsewhere classified, thoracic region, initial encounter for fracture; D63.0 Anemia in neoplastic disease; E78.00 Pure hypercholesterolemia, unspecified; F17.200 Nicotine dependence, unspecified, uncomplicated; F32.9 Major depressive disorder, single episode, unspecified; G58.9 Mononeuropathy, unspecified; I25.10 Atherosclerotic heart disease of native coronary artery without angina pectoris; I34.0 Nonrheumatic mitral (valve) insufficiency; J44.9 Chronic obstructive pulmonary disease, unspecified; K21.9 Gastro-esophageal reflux disease without esophagitis; M19.90 Unspecified osteoarthritis, unspecified site; M41.9 Scoliosis, unspecified; F41.9 Anxiety disorder, unspecified; M70.62 Trochanteric bursitis, left hip; M81.0 Age-related osteoporosis without current pathological fracture; N18.3 Chronic kidney disease, stage 3 (moderate); M47.816 Spondylosis without myelopathy or radiculopathy, lumbar region; M48.04 Spinal stenosis, thoracic region; Z91.041 Radiographic dye allergy status; Z90.710 Acquired absence of both cervix and uterus; Z83.3 Family history of diabetes mellitus; Z82.49 Family history of ischemic heart disease and other diseases of the circulatory system; Z80.6 Family history of leukemia; Z68.20 Body mass index [BMI] 20.0-20.9, adult; Z87.01 Personal history of pneumonia (recurrent); Z87.81 Personal history of (healed) traumatic fracture; Z90.49 Acquired absence of other specified parts of digestive tract; Z91.09 Other allergy status, other than to drugs and biological substances
CPT/HCPCS: 36415; 71010; 72072; 72148; 73502; 80053; 81001; 83735; 85025; 93005; 94250; 94640; 94760; 96361; 96374; J1650; J2405; J3010; J7030; J7620; 99285-25

== ENCOUNTER 2017-10-26 13:06 | Inpatient (IN) | payer MEDICARE, OTHER ==
[2017-10-26 13:49] LABS: INFLUENZA A PATIENT NEGATIVE (NEGATIVE); INFLUENZA B PATIENT NEGATIVE (NEGATIVE); OBC FLU VALID
[2017-10-26] MEDS: IPRATRPIUM/ALBUTEROL 0.5/2.5MG 3 ML NEBU. NEB ×3 (13:58→21:01)
[2017-10-26 14:18] LABS: ADD MAN DIFF? NO
[2017-10-26 14:19] LABS: BASO % 0 % (0-3); EOS # 0.1 x10^3/uL (0.0-0.7); EOS % 1 % (0-3); HEMATOCRIT 26.6 % (36.0-47.0); HEMOGLOBIN 9.2 g/dL (12.0-15.5); LYMPH # 1.1 x10^3/uL (1.0-4.8); LYMPH % 9 % (24-48); MEAN CORPUSCULAR HEMOGLOBIN 34 pg (25-35); MEAN CORPUSCULAR HGB CONC 35 g/dL (31-37); MEAN CORPUSCULAR VOLUME 98 fL (79-100); MONO # 1.2 x10^3/uL (0.0-1.1); MONO % 9 % (0-9); NEUT # 10.3 x10^3uL (1.8-7.7); NEUT % 81 % (31-73); PLATELET COUNT 306 x10^3/uL (140-400); RED BLOOD COUNT 2.71 x10^6/uL (3.50-5.40); RED CELL DISTRIBUTION WIDTH 14.2 % (11.5-14.5); WHITE BLOOD COUNT 12.7 x10^3/uL (4.0-11.0)
[2017-10-26] MEDS: methylPREDNISolone SOD SUCC PF 125 MG/2 ML VIAL. IV ×2 (14:32→22:08)
[2017-10-26 14:35] LABS: ANION GAP 14 (6-14); BLOOD UREA NITROGEN 41 mg/dL (7-20); BUN/CREATININE RATIO 27 (6-20); CALCIUM 9.3 mg/dL (8.5-10.1); CARBON DIOXIDE 23 mmol/L (21-32); CHLORIDE 105 mmol/L (98-107); CREATININE 1.5 mg/dL (0.6-1.0); GFR 33.6; GLUCOSE 102 mg/dL (70-99); POTASSIUM 4.1 mmol/L (3.5-5.1); SODIUM 142 mmol/L (136-145)
[2017-10-26 14:38] LABS: TROPONINI 0.035 ng/mL (0.000-0.055)
[2017-10-26 14:42] LABS: NT-PRO BNP 6117 pg/mL (0-449)
[2017-10-26 14:42] LABS: ALBUMIN 3.6 g/dL (3.4-5.0); ALBUMIN/GLOBULIN RATIO 1.1 (1.0-1.7); ALK PHOS 65 U/L (46-116); ALT (SGPT) 29 U/L (14-59); AST (SGOT) 27 U/L (15-37); TOTAL BILIRUBIN 0.5 mg/dL (0.2-1.0); TOTAL PROTEIN 6.8 g/dL (6.4-8.2)
[2017-10-26] MEDS: AZITHRMYCN 500MG IVPB FOR OMNI 250 ML IV (15:44)
[2017-10-26] MEDS ORDERED: NITROGLYCERIN SUBLINGUAL 0.4 MG BOTTLE OF 25. SL (20:30)
[2017-10-26] MEDS ORDERED: ACETAMINOPHEN 500 MG TABLET PO (20:30)
[2017-10-26] MEDS ORDERED: NON FORMULARY ITEM (Denosumab (Prolia) 60 MG) SQ (20:45)
[2017-10-26] MEDS ORDERED: ENOXAPARIN 40 MG/0.4 ML SYRINGE. SQ (20:45)
[2017-10-26] MEDS ORDERED: NICOTINE 10 MG IH (20:45)
[2017-10-26] MEDS: SUCRALFATE 1 GM TABLET. PO (22:07)
[2017-10-26] MEDS: ENOXAPARIN 30 MG/0.3 ML SYRINGE. SQ (22:10)
[2017-10-26] MEDS: LACTOBACILLUS RHAMNOSUS GG 1 CAPSULE. PO (22:11)
[2017-10-26] MEDS: DIPYRIDAMOLE 25 MG TABLET. PO (22:11)
[2017-10-26] MEDS: cefTRIAXone IV Push 1 GM VIAL. IVP (22:12)
[2017-10-26] MEDS: DOXYCYCLINE HYCLATE 100 MG in IV DEXTROSE 5% 100 ML IV (22:13)
[2017-10-27] MEDS ORDERED: NON FORMULARY ITEM (Albuterol Sulfate (Albuterol Sulfate Neb Soln) 1 VIAL) NEB
[2017-10-27 05:45] LABS: BASO % 0 % (0-3); EOS % 0 % (0-3); HEMATOCRIT 25.6 % (36.0-47.0); HEMOGLOBIN 8.6 g/dL (12.0-15.5); LYMPH # 0.5 x10^3/uL (1.0-4.8); LYMPH % 4 % (24-48); MEAN CORPUSCULAR HEMOGLOBIN 33 pg (25-35); MEAN CORPUSCULAR HGB CONC 34 g/dL (31-37); MEAN CORPUSCULAR VOLUME 99 fL (79-100); MONO # 0.2 x10^3/uL (0.0-1.1); MONO % 1 % (0-9); NEUT % 94 % (31-73); PLATELET COUNT 301 x10^3/uL (140-400); RED BLOOD COUNT 2.58 x10^6/uL (3.50-5.40); RED CELL DISTRIBUTION WIDTH 14.6 % (11.5-14.5); WHITE BLOOD COUNT 11.7 x10^3/uL (4.0-11.0)
[2017-10-27] MEDS: methylPREDNISolone SOD SUCC PF 125 MG/2 ML VIAL. IV ×3 (05:50→21:20)
[2017-10-27 05:55] LABS: ADD MAN DIFF? YES
[2017-10-27 06:04] LABS: ANION GAP 14 (6-14); BLOOD UREA NITROGEN 37 mg/dL (7-20); CALCIUM 8.9 mg/dL (8.5-10.1); CARBON DIOXIDE 22 mmol/L (21-32); CHLORIDE 104 mmol/L (98-107); CREATININE 1.4 mg/dL (0.6-1.0); GFR 36.4; GLUCOSE 174 mg/dL (70-99); POTASSIUM 3.9 mmol/L (3.5-5.1); SODIUM 140 mmol/L (136-145)
[2017-10-27] MEDS: ALBUTEROL SULFATE 2.5 MG/3 ML NEBU. NEB (07:28)
[2017-10-27] MEDS: IPRATRPIUM/ALBUTEROL 0.5/2.5MG 3 ML NEBU. NEB ×4 (08:00→19:41)
[2017-10-27] MEDS ORDERED: IMATINIB MESYLATE 400 MG PO (09:00)
[2017-10-27] MEDS ORDERED: NON FORMULARY ITEM (Tiotropium Bromide (Spiriva) 2 INH) IH (09:00)
[2017-10-27] MEDS: PARoxetine 20 MG TABLET PO (10:11)
[2017-10-27] MEDS: CALCIUM CARB/VIT D3 500/200 TABLET. PO (10:11)
[2017-10-27] MEDS: EZETIMIBE 10 MG TABLET. PO (10:11)
[2017-10-27] MEDS: FUROSEMIDE 40 MG TABLET. PO (10:11)
[2017-10-27] MEDS: FERROUS SULFATE 325 MG TABLET. PO (10:11)
[2017-10-27] MEDS: LACTOBACILLUS RHAMNOSUS GG 1 CAPSULE. PO (10:11)
[2017-10-27] MEDS: POTASSIUM CHLORIDE 20 MEQ TABLET.ER. PO (10:12)
[2017-10-27] MEDS: NON FORMULARY ITEM (Imatinib Mesylate (Gleevec) 400 MG) PO (10:12)
[2017-10-27] MEDS: DOXYCYCLINE HYCLATE 100 MG in IV DEXTROSE 5% 100 ML IV ×2 (10:13→21:20)
[2017-10-27 10:14] LABS: % BANDS 2 % (0-9); % LYMPHS 2 % (24-48); % SEGS 96 % (35-66); PLT ESTIMATE ADEQUATE (ADEQUATE)
[2017-10-27] MEDS ORDERED: PIP/TAZO PER PHARMACY MC (13:15)
[2017-10-27] MEDS: DIPYRIDAMOLE 25 MG TABLET. PO ×2 (18:20→21:21)
[2017-10-27] MEDS: DARBEPOETIN ALFA 60 MCG/0.3 ML DISP.SYRIN. SQ (18:21)
[2017-10-27] MEDS: PIPERACILLIN/TAZOBACTAM 3.375 GM in IV NORMAL SALINE 50ML 50 ML IV ×2 (18:22→19:55)
[2017-10-27] MEDS: cefTRIAXone IV Push 1 GM VIAL. IVP (19:00)
[2017-10-27] MEDS: SUCRALFATE 1 GM TABLET. PO (21:21)
[2017-10-27] MEDS: ENOXAPARIN 30 MG/0.3 ML SYRINGE. SQ (21:22)
[2017-10-28] MEDS: HYDROcodone/APAP 10/325 1 TAB TABLET PO ×3 (00:03→21:06)
[2017-10-28] MEDS: PIPERACILLIN/TAZOBACTAM 3.375 GM in IV NORMAL SALINE 50ML 50 ML IV ×5 (00:55→23:15)
[2017-10-28] MEDS: methylPREDNISolone SOD SUCC PF 125 MG/2 ML VIAL. IV ×3 (06:12→20:50)
[2017-10-28] MEDS: IPRATRPIUM/ALBUTEROL 0.5/2.5MG 3 ML NEBU. NEB ×4 (08:37→20:02)
[2017-10-28] MEDS: CALCIUM CARB/VIT D3 500/200 TABLET. PO (09:01)
[2017-10-28] MEDS: FUROSEMIDE 40 MG TABLET. PO (09:01)
[2017-10-28] MEDS: DIPYRIDAMOLE 25 MG TABLET. PO ×2 (09:01→20:48)
[2017-10-28] MEDS: POTASSIUM CHLORIDE 20 MEQ TABLET.ER. PO (09:01)
[2017-10-28] MEDS: FERROUS SULFATE 325 MG TABLET. PO (09:01)
[2017-10-28] MEDS: EZETIMIBE 10 MG TABLET. PO (09:01)
[2017-10-28] MEDS: PARoxetine 20 MG TABLET PO (09:02)
[2017-10-28] MEDS: DOXYCYCLINE HYCLATE 100 MG in IV DEXTROSE 5% 100 ML IV ×2 (09:02→20:50)
[2017-10-28] MEDS: NON FORMULARY ITEM (Imatinib Mesylate (Gleevec) 400 MG) PO (09:02)
[2017-10-28 12:49] LABS: C DIFF BY PCR Positive (Negative)
[2017-10-28] MEDS: VANCOMYCIN 125 MG/2.5 ML ORAL SOLUTION. PO ×3 (13:04→21:05)
[2017-10-28] MEDS: SUCRALFATE 1 GM TABLET. PO (20:48)
[2017-10-28] MEDS: ENOXAPARIN 30 MG/0.3 ML SYRINGE. SQ (20:51)
[2017-10-29 05:31] LABS: HEMATOCRIT 22.7 % (36.0-47.0); HEMOGLOBIN 7.5 g/dL (12.0-15.5); MEAN CORPUSCULAR HEMOGLOBIN 33 pg (25-35); MEAN CORPUSCULAR HGB CONC 33 g/dL (31-37); MEAN CORPUSCULAR VOLUME 99 fL (79-100); PLATELET COUNT 290 x10^3/uL (140-400); RED CELL DISTRIBUTION WIDTH 14.5 % (11.5-14.5); WHITE BLOOD COUNT 15.6 x10^3/uL (4.0-11.0)
[2017-10-29] MEDS: PIPERACILLIN/TAZOBACTAM 3.375 GM in IV NORMAL SALINE 50ML 50 ML IV (05:43)
[2017-10-29] MEDS: methylPREDNISolone SOD SUCC PF 125 MG/2 ML VIAL. IV (05:43)
[2017-10-29 06:02] LABS: ANION GAP 10 (6-14); BLOOD UREA NITROGEN 46 mg/dL (7-20); CALCIUM 8.5 mg/dL (8.5-10.1); CARBON DIOXIDE 24 mmol/L (21-32); CHLORIDE 103 mmol/L (98-107); CREATININE 1.4 mg/dL (0.6-1.0); GFR 36.4; GLUCOSE 124 mg/dL (70-99); POTASSIUM 3.6 mmol/L (3.5-5.1); SODIUM 137 mmol/L (136-145)
[2017-10-29] MEDS: IPRATRPIUM/ALBUTEROL 0.5/2.5MG 3 ML NEBU. NEB ×2 (07:26→11:50)
[2017-10-29] MEDS: FUROSEMIDE 40 MG TABLET. PO (08:39)
[2017-10-29] MEDS: VANCOMYCIN 125 MG/2.5 ML ORAL SOLUTION. PO ×2 (08:39→12:39)
[2017-10-29] MEDS: DIPYRIDAMOLE 25 MG TABLET. PO (08:39)
[2017-10-29] MEDS: DOXYCYCLINE HYCLATE 100 MG in IV DEXTROSE 5% 100 ML IV (08:39)
[2017-10-29] MEDS: CALCIUM CARB/VIT D3 500/200 TABLET. PO (08:40)
[2017-10-29] MEDS: NON FORMULARY ITEM (Imatinib Mesylate (Gleevec) 400 MG) PO (08:40)
[2017-10-29] MEDS: FERROUS SULFATE 325 MG TABLET. PO (08:40)
[2017-10-29] MEDS: PARoxetine 20 MG TABLET PO (08:40)
[2017-10-29] MEDS: EZETIMIBE 10 MG TABLET. PO (08:40)
[2017-10-29] MEDS: POTASSIUM CHLORIDE 20 MEQ TABLET.ER. PO (08:40)
== END 2017-10-29 14:35 | disposition home or self-care (01) | DRG 177 ==
LOC: ER 13:06 → 5 SOUTH 14:45
DX: J15.6 Pneumonia due to other Gram-negative bacteria (principal); J96.01 Acute respiratory failure with hypoxia; A04.72 Enterocolitis due to Clostridium difficile, not specified as recurrent; C92.10 Chronic myeloid leukemia, BCR/ABL-positive, not having achieved remission; I50.42 Chronic combined systolic (congestive) and diastolic (congestive) heart failure; J44.0 Chronic obstructive pulmonary disease with (acute) lower respiratory infection; J44.1 Chronic obstructive pulmonary disease with (acute) exacerbation; Z68.1 Body mass index [BMI] 19.9 or less, adult; I27.20 Pulmonary hypertension, unspecified; D63.1 Anemia in chronic kidney disease; F17.210 Nicotine dependence, cigarettes, uncomplicated; I25.10 Atherosclerotic heart disease of native coronary artery without angina pectoris; N18.3 Chronic kidney disease, stage 3 (moderate); I34.0 Nonrheumatic mitral (valve) insufficiency; F32.9 Major depressive disorder, single episode, unspecified; M19.90 Unspecified osteoarthritis, unspecified site; M54.9 Dorsalgia, unspecified; E78.00 Pure hypercholesterolemia, unspecified; E78.5 Hyperlipidemia, unspecified; F41.9 Anxiety disorder, unspecified; J98.01 Acute bronchospasm; K21.9 Gastro-esophageal reflux disease without esophagitis; M81.0 Age-related osteoporosis without current pathological fracture; Z96.659 Presence of unspecified artificial knee joint; G89.29 Other chronic pain; R63.4 Abnormal weight loss; Z95.5 Presence of coronary angioplasty implant and graft; Z90.49 Acquired absence of other specified parts of digestive tract; Z82.49 Family history of ischemic heart disease and other diseases of the circulatory system; Z83.3 Family history of diabetes mellitus; Z80.9 Family history of malignant neoplasm, unspecified; Z90.710 Acquired absence of both cervix and uterus; Z86.19 Personal history of other infectious and parasitic diseases; Z85.9 Personal history of malignant neoplasm, unspecified; I25.2 Old myocardial infarction; Z88.6 Allergy status to analgesic agent; Z88.7 Allergy status to serum and vaccine; Z79.899 Other long term (current) drug therapy
CPT/HCPCS: 36415; 71045; 71250; 80048; 80053; 83880; 84484; 85007; 85025; 85027; 87324; 87804; 87804-59; 93005; 93308; 94640; 94760; 96365; 96367; 96375; 99285; 99285-25; J0456; J0690; J0696; J0881; J1650; J2543; J2930; J3490; J7613; J7620

== ENCOUNTER 2017-12-12 13:20 | Inpatient (IN) | payer MEDICARE, OTHER ==
[2017-12-12] MEDS: ONDANSETRON PF 4 MG/2 ML VIAL. IV (16:33)
[2017-12-12] MEDS: fentaNYL PF VIAL 100 MCG/2 ML VIAL IV (16:34)
[2017-12-12] MEDS: ALBUTEROL SULFATE 2.5 MG/3 ML NEBU. NEB (18:50)
[2017-12-12] MEDS: EZETIMIBE 10 MG TABLET. PO (19:56)
[2017-12-12] MEDS: DIPYRIDAMOLE 25 MG TABLET. PO (19:56)
[2017-12-12] MEDS: HYDROcodone/APAP 10/325 1 TAB TABLET PO (19:57)
[2017-12-13] MEDS ORDERED: NON FORMULARY ITEM (Albuterol Sulfate (Albuterol Sulfate Neb Soln) 1 VIAL) NEB
[2017-12-13] MEDS: fentaNYL PF VIAL 100 MCG/2 ML VIAL IV (02:44)
[2017-12-13] MEDS: HYDROcodone/APAP 10/325 1 TAB TABLET PO ×3 (02:44→16:11)
[2017-12-13] MEDS: ALBUTEROL SULFATE 2.5 MG/3 ML NEBU. NEB (08:31)
[2017-12-13] MEDS: DIPYRIDAMOLE 25 MG TABLET. PO ×2 (08:52→21:12)
[2017-12-13] MEDS: CHOLECALCIFEROL (VITAMIN D3) 5,000 UNIT CAPSULE PO (08:52)
[2017-12-13] MEDS: NICOTINE IH (08:56)
[2017-12-13] MEDS: [UNRECOGNIZED DRUG - OTHER] IH (08:56)
[2017-12-13] MEDS ORDERED: ALBUTEROL SULFATE 2.5 MG/3 ML NEBU. NEB (09:00)
[2017-12-13 09:37] LABS: ADD MAN DIFF? NO
[2017-12-13 09:50] LABS: BASO % 0 % (0-3); EOS # 0.2 x10^3/uL (0.0-0.7); EOS % 2 % (0-3); HEMATOCRIT 24.8 % (36.0-47.0); HEMOGLOBIN 8.2 g/dL (12.0-15.5); LYMPH # 2.2 x10^3/uL (1.0-4.8); LYMPH % 28 % (24-48); MEAN CORPUSCULAR HEMOGLOBIN 34 pg (25-35); MEAN CORPUSCULAR HGB CONC 33 g/dL (31-37); MEAN CORPUSCULAR VOLUME 103 fL (79-100); MONO # 0.8 x10^3/uL (0.0-1.1); MONO % 10 % (0-9); NEUT # 4.8 x10^3uL (1.8-7.7); NEUT % 60 % (31-73); PLATELET COUNT 204 x10^3/uL (140-400); RED BLOOD COUNT 2.42 x10^6/uL (3.50-5.40); RED CELL DISTRIBUTION WIDTH 17.5 % (11.5-14.5); WHITE BLOOD COUNT 8.1 x10^3/uL (4.0-11.0)
[2017-12-13 10:03] LABS: ANION GAP 10 (6-14); BLOOD UREA NITROGEN 33 mg/dL (7-20); CALCIUM 8.3 mg/dL (8.5-10.1); CARBON DIOXIDE 26 mmol/L (21-32); CHLORIDE 107 mmol/L (98-107); CREATININE 1.7 mg/dL (0.6-1.0); GFR 29.1; GLUCOSE 155 mg/dL (70-99); POTASSIUM 3.5 mmol/L (3.5-5.1); SODIUM 143 mmol/L (136-145)
[2017-12-13] MEDS: POTASSIUM CHLORIDE 20 MEQ TABLET.ER. PO (10:25)
[2017-12-13] MEDS: FERROUS SULFATE 325 MG TABLET. PO (10:26)
[2017-12-13] MEDS: PARoxetine 20 MG TABLET PO (10:26)
[2017-12-13] MEDS: FUROSEMIDE 40 MG TABLET. PO (10:26)
[2017-12-13] MEDS: IPRATRPIUM/ALBUTEROL 0.5/2.5MG 3 ML NEBU. NEB ×3 (11:09→20:24)
[2017-12-13 14:08] LABS: BILIRUBIN,URINE NEGATIVE (NEG); CLARITY,URINE CLEAR; COLOR,URINE YELLOW; GLUCOSE,URINE NEGATIVE (NEG); NITRITE,URINE NEGATIVE (NEG); PROTEIN,URINE 30 mg/dL (NEG-TRACE); UROBILINOGEN,URINE 0.2 mg/dL (0.2 mg/dL)
[2017-12-13 15:24] LABS: BACTERIA,URINE 0 /HPF (0-FEW); HYALINE CASTS, URINE MODERATE /HPF; RBC,URINE 0 /HPF (0-2); SQUAMOUS EPITHELIAL CELL,UR FEW /LPF
[2017-12-13] MEDS: EZETIMIBE 10 MG TABLET. PO (21:12)
[2017-12-14] MEDS: HYDROcodone/APAP 10/325 1 TAB TABLET PO ×2 (03:24→08:46)
[2017-12-14] MEDS: IPRATRPIUM/ALBUTEROL 0.5/2.5MG 3 ML NEBU. NEB (07:23)
[2017-12-14] MEDS: DIPYRIDAMOLE 25 MG TABLET. PO (08:45)
[2017-12-14] MEDS: PARoxetine 20 MG TABLET PO (08:46)
[2017-12-14] MEDS: CHOLECALCIFEROL (VITAMIN D3) 5,000 UNIT CAPSULE PO (08:46)
[2017-12-14] MEDS: FUROSEMIDE 40 MG TABLET. PO (08:47)
[2017-12-14] MEDS: POTASSIUM CHLORIDE 20 MEQ TABLET.ER. PO (08:47)
[2017-12-14] MEDS: FERROUS SULFATE 325 MG TABLET. PO (08:47)
== END 2017-12-14 10:00 | disposition home or self-care (01) | DRG 563 ==
LOC: ER 13:20 → 4 NORTH 15:25
DX: S82.145A Nondisplaced bicondylar fracture of left tibia, initial encounter for closed fracture (principal); I27.20 Pulmonary hypertension, unspecified; I42.9 Cardiomyopathy, unspecified; I50.42 Chronic combined systolic (congestive) and diastolic (congestive) heart failure; S32.9XXA Fracture of unspecified parts of lumbosacral spine and pelvis, initial encounter for closed fracture; W10.9XXA Fall (on) (from) unspecified stairs and steps, initial encounter; D63.8 Anemia in other chronic diseases classified elsewhere; F17.210 Nicotine dependence, cigarettes, uncomplicated; F41.9 Anxiety disorder, unspecified; I25.10 Atherosclerotic heart disease of native coronary artery without angina pectoris; I73.9 Peripheral vascular disease, unspecified; J44.9 Chronic obstructive pulmonary disease, unspecified; K21.9 Gastro-esophageal reflux disease without esophagitis; K58.9 Irritable bowel syndrome, unspecified; M17.12 Unilateral primary osteoarthritis, left knee; F32.9 Major depressive disorder, single episode, unspecified; M81.0 Age-related osteoporosis without current pathological fracture; Z96.659 Presence of unspecified artificial knee joint; N18.3 Chronic kidney disease, stage 3 (moderate); S80.212A Abrasion, left knee, initial encounter; Z82.49 Family history of ischemic heart disease and other diseases of the circulatory system; Z83.3 Family history of diabetes mellitus; Z85.72 Personal history of non-Hodgkin lymphomas; Z86.19 Personal history of other infectious and parasitic diseases; Z90.710 Acquired absence of both cervix and uterus; Z95.5 Presence of coronary angioplasty implant and graft; Y93.89 Activity, other specified; Y92.89 Other specified places as the place of occurrence of the external cause; Y99.8 Other external cause status; Z88.6 Allergy status to analgesic agent; Z88.7 Allergy status to serum and vaccine; Z88.8 Allergy status to other drugs, medicaments and biological substances
CPT/HCPCS: 29505; 36415; 72192; 73080; 73502; 73552; 73562; 73700; 80048; 81001; 85025; 87086; 94640; 96374; 97161-GP; 97165-GO; 99285-25; J2405; J3010; J7613; J7620

== ENCOUNTER 2018-02-18 11:33 | Observation (INO) | payer MEDICARE, OTHER ==
[2018-02-18] MEDS: IV NORMAL SALINE 1000ML BAG 1,000 ML IV (12:28)
[2018-02-18 12:36] LABS: ADD MAN DIFF? NO
[2018-02-18 12:38] LABS: BASO % 0 % (0-3); EOS # 0.1 x10^3/uL (0.0-0.7); EOS % 1 % (0-3); HEMATOCRIT 39.3 % (36.0-47.0); HEMOGLOBIN 12.9 g/dL (12.0-15.5); LYMPH # 2.5 x10^3/uL (1.0-4.8); LYMPH % 21 % (24-48); MEAN CORPUSCULAR HEMOGLOBIN 32 pg (25-35); MEAN CORPUSCULAR HGB CONC 33 g/dL (31-37); MEAN CORPUSCULAR VOLUME 96 fL (79-100); MONO # 1.2 x10^3/uL (0.0-1.1); MONO % 10 % (0-9); NEUT % 68 % (31-73); PLATELET COUNT 259 x10^3/uL (140-400); RED CELL DISTRIBUTION WIDTH 15.4 % (11.5-14.5); WHITE BLOOD COUNT 11.8 x10^3/uL (4.0-11.0)
[2018-02-18] MEDS: MORPHINE SULFATE 10 MG/ML VIAL. IV (12:45)
[2018-02-18 12:51] LABS: ANION GAP 5 (6-14); BLOOD UREA NITROGEN 22 mg/dL (7-20); BUN/CREATININE RATIO 18 (6-20); CALCIUM 8.9 mg/dL (8.5-10.1); CARBON DIOXIDE 28 mmol/L (21-32); CHLORIDE 105 mmol/L (98-107); CREATININE 1.2 mg/dL (0.6-1.0); GFR 43.4; GLUCOSE 99 mg/dL (70-99); INR 1.1 (0.8-1.1); POTASSIUM 4.1 mmol/L (3.5-5.1); PROTHROMBIN TIME PATIENT 14.1 SEC (11.7-14.0); SODIUM 138 mmol/L (136-145)
[2018-02-18 12:53] LABS: PARTIAL THROMBOPLASTIN TIME 33 SEC (24-38)
[2018-02-18 12:55] LABS: BILIRUBIN,URINE NEGATIVE (NEG); CLARITY,URINE CLEAR; COLOR,URINE YELLOW; GLUCOSE,URINE NEGATIVE (NEG); NITRITE,URINE NEGATIVE (NEG); PH,URINE 5.5; PROTEIN,URINE NEGATIVE (NEG-TRACE); UROBILINOGEN,URINE 0.2 mg/dL (0.2 mg/dL)
[2018-02-18 12:56] LABS: ALBUMIN/GLOBULIN RATIO 1.3 (1.0-1.7); ALK PHOS 72 U/L (46-116); ALT (SGPT) 26 U/L (14-59); AST (SGOT) 33 U/L (15-37); LIPASE 99 U/L (73-393); TOTAL BILIRUBIN 0.7 mg/dL (0.2-1.0); TOTAL PROTEIN 7.2 g/dL (6.4-8.2)
[2018-02-18 12:58] LABS: TROPONINI 0.045 ng/mL (0.000-0.055)
[2018-02-18 13:04] LABS: CKMB INDEX 4.7 % (0-4); CKMB MASS 6.3 ng/mL (0.0-3.6); CREATINE KINASE 133 U/L (26-192)
[2018-02-18 13:15] LABS: BACTERIA,URINE FEW /HPF (0-FEW); HYALINE CASTS, URINE OCCASIONAL /HPF; RBC,URINE RARE /HPF (0-2); WBC,URINE RARE /HPF (0-4)
[2018-02-18] MEDS ORDERED: ONDANSETRON PF 4 MG/2 ML VIAL. IV (15:45)
[2018-02-18] MEDS: MORPHINE SULFATE 4 MG/ML DISP.SYRIN. IV (17:38)
[2018-02-18] MEDS: DIPYRIDAMOLE 25 MG TABLET. PO (21:28)
[2018-02-18] MEDS: IV DEXTROSE 5 %-0.45 % NACL 1,000 ML IV (21:29)
[2018-02-18] MEDS: HYDROcodone/APAP 10/325 1 TAB TABLET PO (21:40)
[2018-02-19] MEDS ORDERED: ALBUTEROL SULFATE 2.5 MG/3 ML NEBU. NEB
[2018-02-19] MEDS: MORPHINE SULFATE 4 MG/ML DISP.SYRIN. IV ×4 (00:38→21:29)
[2018-02-19] MEDS: HYDROcodone/APAP 10/325 1 TAB TABLET PO ×3 (04:40→21:02)
[2018-02-19] MEDS: IPRATRPIUM/ALBUTEROL 0.5/2.5MG 3 ML NEBU. NEB ×4 (07:32→20:19)
[2018-02-19] MEDS: FERROUS SULFATE 325 MG TABLET. PO (08:39)
[2018-02-19] MEDS: POTASSIUM CHLORIDE 20 MEQ TABLET.ER. PO (08:39)
[2018-02-19] MEDS: EZETIMIBE 10 MG TABLET. PO (08:39)
[2018-02-19] MEDS: CALCIUM CARB/VIT D3 500/200 TABLET. PO (08:39)
[2018-02-19] MEDS: DIPYRIDAMOLE 25 MG TABLET. PO ×2 (08:40→21:02)
[2018-02-19] MEDS: FUROSEMIDE 40 MG TABLET. PO (08:40)
[2018-02-19] MEDS: IV DEXTROSE 5 %-0.45 % NACL 1,000 ML IV ×2 (08:52→20:08)
[2018-02-19] MEDS ORDERED: NON FORMULARY ITEM (Imatinib Mesylate (Gleevec) 400 MG) PO (09:00)
[2018-02-19] MEDS: PARoxetine 20 MG TABLET PO (14:54)
[2018-02-20] MEDS: HYDROcodone/APAP 10/325 1 TAB TABLET PO ×3 (02:34→19:16)
[2018-02-20] MEDS: IPRATRPIUM/ALBUTEROL 0.5/2.5MG 3 ML NEBU. NEB ×4 (07:20→20:01)
[2018-02-20] MEDS: IV DEXTROSE 5 %-0.45 % NACL 1,000 ML IV ×2 (07:24→20:20)
[2018-02-20] MEDS: DIPYRIDAMOLE 25 MG TABLET. PO ×2 (07:25→20:20)
[2018-02-20] MEDS: EZETIMIBE 10 MG TABLET. PO (08:58)
[2018-02-20] MEDS: FERROUS SULFATE 325 MG TABLET. PO (08:59)
[2018-02-20] MEDS: CALCIUM CARB/VIT D3 500/200 TABLET. PO (08:59)
[2018-02-20] MEDS: POTASSIUM CHLORIDE 20 MEQ TABLET.ER. PO (08:59)
[2018-02-20] MEDS: FUROSEMIDE 40 MG TABLET. PO (08:59)
[2018-02-20] MEDS: PARoxetine 20 MG TABLET PO (08:59)
[2018-02-20 09:14] LABS: HEMATOCRIT 28.2 % (36.0-47.0); HEMOGLOBIN 9.3 g/dL (12.0-15.5); MEAN CORPUSCULAR HEMOGLOBIN 32 pg (25-35); MEAN CORPUSCULAR HGB CONC 33 g/dL (31-37); MEAN CORPUSCULAR VOLUME 98 fL (79-100); PLATELET COUNT 179 x10^3/uL (140-400); RED CELL DISTRIBUTION WIDTH 15.4 % (11.5-14.5); WHITE BLOOD COUNT 7.3 x10^3/uL (4.0-11.0)
[2018-02-20 09:37] LABS: ANION GAP 6 (6-14); BLOOD UREA NITROGEN 21 mg/dL (7-20); CALCIUM 7.5 mg/dL (8.5-10.1); CARBON DIOXIDE 26 mmol/L (21-32); CHLORIDE 96 mmol/L (98-107); CREATININE 1.2 mg/dL (0.6-1.0); GFR 43.4; GLUCOSE 450 mg/dL (70-99); POTASSIUM 3.5 mmol/L (3.5-5.1); SODIUM 128 mmol/L (136-145)
[2018-02-20] MEDS: MORPHINE SULFATE 4 MG/ML DISP.SYRIN. IV ×2 (10:38→22:35)
[2018-02-20] MEDS: BUDESONIDE 3 MG CAP.ER.24H. PO (13:00)
[2018-02-20] MEDS: COLESTIPOL HCL 1 GM TABLET PO ×2 (13:05→22:34)
[2018-02-21] MEDS: HYDROcodone/APAP 10/325 1 TAB TABLET PO (04:44)
[2018-02-21] MEDS: IPRATRPIUM/ALBUTEROL 0.5/2.5MG 3 ML NEBU. NEB ×4 (07:24→20:24)
[2018-02-21] MEDS: IV DEXTROSE 5 %-0.45 % NACL 1,000 ML IV (08:11)
[2018-02-21] MEDS: COLESTIPOL HCL 1 GM TABLET PO ×2 (08:12→21:05)
[2018-02-21] MEDS: tiZANidine 4 MG TABLET. PO (08:12)
[2018-02-21] MEDS: PARoxetine 20 MG TABLET PO (08:12)
[2018-02-21] MEDS: BUDESONIDE 3 MG CAP.ER.24H. PO (08:12)
[2018-02-21] MEDS: EZETIMIBE 10 MG TABLET. PO (08:13)
[2018-02-21] MEDS: CALCIUM CARB/VIT D3 500/200 TABLET. PO (08:13)
[2018-02-21] MEDS: FERROUS SULFATE 325 MG TABLET. PO (08:13)
[2018-02-21] MEDS: DIPYRIDAMOLE 25 MG TABLET. PO ×2 (08:13→21:05)
[2018-02-21] MEDS: FUROSEMIDE 40 MG TABLET. PO (08:13)
[2018-02-21] MEDS: POTASSIUM CHLORIDE 20 MEQ TABLET.ER. PO (08:14)
[2018-02-21 10:33] LABS: ANION GAP 5 (6-14); BLOOD UREA NITROGEN 17 mg/dL (7-20); CALCIUM 8.4 mg/dL (8.5-10.1); CARBON DIOXIDE 28 mmol/L (21-32); CHLORIDE 99 mmol/L (98-107); GFR 53.6; GLUCOSE 105 mg/dL (70-99); POTASSIUM 4.1 mmol/L (3.5-5.1); SODIUM 132 mmol/L (136-145)
[2018-02-21 10:50] LABS: HEMATOCRIT 27.1 % (36.0-47.0); HEMOGLOBIN 8.9 g/dL (12.0-15.5); MEAN CORPUSCULAR HEMOGLOBIN 32 pg (25-35); MEAN CORPUSCULAR HGB CONC 33 g/dL (31-37); MEAN CORPUSCULAR VOLUME 97 fL (79-100); PLATELET COUNT 175 x10^3/uL (140-400); RED CELL DISTRIBUTION WIDTH 15.3 % (11.5-14.5); WHITE BLOOD COUNT 8.3 x10^3/uL (4.0-11.0)
[2018-02-21 11:08] LABS: POC GLUCOSE 94 mg/dL (70-99)
[2018-02-22] MEDS: HYDROcodone/APAP 10/325 1 TAB TABLET PO ×2 (03:31→08:39)
[2018-02-22] MEDS: IPRATRPIUM/ALBUTEROL 0.5/2.5MG 3 ML NEBU. NEB (07:06)
[2018-02-22] MEDS: EZETIMIBE 10 MG TABLET. PO (08:38)
[2018-02-22] MEDS: CALCIUM CARB/VIT D3 500/200 TABLET. PO (08:38)
[2018-02-22] MEDS: PARoxetine 20 MG TABLET PO (08:38)
[2018-02-22] MEDS: DIPYRIDAMOLE 25 MG TABLET. PO (08:38)
[2018-02-22] MEDS: FERROUS SULFATE 325 MG TABLET. PO (08:38)
[2018-02-22] MEDS: COLESTIPOL HCL 1 GM TABLET PO (10:56)
== END 2018-02-22 11:38 | disposition home or self-care (01) ==
LOC: ER 11:33 → 5 SOUTH 15:34
DX: K52.9 Noninfective gastroenteritis and colitis, unspecified (principal); E87.1 Hypo-osmolality and hyponatremia; I13.0 Hypertensive heart and chronic kidney disease with heart failure and stage 1 through stage 4 chronic kidney disease, or unspecified chronic kidney disease; I50.40 Unspecified combined systolic (congestive) and diastolic (congestive) heart failure; I25.10 Atherosclerotic heart disease of native coronary artery without angina pectoris; J44.9 Chronic obstructive pulmonary disease, unspecified; I73.9 Peripheral vascular disease, unspecified; K21.9 Gastro-esophageal reflux disease without esophagitis; I42.9 Cardiomyopathy, unspecified; K22.70 Barrett's esophagus without dysplasia; I34.0 Nonrheumatic mitral (valve) insufficiency; F17.210 Nicotine dependence, cigarettes, uncomplicated; E78.5 Hyperlipidemia, unspecified; D64.9 Anemia, unspecified; F41.9 Anxiety disorder, unspecified; M47.816 Spondylosis without myelopathy or radiculopathy, lumbar region; M48.54XA Collapsed vertebra, not elsewhere classified, thoracic region, initial encounter for fracture; N18.3 Chronic kidney disease, stage 3 (moderate); M81.0 Age-related osteoporosis without current pathological fracture; K56.7 Ileus, unspecified; Z80.6 Family history of leukemia; Z83.3 Family history of diabetes mellitus; Z82.49 Family history of ischemic heart disease and other diseases of the circulatory system; Z98.61 Coronary angioplasty status; Z90.710 Acquired absence of both cervix and uterus
CPT/HCPCS: 36415; 71046; 74176; 80048; 80053; 81001; 82553; 82962; 83690; 84484; 85025; 85027; 85610; 85730; 93005; 94640; 94760; 96360; 96361; 96374; 96376; 97161-GP; 97165-GO; 99285-25; G0378; G0379; G8987-CI-GO; G8988-CI-GO; G8989-CI-GO; J2270; J7030; J7620